=== PATIENT | male | born 1945 | race African-American/Black ===

== ENCOUNTER 2019-02-20 09:44 | Outpatient (CLI) | payer MEDICARE, MEDICAID ==
[2019-02-20 11:24] LABS: BLOOD UREA NITROGEN 18 mg/dL (7-18); CREATININE 1.1 MG/DL (0.55-1.30)
--- NOTE | 2019-02-20 14:00 | Diagnostic Imaging Report ---
. Indication: Dysphagia, shortness of breath Technique: No IV contrast, per referring physician request. Spiral acquisitions obtained through the neck. Multiplanar reconstructions were generated. Total dose length product 550.85 mGycm. CTDIvol(s) 18.36 mGy. Dose reduction achieved using automated exposure control Comparison: none Findings: Evaluation is limited due to the lack of IV contrast demonstration. Gas projects to the left of midline lateral to the expected course of the cervical esophagus. The included proximal thoracic esophagus appears unremarkable, although there is slight distention with gas distally. The nasopharynx, oropharynx, hypopharynx are unremarkable. There is equivocal slight prominence to the soft tissues of the larynx. However, this is symmetric and circumferential. The proximal trachea appears unremarkable. The thyroid is unremarkable. No cervical mass or adenopathy. There are prominent but not frankly enlarged cervical nodes noted. The orbits, sinuses, and included intracranial structures are unremarkable. The cervical spine demonstrates extensive degenerative spondylosis changes, with multiple levels of disc narrowing, posterior disc protrusion, spinal stenosis, and neural foraminal stenosis. Dense calcifications are seen at the carotid bifurcations bilaterally. The salivary glands are unremarkable, symmetrical. The patient is edentulous. The included upper lungs are clear. Calcified granulomatous prevascular space nodes are noted Impression: Gas projecting to the left of midline lateral to the expected course of the proximal cervical esophagus. This is suggestive of a diverticulum. Consider contrast esophagography to confirm Slight distention of the thoracic esophagus with gas, nonspecific but could indicate dysmotility Slight circumferential prominence of the laryngeal soft tissues. Of doubtful significance but direct inspection should be considered to rule out any underlying mass Fairly extensive degenerative cervical spondylosis Other chronic vascular disease Evidence of old granulomatous disease within mediastinal lymph nodes The CT scanner at [facility] is accredited by the [employer] and the scans are performed using protocols designed to limit radiation exposure to as low as reasonably achievable to attain images of sufficient resolution adequate for diagnostic evaluation.
== END 2019-02-20 11:44 | disposition home or self-care (01) ==
LOC: CAT 09:44
DX: J30.9 Allergic rhinitis, unspecified (principal); J40 Bronchitis, not specified as acute or chronic; J34.2 Deviated nasal septum; I32 Pericarditis in diseases classified elsewhere; R06.02 Shortness of breath; R13.10 Dysphagia, unspecified; M47.9 Spondylosis, unspecified; I99.9 Unspecified disorder of circulatory system
CPT/HCPCS: 36415; 70490; 82565; 84520

== ENCOUNTER 2019-07-21 20:53 | Inpatient (IN) | payer MEDICARE, OTHER ==
[~2019-07-21] VITALS: Ht 170.2 cm; Wt 67.8 kg
[2019-07-21 21:10] VITALS: BP 109/62
--- NOTE | 2019-07-21 21:10 | NUR ---
ED Nurse Note: Pt brought into ED by [facility] ambulance unit [id number] from [facility] for fever, decreased oral intake and weakness. Pt denies any pain at this time. Pt is aaox4, breathing is normal and unlabored, speaking in full sentences. Pt placed on monitoring and evaluation advisor and HR is tachy. Will continue to monitor. EKG at bedside.
[2019-07-21] MEDS ORDERED: ABILIFY2 MG ORAL (21:34)
[2019-07-21] MEDS ORDERED: CLARITIN10 M2 ORAL (21:37)
[2019-07-21] MEDS ORDERED: OS-CAL 500+D31 EAC1 PO (21:37)
[2019-07-21] MEDS ORDERED: COLACE100 MG ORAL (21:37)
[2019-07-21] MEDS ORDERED: Sodium Chloride 2,200 ML IVLG ONE (22:00)
--- NOTE | 2019-07-21 22:00 | Emergency Room Report ---
History of Present Illness General Chief Complaint: Generalized Weakness Source: EMS Present Illness HPI Disclaimer: Please note that this report is being documented using [employer] technology. This can lead to erroneous entry secondary to incorrect interpretation by the dictating instrument. HPI: 74-year-old male history of kidney disease, COPD, former substance abuse presents for evaluation of decreased oral intake, failure to thrive and cough. Patient presents from his nursing facility. He reports a few days of feeling ill. Reports objective fevers, chills, nonproductive cough, decreased appetite. He denies diarrhea or vomiting. Denies muscle aches or pains. Denies headaches, visual changes, skin rash. He denies chest pain or palpitations. Denies significant shortness of breath or wheezing but does note a persistent cough. PMH: COPD, substance abuse, hypertension, kidney disease PSH: Peripheral revascularization Allergies: Denies Social Hx: Former substance abuse and tobacco use Allergies: Coded Allergies: No Known Allergies (Verified , 10/13/07) Nursing Documentation-PMH Past Medical History: No History, Except For Hx Hypertension: Yes Hx COPD: Yes Review of Systems All Other Systems: negative except mentioned in HPI Physical Exam Vital Signs Date Time Temp Pulse Resp B/P (MAP) Pulse Ox O2 Delivery O2 Flow Rate FiO2 07/21/19 20:59 99.9 106 20 109/62 (78) 93 Room Air General: Awake and alert, no acute distress HEENT: NC/AT. EOMI. dry mucous membranes. Neck: Supple, trachea midline Chest Wall: No tenderness, no deformity Cardiovascular: Tachycardic and hypotensive. S1 and S2 normal. No murmur appreciated Resp: Normal work of breathing. Nonproductive cough during the exam. No wheezing or crackles appreciated Abdomen: Abdomen is soft, nondistended. Nontender. There is an umbilical hernia that is easily reducible without overlying skin change and is in no tenderness. Skin: Intact. No abrasions, laceration or rash over the exposed skin MSK: Normal tone and bulk. Moving all extremities. No obvious deformity. Neuro: Awake and alert. Mentating appropriately. Medical Decision Making Diagnostic Impression: Primary Impression: Pneumonia Additional Impressions: Dehydration Generalized weakness ER Course This is a 74-year-old male presenting from his nursing facility for several days of subjective fevers, nonproductive cough, decreased appetite and dehydration. He arrives tachycardic, borderline hypotensive and febrile. Concern for sepsis at this time likely from a pulmonary source. We will start a broad metabolic and infectious work-up. Will obtain blood cultures, lactates , start 30 cc/kg bolus according to sepsis protocols. He will require admission. Flu swabs also sent. He did receive a flu vaccination this year. Laboratory Tests Test 07/21/19 21:20 07/21/19 21:35 07/21/19 21:45 White Blood Count 7.1 K/UL (4.8-10.8) Red Blood Count 3.76 M/UL (4.70-6.10) L Hemoglobin 9.7 G/DL (14.2-18.0) L Hematocrit 32.6 % (42.0-52.0) L Mean Corpuscular Volume 87 FL (80-99) Mean Corpuscular Hemoglobin 25.8 PG (27.0-31.0) L Mean Corpuscular Hemoglobin Concent 29.7 G/DL (32.0-36.0) L Red Cell Distribution Width 20.1 % (11.6-14.8) H Platelet Count 200 K/UL (150-450) Mean Platelet Volume 6.1 FL (6.5-10.1) L Neutrophils (%) (Auto) % (45.0-75.0) Lymphocytes (%) (Auto) % (20.0-45.0) Monocytes (%) (Auto) % (1.0-10.0) Eosinophils (%) (Auto) % (0.0-3.0) Basophils (%) (Auto) % (0.0-2.0) Differential Total Cells Counted 100 Neutrophils % (Manual) 45 % (45-75) Lymphocytes % (Manual) 19 % (20-45) L Monocytes % (Manual) 35 % (1-10) H Eosinophils % (Manual) 0 % (0-3) Basophils % (Manual) 1 % (0-2) Band Neutrophils 0 % (0-8) Platelet Estimate Adequate Platelet Morphology Normal Polychromasia 1+ Hypochromasia 1+ Anisocytosis 2+ Prothrombin Time 12.9 SEC (9.30-11.50) H Prothrombin Time INR 1.2 (0.9-1.1) H Activated Partial Thromboplast Time 33 SEC (23-33) Sodium Level 135 MMOL/L (136-145) L Potassium Level 4.6 MMOL/L (3.5-5.1) Chloride Level 102 MMOL/L (98-107) Carbon Dioxide Level 24 MMOL/L (21-32) Anion Gap 9 mmol/L (5-15) Blood Urea Nitrogen 26 mg/dL (7-18) H Creatinine 1.4 MG/DL (0.55-1.30) H Estimate Glomerular Filtration Rate > 60 mL/min (>60) Glucose Level 118 MG/DL (74-106) H Calcium Level 8.9 MG/DL (8.5-10.1) Phosphorus Level 3.6 MG/DL (2.5-4.9) Magnesium Level 2.3 MG/DL (1.8-2.4) Total Bilirubin 0.5 MG/DL (0.2-1.0) Aspartate Amino Transferase (AST) 37 U/L (15-37) Alanine Aminotransferase (ALT) 21 U/L (12-78) Alkaline Phosphatase 106 U/L (46-116) Total Creatine Kinase 57 U/L (26-308) Creatine Kinase MB < 0.5 NG/ML (0.0-3.6) Creatine Kinase MB Relative Index 0.8 Troponin I 0.000 ng/mL (0.000-0.056) Pro-B-Type Natriuretic Peptide 2927 pg/mL (0-125) H Total Protein 9.4 G/DL (6.4-8.2) H Albumin 2.3 G/DL (3.4-5.0) L Globulin 7.1 g/dL Albumin/Globulin Ratio 0.3 (1.0-2.7) L Urine Color Yellow Urine Appearance Clear Urine pH 5 (4.5-8.0) Urine Specific [place] 1.020 (1.005-1.035) Urine Protein 2+ (NEGATIVE) H Urine Glucose (UA) Negative (NEGATIVE) Urine Ketones Negative (NEGATIVE) Urine Blood 2+ (NEGATIVE) H Urine Nitrite Negative (NEGATIVE) Urine Bilirubin Negative (NEGATIVE) Urine Urobilinogen 8 MG/DL (0.0-1.0) H Urine Leukocyte Esterase Negative (NEGATIVE) Urine RBC 2-4 /HPF (0 - 0) H Urine WBC 0-2 /HPF (0 - 0) Urine Squamous Epithelial Cells None /LPF (NONE/OCC) Urine Bacteria None /HPF (NONE) Lactic Acid Level 1.10 mmol/L (0.4-2.0) Microbiology Date/Time Source Procedure Growth Status 07/21/19 21:20 Nasal Nares - Final Complete 07/21/19 21:20 Nasal Nares - Final Complete EKG Diagnostic Results EKG Time: 21:19 Rate: tachycardiac Rhythm: NSR ST Segments: no acute changes Other Impression Sinus tachycardia, sinus rhythm, T wave inversions in the lateral leads without significant ST changes Rhythm Strip Diag. Results Rhythm Strip Time: 21:19 EP Interpretation: yes Rate: 110s Rhythm: NSR, no PVC's, no ectopy Reevaluation Time: 23:00 Last Vital Signs Date Time Temp Pulse Resp B/P (MAP) Pulse Ox O2 Delivery O2 Flow Rate FiO2 07/21/19 20:59 99.9 106 20 109/62 (78) 93 Room Air Reevaluation Impression Chest XR concerning for small right middle lobe effusion as well as possible infiltrate in the right lower lobe. Will treat for community-acquired pneumonia with ceftriaxone azithromycin. Cultures are sent. Labs have returned largely within normal limits. No significant white count. Baseline anemia with hemoglobin 9.7. Chemistry within normal limits. BN peptide elevated consistent with his history. Lactic acid 1.1. Urinalysis does not show signs of acute infection. Patient will be admitted to the hospital for further treatment of suspected community-acquired pneumonia. His heart rate and BP improving with IV fluids. Disposition: ADMITTED INPATIENT Condition: Serious Isael King MD Jul 21, 2019 22:00
[2019-07-21 22:15] LABS: HEMATOCRIT 32.6 % (42.0-52.0); HEMOGLOBIN 9.7 G/DL (14.2-18.0); MEAN CORPUSCULAR VOLUME 87 FL (80-99); PLATELET COUNT 200 K/UL (150-450); RED BLOOD COUNT 3.76 M/UL (4.70-6.10); RED CELL DISTRIBUTION WIDTH 20.1 % (11.6-14.8); WHITE BLOOD COUNT 7.1 K/UL (4.8-10.8)
[2019-07-21 22:20] LABS: APPEARANCE,URINE CLEAR; BILIRUBIN, URINE NEGATIVE (NEGATIVE); GLUCOSE, URINE (UA) NEGATIVE (NEGATIVE); KETONES,URINE NEGATIVE (NEGATIVE); LEUKOCYTE ESTERASE ,URINE NEGATIVE (NEGATIVE); NITRITE,URINE NEGATIVE (NEGATIVE); PH,URINE 5 (4.5-8.0); PROTEIN,URINE 2+ (NEGATIVE); UROBILINOGEN,URINE 8 MG/DL (0.0-1.0)
[2019-07-21 22:21] LABS: COLOR,URINE YELLOW
[2019-07-21 22:29] LABS: INR 1.2 (0.9-1.1)
[2019-07-21 22:32] LABS: ANION GAP 9 mmol/L (5-15); BLOOD UREA NITROGEN 26 mg/dL (7-18); CALCIUM 8.9 MG/DL (8.5-10.1); CARBON DIOXIDE 24 MMOL/L (21-32); CHLORIDE 102 MMOL/L (98-107); CREATININE 1.4 MG/DL (0.55-1.30); POTASSIUM 4.6 MMOL/L (3.5-5.1); SODIUM 135 MMOL/L (136-145)
[2019-07-21] MEDS ORDERED: VITAMIN B-12500 MCG ORAL (22:36)
[2019-07-21] MEDS ORDERED: ACETAMINOPHEN120 MG PO (22:36)
[2019-07-21] MEDS ORDERED: NORCO 5-325 TA1 EACH ORAL (22:36)
[2019-07-21] MEDS ORDERED: ROBAXIN-500MG ORAL (22:36)
[2019-07-21] MEDS ORDERED: FOLIC ACID1 MG ORAL (22:36)
[2019-07-21] MEDS ORDERED: NEURONTIN100 MG ORAL (22:36)
[2019-07-21] MEDS ORDERED: MIRTAZAPINE15 MG ORAL (22:36)
[2019-07-21] MEDS ORDERED: ATORVASTATIN CA10 MG ORAL (22:36)
[2019-07-21 22:44] LABS: ALANINE AMINOTRANSFERASE 21 U/L (12-78); ALBUMIN 2.3 G/DL (3.4-5.0); ALBUMIN/GLOBULIN RATIO 0.3 (1.0-2.7); ALKALINE PHOSPHATASE 106 U/L (46-116); ASPARTATE AMINO TRANSFERASE 37 U/L (15-37); BILIRUBIN,TOTAL 0.5 MG/DL (0.2-1.0); PHOSPHORUS 3.6 MG/DL (2.5-4.9)
[2019-07-21] MEDS ORDERED: Azithromycin 500 MG in NS 275 ML IV ONE (22:45)
[2019-07-21] MEDS ORDERED: cefTRIAXone 1 GM in NS 55 ML IVPB ONE (22:45)
[2019-07-21 22:46] LABS: CKMB < 0.5 NG/ML (0.0-3.6); CREATINE KINASE 57 U/L (26-308)
[2019-07-21] MEDS ORDERED: Morphine Sulfate 4mg/ml Inj (IV USE ONLY) IVP PRN (23:00)
[2019-07-21] MEDS ORDERED: Morphine Sulfate 2mg/ml Inj(IV/IM USE ONLY) IVP PRN (23:00)
--- NOTE | 2019-07-21 23:00 | NUR ---
ED Nurse Note: Pt given sandwhich and juice, Ok'd by ERMD. Pt is in no acute distress at this time. VSS. Will continue to monitor.
[2019-07-22] VITALS (7 sets, daily range): BP systolic 104–130; BP diastolic 53–69
--- NOTE | 2019-07-22 00:05 | NUR ---
ED Nurse Note: Pt is sleeping in bed at this time. No signs of distress noted, vital signs are stable. IV antibx infusing as ordered. Will continue to monitor.
--- NOTE | 2019-07-22 01:20 | NUR ---
ED Nurse Note: Report given to FANNY Florentino.
--- NOTE | 2019-07-22 01:30 | NUR ---
ED Nurse Note: Pt stable to transfer to tele unit at this time per ERMD. Pt is aaox4, no acute distress noted and vital signs are stable. Pt taken to unit via gurney by RN, connected to monitor. All belongings sent with pt.
--- NOTE | 2019-07-22 02:00 | NUR ---
NURSE NOTES: Received pt from ER via [facility]. Pt able to get onto bed from [facility]. Belongings verified. monitor technician applied, vitals taken. Pt oriented to room and unit. Iv site intact. Bed locked in lowest position, call light within reach. Will seek admission orders.
[2019-07-22] MEDS ORDERED: Albuterol/Ipratropium 3ml neb HHN PRN (05:00)
[2019-07-22] MEDS ORDERED: HYDROcodone/Acetamin 5/325 tab ORAL PRN (05:15)
[2019-07-22] MEDS ORDERED: Methocarbamol 500mg tab ORAL PRN (05:15)
[2019-07-22] MEDS: D5 1/2NS 1,000 ML IV SCH ×2 (06:00→22:13)
--- NOTE | 2019-07-22 07:00 | NUR ---
NURSE NOTES: PT AWAKE ALERT, NO DISTRESS. NO C/O PAIN, CALL LIGHT WITHIN REACH. WILL MONITOR. BED IN LOWEST POSITION, LOCKED.
--- NOTE | 2019-07-22 07:20 | NUR ---
HAND-OFF: Report given to FANNY Rodriguez. Endorsed plan of care.
[2019-07-22 07:49] LABS: HEMATOCRIT 25.9 % (42.0-52.0); HEMOGLOBIN 8.2 G/DL (14.2-18.0); MEAN CORPUSCULAR VOLUME 84 FL (80-99); PLATELET COUNT 170 K/UL (150-450); RED BLOOD COUNT 3.09 M/UL (4.70-6.10); RED CELL DISTRIBUTION WIDTH 18.7 % (11.6-14.8); WHITE BLOOD COUNT 6.3 K/UL (4.8-10.8)
[2019-07-22] MEDS: Docusate 100mg cap ORAL SCH (08:28)
[2019-07-22 08:36] LABS: ANION GAP 9 mmol/L (5-15); BLOOD UREA NITROGEN 20 mg/dL (7-18); CALCIUM 8.2 MG/DL (8.5-10.1); CARBON DIOXIDE 23 MMOL/L (21-32); CHLORIDE 106 MMOL/L (98-107); CREATININE 1.1 MG/DL (0.55-1.30); POTASSIUM 4.3 MMOL/L (3.5-5.1); SODIUM 138 MMOL/L (136-145)
[2019-07-22] MEDS: Vitamin B-12 500mcg tab ORAL SCH (09:12)
--- NOTE | 2019-07-22 09:58 | NUR ---
ST NOTES: REFERRED FOR A SWALLOW EVAL BY DR WANG, SEE FULL REPORT. DYSPHAGIA RISK FOR THIS 74 Y.O. AA MALE: ACUTE ISSUES: PNA, SEPSIS, RESPIRATORY ILLNESS, FTT POOR INTAKE, GENERAL WEAKNESS, DEHYDRATION H/O DYSPHAGIA ? 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 S/P INGUINAL HERNIA REPAIRS 03/2019 AND HAD ABDOMINAL HERNIAS. SEEN BY ST FOR CLINICAL SWALLOW EVAL AND PATIENT C/O FOOD AND LIQUID STICKING IN THROAT AND REGURGITATION BUT CLEARED FOR REG TEXTURE DIET AND THIN LIQUIDS WITH ST TO FOLLOW. NO REPORT ABOUT HAVING HAD A MOD BARIUM SWALLOW STUDY. DID HAVE SOME GI F/UP AND A COLONOSCOPY AT [facility]. POLST/AD NOT COMPLETED, AT SNF ON A KAYLEE REG TEXTURE DIET AND THIN LIQUIDS WITH LARGE PORTIONS AND ENSURE (LIKES STRAWBERRY), COTTAGE CHEESE, AND PBJ SANDWICHES. PER PATIENT, SAID HE HAD BREAKFAST TODAY AND DOES NOT WANT ANY DIET CHANGES OR DOWNGRADES. HIS VOICE IS HOARSE AND HE HAS A COUGH W/O PO TRIALS. HE SAID HE IS TIRED TODAY. HIS UPPER DENTURES ARE LOOSE AND HE HAS NO ADHESIVE, LOWER DENTURES LESS LOOSE. GROSSLY FUNCTIONAL OROMOTOR SKILLS FOR INTELLIGIBLE SPEECH. INITIAL IMPRESSIONS: HIGH RISK FOR PERSISTENT OR WORSENED OROPHARYNGEAL AND POSSIBLY ESOPHAGEAL DYSPHAGIA RISK FOR SILENT ASPIRATION GIVEN DEMENTIA DIAGNOSIS RECOMMENDATIONS HOLD ON PO TRIALS AND PO INTAKE AT THIS TIME UNTIL HE HAS A MOD BARIUM SWALLOW STUDY WITH AN ESOPHAGEAL FOLLOW THROUGH TO ASSESS SWALLOW, DETERMINE SILENT ASPIRATION, AND ATTEMPT TRIAL TX TECHNIQUES. D/W DR WANG WHO WANTED GI DR ROME TO CONSULT. D/W DR ROME AND RN MARCY
[2019-07-22] MEDS ORDERED: Varibar Honey 250ml MC PRN (10:00)
[2019-07-22] MEDS ORDERED: Varibar Pudding 230ml MC PRN (10:00)
[2019-07-22] MEDS ORDERED: Varibar Nectar 240ml MC PRN (10:00)
[2019-07-22] MEDS ORDERED: Sodium Polystyrene Sulfonate 15gm Powder ORAL SCH (10:30)
--- NOTE | 2019-07-22 11:40 | NUR ---
ST NOTES: COMPLETED MODIFIED BARIUM SWALLOW STUDY, SEE FULL REPORT AND SUMMARY TO FOLLOW. 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 NO ASPIRATION NOTED BUT HAS A HIGH RISK FOR CHRONIC TRACE ASPIRATION AND LARYNGEAL PENETRATION (ESPECIALLY WITH LIQUIDS) IF STRICT ASPIRATION AND REFLUX PRECAUTIONS AND SWALLOW STRATEGIES ARE NOT USED. PLAN: CONTINUE WITH PO INTAKE AND DOWNGRADE TO SOFT CHEW (PATIENT REFUSES ANY FURTHER DOWNGRADES EVEN THOUGH HE C/O "REGURGITATION" EPISODES WITH SOLIDS AT TIMES. CONTINUE WITH THIN LIQUIDS (PATIENT REFUSES NECTAR THICK LIQUIDS) WITH SMALL SIPS (TSP LEVEL) ONE AT A TIME. HEAD TURN LEFT IN HOPES TO CLOSE OFF THE LEFT-SIDED DIVERTICULUM COULD BE USED (NOT TESTED UNDER FLUORO DUE TO 5 MIN RADIATION LIMIT). PER RD OK TO LIBERALIZE DIET TO REGULAR TYPE FOR NOW AND SEND ENSURE ENLIVE TID. EDUCATED/TRAINED PATIENT AND RN (MARCY) IN POSTED ASPIRATION AND REFLUX PRECAUTIONS.
--- NOTE | 2019-07-22 11:45 | GI Initial Consult Note ---
History of Present Illness General Date patient seen: Jul 22, 2019 Reason for Hospitalization: Generalized Weakness Referring physician: TANIKA WANG Reason for Consultation: FTT Present Illness HPI 74-year-old male history of kidney disease, COPD, former substance abuse presents for evaluation of decreased oral intake, failure to thrive and cough. Patient presents from his nursing facility. He reports a few days of feeling ill. Reports objective fevers, chills, nonproductive cough, decreased appetite. He denies diarrhea or vomiting. Denies muscle aches or pains. Denies headaches, visual changes, skin rash. He denies chest pain or palpitations. Denies significant shortness of breath or wheezing but does note a persistent cough. GI consulted for failure to thrive. ROS limited, patient seen no apparent distress. Patient is currently scheduled for video swallow study today. Reported that patient had a decrease amount of oral intake. Laboratory review noted patient with hemoglobin 8.2, hematocrit 25.9, creatinine 1.4, INR 1.2. No transaminitis noted, no hyperbilirubinemia noted. The patient had a CT of the neck with no contrast in February 2019 suggestive of a diverticulum. There is slight distention in the thoracic esophagus with gas, with effect but could have indicate dysmotility. Unknown history of endoscopic or colonoscopy. Home Meds Reported Medications Acetaminophen* (TYLENOL*) 120 Mg Supp.rect, 325 MG PO Q4H PRN for Mild Pain/ Temp > 100.5, SUPP 07/21/19 Methocarbamol* (ROBAXIN-500*) 500 Mg Tablet, 500 MG ORAL QID PRN for For Pain, # 20 TAB 0 Refills 07/21/19 Mirtazapine* (REMERON*) 15 Mg Tablet, 15 MG ORAL BEDTIME for insomnia, TAB 07/21/19 Hydrocodone Bit/Acetaminophen 5-325* (NORCO 5-325*) 1 Each Tablet, 1 TAB ORAL Q6H PRN for For Pain, #10 TAB 0 Refills 07/21/19 Gabapentin* (NEURONTIN*) 100 Mg Capsule, 300 MG ORAL THREE TIMES A DAY for neuropathy, CAP 07/21/19 Atorvastatin Calcium* (LIPITOR*) 10 Mg Tablet, 10 MG ORAL BEDTIME for cholesterol, TAB 07/21/19 Folic Acid* (FOLIC ACID*) 1 Mg Tablet, 1 MG ORAL DAILY for suppliment, TAB 07/21/19 Cyanocobalamin (Vitamin B-12)* (VITAMIN B-12*) 500 Mcg Tablet, 1000 MCG ORAL DAILY for suppliment, #30 TAB 0 Refills 07/21/19 Docusate Sodium* (COLACE*) 100 Mg Capsule, 100 MG ORAL DAILY for constipation, CAP 07/21/19 Loratadine (CLARITIN) 10 Mg Capsule, 10 MG ORAL DAILY for allergies, CAP 07/21/19 Calcium Carbonate/Vitamin D3 (Os-Iron 500+D3 Caplet) 1 Each Tablet, 1 EACH PO BID for suppliment, TAB 07/21/19 Aripiprazole* (ABILIFY*) 2 Mg Tablet, 2.5 MG ORAL DAILY for depression, TAB 07/21/19 Med list reviewed/reconciled: Yes Allergies: Coded Allergies: No Known Allergies (Verified , 10/13/07) Patient History Limited by: medical condition History Provided By: Medical Record PMH Narrative PMH: COPD, substance abuse, hypertension, kidney disease PSH: Peripheral revascularization Allergies: Denies Social Hx: Former substance abuse and tobacco use Allergies: Coded Allergies: No Known Allergies (Verified , 10/13/07) Nursing Documentation-[facility] Past Medical History: No History, Except For Hx Hypertension: Yes Hx COPD: Yes Social History: Denies: smoking, alcohol use, drug use, other Review of Systems All Other Systems: limited Physical Exam Vital Signs Date Time Temp Pulse Resp B/P (MAP) Pulse Ox O2 Delivery O2 Flow Rate FiO2 07/21/19 20:59 99.9 106 20 109/62 (78) 93 Room Air 07/22/19 02:51 1.0 Sp02 EP Interpretation: reviewed Labs Laboratory Tests Test 07/21/19 21:20 07/21/19 21:35 07/21/19 21:45 07/22/19 05:33 White Blood Count 7.1 K/UL (4.8-10.8) 6.3 K/UL (4.8-10.8) Red Blood Count 3.76 M/UL (4.70-6.10) L 3.09 M/UL (4.70-6.10) L Hemoglobin 9.7 G/DL (14.2-18.0) L 8.2 G/DL (14.2-18.0) L Hematocrit 32.6 % (42.0-52.0) L 25.9 % (42.0-52.0) L Mean Corpuscular Volume 87 FL (80-99) 84 FL (80-99) Mean Corpuscular Hemoglobin 25.8 PG (27.0-31.0) L 26.6 PG (27.0-31.0) L Mean Corpuscular Hemoglobin Concent 29.7 G/DL (32.0-36.0) L 31.6 G/DL (32.0-36.0) L Red Cell Distribution Width 20.1 % (11.6-14.8) H 18.7 % (11.6-14.8) H Platelet Count 200 K/UL (150-450) 170 K/UL (150-450) Mean Platelet Volume 6.1 FL (6.5-10.1) L 5.5 FL (6.5-10.1) L Neutrophils (%) (Auto) % (45.0-75.0) % (45.0-75.0) Lymphocytes (%) (Auto) % (20.0-45.0) % (20.0-45.0) Monocytes (%) (Auto) % (1.0-10.0) % (1.0-10.0) Eosinophils (%) (Auto) % (0.0-3.0) % (0.0-3.0) Basophils (%) (Auto) % (0.0-2.0) % (0.0-2.0) Differential Total Cells Counted 100 100 Neutrophils % (Manual) 45 % (45-75) 39 % (45-75) L Lymphocytes % (Manual) 19 % (20-45) L 30 % (20-45) Monocytes % (Manual) 35 % (1-10) H 30 % (1-10) H Eosinophils % (Manual) 0 % (0-3) 1 % (0-3) Basophils % (Manual) 1 % (0-2) 0 % (0-2) Band Neutrophils 0 % (0-8) 0 % (0-8) Platelet Estimate Adequate Adequate Platelet Morphology Normal Normal Polychromasia 1+ 1+ Hypochromasia 1+ 1+ Anisocytosis 2+ 1+ Prothrombin Time 12.9 SEC (9.30-11.50) H Prothromb Time International Ratio 1.2 (0.9-1.1) H Activated Partial Thromboplast Time 33 SEC (23-33) Sodium Level 135 MMOL/L (136-145) L 138 MMOL/L (136-145) Potassium Level 4.6 MMOL/L (3.5-5.1) 4.3 MMOL/L (3.5-5.1) Chloride Level 102 MMOL/L (98-107) 106 MMOL/L (98-107) Carbon Dioxide Level 24 MMOL/L (21-32) 23 MMOL/L (21-32) Anion Gap 9 mmol/L (5-15) 9 mmol/L (5-15) Blood Urea Nitrogen 26 mg/dL (7-18) H 20 mg/dL (7-18) H Creatinine 1.4 MG/DL (0.55-1.30) H 1.1 MG/DL (0.55-1.30) Estimat Glomerular Filtration Rate > 60 mL/min (>60) > 60 mL/min (>60) Glucose Level 118 MG/DL (74-106) H 91 MG/DL (74-106) Calcium Level 8.9 MG/DL (8.5-10.1) 8.2 MG/DL (8.5-10.1) L Phosphorus Level 3.6 MG/DL (2.5-4.9) Magnesium Level 2.3 MG/DL (1.8-2.4) Total Bilirubin 0.5 MG/DL (0.2-1.0) Aspartate Amino Transf (AST/SGOT) 37 U/L (15-37) Alanine Aminotransferase (ALT/SGPT) 21 U/L (12-78) Alkaline Phosphatase 106 U/L (46-116) Total Creatine Kinase 57 U/L (26-308) Creatine Kinase MB < 0.5 NG/ML (0.0-3.6) Creatine Kinase MB Relative Index 0.8 Troponin I 0.000 ng/mL (0.000-0.056) Pro-B-Type Natriuretic Peptide 2927 pg/mL (0-125) H Total Protein 9.4 G/DL (6.4-8.2) H Albumin 2.3 G/DL (3.4-5.0) L Globulin 7.1 g/dL Albumin/Globulin Ratio 0.3 (1.0-2.7) L Urine Color Yellow Urine Appearance Clear Urine pH 5 (4.5-8.0) Urine Specific [place] 1.020 (1.005-1.035) Urine Protein 2+ (NEGATIVE) H Urine Glucose (UA) Negative (NEGATIVE) Urine Ketones Negative (NEGATIVE) Urine Blood 2+ (NEGATIVE) H Urine Nitrite Negative (NEGATIVE) Urine Bilirubin Negative (NEGATIVE) Urine Urobilinogen 8 MG/DL (0.0-1.0) H Urine Leukocyte Esterase Negative (NEGATIVE) Urine RBC 2-4 /HPF (0 - 0) H Urine WBC 0-2 /HPF (0 - 0) Urine Squamous Epithelial Cells None /LPF (NONE/OCC) Urine Bacteria None /HPF (NONE) Lactic Acid Level 1.10 mmol/L (0.4-2.0) General Appearance: well appearing, no apparent distress, alert Head: normocephalic EENT: normal ENT inspection Neck: supple Respiratory: lungs clear, no rhonchi Cardiovascular: normal rate Skin: normal inspection, normal color, no rash Current Medications Current Medications Medications (Trade) Dose Ordered Sig/Chiqui Route PRN Reason Start Time Stop Time Status Last Admin Dose Admin Acetaminophen (Tylenol) 650 mg Q4H PRN ORAL Mild Pain/Temp > 100.5 07/22/19 05:15 08/21/19 05:14 Acetaminophen/ Hydrocodone Bitart ([place] 5/325) 1 tab Q6H PRN ORAL For Pain 07/22/19 05:15 07/29/19 05:14 Albuterol/ Ipratropium (Albuterol/ Ipratropium) 3 ml Q6H PRN HHN Shortness of Breath 07/22/19 05:00 07/27/19 04:59 Aripiprazole (Abilify) 2.5 mg DAILY ORAL 07/22/19 09:00 08/21/19 08:59 07/22/19 09:12 Atorvastatin Calcium (Lipitor) 10 mg BEDTIME ORAL 07/22/19 21:00 08/21/19 20:59 Barium Sulfate (Varibar Honey) 250 ml NOW PRN MC RAD 07/22/19 10:00 07/25/19 09:53 Barium Sulfate (Varibar [place]) 240 ml NOW PRN MC RAD 07/22/19 10:00 07/25/19 09:53 Barium Sulfate (Varibar Pudding) 230 ml NOW PRN MC RAD 07/22/19 10:00 07/25/19 09:53 Cyanocobalamin (Vitamin B-12) 1,000 mcg DAILY ORAL 07/22/19 09:00 08/21/19 08:59 07/22/19 09:12 Dextrose (Dextrose 50%) 25 ml Q30M PRN IV Hypoglycemia 07/22/19 05:15 08/21/19 05:14 Dextrose (Dextrose 50%) 50 ml Q30M PRN IV Hypoglycemia 07/22/19 05:15 08/21/19 05:14 Dextrose/Sodium Chloride 1,000 ml @ 60 mls/hr [id number] IV 07/22/19 06:00 08/21/19 05:59 07/22/19 06:00 Docusate Sodium (Colace) 100 mg DAILY ORAL 07/22/19 09:00 08/21/19 08:59 07/22/19 08:28 Folic Acid (Folate) 1 mg DAILY ORAL 07/22/19 09:00 08/21/19 08:59 07/22/19 08:28 Gabapentin (Neurontin) 300 mg TID@0600,1400,2200 ORAL 07/22/19 06:00 08/21/19 05:59 07/22/19 06:00 Methocarbamol (Robaxin) 500 mg QIDPRN PRN ORAL muscle spasm/pain 07/22/19 05:15 08/21/19 05:14 Mirtazapine (Remeron) 15 mg BEDTIME ORAL 07/22/19 21:00 08/21/19 20:59 Ondansetron HCl (Zofran) 4 mg PRN PRN IVP Nausea & Vomiting 07/21/19 23:00 GI: Plan Problems: (1) FTT (failure to thrive) in adult (2) Dysphagia (3) Diverticulum of esophagus (4) Anemia (5) Generalized weakness (6) Pneumonia (7) Dehydration Plan CT esophagus in 2019 noted with esophagus diverticulum Patient scheduled for video swallow study today. may need 48 hour calorie count if patient passes swallow evaluation to evaluate for nutrition needs are met PEG if needed anemia work up OB stool r/o GI bleed monitor H&H, prn transfusions bowel regimen ppi fu labs The patient was seen and examined at bedside and all new and available data was reviewed in the patients chart. I agree with the above findings, impression and plan. (Patient seen earlier today. Signature stamp does not reflect patient encounter time.). - MD Soila ParmarHonorhealth John C. Lincoln Medical CenterDedra GRIFFITHS Jul 22, 2019 11:45
--- NOTE | 2019-07-22 11:53 | NUR ---
CASE MANAGEMENT:REVIEW 74 YR OLD MALE BIBA FROM [facility] CC: GENERALIZED WEAKNESS. NEW UMBILICAL HERNIA SI: PNA. GENERALIZED WEAKNESS. DEHYDRATION 99.9 110 20 109/62 93% ON RA BUN+26 CR+1.4 IS: 2L NS BOLUS IV AZITHROMYCIN IV ROCEPHIN BLOOD CX : TO TELEMETRY DCP: RETURN TO [facility]
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
[2019-07-22] MEDS ORDERED: Promethazine/Codeine 5ml UD ORAL PRN (12:15)
--- NOTE | 2019-07-22 12:17 | Consultation ---
History of Present Illness General Date patient seen: Jul 22, 2019 Chief Complaint: Generalized Weakness Referring physician: TANIKA WANG Reason for Consultation: FTT Present Illness HPI 74-year-old male with history of COPD, former substance abuse, depression, schizophrenia, CAD, HTN, retirement resident presented to ER with CC of decreased oral intake, failure to thrive and cough. He reports a few days of feeling ill, fevers, chills, nonproductive cough, decreased appetite. Denies significant shortness of breath or wheezing but does note a persistent cough. His CXR showed RLL infiltrate and he was severely anemic. He is admitted for further management. Allergies: Coded Allergies: No Known Allergies (Verified , 10/13/07) Medication History Scheduled Aripiprazole* (Abilify*), 2.5 MG ORAL DAILY, (Reported) Atorvastatin Calcium* (Lipitor*), 10 MG ORAL BEDTIME, (Reported) Calcium Carbonate/Vitamin D3 (Os-Iron 500+D3 Caplet), 1 EACH PO BID, (Reported) Cyanocobalamin (Vitamin B-12)* (Vitamin B-12*), 1,000 MCG ORAL DAILY, (Reported) Docusate Sodium* (Colace*), 100 MG ORAL DAILY, (Reported) Folic Acid* (Folic Acid*), 1 MG ORAL DAILY, (Reported) Gabapentin* (Neurontin*), 300 MG ORAL THREE TIMES A DAY, (Reported) Loratadine (Claritin), 10 MG ORAL DAILY, (Reported) Mirtazapine* (Remeron*), 15 MG ORAL BEDTIME, (Reported) Scheduled PRN Acetaminophen* (Tylenol*), 325 MG PO Q4H PRN for Mild Pain/Temp > 100.5, ( Reported) Hydrocodone Bit/Acetaminophen 5-325* ([place] 5-325*), 1 TAB ORAL Q6H PRN for For Pain, (Reported) Methocarbamol* (Robaxin-500*), 500 MG ORAL QID PRN for For Pain, (Reported) Patient History Healthcare decision maker Resuscitation status Full Code Advanced Directive on File Past Medical/Surgical History Past Medical/Surgical History: (1) Hypertension (2) Schizophrenia (3) Depression (4) COPD (chronic obstructive pulmonary disease) Review of Systems All Other Systems: negative except mentioned in HPI Physical Exam General Appearance: cachetic, thin Lines, tubes and drains: peripheral HEENT: normocephalic, atraumatic Neck: non-tender, normal alignment Respiratory/Chest: chest wall non-tender, lungs clear Breasts: no masses Cardiovascular/Chest: normal peripheral pulses, normal rate Abdomen: normal bowel sounds, non tender Extremities: normal range of motion Skin Exam: normal pigmentation Last 24 Hour Vital Signs Date Time Temp Pulse Resp B/P (MAP) Pulse Ox O2 Delivery O2 Flow Rate FiO2 07/22/19 12:00 99.5 93 20 115/60 (78) 96 07/22/19 08:38 Nasal Cannula 2.0 07/22/19 07:40 99.5 96 20 125/69 (87) 96 07/22/19 07:40 88 07/22/19 04:00 98.1 97 20 121/62 (81) 96 07/22/19 02:51 Nasal Cannula 1.0 07/22/19 02:14 98.1 91 20 121/62 (81) 97 07/22/19 02:00 99 07/22/19 01:30 99.0 90 21 119/56 97 Room Air 07/22/19 00:05 99.9 97 22 104/60 98 Room Air 07/21/19 21:10 110 20 Room Air 07/21/19 21:10 99.9 110 20 109/62 93 Room Air 07/21/19 20:59 99.9 106 20 109/62 (78) 93 Room Air Intake and Output 07/21/19 07/22/19 18:59 06:59 Intake Total 200 ml Balance 200 ml Intake Oral 200 ml # Voids 3 Laboratory Tests Test 07/21/19 21:20 07/21/19 21:35 07/21/19 21:45 07/22/19 05:33 White Blood Count 7.1 K/UL (4.8-10.8) 6.3 K/UL (4.8-10.8) Red Blood Count 3.76 M/UL (4.70-6.10) L 3.09 M/UL (4.70-6.10) L Hemoglobin 9.7 G/DL (14.2-18.0) L 8.2 G/DL (14.2-18.0) L Hematocrit 32.6 % (42.0-52.0) L 25.9 % (42.0-52.0) L Mean Corpuscular Volume 87 FL (80-99) 84 FL (80-99) Mean Corpuscular Hemoglobin 25.8 PG (27.0-31.0) L 26.6 PG (27.0-31.0) L Mean Corpuscular Hemoglobin Concent 29.7 G/DL (32.0-36.0) L 31.6 G/DL (32.0-36.0) L Red Cell Distribution Width 20.1 % (11.6-14.8) H 18.7 % (11.6-14.8) H Platelet Count 200 K/UL (150-450) 170 K/UL (150-450) Mean Platelet Volume 6.1 FL (6.5-10.1) L 5.5 FL (6.5-10.1) L Neutrophils (%) (Auto) % (45.0-75.0) % (45.0-75.0) Lymphocytes (%) (Auto) % (20.0-45.0) % (20.0-45.0) Monocytes (%) (Auto) % (1.0-10.0) % (1.0-10.0) Eosinophils (%) (Auto) % (0.0-3.0) % (0.0-3.0) Basophils (%) (Auto) % (0.0-2.0) % (0.0-2.0) Differential Total Cells Counted 100 100 Neutrophils % (Manual) 45 % (45-75) 39 % (45-75) L Lymphocytes % (Manual) 19 % (20-45) L 30 % (20-45) Monocytes % (Manual) 35 % (1-10) H 30 % (1-10) H Eosinophils % (Manual) 0 % (0-3) 1 % (0-3) Basophils % (Manual) 1 % (0-2) 0 % (0-2) Band Neutrophils 0 % (0-8) 0 % (0-8) Platelet Estimate Adequate Adequate Platelet Morphology Normal Normal Polychromasia 1+ 1+ Hypochromasia 1+ 1+ Anisocytosis 2+ 1+ Prothrombin Time 12.9 SEC (9.30-11.50) H Prothromb Time International Ratio 1.2 (0.9-1.1) H Activated Partial Thromboplast Time 33 SEC (23-33) Sodium Level 135 MMOL/L (136-145) L 138 MMOL/L (136-145) Potassium Level 4.6 MMOL/L (3.5-5.1) 4.3 MMOL/L (3.5-5.1) Chloride Level 102 MMOL/L (98-107) 106 MMOL/L (98-107) Carbon Dioxide Level 24 MMOL/L (21-32) 23 MMOL/L (21-32) Anion Gap 9 mmol/L (5-15) 9 mmol/L (5-15) Blood Urea Nitrogen 26 mg/dL (7-18) H 20 mg/dL (7-18) H Creatinine 1.4 MG/DL (0.55-1.30) H 1.1 MG/DL (0.55-1.30) Estimat Glomerular Filtration Rate > 60 mL/min (>60) > 60 mL/min (>60) Glucose Level 118 MG/DL (74-106) H 91 MG/DL (74-106) Calcium Level 8.9 MG/DL (8.5-10.1) 8.2 MG/DL (8.5-10.1) L Phosphorus Level 3.6 MG/DL (2.5-4.9) Magnesium Level 2.3 MG/DL (1.8-2.4) Total Bilirubin 0.5 MG/DL (0.2-1.0) Aspartate Amino Transf (AST/SGOT) 37 U/L (15-37) Alanine Aminotransferase (ALT/SGPT) 21 U/L (12-78) Alkaline Phosphatase 106 U/L (46-116) Total Creatine Kinase 57 U/L (26-308) Creatine Kinase MB < 0.5 NG/ML (0.0-3.6) Creatine Kinase MB Relative Index 0.8 Troponin I 0.000 ng/mL (0.000-0.056) Pro-B-Type Natriuretic Peptide 2927 pg/mL (0-125) H Total Protein 9.4 G/DL (6.4-8.2) H Albumin 2.3 G/DL (3.4-5.0) L Globulin 7.1 g/dL Albumin/Globulin Ratio 0.3 (1.0-2.7) L Urine Color Yellow Urine Appearance Clear Urine pH 5 (4.5-8.0) Urine Specific [place] 1.020 (1.005-1.035) Urine Protein 2+ (NEGATIVE) H Urine Glucose (UA) Negative (NEGATIVE) Urine Ketones Negative (NEGATIVE) Urine Blood 2+ (NEGATIVE) H Urine Nitrite Negative (NEGATIVE) Urine Bilirubin Negative (NEGATIVE) Urine Urobilinogen 8 MG/DL (0.0-1.0) H Urine Leukocyte Esterase Negative (NEGATIVE) Urine RBC 2-4 /HPF (0 - 0) H Urine WBC 0-2 /HPF (0 - 0) Urine Squamous Epithelial Cells None /LPF (NONE/OCC) Urine Bacteria None /HPF (NONE) Lactic Acid Level 1.10 mmol/L (0.4-2.0) Microbiology Date/Time Source Procedure Growth Status 07/21/19 21:20 Nasal Nares - Final Complete 07/21/19 21:20 Nasal Nares - Final Complete 07/22/19 00:00 Rectum Received Height (Feet): 5 Height (Inches): 7.00 Weight (Pounds): 145 Medications Current Medications Medications (Trade) Dose Ordered Sig/Chiqui Route PRN Reason Start Time Stop Time Status Last Admin Dose Admin Acetaminophen (Tylenol) 650 mg Q4H PRN ORAL Mild Pain/Temp > 100.5 07/22/19 05:15 08/21/19 05:14 Acetaminophen/ Hydrocodone Bitart ([place] 5/325) 1 tab Q6H PRN ORAL For Pain 07/22/19 05:15 07/29/19 05:14 Albuterol/ Ipratropium (Albuterol/ Ipratropium) 3 ml Q6H PRN HHN Shortness of Breath 07/22/19 05:00 07/27/19 04:59 Aripiprazole (Abilify) 2.5 mg DAILY ORAL 07/22/19 09:00 08/21/19 08:59 07/22/19 09:12 Atorvastatin Calcium (Lipitor) 10 mg BEDTIME ORAL 07/22/19 21:00 08/21/19 20:59 Barium Sulfate (Varibar Honey) 250 ml NOW PRN MC RAD 07/22/19 10:00 07/25/19 09:53 Barium Sulfate (Varibar [place]) 240 ml NOW PRN MC RAD 07/22/19 10:00 07/25/19 09:53 Barium Sulfate (Varibar Pudding) 230 ml NOW PRN MC RAD 07/22/19 10:00 07/25/19 09:53 Cyanocobalamin (Vitamin B-12) 1,000 mcg DAILY ORAL 07/22/19 09:00 08/21/19 08:59 07/22/19 09:12 Dextrose (Dextrose 50%) 25 ml Q30M PRN IV Hypoglycemia 07/22/19 05:15 08/21/19 05:14 Dextrose (Dextrose 50%) 50 ml Q30M PRN IV Hypoglycemia 07/22/19 05:15 08/21/19 05:14 Dextrose/Sodium Chloride 1,000 ml @ 60 mls/hr [id number] IV 07/22/19 06:00 08/21/19 05:59 07/22/19 06:00 Docusate Sodium (Colace) 100 mg DAILY ORAL 07/22/19 09:00 08/21/19 08:59 07/22/19 08:28 Folic Acid (Folate) 1 mg DAILY ORAL 07/22/19 09:00 08/21/19 08:59 07/22/19 08:28 Gabapentin (Neurontin) 300 mg TID@0600,1400,2200 ORAL 07/22/19 06:00 08/21/19 05:59 07/22/19 06:00 Methocarbamol (Robaxin) 500 mg QIDPRN PRN ORAL muscle spasm/pain 07/22/19 05:15 08/21/19 05:14 Mirtazapine (Remeron) 15 mg BEDTIME ORAL 07/22/19 21:00 08/21/19 20:59 Promethazine HCl/ Codeine (Phenergan with Codeine) 5 ml Q4H PRN ORAL For Cough 07/22/19 12:15 08/21/19 12:14 Theophylline ([place]-Dur) 100 mg EVERY 12 HOURS ORAL 07/22/19 21:00 08/21/19 20:59 Assessment/Plan Problem List: (1) Nosocomial pneumonia ICD Codes: J18.9 - Pneumonia, unspecified organism; Y95 - Nosocomial condition SNOMED: 190468563 (2) COPD (chronic obstructive pulmonary disease) ICD Codes: J44.9 - Chronic obstructive pulmonary disease, unspecified SNOMED: 72781999 (3) Anemia ICD Codes: D64.9 - Anemia, unspecified SNOMED: 330220405 (4) Dehydration ICD Codes: E86.0 - Dehydration SNOMED: 29933277 (5) Generalized weakness ICD Codes: R53.1 - Weakness SNOMED: 94975752 (6) FTT (failure to thrive) in adult ICD Codes: R62.7 - Adult failure to thrive SNOMED: 685502665 (7) Depression ICD Codes: F32.9 - Major depressive disorder, single episode, unspecified SNOMED: 57997991 (8) Schizophrenia ICD Codes: F20.9 - Schizophrenia, unspecified SNOMED: 62830017 (9) Hypertension ICD Codes: I10 - Essential (primary) hypertension SNOMED: 94996679 Assessment/Plan: sputum for c/s sputum induction IV abx check cultures anemia w/u check tumor markers, might have occult Ca dvt prophylaxis. Billy Whitney MD Jul 22, 2019 12:17
--- NOTE | 2019-07-22 13:28 | NUR ---
RD ASSESSMENT & RECOMMENDATIONS SEE CARE ACTIVITY FOR COMPLETE ASSESSMENT DAILY ESTIMATED NEEDS: Needs based on cardiac/ 66kg 25-30 kcals/kg 1610-7943 total kcals 1-1.2 g protein/kg 66-79 g total protein 20-25 mL/kg 0235-1027 total fluid mLs NUTRITION DIAGNOSIS: Inadequate oral intake R/T decreased appetite, clinical condition as evidenced by pt admitted w/ FTT dx, c/o decreased appetite. CURRENT DIET:REGULAR, soft easy chew + Ensure Enlive TID w/ meals PO DIET RECOMMENDATIONS: Liberalized REGULAR/ texture per SURVEY RESEARCH ANALYST + Ensure Enlive TID ADDITIONAL RECOMMENDATIONS: * F/up w/ Iron Count x 48 hrs * Monitor PO intake closely, continue liberalized regular diet and added Ensure Enlive TID * MVI x 1 as supplement * Wt trend per SNF: 04/13: 140#, 05/1975=103#, 06/13=145#, 07/18=149#
--- NOTE | 2019-07-22 17:50 | NUR ---
NURSE NOTES: relayed to md Dr Devonte ortega, relieved by tylenol to a low grade fever, received orders for zosyn per pharmacy
--- NOTE | 2019-07-22 18:00 | History and Physical Report ---
DATE OF ADMISSION: 07/21/2019 DATE AND TIME SEEN: 07/22/2019 at 2 p.m. CONSULTANTS: 1. Billy Whitney M.D. 2. Sherman Sung M.D. 3. Sergei Villafuerte M.D. CHIEF COMPLAINT: Shortness of breath, fever, pneumonia, sepsis, shock. BRIEF HISTORY: This is a 74-year-old male from [facility], presented with above-mentioned diagnoses. He was short of breath for about a week, has some fever, came to [place], diagnosed with right lower lobe pneumonia, sepsis, shock, and failure to thrive, and admitted to telemetry. Currently shortness of breath in bed, O2 NC, slightly confused, not talking much. REVIEW OF SYSTEMS: No chest pain. Slight short of breath. No nausea, vomiting, or diarrhea. PAST MEDICAL HISTORY: Includes weakness, failure to thrive, COPD, hypertension, schizophrenia. PAST SURGICAL HISTORY: None. MEDICATIONS: Atorvastatin, mirtazapine, theophylline, promethazine, cyanocobalamin, docusate sodium, folic acid, gabapentin, hydrocodone, methocarbamol, albuterol, morphine. ALLERGIES: Denies. SOCIAL HISTORY: Positive smoke. Positive alcohol. No intravenous drug abuse. FAMILY HISTORY: Noncontributory. PHYSICAL EXAMINATION: GENERAL: Calm in bed, oriented x2, in no acute distress. VITAL SIGNS: Temperature is 99, pulse 93, respirations 20, blood pressure 115/60. CARDIOVASCULAR: No murmur. LUNGS: Poor air exchange. ABDOMEN: Bowel sounds distant. EXTREMITIES: Show no cyanosis or edema. NEUROLOGIC: The patient moves all extremities, slightly weak. LABORATORY AND DIAGNOSTIC DATA: Labs at this time show hemoglobin and hematocrit 8.2/25, otherwise CBC is normal. BMP showed BUN 20, otherwise BMP normal. INR is 1.2, PTT is 33. Urinalysis shows 2+ blood, otherwise normal. ASSESSMENT: 1. Fever. 2. Pneumonia. 3. Sepsis. 4. Shock. 5. Failure to thrive. 6. Anemia. 7. Weakness. 8. COPD. 9. Hypertension. 10. Schizophrenia. PLAN: 1. O2, pulmonary treatment. 2. Antibiotics per Infectious Disease. 3. Blood pressure control. 4. Dietary followup. 5. Psych treatment. 6. Resume home medications. 7. PT and dietary evaluation. 8. Psychiatric evaluation. Charles Parisi D.O. DR: NATALI JOB#: [id number] CC:
--- NOTE | 2019-07-22 19:15 | NUR ---
NURSE NOTES: Received pt and report from FANNY Rodriguez. Pt is A/Ox3. Observed pt resting in bed with both eyes closed; arousable to voice. monitoring manager is in placed; pt is NSR. IV site intact, asymptomatic, and patent; running D5 1/2 NS @60cc/hr. Pt is on 2L NC; saturation 95%. Bed is in the lowest position and locked. Call light and bedside table is within reach. No signs/symptoms of acute distress noted at this time. Will continue plan of care.
[2019-07-22] MEDS: Theophylline ER 100mg ORAL SCH (21:52)
[2019-07-22] MEDS: Zoysn 3.37gm in NS 100ML IVPB SCH (21:52)
[2019-07-23] VITALS: BP 129/68
--- NOTE | 2019-07-23 03:04 | NUR ---
NURSE NOTES: Observed pt asleep in bed. No signs/symptoms of acute distress noted at this time. Will continue plan of care.
[2019-07-23 04:00] VITALS: BP 125/63
[2019-07-23] MEDS ORDERED: LORazepam 0.5mg tab ORAL PRN (04:15)
[2019-07-23] MEDS: Zoysn 3.37gm in NS 100ML IVPB SCH ×3 (05:50→22:40)
[2019-07-23 07:28] LABS: HEMATOCRIT 25.4 % (42.0-52.0); HEMOGLOBIN 8.1 G/DL (14.2-18.0); MEAN CORPUSCULAR VOLUME 83 FL (80-99); PLATELET COUNT 173 K/UL (150-450); RED BLOOD COUNT 3.06 M/UL (4.70-6.10); WHITE BLOOD COUNT 3.6 K/UL (4.8-10.8)
--- NOTE | 2019-07-23 07:32 | NUR ---
HAND-OFF: Report given to FANNY Rodriguez. Plan of care endorsed.
[2019-07-23 07:34] LABS: INR 1.1 (0.9-1.1)
[2019-07-23 08:00] VITALS: BP 125/60
--- NOTE | 2019-07-23 08:01 | NUR ---
NURSE NOTES: pt awake alert, no distress. no sob. no c/o pain. ivf running. pt eating breakfast. call light within reach. bed in lowest position, locked. shannan angelo.
[2019-07-23] MEDS: Docusate 100mg cap ORAL SCH ×3 (08:11→17:13)
[2019-07-23] MEDS: Vitamin B-12 500mcg tab ORAL SCH (08:11)
[2019-07-23] MEDS: Theophylline ER 100mg ORAL SCH ×2 (08:11→21:43)
[2019-07-23 08:28] LABS: % IRON SATURATION 9 % (15-50); IRON 12 ug/dL (50-175); TOTAL IRON BINDING CAPACITY 139 ug/dL (250-450)
[2019-07-23 08:30] LABS: ANION GAP 5 mmol/L (5-15); BLOOD UREA NITROGEN 16 mg/dL (7-18); CARBON DIOXIDE 27 MMOL/L (21-32); CHLORIDE 105 MMOL/L (98-107); FERRITIN 71 NG/ML (8-388); PHOSPHORUS 2.5 MG/DL (2.5-4.9); POTASSIUM 4.3 MMOL/L (3.5-5.1); SODIUM 137 MMOL/L (136-145)
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
--- NOTE | 2019-07-23 11:35 | GI Progress Note ---
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 Villafuerte Assessment/Plan CT esophagus in 2019 noted with esophagus diverticulum ST evaluation reviewed, patient passed on soft chew diet Continue 48 hour calorie count if patient passes swallow evaluation to evaluate for nutrition needs are met, PEG if needed. Strict aspiration precautions anemia work up reviewed, iron deficient venofer OB stool r/o GI bleed monitor H&H, prn transfusions bowel regimen ppi fu labs The patient was seen and examined at bedside and all new and available data was reviewed in the patients chart. I agree with the above findings, impression and plan. (Patient seen earlier today. Signature stamp does not reflect patient encounter time.). - Sergei Villafuerte MD Subjective Subjective Denies any abdominal pain Denies any constipation or diarrhea Objective Last 24 Hour Vital Signs Date Time Temp Pulse Resp B/P (MAP) Pulse Ox O2 Delivery O2 Flow Rate FiO2 07/23/19 08:00 96.7 87 19 125/60 (81) 95 07/23/19 07:56 Nasal Cannula 2.0 07/23/19 07:39 86 07/23/19 06:35 95 Nasal Cannula 2.0 28 07/23/19 04:00 99.0 91 19 125/63 (83) 95 07/23/19 04:00 92 07/23/19 00:00 99.1 91 20 129/68 (88) 96 07/23/19 00:00 91 07/22/19 21:00 Nasal Cannula 2.0 07/22/19 20:00 96 07/22/19 20:00 97.5 96 19 116/53 (74) 98 07/22/19 19:00 97 Nasal Cannula 2.0 28 07/22/19 16:45 99.1 07/22/19 16:00 101.2 93 20 130/60 (83) 96 07/22/19 15:26 100 07/22/19 12:00 99.5 93 20 115/60 (78) 96 07/22/19 11:46 91 Intake and Output 07/22/19 07/23/19 19:00 07:00 Intake Total 720 ml Output Total 200 ml Balance 520 ml Intake Oral 720 ml Output Urine Total 200 ml # Voids 2 4 Laboratory Tests Test 07/23/19 05:36 White Blood Count 3.6 K/UL (4.8-10.8) L Red Blood Count 3.06 M/UL (4.70-6.10) L Hemoglobin 8.1 G/DL (14.2-18.0) L Hematocrit 25.4 % (42.0-52.0) L Mean Corpuscular Volume 83 FL (80-99) Mean Corpuscular Hemoglobin 26.4 PG (27.0-31.0) L Mean Corpuscular Hemoglobin Concent 31.8 G/DL (32.0-36.0) L Red Cell Distribution Width 19.0 % (11.6-14.8) H Platelet Count 173 K/UL (150-450) Mean Platelet Volume 5.1 FL (6.5-10.1) L Neutrophils (%) (Auto) % (45.0-75.0) Lymphocytes (%) (Auto) % (20.0-45.0) Monocytes (%) (Auto) % (1.0-10.0) Eosinophils (%) (Auto) % (0.0-3.0) Basophils (%) (Auto) % (0.0-2.0) Differential Total Cells Counted 100 Neutrophils % (Manual) 39 % (45-75) L Lymphocytes % (Manual) 40 % (20-45) Monocytes % (Manual) 21 % (1-10) H Eosinophils % (Manual) 0 % (0-3) Basophils % (Manual) 0 % (0-2) Band Neutrophils 0 % (0-8) Platelet Estimate Adequate Platelet Morphology Normal Hypochromasia 2+ Anisocytosis 2+ Erythrocyte Sedimentation Rate 125 MM/HR (0-20) H Reticulocyte Count 0.7 % (0.5-2.0) Prothrombin Time 11.6 SEC (9.30-11.50) H Prothromb Time International Ratio 1.1 (0.9-1.1) Activated Partial Thromboplast Time 32 SEC (23-33) Sodium Level 137 MMOL/L (136-145) Potassium Level 4.3 MMOL/L (3.5-5.1) Chloride Level 105 MMOL/L (98-107) Carbon Dioxide Level 27 MMOL/L (21-32) Anion Gap 5 mmol/L (5-15) Blood Urea Nitrogen 16 mg/dL (7-18) Creatinine 1.0 MG/DL (0.55-1.30) Estimat Glomerular Filtration Rate > 60 mL/min (>60) Glucose Level 99 MG/DL (74-106) Calcium Level 9.0 MG/DL (8.5-10.1) Phosphorus Level 2.5 MG/DL (2.5-4.9) Magnesium Level 1.9 MG/DL (1.8-2.4) Iron Level 12 ug/dL (50-175) L Total Iron Binding Capacity 139 ug/dL (250-450) L Percent Iron Saturation 9 % (15-50) L Unsaturated Iron Binding 127 ug/dL (112-346) Ferritin 71 NG/ML (8-388) Lactate Dehydrogenase 154 U/L (135-225) Carcinoembryonic Antigen Pending Vitamin B12 Level > 2000 PG/ML (193-986) H Folate 26.8 NG/ML (8.6-58.9) Thyroid Stimulating Hormone (TSH) 0.428 uiU/mL (0.358-3.740) Free Thyroxine 1.43 NG/DL (0.76-1.46) Height (Feet): 5 Height (Inches): 7.00 Weight (Pounds): 145 General Appearance: WD/WN, no apparent distress, alert Cardiovascular: normal rate Respiratory/Chest: normal breath sounds, no respiratory distress Abdominal Exam: normal bowel sounds, non tender, soft Extremities: non-tender Tyson Cm NP Jul 23, 2019 11:35
[2019-07-23 12:00] VITALS: BP 125/60
--- NOTE | 2019-07-23 12:35 | NUR ---
SWALLOW STATUS: DISCUSSED RESULTS OF MBSS AND NEED FOR FOLLOWING ASPIRATION PRECAUTIONS AND SWALLOW STRATEGIES WITH PATIENT. INTAKE GOALS MET 75-100% ON REG TEXTURE DIET AND THIN LIQUIDS WITH ENSURE HIGH TEREZA SUP. PATIENT GIVEN PO TRIALS WITH THIN LIQUIDS. CUED TO USE CHIN TUCK AND HEAD TURN LEFT AND TAKE SMALL SINGLE SIPS VIA CUP, SWALLOW HARD 2 X. OPTIONAL EFFORTFUL BREATH HOLD (HAS COPD AND MAY GET SOB). PATIENT DID NOT APPEAR TO ASPIRATE. REVIEWED IMAGES WITH GI MSWS [facility] AND COMPLETED PORTIONS OF MBSS REPORT. D/W GI MSWS NEED FOR GI F/UP AT [facility] FOR ESOPHAGEAL MANOMETRY AND DIVERTICULUM. PATIENT ALSO NEEDS F/UP BUT ENT TO CHECK VOCAL FOLDS GIVEN HEAVY SMOKING HX AND HOARSE VOICE. PER THE PATIENT, HIS HOARSENESS MOSTLY NOTED RECENTLY AND COINCIDES WITH HIS INCREASED COUGHING WHICH IS ABUSIVE TO VOCAL FOLDS. ALTHOUGH HE SAYS HE WILL REGURGITATE SOLIDS AND LIQUIDS, NO STAFF MEMBER HAS WITNESSED THIS DURING MEALS. HE SEEMS TO HAVE A CHRONIC COUGH W/O PO INTAKE. PLAN: F/UP WITH CARE OF PLAN IN MOD BARIUM SWALLOW STUDY REPORT. NEEDS OUTPT F/UP AT [facility] FOR ENT AND GI MOTILITY CLINIC (GAVE PT INFORMATION ON GI DR AND ALSO D/W [facility] GI MSWS).
[2019-07-23] MEDS ORDERED: Iron Sucrose 200 MG in NS 110 ML IVPB ONE (13:00)
--- NOTE | 2019-07-23 13:04 | Pulmonology Progress Note ---
Assessment/Plan Problems: (1) Nosocomial pneumonia (2) COPD (chronic obstructive pulmonary disease) (3) Anemia (4) Dehydration (5) FTT (failure to thrive) in adult (6) Generalized weakness (7) Depression (8) Schizophrenia (9) Hypertension Assessment/Plan Temp is lower Venofer for iron deficiency anemia sputum for c/s sputum induction IV abx check cultures anemia w/u showing iron deficiency, stool OB pending check tumor markers, might have occult Ca dvt prophylaxis. Subjective Interval Events: c/o sore throat, less cough Allergies: Coded Allergies: No Known Allergies (Verified , 10/13/07) Objective Last 24 Hour Vital Signs Date Time Temp Pulse Resp B/P (MAP) Pulse Ox O2 Delivery O2 Flow Rate FiO2 07/23/19 08:00 96.7 87 19 125/60 (81) 95 07/23/19 07:56 Nasal Cannula 2.0 07/23/19 07:39 86 07/23/19 06:35 95 Nasal Cannula 2.0 28 07/23/19 04:00 99.0 91 19 125/63 (83) 95 07/23/19 04:00 92 07/23/19 00:00 99.1 91 20 129/68 (88) 96 07/23/19 00:00 91 07/22/19 21:00 Nasal Cannula 2.0 07/22/19 20:00 96 07/22/19 20:00 97.5 96 19 116/53 (74) 98 07/22/19 19:00 97 Nasal Cannula 2.0 28 07/22/19 16:45 99.1 07/22/19 16:00 101.2 93 20 130/60 (83) 96 07/22/19 15:26 100 Intake and Output 07/22/19 07/23/19 19:00 07:00 Intake Total 720 ml Output Total 200 ml Balance 520 ml Intake Oral 720 ml Output Urine Total 200 ml # Voids 2 4 General Appearance: cachetic HEENT: normocephalic, anicteric Respiratory/Chest: lungs clear, crackles/rales Cardiovascular: normal peripheral pulses, normal rate Abdomen: normal bowel sounds, soft, non tender Genitourinary: normal external genitalia Skin: no lesions Microbiology Date/Time Source Procedure Growth Status 07/21/19 22:01 Blood Blood Culture - Preliminary NO GROWTH AFTER 24 HOURS Resulted 07/21/19 21:45 Blood Blood Culture - Preliminary NO GROWTH AFTER 24 HOURS Resulted 07/21/19 21:20 Nasal Nares - Final Complete 07/21/19 21:20 Nasal Nares - Final Complete 07/22/19 00:00 Rectum Received Laboratory Tests 07/23/19 05:36: White Blood Count 3.6L, Red Blood Count 3.06L, Hemoglobin 8.1L, Hematocrit 25.4L , Mean Corpuscular Volume 83, Mean Corpuscular Hemoglobin 26.4L, Mean Corpuscular Hemoglobin Concent 31.8L, Red Cell Distribution Width 19.0H, Platelet Count 173, Mean Platelet Volume 5.1L, Neutrophils (%) (Auto) , Lymphocytes (%) (Auto) , Monocytes (%) (Auto) , Eosinophils (%) (Auto) , Basophils (%) (Auto) , Differential Total Cells Counted 100, Neutrophils % ( Manual) 39L, Lymphocytes % (Manual) 40, Monocytes % (Manual) 21H, Eosinophils % (Manual) 0, Basophils % (Manual) 0, Band Neutrophils 0, Platelet Estimate Adequate, Platelet Morphology Normal, Hypochromasia 2+, Anisocytosis 2+, Erythrocyte Sedimentation Rate 125H, Reticulocyte Count 0.7, Prothrombin Time 11.6H, Prothromb Time International Ratio 1.1, Activated Partial Thromboplast Time 32, Sodium Level 137, Potassium Level 4.3, Chloride Level 105, Carbon Dioxide Level 27, Anion Gap 5, Blood Urea Nitrogen 16, Creatinine 1.0, Estimat Glomerular Filtration Rate > 60, Glucose Level 99, Calcium Level 9.0, Phosphorus Level 2.5, Magnesium Level 1.9, Iron Level 12L, Total Iron Binding Capacity 139L, Percent Iron Saturation 9L, Unsaturated Iron Binding 127, Ferritin 71, Lactate Dehydrogenase 154, Carcinoembryonic Antigen [Pending], Vitamin B12 Level > 2000H, Folate 26.8, Thyroid Stimulating Hormone (TSH) 0.428 , Free Thyroxine 1.43 Current Medications Medications (Trade) Dose Ordered Sig/Chiqui Route PRN Reason Start Time Stop Time Status Last Admin Dose Admin Acetaminophen (Tylenol) 650 mg Q4H PRN ORAL Mild Pain/Temp > 100.5 07/22/19 05:15 08/21/19 05:14 07/22/19 16:15 Acetaminophen/ Hydrocodone Bitart ([place]eflin 5/325) 1 tab Q6H PRN ORAL For Pain 07/22/19 05:15 07/29/19 05:14 Albuterol/ Ipratropium (Albuterol/ Ipratropium) 3 ml Q6H PRN HHN Shortness of Breath 07/22/19 05:00 07/27/19 04:59 Aripiprazole (Abilify) 2.5 mg DAILY ORAL 07/22/19 09:00 08/21/19 08:59 07/23/19 08:11 Atorvastatin Calcium (Lipitor) 10 mg BEDTIME ORAL 07/22/19 21:00 08/21/19 20:59 07/22/19 21:52 Barium Sulfate (Varibar Honey) 250 ml NOW PRN MC RAD 07/22/19 10:00 07/25/19 09:53 Barium Sulfate (Varibar [place]) 240 ml NOW PRN MC RAD 07/22/19 10:00 07/25/19 09:53 Barium Sulfate (Varibar Pudding) 230 ml NOW PRN MC RAD 07/22/19 10:00 07/25/19 09:53 Cyanocobalamin (Vitamin B-12) 1,000 mcg DAILY ORAL 07/22/19 09:00 08/21/19 08:59 07/23/19 08:11 Dextrose (Dextrose 50%) 25 ml Q30M PRN IV Hypoglycemia 07/22/19 05:15 08/21/19 05:14 Dextrose (Dextrose 50%) 50 ml Q30M PRN IV Hypoglycemia 07/22/19 05:15 08/21/19 05:14 Dextrose/Sodium Chloride 1,000 ml @ 60 mls/hr [id number] IV 07/22/19 06:00 08/21/19 05:59 07/22/19 22:13 Docusate Sodium (Colace) 100 mg DAILY ORAL 07/22/19 09:00 08/21/19 08:59 07/23/19 08:11 Docusate Sodium (Colace) 100 mg THREE TIMES A DAY ORAL 07/23/19 13:00 08/22/19 12:59 07/23/19 12:47 Folic Acid (Folate) 1 mg DAILY ORAL 07/22/19 09:00 08/21/19 08:59 07/23/19 08:11 Gabapentin (Neurontin) 300 mg TID@0600,1400,2200 ORAL 07/22/19 06:00 08/21/19 05:59 07/23/19 05:50 Iron Sucrose 100 mg/Sodium Chloride 60 ml @ 240 mls/hr BEDTIME IV 07/23/19 21:00 07/27/19 21:14 Lorazepam (Ativan) 0.5 mg Q6H PRN ORAL For Anxiety 07/23/19 04:15 07/30/19 04:14 Methocarbamol (Robaxin) 500 mg QIDPRN PRN ORAL muscle spasm/pain 07/22/19 05:15 08/21/19 05:14 Mirtazapine (Remeron) 15 mg BEDTIME ORAL 07/22/19 21:00 08/21/19 20:59 07/22/19 21:52 Piperacillin Sod/ Tazobactam Sod 3.375 gm/Sodium Chloride 110 ml @ 27.5 mls/hr EVERY 8 HOURS IVPB 07/22/19 22:00 07/27/19 21:59 07/23/19 05:50 Promethazine HCl/ Codeine (Phenergan with Codeine) 5 ml Q4H PRN ORAL For Cough 07/22/19 12:15 08/21/19 12:14 Theophylline ([place]) 100 mg EVERY 12 HOURS ORAL 07/22/19 21:00 08/21/19 20:59 07/23/19 08:11 Billy Whitney MD Jul 23, 2019 13:04
[2019-07-23] MEDS: D5 1/2NS 1,000 ML IV SCH (15:20)
--- NOTE | 2019-07-23 15:30 | Consultation ---
DATE OF CONSULTATION: 07/23/2019 INITIAL EVALUATION CONSULTING PHYSICIAN: Omid Malagon M.D. HISTORY OF PRESENT ILLNESS: This is a 74-year-old male patient with sepsis and respiratory insufficiency. This patient was admitted to [facility] and the reason why this patient was admitted to [facility] because he has sepsis and respiratory insufficiency. He has shortness of breath, pneumonia, and possible septic shock, but he came in for right lower lobe pneumonia, but as a result, he has been having altered mental status, confusion. He has got a decline in cognition below his baseline. He admits to previous diagnosis of paranoid schizophrenia in the past, so he was taking psychotropic medications, so because of that daily psychiatric consultation requested, so again this patient is evaluated for psychotropic medications and management and also to help stabilize his mood as he was exhibiting mood lability and increased confusion secondary to stress of his medical illness. MEDICAL HISTORY: The patient has failure to thrive, COPD, hypertension. ALLERGY HISTORY: The patient has no known drug allergies at this time. PSYCHOTROPIC MEDICATIONS ON ADMISSION: He is on Abilify 2.5 mg daily. He is also on Remeron 15 mg at bedtime. SUBSTANCE ABUSE HISTORY: The patient does endorse to history of alcohol use, but denies drug use. FAMILY PSYCHIATRIC HISTORY: Denies. PAIN ASSESSMENT: 08/17 pain. DEVELOPMENTAL PROBLEMS: Denies. SOCIAL HISTORY: This is a 74-year-old male patient who is living in [facility]. He is financially supported by [facility] and Medicare. STRENGTHS: He is motivated to get better , place to live. WEAKNESSES AND LIABILITIES: He is impulsive and minimal support system. MENTAL STATUS EXAMINATION: This is a 74-year-old male patient. His appearance is disheveled. His attitude is irritable and agitated. Affect, guarded and restricted. Intellect is poor because he does not know current events, does know last four presidents. Mood, depressed and anxious. Motor activity, psychomotor agitation. Attention span is poor because he cannot do serial sevens or spell world backwards. Orientation x2. He is oriented to person and place, but not to time and situation. Speech is pressured, nonsensical. Thought process, disorganized and illogical. Thought content, auditory hallucinations and paranoid delusions. Perception is poor because he has perceptual disturbance such as auditory hallucinations and paranoid delusions. Abstract reasoning is poor because he does not understand proverbs, only has concrete thinking. His insight is poor because he does not recognize having a psychiatric disorder. Judgment is poor because he does not accept consequences for his actions. He denies any current suicidal or homicidal ideations. Short-term memory, 3/3 recall after 5-minute delay with good short-term memory. Long-term memory is intact based on the knowledge of long-term events in his life such as high school that he went to. DIAGNOSES: 1. Paranoid schizophrenia acute exacerbation. 2. Secondary, alcohol abuse. 3. Medical include failure to thrive, COPD, hypertension, generalized weakness. 4. Psychosocial stressors, financial. 5. Functional impairment is moderate. PLAN: Plan for this patient, I am going to continue this patient on Remeron 15 mg at bedtime, Abilify 2.5 mg every evening. I am also adding Ativan 0.5 mg q.6 hours p.r.n. anxiety and agitation. Provide him with 20 minutes of cognitive behavioral therapy to help him identify his negative thoughts help him convert negative thoughts to more positive thoughts to reduce depression, anxiety, mood lability. Chart reviewed. Discussed with staff. Seen and assessed in his room. Omid Malagon M.D. DR: BRITANY JOB#: [id number] CC:
[2019-07-23 16:00] VITALS: BP 112/61
--- NOTE | 2019-07-23 19:20 | NUR ---
NURSE NOTES: Received pt and report from FANNY Rodriguez. Pt is A/Ox3. Observed pt resting in bed and eating dinner. monitoring and evaluation advisor is in placed; pt is NSR. IV site intact, asymptomatic, and patent; running D5 1/2 NS @60cc/hr. Pt is on 2L NC; saturation 95%. Bed is in the lowest position and locked. Call light and bedside table is within reach. No signs/symptoms of acute distress noted at this time. Will continue plan of care.
[2019-07-23 20:00] VITALS: BP 109/64
--- NOTE | 2019-07-23 20:44 | General Progress Note ---
Assessment/Plan Problem List: (1) Anemia ICD Codes: D64.9 - Anemia, unspecified SNOMED: 989269785 (2) COPD (chronic obstructive pulmonary disease) ICD Codes: J44.9 - Chronic obstructive pulmonary disease, unspecified SNOMED: 10778211 (3) Depression ICD Codes: F32.9 - Major depressive disorder, single episode, unspecified SNOMED: 89935212 (4) Hypertension ICD Codes: I10 - Essential (primary) hypertension SNOMED: 42985449 (5) Nosocomial pneumonia ICD Codes: J18.9 - Pneumonia, unspecified organism; Y95 - Nosocomial condition SNOMED: 206135067 Status: stable, progressing Assessment/Plan: resp insuff copd afebrile reivewed chart and labs no wheezing Subjective ROS Limited/Unobtainable: Yes Allergies: Coded Allergies: No Known Allergies (Verified , 10/13/07) Objective Last 24 Hour Vital Signs Date Time Temp Pulse Resp B/P (MAP) Pulse Ox O2 Delivery O2 Flow Rate FiO2 07/23/19 16:00 96.7 80 19 112/61 (78) 95 07/23/19 15:28 95 07/23/19 12:00 97.7 87 19 125/60 (81) 95 07/23/19 11:38 94 07/23/19 08:00 96.7 87 19 125/60 (81) 95 07/23/19 07:56 Nasal Cannula 2.0 07/23/19 07:39 86 07/23/19 06:35 95 Nasal Cannula 2.0 28 07/23/19 04:00 99.0 91 19 125/63 (83) 95 07/23/19 04:00 92 07/23/19 00:00 99.1 91 20 129/68 (88) 96 07/23/19 00:00 91 07/22/19 21:00 Nasal Cannula 2.0 Intake and Output 07/22/19 07/23/19 19:00 07:00 Intake Total 720 ml 60 ml Output Total 200 ml Balance 520 ml 60 ml Intake Oral 720 ml IV Total 60 ml Output Urine Total 200 ml # Voids 2 4 Laboratory Tests 07/23/19 05:36: White Blood Count 3.6L, Red Blood Count 3.06L, Hemoglobin 8.1L, Hematocrit 25.4L , Mean Corpuscular Volume 83, Mean Corpuscular Hemoglobin 26.4L, Mean Corpuscular Hemoglobin Concent 31.8L, Red Cell Distribution Width 19.0H, Platelet Count 173, Mean Platelet Volume 5.1L, Neutrophils (%) (Auto) , Lymphocytes (%) (Auto) , Monocytes (%) (Auto) , Eosinophils (%) (Auto) , Basophils (%) (Auto) , Differential Total Cells Counted 100, Neutrophils % ( Manual) 39L, Lymphocytes % (Manual) 40, Monocytes % (Manual) 21H, Eosinophils % (Manual) 0, Basophils % (Manual) 0, Band Neutrophils 0, Platelet Estimate Adequate, Platelet Morphology Normal, Hypochromasia 2+, Anisocytosis 2+, Erythrocyte Sedimentation Rate 125H, Reticulocyte Count 0.7, Prothrombin Time 11.6H, Prothromb Time International Ratio 1.1, Activated Partial Thromboplast Time 32, Sodium Level 137, Potassium Level 4.3, Chloride Level 105, Carbon Dioxide Level 27, Anion Gap 5, Blood Urea Nitrogen 16, Creatinine 1.0, Estimat Glomerular Filtration Rate > 60, Glucose Level 99, Calcium Level 9.0, Phosphorus Level 2.5, Magnesium Level 1.9, Iron Level 12L, Total Iron Binding Capacity 139L, Percent Iron Saturation 9L, Unsaturated Iron Binding 127, Ferritin 71, Lactate Dehydrogenase 154, Carcinoembryonic Antigen [Pending], Vitamin B12 Level > 2000H, Folate 26.8, Thyroid Stimulating Hormone (TSH) 0.428 , Free Thyroxine 1.43 Height (Feet): 5 Height (Inches): 7.00 Weight (Pounds): 145 General Appearance: confused Cardiovascular: regular rhythm Respiratory/Chest: lungs clear Abdomen: soft Cadence Holbrook MD Jul 23, 2019 20:44
[2019-07-23] MEDS: Iron Sucrose 100 MG in NS 55 ML IV SCH (21:43)
[2019-07-24] VITALS: BP 115/81
--- NOTE | 2019-07-24 03:03 | NUR ---
NURSE NOTES: Observed pt resting in bed with both eyes closed. No signs/symptoms of acute distress noted at this time. Will continue plan of care.
[2019-07-24 04:00] VITALS: BP 126/64
[2019-07-24] MEDS: Zoysn 3.37gm in NS 100ML IVPB SCH ×3 (05:31→22:41)
[2019-07-24 07:25] LABS: HEMATOCRIT 26.9 % (42.0-52.0); HEMOGLOBIN 8.5 G/DL (14.2-18.0); MEAN CORPUSCULAR VOLUME 82 FL (80-99); PLATELET COUNT 201 K/UL (150-450); RED BLOOD COUNT 3.26 M/UL (4.70-6.10); RED CELL DISTRIBUTION WIDTH 18.9 % (11.6-14.8); WHITE BLOOD COUNT 2.9 K/UL (4.8-10.8)
--- NOTE | 2019-07-24 07:42 | NUR ---
HAND-OFF: Report given to FANNY Hickman. Plan of care endorsed.
--- NOTE | 2019-07-24 07:42 | NUR ---
NURSE NOTES: Received report from Gisell RN. Pt in bed awake and orientedx2 or 3 and able to make needs known. IV site in RFA 20G running with D5 1/2 NS @60ml/hr patent and asymptomatic. Call light within easy reach. Side railsx3 up for safety. On bed alarm. Bed in it's lowest position and locked. HOB elevated. Will continue to plan of care.
[2019-07-24 08:00] VITALS: BP 130/68
[2019-07-24 08:03] LABS: ALANINE AMINOTRANSFERASE 16 U/L (12-78); ALBUMIN/GLOBULIN RATIO 0.3 (1.0-2.7); ALKALINE PHOSPHATASE 91 U/L (46-116); ANION GAP 7 mmol/L (5-15); ASPARTATE AMINO TRANSFERASE 35 U/L (15-37); BILIRUBIN,TOTAL 0.3 MG/DL (0.2-1.0); BLOOD UREA NITROGEN 14 mg/dL (7-18); CALCIUM 8.7 MG/DL (8.5-10.1); CARBON DIOXIDE 27 MMOL/L (21-32); CHLORIDE 104 MMOL/L (98-107); CREATININE 1.1 MG/DL (0.55-1.30); PHOSPHORUS 3.1 MG/DL (2.5-4.9); POTASSIUM 4.2 MMOL/L (3.5-5.1); SODIUM 138 MMOL/L (136-145)
[2019-07-24] MEDS: D5 1/2NS 1,000 ML IV SCH (08:56)
[2019-07-24] MEDS: Theophylline ER 100mg ORAL SCH ×2 (09:21→22:40)
[2019-07-24] MEDS: Docusate 100mg cap ORAL SCH ×3 (09:21→18:27)
[2019-07-24] MEDS: Vitamin B-12 500mcg tab ORAL SCH (09:21)
--- NOTE | 2019-07-24 11:28 | NUR ---
RD ASSESSMENT & RECOMMENDATIONS SEE CARE ACTIVITY FOR COMPLETE ASSESSMENT DAILY ESTIMATED NEEDS: Needs based on cardiac/ 66kg 25-30 kcals/kg 4115-3335 total kcals 1-1.2 g protein/kg 66-79 g total protein 20-25 mL/kg 5045-2457 total fluid mLs * IRON COUNT X 48 HRS (07/22-07/24) * Followed up today for calorie count x 48 hrs- NO DATA AVAILABLE Per EMR, pt consumed 75-100% of last 6 meals. Pt has also been receiving Ensure Enlive TID w/ meals (350kcal/20g prot per bottle). Observed 100% consumed Ensure Enlive @ bedside. Per CARDIO TECH, pt consumed 75% intake of total breakfast tray this AM, which included 100% of scrambled eggs and 100% of toast. Based on information available, pt est to consume >2000kcal per day from meals and HPN TID w/ meals, meeting 100% est kcal/needs. Recommend to maintain liberalized diet of regular and continue to send Ensure Enlive TID w/ meals NUTRITION DIAGNOSIS: Inadequate oral intake R/T decreased appetite, clinical condition as evidenced by pt admitted w/ FTT dx w/ c/o decreased appetite, currently noted w/ good PO intake of meals. CURRENT DIET:REGULAR, soft easy chew + Ensure Enlive TID w/ meals PO DIET RECOMMENDATIONS: Liberalized REGULAR/ texture per MANAGER CULTURE + Ensure Enlive TID ADDITIONAL RECOMMENDATIONS: * Iron count x 48 hrs completed - PO intake adequate to meet needs * Monitor PO intake closely, continue liberalized regular diet and added Ensure Enlive TID * MVI x 1 as supplement * Wt trend per SNF: 04/13: 140#, 05/1972=326#, 06/13=145#, 07/18=149#
--- NOTE | 2019-07-24 11:36 | Pulmonology Progress Note ---
Assessment/Plan Problems: (1) Nosocomial pneumonia (2) COPD (chronic obstructive pulmonary disease) (3) Anemia (4) Dehydration (5) FTT (failure to thrive) in adult (6) Generalized weakness (7) Depression (8) Schizophrenia (9) Hypertension Assessment/Plan getting better Temp is lower Venofer for iron deficiency anemia sputum for c/s sputum induction IV abx check cultures anemia w/u showing iron deficiency, stool OB pending check tumor markers, might have occult Ca dvt prophylaxis. Subjective ROS Limited/Unobtainable: No Interval Events: doing better Allergies: Coded Allergies: No Known Allergies (Verified , 10/13/07) Objective Last 24 Hour Vital Signs Date Time Temp Pulse Resp B/P (MAP) Pulse Ox O2 Delivery O2 Flow Rate FiO2 07/24/19 08:05 96 Nasal Cannula 2.0 28 07/24/19 08:00 94 07/24/19 08:00 97.0 86 18 130/68 (88) 97 07/24/19 04:00 98.1 87 19 126/64 (84) 96 07/24/19 04:00 95 07/24/19 00:00 98 07/24/19 00:00 99.3 98 19 115/81 (92) 94 07/23/19 21:00 Nasal Cannula 2.0 07/23/19 20:00 99.9 97 20 109/64 (79) 94 07/23/19 20:00 97 07/23/19 19:51 95 Nasal Cannula 2.0 28 07/23/19 16:00 96.7 80 19 112/61 (78) 95 07/23/19 15:28 95 07/23/19 12:00 97.7 87 19 125/60 (81) 95 07/23/19 11:38 94 Intake and Output 07/23/19 07/24/19 19:00 07:00 Intake Total 840 ml 120 ml Output Total 800 ml Balance 840 ml -680 ml Intake Oral 840 ml 120 ml Output Urine Total 800 ml # Voids 3 3 # Bowel Movements 1 1 General Appearance: cachetic HEENT: normocephalic, atraumatic Respiratory/Chest: chest wall non-tender, lungs clear Cardiovascular: normal peripheral pulses, normal rate, no JVD Abdomen: soft, non tender Extremities: no cyanosis Skin: no rash 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 Complete Laboratory Tests 07/24/19 06:40: White Blood Count 2.9L, Red Blood Count 3.26L, Hemoglobin 8.5L, Hematocrit 26.9L , Mean Corpuscular Volume 82, Mean Corpuscular Hemoglobin 26.0L, Mean Corpuscular Hemoglobin Concent 31.5L, Red Cell Distribution Width 18.9H, Platelet Count 201, Mean Platelet Volume 5.1L, Neutrophils (%) (Auto) , Lymphocytes (%) (Auto) , Monocytes (%) (Auto) , Eosinophils (%) (Auto) , Basophils (%) (Auto) , Differential Total Cells Counted 100, Neutrophils % ( Manual) 31L, Lymphocytes % (Manual) 42, Monocytes % (Manual) 27H, Eosinophils % (Manual) 0, Basophils % (Manual) 0, Band Neutrophils 0, Platelet Estimate Adequate, Platelet Morphology Normal, Hypochromasia 1+, Anisocytosis 2+, Sodium Level 138, Potassium Level 4.2, Chloride Level 104, Carbon Dioxide Level 27, Anion Gap 7, Blood Urea Nitrogen 14, Creatinine 1.1, Estimat Glomerular Filtration Rate > 60, Glucose Level 99, Calcium Level 8.7, Phosphorus Level 3.1 , Magnesium Level 1.8, Total Bilirubin 0.3, Aspartate Amino Transf (AST/SGOT) 35 , Alanine Aminotransferase (ALT/SGPT) 16, Alkaline Phosphatase 91, Total Protein 8.3H, Albumin 2.0L, Globulin 6.3, Albumin/Globulin Ratio 0.3L Current Medications Medications (Trade) Dose Ordered Sig/Chiqui Route PRN Reason Start Time Stop Time Status Last Admin Dose Admin Acetaminophen (Tylenol) 650 mg Q4H PRN ORAL Mild Pain/Temp > 100.5 07/22/19 05:15 08/21/19 05:14 07/22/19 16:15 Acetaminophen/ Hydrocodone Bitart ([place] 5/325) 1 tab Q6H PRN ORAL For Pain 07/22/19 05:15 07/29/19 05:14 Albuterol/ Ipratropium (Albuterol/ Ipratropium) 3 ml Q6H PRN HHN Shortness of Breath 07/22/19 05:00 07/27/19 04:59 Aripiprazole (Abilify) 2.5 mg DAILY ORAL 07/22/19 09:00 08/21/19 08:59 07/24/19 09:20 Atorvastatin Calcium (Lipitor) 10 mg BEDTIME ORAL 07/22/19 21:00 08/21/19 20:59 07/23/19 21:44 Barium Sulfate (Varibar Honey) 250 ml NOW PRN MC RAD 07/22/19 10:00 07/25/19 09:53 Barium Sulfate (Varibar [address]) 240 ml NOW PRN MC RAD 07/22/19 10:00 07/25/19 09:53 Barium Sulfate (Varibar Pudding) 230 ml NOW PRN MC RAD 07/22/19 10:00 07/25/19 09:53 Cyanocobalamin (Vitamin B-12) 1,000 mcg DAILY ORAL 07/22/19 09:00 08/21/19 08:59 07/24/19 09:21 Dextrose (Dextrose 50%) 25 ml Q30M PRN IV Hypoglycemia 07/22/19 05:15 08/21/19 05:14 Dextrose (Dextrose 50%) 50 ml Q30M PRN IV Hypoglycemia 07/22/19 05:15 08/21/19 05:14 Dextrose/Sodium Chloride 1,000 ml @ 60 mls/hr [id number] IV 07/22/19 06:00 08/21/19 05:59 07/24/19 08:56 Docusate Sodium (Colace) 100 mg THREE TIMES A DAY ORAL 07/23/19 13:00 08/22/19 12:59 07/24/19 09:21 Folic Acid (Folate) 1 mg DAILY ORAL 07/22/19 09:00 08/21/19 08:59 07/24/19 09:21 Gabapentin (Neurontin) 300 mg TID@0600,1400,2200 ORAL 07/22/19 06:00 08/21/19 05:59 07/24/19 05:30 Iron Sucrose 100 mg/Sodium Chloride 60 ml @ 240 mls/hr BEDTIME IV 07/23/19 21:00 07/27/19 21:14 07/23/19 21:43 Lorazepam (Ativan) 0.5 mg Q6H PRN ORAL For Anxiety 07/23/19 04:15 07/30/19 04:14 Methocarbamol (Robaxin) 500 mg QIDPRN PRN ORAL muscle spasm/pain 07/22/19 05:15 08/21/19 05:14 Mirtazapine (Remeron) 15 mg BEDTIME ORAL 07/22/19 21:00 08/21/19 20:59 07/23/19 21:43 Piperacillin Sod/ Tazobactam Sod 3.375 gm/Sodium Chloride 110 ml @ 27.5 mls/hr EVERY 8 HOURS IVPB 07/22/19 22:00 07/27/19 21:59 07/24/19 05:31 Promethazine HCl/ Codeine (Phenergan with Codeine) 5 ml Q4H PRN ORAL For Cough 07/22/19 12:15 08/21/19 12:14 Theophylline ([place]) 100 mg EVERY 12 HOURS ORAL 07/22/19 21:00 08/21/19 20:59 07/24/19 09:21 Billy Whitney MD Jul 24, 2019 11:36
[2019-07-24 12:00] VITALS: BP_SYST 104; BP_SYST 134; BP_DIAS 65; BP_DIAS 87
--- NOTE | 2019-07-24 12:06 | GI Progress Note ---
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 Villafuerte. Assessment/Plan CT esophagus in 2019 noted with esophagus diverticulum ST evaluation reviewed, patient passed on soft chew diet okay for DC per GI standpoint calorie count, tolerating 75% of meals Strict aspiration precautions anemia work up reviewed, iron deficient venofer OB stool r/o GI bleed monitor H&H, prn transfusions bowel regimen ppi fu labs The patient was seen and examined at bedside and all new and available data was reviewed in the patients chart. I agree with the above findings, impression and plan. (Patient seen earlier today. Signature stamp does not reflect patient encounter time.). - Sergei Villafuerte MD Subjective Subjective Denies any abdominal pain Denies any constipation or diarrhea eating well Objective Last 24 Hour Vital Signs Date Time Temp Pulse Resp B/P (MAP) Pulse Ox O2 Delivery O2 Flow Rate FiO2 07/24/19 08:05 96 Nasal Cannula 2.0 28 07/24/19 08:00 94 07/24/19 08:00 97.0 86 18 130/68 (88) 97 07/24/19 04:00 98.1 87 19 126/64 (84) 96 07/24/19 04:00 95 07/24/19 00:00 98 07/24/19 00:00 99.3 98 19 115/81 (92) 94 07/23/19 21:00 Nasal Cannula 2.0 07/23/19 20:00 99.9 97 20 109/64 (79) 94 07/23/19 20:00 97 07/23/19 19:51 95 Nasal Cannula 2.0 28 07/23/19 16:00 96.7 80 19 112/61 (78) 95 07/23/19 15:28 95 Intake and Output 07/23/19 07/24/19 19:00 07:00 Intake Total 840 ml 120 ml Output Total 800 ml Balance 840 ml -680 ml Intake Oral 840 ml 120 ml Output Urine Total 800 ml # Voids 3 3 # Bowel Movements 1 1 Laboratory Tests Test 07/24/19 06:40 White Blood Count 2.9 K/UL (4.8-10.8) L Red Blood Count 3.26 M/UL (4.70-6.10) L Hemoglobin 8.5 G/DL (14.2-18.0) L Hematocrit 26.9 % (42.0-52.0) L Mean Corpuscular Volume 82 FL (80-99) Mean Corpuscular Hemoglobin 26.0 PG (27.0-31.0) L Mean Corpuscular Hemoglobin Concent 31.5 G/DL (32.0-36.0) L Red Cell Distribution Width 18.9 % (11.6-14.8) H Platelet Count 201 K/UL (150-450) Mean Platelet Volume 5.1 FL (6.5-10.1) L Neutrophils (%) (Auto) % (45.0-75.0) Lymphocytes (%) (Auto) % (20.0-45.0) Monocytes (%) (Auto) % (1.0-10.0) Eosinophils (%) (Auto) % (0.0-3.0) Basophils (%) (Auto) % (0.0-2.0) Differential Total Cells Counted 100 Neutrophils % (Manual) 31 % (45-75) L Lymphocytes % (Manual) 42 % (20-45) Monocytes % (Manual) 27 % (1-10) H Eosinophils % (Manual) 0 % (0-3) Basophils % (Manual) 0 % (0-2) Band Neutrophils 0 % (0-8) Platelet Estimate Adequate Platelet Morphology Normal Hypochromasia 1+ Anisocytosis 2+ Sodium Level 138 MMOL/L (136-145) Potassium Level 4.2 MMOL/L (3.5-5.1) Chloride Level 104 MMOL/L (98-107) Carbon Dioxide Level 27 MMOL/L (21-32) Anion Gap 7 mmol/L (5-15) Blood Urea Nitrogen 14 mg/dL (7-18) Creatinine 1.1 MG/DL (0.55-1.30) Estimat Glomerular Filtration Rate > 60 mL/min (>60) Glucose Level 99 MG/DL (74-106) Calcium Level 8.7 MG/DL (8.5-10.1) Phosphorus Level 3.1 MG/DL (2.5-4.9) Magnesium Level 1.8 MG/DL (1.8-2.4) Total Bilirubin 0.3 MG/DL (0.2-1.0) Aspartate Amino Transf (AST/SGOT) 35 U/L (15-37) Alanine Aminotransferase (ALT/SGPT) 16 U/L (12-78) Alkaline Phosphatase 91 U/L (46-116) Total Protein 8.3 G/DL (6.4-8.2) H Albumin 2.0 G/DL (3.4-5.0) L Globulin 6.3 g/dL Albumin/Globulin Ratio 0.3 (1.0-2.7) L Height (Feet): 5 Height (Inches): 7.00 Weight (Pounds): 145 General Appearance: WD/WN, no apparent distress, alert Cardiovascular: normal rate Respiratory/Chest: normal breath sounds, no respiratory distress Abdominal Exam: normal bowel sounds, non tender, soft Extremities: normal range of motion, non-tender Tyson Cm NP Jul 24, 2019 12:06
--- NOTE | 2019-07-24 12:45 | Progress Note ---
DATE: 07/24/2019 SUBJECTIVE: This is a 74-year-old male patient with sepsis and respiratory insufficiency. This patient has mood lability, confusion, disorganized thought process. DIAGNOSIS: Paranoid schizophrenia acute exacerbation. PLAN: Treat him with Abilify 2.5 mg a day, Remeron 15 at bedtime, Ativan 0.5 mg every 6 hours p.r.n. anxiety and agitation. A 20 minutes of cognitive behavioral therapy provided to help him identify his negative thoughts help him convert his negative thoughts to more positive thoughts to reduce depression, anxiety, and mood ability. I encouraged him to interact appropriately with staff and other . Chart reviewed. Discussed with staff. Seen and assessed in his room. Omid Malagon M.D. DR: ZOIE JOB#: [id number] CC:
--- NOTE | 2019-07-24 13:01 | NUR ---
TUBE ROOM CASHIER NOTE SW met w/ pt and assessed pt's needs. Pt states he has dental problem, SW encouraged pt to discuss dental problem w/ medical staff. Pt verbalized understanding. PT does not share any other concern/social media director needs at this time. Pt plans to return [facility] upon DC. Signed: 07/24/19 at 1303 by ANGELITO KRAMER <Co-Signature Required>
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
--- NOTE | 2019-07-24 14:00 | NUR ---
CASE MANAGEMENT:REVIEW 07/24/19 SI: PNA. COPD 98.7 85 19 104/65 98% ON 2L/NC WBC-2.9 H/H-8.5/26.9 IS: IV ZOSYN Q8HRS IVF@60/HR IV VENOFER QHS REMERON PO QHS JOSE-DUR PO Q12 : TELEMETRY STATUS DCP: FROM [facility] PLAN: DOWNGRADE TO MED/SURG
[2019-07-24 16:00] VITALS: BP 107/61
--- NOTE | 2019-07-24 19:38 | NUR ---
HAND-OFF: Report given to Radha ESCOBEDO. Pt remains stable.
--- NOTE | 2019-07-24 19:40 | NUR ---
NURSE NOTES: Received report from FANNY Dinero. Pt in bed awake and oriented x3 and able to make needs known. No c/o pain. Bed in lowest position and locked. Side railsx3 up for safety. Call light within easy reach. Will continue to plan of care.
[2019-07-24 20:00] VITALS: BP 125/70
[2019-07-24] MEDS: Iron Sucrose 100 MG in NS 55 ML IV SCH (22:41)
[2019-07-25] MEDS: D5 1/2NS 1,000 ML IV SCH ×2 (00:40→17:13)
[2019-07-25 04:00] VITALS: BP 109/62
[2019-07-25] MEDS: Zoysn 3.37gm in NS 100ML IVPB SCH (06:17)
--- NOTE | 2019-07-25 07:05 | Pulmonology Progress Note ---
Assessment/Plan Assessment/Plan ASSESSMENT Possible pneumonia COPD Dehydration Anemia of iron deficiency Failure to thrive Hypertension History of substance abuse History of tobacco abuse Schizophrenia Hypomagnesemia PLAN OF CARE O2 HHN fup with CXR 07/25 -right pleural effusion with associated atelectasis versus pneumonia. Probable pulmonary vasculature congestion. abx as per ID SCX DVT prophylaxis Monitor H&H, anemia work-up consistent with AID stool OB tumor markers r/o occult malignancy replace Mg and check Mg in am tx to [facility] floor case discussed and evaluated by supervising physician Subjective Allergies: Coded Allergies: No Known Allergies (Verified , 10/13/07) Subjective pulse ox stable on o2 via NC no CP, no SOB Objective Last 24 Hour Vital Signs Date Time Temp Pulse Resp B/P (MAP) Pulse Ox O2 Delivery O2 Flow Rate FiO2 07/25/19 07:03 96 Room Air 21 07/25/19 04:00 98.1 63 18 109/62 (78) 98 07/24/19 21:00 Nasal Cannula 2.0 07/24/19 20:00 98.1 61 18 125/70 (88) 98 07/24/19 19:32 97 Nasal Cannula 2.0 28 07/24/19 16:00 97.0 63 18 107/61 (76) 97 07/24/19 12:00 98.7 85 19 104/65 (78) 98 07/24/19 09:00 Nasal Cannula 2.0 07/24/19 08:05 96 Nasal Cannula 2.0 28 07/24/19 08:00 94 07/24/19 08:00 97.0 86 18 130/68 (88) 97 Intake and Output 07/24/19 07/25/19 19:00 07:00 Intake Total 260 ml Balance 260 ml Intake Oral 260 ml # Voids 4 General Appearance: no acute distress, other - A/A/O AA male HEENT: normocephalic, atraumatic, anicteric, mucous membranes moist, PERRL Respiratory/Chest: lungs clear, no respiratory distress, no accessory muscle use Cardiovascular: normal rate Abdomen: soft, non tender, non distended Extremities: no edema, pedal pulses normal Neurologic/Psychiatric: alert, oriented x 3, responsive Musculoskeletal: normal muscle bulk Current Medications Medications (Trade) Dose Ordered Sig/Chiqui Route PRN Reason Start Time Stop Time Status Last Admin Dose Admin Acetaminophen (Tylenol) 650 mg Q4H PRN ORAL Mild Pain/Temp > 100.5 07/22/19 05:15 08/21/19 05:14 07/22/19 16:15 Acetaminophen/ Hydrocodone Bitart ([place] 5/325) 1 tab Q6H PRN ORAL For Pain 07/22/19 05:15 07/29/19 05:14 Albuterol/ Ipratropium (Albuterol/ Ipratropium) 3 ml Q6H PRN HHN Shortness of Breath 07/22/19 05:00 07/27/19 04:59 Aripiprazole (Abilify) 2.5 mg DAILY ORAL 07/22/19 09:00 08/21/19 08:59 07/24/19 09:20 Atorvastatin Calcium (Lipitor) 10 mg BEDTIME ORAL 07/22/19 21:00 08/21/19 20:59 07/24/19 22:40 Barium Sulfate (Varibar Honey) 250 ml NOW PRN MC RAD 07/22/19 10:00 07/25/19 09:53 Barium Sulfate (Varibar [place]) 240 ml NOW PRN MC RAD 07/22/19 10:00 07/25/19 09:53 Barium Sulfate (Varibar Pudding) 230 ml NOW PRN MC RAD 07/22/19 10:00 07/25/19 09:53 Cyanocobalamin (Vitamin B-12) 1,000 mcg DAILY ORAL 07/22/19 09:00 08/21/19 08:59 07/24/19 09:21 Dextrose (Dextrose 50%) 25 ml Q30M PRN IV Hypoglycemia 07/22/19 05:15 08/21/19 05:14 Dextrose (Dextrose 50%) 50 ml Q30M PRN IV Hypoglycemia 07/22/19 05:15 08/21/19 05:14 Dextrose/Sodium Chloride 1,000 ml @ 60 mls/hr [id number] IV 07/22/19 06:00 08/21/19 05:59 07/25/19 00:40 Docusate Sodium (Colace) 100 mg THREE TIMES A DAY ORAL 07/23/19 13:00 08/22/19 12:59 07/24/19 18:27 Folic Acid (Folate) 1 mg DAILY ORAL 07/22/19 09:00 08/21/19 08:59 07/24/19 09:21 Gabapentin (Neurontin) 300 mg TID@0600,1400,2200 ORAL 07/22/19 06:00 08/21/19 05:59 07/25/19 06:17 Iron Sucrose 100 mg/Sodium Chloride 60 ml @ 240 mls/hr BEDTIME IV 07/23/19 21:00 07/27/19 21:14 07/24/19 22:41 Lorazepam (Ativan) 0.5 mg Q6H PRN ORAL For Anxiety 07/23/19 04:15 07/30/19 04:14 Methocarbamol (Robaxin) 500 mg QIDPRN PRN ORAL muscle spasm/pain 07/22/19 05:15 08/21/19 05:14 Mirtazapine (Remeron) 15 mg BEDTIME ORAL 07/22/19 21:00 08/21/19 20:59 07/24/19 22:40 Piperacillin Sod/ Tazobactam Sod 3.375 gm/Sodium Chloride 110 ml @ 27.5 mls/hr EVERY 8 HOURS IVPB 07/22/19 22:00 07/27/19 21:59 07/25/19 06:17 Promethazine HCl/ Codeine (Phenergan with Codeine) 5 ml Q4H PRN ORAL For Cough 07/22/19 12:15 08/21/19 12:14 Theophylline ([place]) 100 mg EVERY 12 HOURS ORAL 07/22/19 21:00 08/21/19 20:59 07/24/19 22:40 Sally Garvin [employer] Jul 25, 2019 07:05
--- NOTE | 2019-07-25 07:25 | NUR ---
HAND-OFF: Report given to FANNY Dinero .
--- NOTE | 2019-07-25 07:27 | NUR ---
NURSE NOTES: Received report from Radha ESCOBEDO. Pt in bed awake and orientedx3 and able to make needs known. No c/o pain. Bed in lowest position and locked. Side railsx3 up for safety. Call light within easy reach. Will continue to plan of care.
[2019-07-25 07:52] LABS: HEMATOCRIT 26.4 % (42.0-52.0); HEMOGLOBIN 8.4 G/DL (14.2-18.0); MEAN CORPUSCULAR VOLUME 83 FL (80-99); PLATELET COUNT 208 K/UL (150-450); RED BLOOD COUNT 3.18 M/UL (4.70-6.10); RED CELL DISTRIBUTION WIDTH 19.2 % (11.6-14.8); WHITE BLOOD COUNT 2.6 K/UL (4.8-10.8)
[2019-07-25 08:00] VITALS: BP 112/62
[2019-07-25] MEDS: Vitamin B-12 500mcg tab ORAL SCH (08:07)
[2019-07-25] MEDS: Docusate 100mg cap ORAL SCH ×3 (08:08→17:14)
[2019-07-25] MEDS: Theophylline ER 100mg ORAL SCH ×2 (08:08→20:48)
[2019-07-25 08:14] LABS: PHOSPHORUS 3.4 MG/DL (2.5-4.9)
[2019-07-25 08:40] LABS: ALANINE AMINOTRANSFERASE 17 U/L (12-78); ALBUMIN/GLOBULIN RATIO 0.3 (1.0-2.7); ALKALINE PHOSPHATASE 92 U/L (46-116); ANION GAP 7 mmol/L (5-15); ASPARTATE AMINO TRANSFERASE 34 U/L (15-37); BILIRUBIN,TOTAL 0.2 MG/DL (0.2-1.0); BLOOD UREA NITROGEN 13 mg/dL (7-18); CALCIUM 8.8 MG/DL (8.5-10.1); CARBON DIOXIDE 27 MMOL/L (21-32); CHLORIDE 103 MMOL/L (98-107); CREATININE 1.1 MG/DL (0.55-1.30); POTASSIUM 4.4 MMOL/L (3.5-5.1); SODIUM 137 MMOL/L (136-145)
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
[2019-07-25] MEDS ORDERED: Cefepime HCl 2 GM in D5W 55 ML IVPB SCH (11:00)
[2019-07-25 12:00] VITALS: BP 104/61
[2019-07-25] MEDS ORDERED: Albuterol/Ipratropium 3ml neb HHN PRN (14:15)
[2019-07-25] MEDS ORDERED: Methocarbamol 500mg tab ORAL PRN (14:15)
[2019-07-25] MEDS ORDERED: Promethazine/Codeine 5ml UD ORAL PRN (14:15)
[2019-07-25] MEDS ORDERED: LORazepam 0.5mg tab ORAL PRN (14:15)
--- NOTE | 2019-07-25 15:00 | NUR ---
NURSE NOTES: RECEIVED PATIENT A/A/OX4 IN BED. ABLE TO VERBALIZE NEEDS. PERSONAL BELONGINGS NOTED. IV ACCESS PATENT AND INTACT. NO C/O PAIN/DISCOMFORT. NO ACUTE RESP DISTRESS NOTED. KEPT BED IN THE LOWEST POSITION. SIDERAILS ARE UP X3. CALL LIGHT IS WITHIN REACH. BED ALARM ENGAGED AND LOCKED. INSTRUCTED TO UTILIZE CALL LIGHT. WILL CONT TO MONITOR.
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
--- NOTE | 2019-07-25 15:05 | NUR ---
HAND-OFF: Report given to given to Pina CANO. Pt remains stable.
[2019-07-25] MEDS ORDERED: NS 275ml ONE (15:25)
[2019-07-25] MEDS ORDERED: Tubing IV Secondary IV ONE (15:25)
--- NOTE | 2019-07-25 15:42 | General Progress Note ---
Assessment/Plan Problem List: (1) Anemia ICD Codes: D64.9 - Anemia, unspecified SNOMED: 133189843 (2) COPD (chronic obstructive pulmonary disease) ICD Codes: J44.9 - Chronic obstructive pulmonary disease, unspecified SNOMED: 11830024 (3) Depression ICD Codes: F32.9 - Major depressive disorder, single episode, unspecified SNOMED: 20981143 (4) Hypertension ICD Codes: I10 - Essential (primary) hypertension SNOMED: 26383970 (5) Nosocomial pneumonia ICD Codes: J18.9 - Pneumonia, unspecified organism; Y95 - Nosocomial condition SNOMED: 871444955 Status: doing well, stable Assessment/Plan: resp insuff copd pna no wheezing afebrile reviewed chart and labs Subjective ROS Limited/Unobtainable: Yes Allergies: Coded Allergies: No Known Allergies (Verified , 10/13/07) Objective Last 24 Hour Vital Signs Date Time Temp Pulse Resp B/P (MAP) Pulse Ox O2 Delivery O2 Flow Rate FiO2 07/25/19 12:00 97.5 96 18 104/61 (75) 95 07/25/19 08:40 Nasal Cannula 2.0 07/25/19 08:00 97.5 95 18 112/62 (79) 94 07/25/19 07:03 96 Room Air 21 07/25/19 04:00 98.1 63 18 109/62 (78) 98 07/24/19 21:00 Nasal Cannula 2.0 07/24/19 20:00 98.1 61 18 125/70 (88) 98 07/24/19 19:32 97 Nasal Cannula 2.0 28 07/24/19 16:00 97.0 63 18 107/61 (76) 97 Intake and Output 07/24/19 07/25/19 19:00 07:00 Intake Total 260 ml Balance 260 ml Intake Oral 260 ml # Voids 4 Laboratory Tests 07/25/19 05:45: White Blood Count 2.6L, Red Blood Count 3.18L, Hemoglobin 8.4L, Hematocrit 26.4L , Mean Corpuscular Volume 83, Mean Corpuscular Hemoglobin 26.5L, Mean Corpuscular Hemoglobin Concent 31.8L, Red Cell Distribution Width 19.2H, Platelet Count 208, Mean Platelet Volume 4.9L, Neutrophils (%) (Auto) , Lymphocytes (%) (Auto) , Monocytes (%) (Auto) , Eosinophils (%) (Auto) , Basophils (%) (Auto) , Differential Total Cells Counted 100, Neutrophils % ( Manual) 33L, Lymphocytes % (Manual) 49H, Monocytes % (Manual) 14H, Eosinophils % (Manual) 2, Basophils % (Manual) 2, Band Neutrophils 0, Platelet Estimate Adequate, Platelet Morphology Normal, Hypochromasia 2+, Anisocytosis 2+, Erythrocyte Sedimentation Rate 120H, Sodium Level 137, Potassium Level 4.4, Chloride Level 103, Carbon Dioxide Level 27, Anion Gap 7, Blood Urea Nitrogen 13 , Creatinine 1.1, Estimat Glomerular Filtration Rate > 60, Glucose Level 113H, Calcium Level 8.8, Phosphorus Level 3.4, Magnesium Level 1.5L, Total Bilirubin 0.2, Aspartate Amino Transf (AST/SGOT) 34, Alanine Aminotransferase (ALT/SGPT) 17, Alkaline Phosphatase 92, C-Reactive Protein, Quantitative 5.2H, Pro-B-Type Natriuretic Peptide 1956H, Total Protein 8.4H, Albumin 2.0L, Globulin 6.4, Albumin/Globulin Ratio 0.3L Height (Feet): 5 Height (Inches): 7.00 Weight (Pounds): 145 Cardiovascular: regular rhythm Respiratory/Chest: lungs clear Abdomen: soft Cadence Holbrook MD Jul 25, 2019 15:42
[2019-07-25 16:00] VITALS: BP 99/58
--- NOTE | 2019-07-25 19:17 | NUR ---
HAND-OFF: Report given to karin.
--- NOTE | 2019-07-25 19:49 | NUR ---
NURSE NOTES: Patient in bed, awake and alert x4. No signs of distress or SOB. IV intact and patent. Bed locked and in lowest position. HOB elevated. Call light in reach.
[2019-07-25 20:00] VITALS: BP 112/76
--- NOTE | 2019-07-25 20:00 | Progress Note ---
DATE: 07/25/2019 SUBJECTIVE: This is a 74-year-old male patient who came to the hospital. . The patient is a 74-year-old male with sepsis and respiratory insufficiency, but he has some altered mental status, confusion, and decline in cognition below his baseline. That is why, his attending has requested daily psychiatric consultation. MENTAL STATUS EXAMINATION: This is a 74-year-old male. Appearance is disheveled. Attitude, irritable and agitated. Affect, guarded and restricted. Intellect poor. Mood, depressed and anxious. Motor activity, psychomotor agitation. Attention span is poor. Orientation x2. Speech is pressured. Thought process, disorganized. Insight and judgment is poor DIAGNOSIS: Major depressive disorder, mild, recurrent with psychotic features, rule out dementia with psychosis. PLAN: Treat him with Abilify 2.5 mg daily, Remeron 15 mg at bedtime, Ativan 0.5 mg p.o. q.6 hours p.r.n. anxiety, agitation. 20 minutes of reality-based supportive psychotherapy. Chart reviewed and discussed with staff. Seen and assessed in his room. Omid Mlaagon M.D. DR: TYLER JOB#: [id number] CC:
[2019-07-25] MEDS: Cefepime HCl 2 GM in D5W 55 ML IVPB SCH (20:58)
[2019-07-25] MEDS: Iron Sucrose 100 MG in NS 55 ML IV SCH (21:44)
[2019-07-26] VITALS: BP 122/63
[2019-07-26 04:00] VITALS: BP 130/70
[2019-07-26] MEDS: D5 1/2NS 1,000 ML IV SCH ×2 (05:00→23:26)
--- NOTE | 2019-07-26 07:47 | NUR ---
HAND-OFF: Report given to FANNY Ivan.
--- NOTE | 2019-07-26 07:55 | NUR ---
NURSE NOTES: Patient alert x4; on room air, no sing of distress and shortness of breath; no sing of chest pain; on Nasal cannula 2 Liters, no sing of distress and shortness of breath; no sing of chest pain; IV Right For-Arm 22G D51/2NS 60cc; side rails up x2, breaks engaged, bed at lowest position; call light within reach; will keep monitoring.
[2019-07-26 08:00] VITALS: BP 114/58
[2019-07-26 08:24] LABS: HEMOGLOBIN 8.5 G/DL (14.2-18.0); MEAN CORPUSCULAR VOLUME 83 FL (80-99); PLATELET COUNT 217 K/UL (150-450); RED BLOOD COUNT 3.25 M/UL (4.70-6.10); RED CELL DISTRIBUTION WIDTH 19.4 % (11.6-14.8); WHITE BLOOD COUNT 2.5 K/UL (4.8-10.8)
[2019-07-26] MEDS: Theophylline ER 100mg ORAL SCH ×2 (08:48→21:02)
[2019-07-26] MEDS: Docusate 100mg cap ORAL SCH ×3 (08:48→17:58)
[2019-07-26] MEDS: Vitamin B-12 500mcg tab ORAL SCH (08:48)
[2019-07-26] MEDS: Cefepime HCl 2 GM in D5W 55 ML IVPB SCH ×2 (08:48→21:02)
--- NOTE | 2019-07-26 09:02 | Pulmonology Progress Note ---
Assessment/Plan Assessment/Plan ASSESSMENT Possible pneumonia COPD Dehydration Anemia of iron deficiency Failure to thrive Hypertension History of substance abuse History of tobacco abuse Schizophrenia Hypomagnesemia PLAN OF CARE MS floor O2 HHN fup CXR 07/25 -right pleural effusion with associated atelectasis versus pneumonia. Probable pulmonary vasculature congestion. abx as per ID SCX prel Staph aureus DVT prophylaxis Monitor H&H, anemia work-up consistent with AID stool OB not collecetd tumor markers r/o occult malignancy -CEA minimally elevated, PSA stable replace Mg and check Mg in am -chemistry still pending case discussed and evaluated by supervising physician Subjective Allergies: Coded Allergies: No Known Allergies (Verified , 10/13/07) Subjective pulse ox stable on o2 via NC no CP, no SOB SCX + Staph aureus Objective Last 24 Hour Vital Signs Date Time Temp Pulse Resp B/P (MAP) Pulse Ox O2 Delivery O2 Flow Rate FiO2 07/26/19 08:00 98.3 98 20 114/58 (76) 98 07/26/19 07:53 96 Room Air 21 07/26/19 04:00 97.5 72 16 130/70 (90) 98 07/26/19 00:00 98.0 92 16 122/63 (82) 96 07/25/19 20:23 Nasal Cannula 2.0 07/25/19 20:00 97.8 78 16 112/76 (88) 97 07/25/19 19:55 97 Nasal Cannula 2.0 28 07/25/19 16:00 99.2 91 17 99/58 (72) 97 07/25/19 12:00 97.5 96 18 104/61 (75) 95 Intake and Output 07/25/19 07/26/19 19:00 07:00 Intake Total 660 ml 60 ml Output Total 400 ml Balance 260 ml 60 ml Intake Oral 600 ml IV Total 60 ml 60 ml Output Urine Total 400 ml # Voids 3 # Bowel Movements 1 Objective General Appearance: no acute distress, A/A/O AA male HEENT: normocephalic, atraumatic, anicteric, mucous membranes moist, PERRL Respiratory/Chest: lungs clear, no respiratory distress, no accessory muscle use Cardiovascular: normal rate Abdomen: soft, non tender, non distended Extremities: no edema, pedal pulses normal Neurologic/Psychiatric: alert, oriented x 3, responsive Musculoskeletal: normal muscle bulk Microbiology Date/Time Source Procedure Growth Status 07/25/19 10:20 Sputum Gram Stain - Final Resulted 07/25/19 10:20 Sputum Culture - Preliminary Staphylococcus Aureus Resulted Laboratory Tests 07/26/19 07:35: White Blood Count 2.5L, Red Blood Count 3.25L, Hemoglobin 8.5L, Hematocrit 27.0L , Mean Corpuscular Volume 83, Mean Corpuscular Hemoglobin 26.2L, Mean Corpuscular Hemoglobin Concent 31.6L, Red Cell Distribution Width 19.4H, Platelet Count 217, Mean Platelet Volume 4.9L, Neutrophils (%) (Auto) , Lymphocytes (%) (Auto) , Monocytes (%) (Auto) , Eosinophils (%) (Auto) , Basophils (%) (Auto) , Neutrophils % (Manual) [Pending], Lymphocytes % (Manual) [Pending], Platelet Estimate [Pending], Platelet Morphology [Pending], Sodium Level [Pending], Potassium Level [Pending], Chloride Level [Pending], Carbon Dioxide Level [Pending], Blood Urea Nitrogen [Pending], Creatinine [Pending], Estimat Glomerular Filtration Rate [Pending], Glucose Level [Pending], Calcium Level [Pending], Magnesium Level [Pending] Current Medications Medications (Trade) Dose Ordered Sig/Chiqui Route PRN Reason Start Time Stop Time Status Last Admin Dose Admin Acetaminophen (Tylenol) 650 mg Q4H PRN ORAL Mild Pain/Temp > 100.5 07/25/19 14:15 08/21/19 14:14 Acetaminophen/ Hydrocodone Bitart ([place] 5/325) 1 tab Q6H PRN ORAL For Pain 07/25/19 14:15 07/29/19 14:14 Albuterol/ Ipratropium (Albuterol/ Ipratropium) 3 ml Q6H PRN HHN Shortness of Breath 07/25/19 14:15 07/27/19 14:14 Aripiprazole (Abilify) 2.5 mg DAILY ORAL 07/26/19 09:00 08/21/19 08:59 07/26/19 08:47 Atorvastatin Calcium (Lipitor) 10 mg BEDTIME ORAL 07/25/19 21:00 08/21/19 20:59 07/25/19 20:48 Cefepime HCl 2 gm/ Dextrose 55 ml @ 110 mls/hr EVERY 12 HOURS IVPB 07/25/19 21:00 08/01/19 10:59 07/26/19 08:48 Cyanocobalamin (Vitamin B-12) 1,000 mcg DAILY ORAL 07/26/19 09:00 08/21/19 08:59 07/26/19 08:48 Dextrose (Dextrose 50%) 25 ml Q30M PRN IV Hypoglycemia 07/25/19 14:15 08/21/19 05:14 Dextrose (Dextrose 50%) 50 ml Q30M PRN IV Hypoglycemia 07/25/19 14:15 08/21/19 05:14 Dextrose/Sodium Chloride 1,000 ml @ 60 mls/hr [id number] IV 07/25/19 14:15 08/21/19 05:59 07/26/19 05:00 Docusate Sodium (Colace) 100 mg THREE TIMES A DAY ORAL 07/25/19 18:00 08/22/19 12:59 07/26/19 08:48 Folic Acid (Folate) 1 mg DAILY ORAL 07/26/19 09:00 08/21/19 08:59 07/26/19 08:48 Gabapentin (Neurontin) 300 mg TID@0600,1400,2200 ORAL 07/25/19 22:00 08/21/19 05:59 07/26/19 05:57 Iron Sucrose 100 mg/Sodium Chloride 60 ml @ 240 mls/hr BEDTIME IV 07/25/19 21:00 07/27/19 21:14 07/25/19 21:44 Lorazepam (Ativan) 0.5 mg Q6H PRN ORAL For Anxiety 07/25/19 14:15 07/30/19 14:14 Methocarbamol (Robaxin) 500 mg QIDPRN PRN ORAL muscle spasm/pain 07/25/19 14:15 08/24/19 14:14 Mirtazapine (Remeron) 15 mg BEDTIME ORAL 07/25/19 21:00 08/21/19 20:59 07/25/19 20:48 Promethazine HCl/ Codeine (Phenergan with Codeine) 5 ml Q4H PRN ORAL For Cough 07/25/19 14:15 08/21/19 14:14 Theophylline ([place]) 100 mg EVERY 12 HOURS ORAL 07/25/19 21:00 08/21/19 20:59 07/26/19 08:48 Sally Garvin STORE TEAM MEMBER Jul 26, 2019 09:02
[2019-07-26 09:27] LABS: ANION GAP 6 mmol/L (5-15); BLOOD UREA NITROGEN 17 mg/dL (7-18); CALCIUM 9.2 MG/DL (8.5-10.1); CARBON DIOXIDE 28 MMOL/L (21-32); CHLORIDE 102 MMOL/L (98-107); POTASSIUM 4.3 MMOL/L (3.5-5.1); SODIUM 136 MMOL/L (136-145)
--- NOTE | 2019-07-26 09:45 | Progress Note ---
DATE: 07/26/2019 SUBJECTIVE: This is a 74-year-old male patient with sepsis and respiratory insufficiency. He has decline in cognition below his baseline and mood lability. That is why, his attending has requested daily psychiatric consultation. DIAGNOSIS: Major depressive disorder, mild, recurrent with psychotic features. PLAN: Treat him with Abilify 2.5 mg daily, Remeron 15 at bedtime, Ativan 0.5 mg daily q.6 hours p.r.n. anxiety and agitation. A 20 minutes of reality-based supportive psychotherapy. A 20 minutes of cognitive behavioral therapy provided to help him identify his negative thoughts help him convert his negative thoughts to more positive thoughts to reduce depression, anxiety, and mood ability. Chart reviewed and discussed with staff. Omid Malagon M.D. DR: ZOIE JOB#: [id number] CC:
[2019-07-26] MEDS ORDERED: Tubing IV Secondary IV ONE (10:55)
[2019-07-26] MEDS ORDERED: D5 1/2NS 1000ml IV ONE (10:55)
[2019-07-26 12:00] VITALS: BP 108/60
[2019-07-26 16:00] VITALS: BP 120/66
--- NOTE | 2019-07-26 19:26 | NUR ---
HAND-OFF: Report given to FANNY Marcos.
--- NOTE | 2019-07-26 19:56 | NUR ---
NURSE NOTES: Patient in bed, awake and alert x4. No signs of distress or SOB. IV intact and patent. Bed locked and in lowest position. Bed alarm activated. HOB elevated. Call light in reach.
[2019-07-26 20:00] VITALS: BP 95/51
[2019-07-26] MEDS: Iron Sucrose 100 MG in NS 55 ML IV SCH (21:01)
[2019-07-26] MEDS: HYDROcodone/Acetamin 5/325 tab ORAL PRN (21:03)
--- NOTE | 2019-07-26 22:16 | General Progress Note ---
Assessment/Plan Problem List: (1) Anemia ICD Codes: D64.9 - Anemia, unspecified SNOMED: 452145480 (2) COPD (chronic obstructive pulmonary disease) ICD Codes: J44.9 - Chronic obstructive pulmonary disease, unspecified SNOMED: 67160289 (3) Depression ICD Codes: F32.9 - Major depressive disorder, single episode, unspecified SNOMED: 32704180 (4) Hypertension ICD Codes: I10 - Essential (primary) hypertension SNOMED: 62074806 (5) Nosocomial pneumonia ICD Codes: J18.9 - Pneumonia, unspecified organism; Y95 - Nosocomial condition SNOMED: 354073507 Status: doing well, stable Assessment/Plan: resp insuff copd pna no wheezing afebrile not hypoxic Subjective ROS Limited/Unobtainable: Yes Allergies: Coded Allergies: No Known Allergies (Verified , 10/13/07) Objective Last 24 Hour Vital Signs Date Time Temp Pulse Resp B/P (MAP) Pulse Ox O2 Delivery O2 Flow Rate FiO2 07/26/19 20:22 76 20 96 Nasal Cannula 21 07/26/19 20:22 78 18 99 Room Air 21 76 20 96 07/26/19 20:22 80 16 99 Room Air 21 07/26/19 20:13 96 Room Air 21 07/26/19 16:00 99.0 98 20 120/66 (84) 98 07/26/19 12:00 97.5 91 20 108/60 (76) 95 07/26/19 09:00 Nasal Cannula 2.0 07/26/19 08:00 98.3 98 20 114/58 (76) 98 07/26/19 07:53 96 Room Air 21 07/26/19 04:00 97.5 72 16 130/70 (90) 98 07/26/19 00:00 98.0 92 16 122/63 (82) 96 Intake and Output 07/25/19 07/26/19 19:00 07:00 Intake Total 660 ml 120 ml Output Total 400 ml Balance 260 ml 120 ml Intake Oral 600 ml IV Total 60 ml 120 ml Output Urine Total 400 ml # Voids 3 # Bowel Movements 1 Laboratory Tests 07/26/19 07:35: White Blood Count 2.5L, Red Blood Count 3.25L, Hemoglobin 8.5L, Hematocrit 27.0L , Mean Corpuscular Volume 83, Mean Corpuscular Hemoglobin 26.2L, Mean Corpuscular Hemoglobin Concent 31.6L, Red Cell Distribution Width 19.4H, Platelet Count 217, Mean Platelet Volume 4.9L, Neutrophils (%) (Auto) , Lymphocytes (%) (Auto) , Monocytes (%) (Auto) , Eosinophils (%) (Auto) , Basophils (%) (Auto) , Differential Total Cells Counted 100, Neutrophils % ( Manual) 46, Lymphocytes % (Manual) 35, Monocytes % (Manual) 17H, Eosinophils % ( Manual) 1, Basophils % (Manual) 1, Band Neutrophils 0, Platelet Estimate Adequate, Platelet Morphology Normal, Hypochromasia 2+, Anisocytosis 2+, Sodium Level 136, Potassium Level 4.3, Chloride Level 102, Carbon Dioxide Level 28, Anion Gap 6, Blood Urea Nitrogen 17, Creatinine 1.0, Estimat Glomerular Filtration Rate > 60, Glucose Level 136H, Calcium Level 9.2, Magnesium Level 2.6H Height (Feet): 5 Height (Inches): 7.00 Weight (Pounds): 145 Respiratory/Chest: chest wall non-tender Abdomen: soft Cadence Holbrook MD Jul 26, 2019 22:16
[2019-07-27] VITALS: BP 115/57
[2019-07-27 04:00] VITALS: BP 119/62
[2019-07-27 06:36] LABS: HEMATOCRIT 22.2 % (42.0-52.0); MEAN CORPUSCULAR VOLUME 83 FL (80-99); PLATELET COUNT 194 K/UL (150-450); RED BLOOD COUNT 2.69 M/UL (4.70-6.10); RED CELL DISTRIBUTION WIDTH 18.9 % (11.6-14.8); WHITE BLOOD COUNT 4.4 K/UL (4.8-10.8)
[2019-07-27 06:44] LABS: ANION GAP 5 mmol/L (5-15); BLOOD UREA NITROGEN 20 mg/dL (7-18); CALCIUM 8.8 MG/DL (8.5-10.1); CARBON DIOXIDE 28 MMOL/L (21-32); CHLORIDE 104 MMOL/L (98-107); POTASSIUM 4.5 MMOL/L (3.5-5.1); SODIUM 137 MMOL/L (136-145)
--- NOTE | 2019-07-27 07:21 | NUR ---
HAND-OFF: Report given to FANNY Bello.
--- NOTE | 2019-07-27 07:45 | NUR ---
NURSE NOTES: PT AXOX4, STATES PAIN 7/10 OF LOWER BACK AND REQUESTS FOR PAIN MEDICATION. RN ADMINISTERED PRN NORCO ORDERED. IN NO APPARENT DISTRESS AT THIS TIME. WILL CONTINUE TO MONITOR.
[2019-07-27 08:00] VITALS: BP 116/56
[2019-07-27] MEDS: Docusate 100mg cap ORAL SCH ×3 (08:32→17:19)
[2019-07-27] MEDS: Theophylline ER 100mg ORAL SCH ×2 (08:33→20:54)
[2019-07-27] MEDS: Vitamin B-12 500mcg tab ORAL SCH (08:33)
[2019-07-27] MEDS: HYDROcodone/Acetamin 5/325 tab ORAL PRN (08:37)
[2019-07-27] MEDS: Cefepime HCl 2 GM in D5W 55 ML IVPB SCH ×2 (08:38→22:30)
--- NOTE | 2019-07-27 09:36 | Pulmonology Progress Note ---
Assessment/Plan Assessment/Plan ASSESSMENT Pneumonia MRSA, GNR COPD Dehydration Anemia of iron deficiency Failure to thrive Hypertension History of substance abuse History of tobacco abuse Schizophrenia PLAN OF CARE MS floor O2 HHN fup CXR 07/25 -right pleural effusion with associated atelectasis versus pneumonia. Probable pulmonary vasculature congestion. abx as per ID SCX + MRSA, GNB DVT prophylaxis monitor H&H, anemia work-up consistent with AID, on Venofer transfuse 1 u PRBC BEATRIZ stool OB not collected, do BEATRIZ, reordered tumor markers r/o occult malignancy -CEA minimally elevated, PSA stable GI follows case discussed and evaluated by supervising physician Subjective Allergies: Coded Allergies: No Known Allergies (Verified , 10/13/07) Subjective pulse ox stable on o2 via NC no CP, no SOB SCX + MRSA, GNB Hgb down to 7 Objective Last 24 Hour Vital Signs Date Time Temp Pulse Resp B/P (MAP) Pulse Ox O2 Delivery O2 Flow Rate FiO2 07/27/19 08:00 98.6 84 17 116/56 (76) 98 07/27/19 06:43 97 Room Air 21 07/27/19 04:00 97.7 87 16 119/62 (81) 96 07/27/19 00:00 97.7 92 16 115/57 (76) 94 07/26/19 21:00 Nasal Cannula 2.0 07/26/19 20:22 76 20 96 Nasal Cannula 21 07/26/19 20:22 78 18 99 Room Air 21 76 20 96 07/26/19 20:22 80 16 99 Room Air 21 07/26/19 20:13 96 Room Air 21 07/26/19 20:00 98.2 95 14 95/51 (66) 97 07/26/19 16:00 99.0 98 20 120/66 (84) 98 07/26/19 12:00 97.5 91 20 108/60 (76) 95 Intake and Output 07/26/19 07/27/19 19:00 07:00 Intake Total 1430 ml 540 ml Output Total 550 ml Balance 880 ml 540 ml Intake Oral 720 ml 480 ml IV Total 710 ml 60 ml Output Urine Total 550 ml # Voids 3 # Bowel Movements 1 Objective General Appearance: no acute distress, A/A/O AA male HEENT: normocephalic, atraumatic, anicteric, mucous membranes moist, PERRL Respiratory/Chest: lungs clear, no respiratory distress, no accessory muscle use Cardiovascular: normal rate Abdomen: soft, non tender, non distended Extremities: no edema, pedal pulses normal Neurologic/Psychiatric: alert, oriented x 3, responsive Musculoskeletal: normal muscle bulk Microbiology Date/Time Source Procedure Growth Status 07/25/19 10:20 Sputum Gram Stain - Final Resulted 07/25/19 10:20 Sputum Culture - Preliminary Staphylococcus Aureus - Mrsa Gram Negative Bacillus 2 Usual Respiratory Savi Resulted Laboratory Tests 07/27/19 05:30: White Blood Count 4.4#L, Red Blood Count 2.69L, Hemoglobin 7.0L, Hematocrit 22.2L, Mean Corpuscular Volume 83, Mean Corpuscular Hemoglobin 26.2L, Mean Corpuscular Hemoglobin Concent 31.7L, Red Cell Distribution Width 18.9H, Platelet Count 194, Mean Platelet Volume 4.8L, Neutrophils (%) (Auto) , Lymphocytes (%) (Auto) , Monocytes (%) (Auto) , Eosinophils (%) (Auto) , Basophils (%) (Auto) , Neutrophils % (Manual) [Pending], Lymphocytes % (Manual) [Pending], Platelet Estimate [Pending], Platelet Morphology [Pending], Sodium Level 137, Potassium Level 4.5, Chloride Level 104, Carbon Dioxide Level 28, Anion Gap 5, Blood Urea Nitrogen 20H, Creatinine 1.0, Estimat Glomerular Filtration Rate > 60, Glucose Level 94, Calcium Level 8.8 Current Medications Medications (Trade) Dose Ordered Sig/Chiqui Route PRN Reason Start Time Stop Time Status Last Admin Dose Admin Acetaminophen (Tylenol) 650 mg Q4H PRN ORAL Mild Pain/Temp > 100.5 07/25/19 14:15 08/21/19 14:14 Acetaminophen/ Hydrocodone Bitart ([place] 5/325) 1 tab Q6H PRN ORAL For Pain 07/25/19 14:15 07/29/19 14:14 07/27/19 08:37 Albuterol/ Ipratropium (Albuterol/ Ipratropium) 3 ml Q6H PRN HHN Shortness of Breath 07/25/19 14:15 07/27/19 14:14 07/26/19 20:21 Aripiprazole (Abilify) 2.5 mg DAILY ORAL 07/26/19 09:00 08/21/19 08:59 07/27/19 08:35 Atorvastatin Calcium (Lipitor) 10 mg BEDTIME ORAL 07/25/19 21:00 08/21/19 20:59 07/26/19 21:03 Cefepime HCl 2 gm/ Dextrose 55 ml @ 110 mls/hr EVERY 12 HOURS IVPB 07/25/19 21:00 08/01/19 10:59 07/27/19 08:38 Cyanocobalamin (Vitamin B-12) 1,000 mcg DAILY ORAL 07/26/19 09:00 08/21/19 08:59 07/27/19 08:33 Dextrose (Dextrose 50%) 25 ml Q30M PRN IV Hypoglycemia 07/25/19 14:15 08/21/19 05:14 Dextrose (Dextrose 50%) 50 ml Q30M PRN IV Hypoglycemia 07/25/19 14:15 08/21/19 05:14 Dextrose/Sodium Chloride 1,000 ml @ 60 mls/hr [id number] IV 07/25/19 14:15 08/21/19 05:59 07/26/19 23:26 Docusate Sodium (Colace) 100 mg THREE TIMES A DAY ORAL 07/25/19 18:00 08/22/19 12:59 07/27/19 08:32 Folic Acid (Folate) 1 mg DAILY ORAL 07/26/19 09:00 08/21/19 08:59 07/27/19 08:33 Gabapentin (Neurontin) 300 mg TID@0600,1400,2200 ORAL 07/25/19 22:00 08/21/19 05:59 07/27/19 05:40 Iron Sucrose 100 mg/Sodium Chloride 60 ml @ 240 mls/hr BEDTIME IV 07/25/19 21:00 07/27/19 21:14 07/26/19 21:01 Lorazepam (Ativan) 0.5 mg Q6H PRN ORAL For Anxiety 07/25/19 14:15 07/30/19 14:14 Methocarbamol (Robaxin) 500 mg QIDPRN PRN ORAL muscle spasm/pain 07/25/19 14:15 08/24/19 14:14 Mirtazapine (Remeron) 15 mg BEDTIME ORAL 07/25/19 21:00 08/21/19 20:59 07/26/19 21:02 Promethazine HCl/ Codeine (Phenergan with Codeine) 5 ml Q4H PRN ORAL For Cough 07/25/19 14:15 08/21/19 14:14 Theophylline ([place]) 100 mg EVERY 12 HOURS ORAL 07/25/19 21:00 08/21/19 20:59 07/27/19 08:33 Sally Garvin NP Jul 27, 2019 09:36
--- NOTE | 2019-07-27 10:25 | General Progress Note ---
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 SNOMED: 659793881 (6) Dehydration ICD Codes: E86.0 - Dehydration Assessment/Plan CT esophagus in 2019 noted with esophagus diverticulum ST evaluation reviewed, patient passed on soft chew diet calorie count, tolerating 75% of meals Strict aspiration precautions anemia work up reviewed, iron deficient venofer OB stool r/o GI bleed monitor H&H, prn transfusions bowel regimen ppi fu labs per patient he has had colonoscopy 6 months ago, will try to obtain records pending blood transfusion for today Subjective ROS Limited/Unobtainable: Yes Allergies: Coded Allergies: No Known Allergies (Verified , 10/13/07) Objective Last 24 Hour Vital Signs Date Time Temp Pulse Resp B/P (MAP) Pulse Ox O2 Delivery O2 Flow Rate FiO2 07/27/19 08:00 98.6 84 17 116/56 (76) 98 07/27/19 06:43 97 Room Air 21 07/27/19 04:00 97.7 87 16 119/62 (81) 96 07/27/19 00:00 97.7 92 16 115/57 (76) 94 07/26/19 21:00 Nasal Cannula 2.0 07/26/19 20:22 76 20 96 Nasal Cannula 21 07/26/19 20:22 78 18 99 Room Air 21 76 20 96 07/26/19 20:22 80 16 99 Room Air 21 07/26/19 20:13 96 Room Air 21 07/26/19 20:00 98.2 95 14 95/51 (66) 97 07/26/19 16:00 99.0 98 20 120/66 (84) 98 07/26/19 12:00 97.5 91 20 108/60 (76) 95 Intake and Output 07/26/19 07/27/19 19:00 07:00 Intake Total 1430 ml 540 ml Output Total 550 ml Balance 880 ml 540 ml Intake Oral 720 ml 480 ml IV Total 710 ml 60 ml Output Urine Total 550 ml # Voids 3 # Bowel Movements 1 Laboratory Tests 07/27/19 05:30: White Blood Count 4.4#L, Red Blood Count 2.69L, Hemoglobin 7.0L, Hematocrit 22.2L, Mean Corpuscular Volume 83, Mean Corpuscular Hemoglobin 26.2L, Mean Corpuscular Hemoglobin Concent 31.7L, Red Cell Distribution Width 18.9H, Platelet Count 194, Mean Platelet Volume 4.8L, Neutrophils (%) (Auto) , Lymphocytes (%) (Auto) , Monocytes (%) (Auto) , Eosinophils (%) (Auto) , Basophils (%) (Auto) , Differential Total Cells Counted 100, Neutrophils % ( Manual) 36L, Lymphocytes % (Manual) 29, Monocytes % (Manual) 34H, Eosinophils % (Manual) 1, Basophils % (Manual) 0, Band Neutrophils 0, Platelet Estimate Adequate, Platelet Morphology Normal, Hypochromasia 1+, Anisocytosis 1+, Sodium Level 137, Potassium Level 4.5, Chloride Level 104, Carbon Dioxide Level 28, Anion Gap 5, Blood Urea Nitrogen 20H, Creatinine 1.0, Estimat Glomerular Filtration Rate > 60, Glucose Level 94, Calcium Level 8.8 Height (Feet): 5 Height (Inches): 7.00 Weight (Pounds): 145 General Appearance: alert EENT: normal ENT inspection Neck: normal alignment Cardiovascular: normal rate Respiratory/Chest: decreased breath sounds Abdomen: normal bowel sounds, non tender, soft Extremities: non-tender Sergei Villafuerte MD Jul 27, 2019 10:25
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
[2019-07-27 12:00] VITALS: BP 115/62
[2019-07-27] MEDS: Vancomycin 1gm/D5W 275ml IVPB SCH ×2 (13:25)
[2019-07-27] MEDS ORDERED: Albuterol/Ipratropium 3ml neb HHN PRN (14:15)
--- NOTE | 2019-07-27 14:34 | NUR ---
NURSE NOTES: BERNA DECKER WITH ORDER FOR BLOOD TRANSFUSION 2 UNITS PRBC. PT MADE AWARE AND AGREES TO TRANSFUSION. EDUCATION DONE AT BEDSIDE AND PROVIDED BLOOD TRANSFUSION BROCHURE. WILL START TRANSFUSION AFTER IV VANCOMYCIN INFUSION IS COMPLETE. IN NO APPARENT DISTRESS AT THIS TIME. WILL CONTINUE TO MONITOR.
--- NOTE | 2019-07-27 15:15 | Progress Note ---
DATE: 07/27/2019 SUBJECTIVE: This is a 74-year-old male patient with sepsis, respiratory insufficiency, anemia, dehydration, diverticula of the esophagus, failing to thrive, hypertension, pneumonia this caused increased depression and altered mental status and that is why daily psychiatric consultation for this patient. MENTAL STATUS EXAMINATION: This is a 74-year-old male. Appearance is disheveled. Attitude, irritable and agitated. Affect, guarded and restricted. Intellect poor. Mood, depressed and anxious. Motor activity, psychomotor agitation. Attention span is poor. Orientation x2. Speech is pressured. Thought process, disorganized and illogical. Insight and judgment is poor. DIAGNOSIS: Paranoid schizophrenia with acute exacerbation. PLAN: Treat him with Abilify 2.5 mg daily, Neurontin 300 mg three times a day, Remeron 15 mg at bedtime, Ativan 0.5 mg every 6 hours p.r.n. anxiety and agitation. A 20 minutes of cognitive behavioral therapy provided to help him identify his automatic negative thoughts, help him convert his negative thoughts to more positive thoughts to reduce depression, anxiety, and mood ability. Chart reviewed. Discussed with staff. Seen and assessed in his room. Omid Malagon M.D. DR: Dennise JOB#: [id number] CC:
[2019-07-27 16:00] VITALS: BP 120/74
[2019-07-27] MEDS: D5 1/2NS 1,000 ML IV SCH (16:15)
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
--- NOTE | 2019-07-27 19:29 | NUR ---
NURSE NOTES: Received patient asleep in bed, easily arousable, able to make needs known. 2nd unit of PRBC ongoing transfusion, patient tolerating well. Bed low and locked, 2 side rails up, patient wearing non slip socks. Patient stable, no s/s of acute distress.
--- NOTE | 2019-07-27 19:29 | NUR ---
HAND-OFF: Report given to Ruperto CASTAÑEDA RN.
[2019-07-27 20:00] VITALS: BP 114/68
--- NOTE | 2019-07-27 20:54 | General Progress Note ---
Assessment/Plan Problem List: (1) Anemia ICD Codes: D64.9 - Anemia, unspecified SNOMED: 394882565 (2) COPD (chronic obstructive pulmonary disease) ICD Codes: J44.9 - Chronic obstructive pulmonary disease, unspecified SNOMED: 42977395 (3) Depression ICD Codes: F32.9 - Major depressive disorder, single episode, unspecified SNOMED: 51835167 (4) Hypertension ICD Codes: I10 - Essential (primary) hypertension SNOMED: 85569709 (5) Nosocomial pneumonia ICD Codes: J18.9 - Pneumonia, unspecified organism; Y95 - Nosocomial condition SNOMED: 441319137 Status: doing well, stable, progressing Assessment/Plan: resp insuff copd pna afebrile pulmonary to do cpt no wheezing Subjective ROS Limited/Unobtainable: Yes Allergies: Coded Allergies: No Known Allergies (Verified , 10/13/07) Objective Last 24 Hour Vital Signs Date Time Temp Pulse Resp B/P (MAP) Pulse Ox O2 Delivery O2 Flow Rate FiO2 07/27/19 20:00 98.1 86 22 114/68 (83) 99 07/27/19 19:47 95 Room Air 21 07/27/19 16:00 98.3 94 18 120/74 (89) 94 07/27/19 12:00 98.4 90 17 115/62 (79) 97 07/27/19 09:00 Nasal Cannula 2.0 07/27/19 08:00 98.6 84 17 116/56 (76) 98 07/27/19 06:43 97 Room Air 21 07/27/19 04:00 97.7 87 16 119/62 (81) 96 07/27/19 00:00 97.7 92 16 115/57 (76) 94 07/26/19 21:00 Nasal Cannula 2.0 Intake and Output 07/26/19 07/27/19 19:00 07:00 Intake Total 1430 ml 540 ml Output Total 550 ml Balance 880 ml 540 ml Intake Oral 720 ml 480 ml IV Total 710 ml 60 ml Output Urine Total 550 ml # Voids 3 # Bowel Movements 1 Laboratory Tests 07/27/19 05:30: White Blood Count 4.4#L, Red Blood Count 2.69L, Hemoglobin 7.0L, Hematocrit 22.2L, Mean Corpuscular Volume 83, Mean Corpuscular Hemoglobin 26.2L, Mean Corpuscular Hemoglobin Concent 31.7L, Red Cell Distribution Width 18.9H, Platelet Count 194, Mean Platelet Volume 4.8L, Neutrophils (%) (Auto) , Lymphocytes (%) (Auto) , Monocytes (%) (Auto) , Eosinophils (%) (Auto) , Basophils (%) (Auto) , Differential Total Cells Counted 100, Neutrophils % ( Manual) 36L, Lymphocytes % (Manual) 29, Monocytes % (Manual) 34H, Eosinophils % (Manual) 1, Basophils % (Manual) 0, Band Neutrophils 0, Platelet Estimate Adequate, Platelet Morphology Normal, Hypochromasia 1+, Anisocytosis 1+, Sodium Level 137, Potassium Level 4.5, Chloride Level 104, Carbon Dioxide Level 28, Anion Gap 5, Blood Urea Nitrogen 20H, Creatinine 1.0, Estimat Glomerular Filtration Rate > 60, Glucose Level 94, Calcium Level 8.8 Height (Feet): 5 Height (Inches): 7.00 Weight (Pounds): 145 Cardiovascular: normal rate Respiratory/Chest: lungs clear Abdomen: soft Cadence Holbrook MD Jul 27, 2019 20:54
[2019-07-27] MEDS: Iron Sucrose 100 MG in NS 55 ML IV SCH (21:26)
[2019-07-28] VITALS: BP 123/70
[2019-07-28] MEDS: Vancomycin 1gm/D5W 275ml IVPB SCH ×4 (01:23→14:01)
[2019-07-28 04:00] VITALS: BP 124/65
--- NOTE | 2019-07-28 06:46 | Hematology/Onc Progress Note ---
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 --> stool occult blood as per gi --> no evidence of hemolysis --> to be seen by gi for clearance # Pneumonia MRSA, GNR --> sp abx --> is on vanc and cefepime # COPD --> cpt and oxygen # Dehydration --> goal of euvolemia # Failure to thrive --> on mirtazapine # Hypertension Appreciate consultation and dw Rn Subjective Constitutional: Denies: no symptoms, chills, fever, malaise, weakness, other Cardiovascular: Denies: no symptoms, chest pain, edema, irregular heart rate, lightheadedness, palpitations, syncope, other Respiratory: Denies: no symptoms, cough, shortness of breath, SOB with excertion, SOB at rest, sputum, wheezing, other Genitourinary: Denies: no symptoms, burning, discharge, frequency, flank pain, hematuria, incontinence, pain, urgency, other Neurologic/Psychiatric: Denies: no symptoms, anxiety, depressed, emotional problems, headache, numbness, paresthesia, pre-existing deficit, seizure, tingling, tremors, weakness, other Endocrine: Denies: no symptoms, excessive sweating, flushing, intolerance to cold, intolerance to heat, increased hunger, increased thirst, increased urine, unexplained weight gain, unexplained weight loss, other Hematologic/Lymphatic: Denies: no symptoms, anemia, easy bleeding, easy bruising, adenopathy, other Allergies: Coded Allergies: No Known Allergies (Verified , 10/13/07) Subjective 07/28: labs noted, tumor markers essentially neg, undergoing transfusion prbc Objective Objective Current Medications Medications (Trade) Dose Ordered Sig/Chiqui Route PRN Reason Start Time Stop Time Status Last Admin Dose Admin Acetaminophen (Tylenol) 650 mg Q4H PRN ORAL Mild Pain/Temp > 100.5 07/25/19 14:15 08/21/19 14:14 Acetaminophen/ Hydrocodone Bitart (Dixon 5/325) 1 tab Q6H PRN ORAL For Pain 07/25/19 14:15 07/29/19 14:14 07/27/19 08:37 Albuterol/ Ipratropium (Albuterol/ Ipratropium) 3 ml Q6H PRN HHN Shortness of Breath 07/27/19 14:15 07/29/19 14:14 Aripiprazole (Abilify) 2.5 mg DAILY ORAL 07/26/19 09:00 08/21/19 08:59 07/27/19 08:35 Atorvastatin Calcium (Lipitor) 10 mg BEDTIME ORAL 07/25/19 21:00 08/21/19 20:59 07/27/19 20:54 Cefepime HCl 2 gm/ Dextrose 55 ml @ 110 mls/hr EVERY 12 HOURS IVPB 07/25/19 21:00 08/01/19 10:59 07/27/19 22:30 Cyanocobalamin (Vitamin B-12) 1,000 mcg DAILY ORAL 07/26/19 09:00 08/21/19 08:59 07/27/19 08:33 Dextrose (Dextrose 50%) 25 ml Q30M PRN IV Hypoglycemia 07/25/19 14:15 08/21/19 05:14 Dextrose (Dextrose 50%) 50 ml Q30M PRN IV Hypoglycemia 07/25/19 14:15 08/21/19 05:14 Dextrose/Sodium Chloride 1,000 ml @ 60 mls/hr [id number] IV 07/25/19 14:15 08/21/19 05:59 07/26/19 23:26 Docusate Sodium (Colace) 100 mg THREE TIMES A DAY ORAL 07/25/19 18:00 08/22/19 12:59 07/27/19 17:19 Folic Acid (Folate) 1 mg DAILY ORAL 07/26/19 09:00 08/21/19 08:59 07/27/19 08:33 Gabapentin (Neurontin) 300 mg TID@0600,1400,2200 ORAL 07/25/19 22:00 08/21/19 05:59 07/28/19 05:41 Lorazepam (Ativan) 0.5 mg Q6H PRN ORAL For Anxiety 07/25/19 14:15 07/30/19 14:14 Methocarbamol (Robaxin) 500 mg QIDPRN PRN ORAL muscle spasm/pain 07/25/19 14:15 08/24/19 14:14 Mirtazapine (Remeron) 15 mg BEDTIME ORAL 07/25/19 21:00 08/21/19 20:59 07/27/19 20:54 Promethazine HCl/ Codeine (Phenergan with Codeine) 5 ml Q4H PRN ORAL For Cough 07/25/19 14:15 08/21/19 14:14 Theophylline ([place]-Dur) 100 mg EVERY 12 HOURS ORAL 07/25/19 21:00 08/21/19 20:59 07/27/19 20:54 Vancomycin HCl (Vanco rx to dose) 1 ea DAILY PRN MISC Per rx protocol 07/27/19 11:30 08/26/19 11:29 Vancomycin HCl 1 gm/Dextrose 275 ml @ 183.708 mls/hr Q12H IVPB 07/27/19 13:00 08/01/19 12:59 07/28/19 01:23 Last 24 Hour Vital Signs Date Time Temp Pulse Resp B/P (MAP) Pulse Ox O2 Delivery O2 Flow Rate FiO2 07/28/19 04:00 97.0 91 22 124/65 (84) 99 07/28/19 00:00 97.9 89 22 123/70 (87) 99 07/27/19 23:50 Nasal Cannula 2.0 07/27/19 20:00 98.1 86 22 114/68 (83) 99 07/27/19 19:47 95 Room Air 21 07/27/19 16:00 98.3 94 18 120/74 (89) 94 07/27/19 12:00 98.4 90 17 115/62 (79) 97 07/27/19 09:00 Nasal Cannula 2.0 07/27/19 08:00 98.6 84 17 116/56 (76) 98 07/27/19 06:43 97 Room Air 21 07/27/19 04:00 97.7 87 16 119/62 (81) 96 07/27/19 00:00 97.7 92 16 115/57 (76) 94 07/26/19 21:00 Nasal Cannula 2.0 07/26/19 20:22 76 20 96 Nasal Cannula 21 07/26/19 20:22 78 18 99 Room Air 21 76 20 96 07/26/19 20:22 80 16 99 Room Air 21 07/26/19 20:13 96 Room Air 21 07/26/19 20:00 98.2 95 14 95/51 (66) 97 07/26/19 16:00 99.0 98 20 120/66 (84) 98 07/26/19 12:00 97.5 91 20 108/60 (76) 95 07/26/19 09:00 Nasal Cannula 2.0 07/26/19 08:00 98.3 98 20 114/58 (76) 98 07/26/19 07:53 96 Room Air 21 Intake and Output 07/27/19 07/28/19 19:00 07:00 Intake Total 415 ml 420 ml Balance 415 ml 420 ml IV Total 415 ml 420 ml # Voids 3 Labs Test 07/26/19 07:35 07/27/19 05:30 White Blood Count 2.5 K/UL (4.8-10.8) 4.4 K/UL (4.8-10.8) Red Blood Count 3.25 M/UL (4.70-6.10) 2.69 M/UL (4.70-6.10) Hemoglobin 8.5 G/DL (14.2-18.0) 7.0 G/DL (14.2-18.0) Hematocrit 27.0 % (42.0-52.0) 22.2 % (42.0-52.0) Mean Corpuscular Volume 83 FL (80-99) 83 FL (80-99) Mean Corpuscular Hemoglobin 26.2 PG (27.0-31.0) 26.2 PG (27.0-31.0) Mean Corpuscular Hemoglobin Concent 31.6 G/DL (32.0-36.0) 31.7 G/DL (32.0-36.0) Red Cell Distribution Width 19.4 % (11.6-14.8) 18.9 % (11.6-14.8) Platelet Count 217 K/UL (150-450) 194 K/UL (150-450) Mean Platelet Volume 4.9 FL (6.5-10.1) 4.8 FL (6.5-10.1) Neutrophils (%) (Auto) % (45.0-75.0) % (45.0-75.0) Lymphocytes (%) (Auto) % (20.0-45.0) % (20.0-45.0) Monocytes (%) (Auto) % (1.0-10.0) % (1.0-10.0) Eosinophils (%) (Auto) % (0.0-3.0) % (0.0-3.0) Basophils (%) (Auto) % (0.0-2.0) % (0.0-2.0) Differential Total Cells Counted 100 100 Neutrophils % (Manual) 46 % (45-75) 36 % (45-75) Lymphocytes % (Manual) 35 % (20-45) 29 % (20-45) Monocytes % (Manual) 17 % (1-10) 34 % (1-10) Eosinophils % (Manual) 1 % (0-3) 1 % (0-3) Basophils % (Manual) 1 % (0-2) 0 % (0-2) Band Neutrophils 0 % (0-8) 0 % (0-8) Platelet Estimate Adequate Adequate Platelet Morphology Normal Normal Hypochromasia 2+ 1+ Anisocytosis 2+ 1+ Sodium Level 136 MMOL/L (136-145) 137 MMOL/L (136-145) Potassium Level 4.3 MMOL/L (3.5-5.1) 4.5 MMOL/L (3.5-5.1) Chloride Level 102 MMOL/L (98-107) 104 MMOL/L (98-107) Carbon Dioxide Level 28 MMOL/L (21-32) 28 MMOL/L (21-32) Anion Gap 6 mmol/L (5-15) 5 mmol/L (5-15) Blood Urea Nitrogen 17 mg/dL (7-18) 20 mg/dL (7-18) Creatinine 1.0 MG/DL (0.55-1.30) 1.0 MG/DL (0.55-1.30) Estimat Glomerular Filtration Rate > 60 mL/min (>60) > 60 mL/min (>60) Glucose Level 136 MG/DL (74-106) 94 MG/DL (74-106) Calcium Level 9.2 MG/DL (8.5-10.1) 8.8 MG/DL (8.5-10.1) Magnesium Level 2.6 MG/DL (1.8-2.4) Height (Feet): 5 Height (Inches): 7.00 Weight (Pounds): 145 EENT: PERRL/EOMI Neck: supple Cardiovascular: regular rhythm Respiratory/Chest: normal breath sounds Abdomen: soft Extremities: non-tender Neurologic: no motor/sensory deficits Skin: warm/dry Glenn Daniel MD Jul 28, 2019 06:46
--- NOTE | 2019-07-28 07:10 | NUR ---
HAND-OFF: Report given to FANNY Bello.
[2019-07-28 07:23] LABS: ANION GAP 6 mmol/L (5-15); BLOOD UREA NITROGEN 21 mg/dL (7-18); CALCIUM 8.9 MG/DL (8.5-10.1); CARBON DIOXIDE 27 MMOL/L (21-32); CHLORIDE 103 MMOL/L (98-107); CREATININE 0.9 MG/DL (0.55-1.30); POTASSIUM 4.5 MMOL/L (3.5-5.1); SODIUM 136 MMOL/L (136-145)
[2019-07-28 07:29] LABS: HEMOGLOBIN 9.1 G/DL (14.2-18.0); MEAN CORPUSCULAR VOLUME 83 FL (80-99); PLATELET COUNT 207 K/UL (150-450); RED BLOOD COUNT 3.38 M/UL (4.70-6.10); RED CELL DISTRIBUTION WIDTH 18.5 % (11.6-14.8); WHITE BLOOD COUNT 4.4 K/UL (4.8-10.8)
--- NOTE | 2019-07-28 07:33 | NUR ---
NURSE NOTES: PT AXOX4, CALM, EATING BREAKFAST IN BED. IN NO APPARENT DISTRESS AT THIS TIME. BED IN LOWEST POSITION WITH BEDSIDE RAILS X2 RAISED. CALL LIGHT WITHIN REACH. WILL CONTINUE TO MONITOR.
[2019-07-28 08:00] VITALS: BP 124/61
[2019-07-28] MEDS: Cefepime HCl 2 GM in D5W 55 ML IVPB SCH (08:59)
[2019-07-28] MEDS: D5 1/2NS 1,000 ML IV SCH (08:59)
[2019-07-28] MEDS: HYDROcodone/Acetamin 5/325 tab ORAL PRN ×2 (08:59→17:21)
[2019-07-28] MEDS: Docusate 100mg cap ORAL SCH ×3 (08:59→17:11)
[2019-07-28] MEDS: Vitamin B-12 500mcg tab ORAL SCH (08:59)
[2019-07-28] MEDS: Theophylline ER 100mg ORAL SCH ×2 (08:59→20:44)
--- NOTE | 2019-07-28 09:18 | NUR ---
ST NOTES: UPDATED SUMMARY FOR MOD BARIUM SWALLOW COMPLETED ON 07/22/19: COMPLETED MODIFIED BARIUM SWALLOW STUDY, SEE FULL REPORT AND SUMMARY TO FOLLOW. GIVEN THIN LIQUIDS TSP, TSP, CUP, STRAW SEQUENTIAL; NECTAR THICK LIQUIDS TSP, CUP, STRAW SEQUENTIAL; HONEY THICK LIQUIDS TSP; PUDDING TSP; MASTICATED SOLID 1/2 COOKIE 3 CC PUDDING (SPIT OUT COOKIE AND ONLY SWALLOWED PUDDING) IN LATERAL. DURING AP VIEW IN CHAIR NECTAR THICK TSP ONLY (NO TIME FOR PUDDING TSP CUE TO FLUORO TIME LIMIT). 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 NO ASPIRATION NOTED BUT HAS A HIGH RISK FOR CHRONIC TRACE ASPIRATION AND LARYNGEAL PENETRATION (ESPECIALLY WITH LIQUIDS) IF STRICT ASPIRATION AND REFLUX PRECAUTIONS AND SWALLOW STRATEGIES ARE NOT USED. THIN LIQUIDS: TRACE SILENT LARYNGEAL PENETRATION (LP)WITH SIP CUP ABOVE VOCAL FOLDS WITH EJECTION. DEEPER LP WITH SEQUENTIAL SIPS VIA STRAW TO LEVEL OF VOCAL FOLDS WITH EJECTION. BOTH DUE TO DELAYED SWALLOW AND LATE/INCOMPLETE CLOSURE OF LARYNGEAL VESTIBULE. NO ASP/LP WITH TSP. NECTAR THICK LIQUIDS: TRACE LP ABOVE VOCAL FOLDS WITH EJECTION WITH TSP AND TRACE LP ABOVE VOCAL FOLDS WITHOUT EJECTION WITH CUP SIP AND SEQUENTIAL STRAW SIPS (DUE TO DELAYED SWALLOW AND LATE CLOSURE OF LARYNGEAL VESTIBULE). HONEY THICK LIQUIDS TSP AND PUDDING TSP: TRACE LP ABOVE VOCAL FOLDS WITH EJECTION DUE TO SAME PROBLEMS NOTED ABOVE. MASTICATED SOLIDS NO ASP AND NEEDED TO SPIT OUT THE COOKIE. WHEN HE SWALLOWED THE 3 CC PUDDING, HE ALSO HAD TRACE LP ABOVE VOCAL FOLDS WITH EJECTION DUE TO LATE SWALLOW/LARYNGEAL VESTIBULE CLOSURE. ASPIRATION/PENETRATION RISK HIGH AND SWALLOW LESS EFFICIENT DUE TO THE FOLLOWING COMPONENTS: Oral Prep oral apraxia / sensory deficits (tends to unnecessarily chew the pureed bolus) Oral Impairment Lip Closure Tongue Control Bolus preparation/mastication Bolus transport/lingual motion Oral residue Init. pharyngeal swallow Pharyngeal Impairment Laryngeal elevation (LE) Ant. hyoid excursion Laryngeal vestibule closure (late and incomplete) Pharyngeal stripping wave Pharyngoesophageal segment opening Tongue base retraction Pharyngeal residue Decreased pharyngeal sensation ESOPHAGEAL DYSPHAGIA: HE HAS RETROGRADE BACKFLOW WITH THORUGH THE PES OPENING WITH THIN TRACE NOTED WITH TSP, TSP (NOT CUP SIP AND STRAW SEQUENTIAL) NECTAR THICK LIQUIDS MILD-MOD NOTED WITH STRAW SEQUENTIAL (NOT TSP/CUP) NO BACKFLOW ON HONEY THICK TSP AND PUDDING TSP AND COOKIE SPIT OUT BUT NOT WITH 3 CC PUDDING ON COOKIE. AP VIEW LEFT SIDED DIVERTICULUM HAD SMALL DIVERTICULUM (FILLED WITH NECTAR THICK LIQUID TSP BUT NO BACKFLOW AND EMPTYIED WITH WATER TSP WASH) TRIAL TX STRATEGIES BENEFITS FROM SMALLER SIP ONE AT A TIME (TSP SAFEST), HARD EXTRA SWALLOWS, AND MORE TIME. NO TIME TO TEST MANY TX STRATEGIES DUE TO 5 MIN FLUORO LIMIT. MAY BENEFIT FROM HEAD TURN LEFT (IN HOPES TO CLOSE OFF SIDE OF DIVERTICULUM ON LEFT), CHIN TUCK AND EFFORTFUL BREATH-HOLD WITH TRAINING TO REDUCED LARYNGEAL PENETRATION WITH THIN LIQUIDS ( HE IS REFUSING NECTAR THICK LIQUIDS), REST WHEN SOB (RESP RATE NOT ABOVE 25 BASELINE IS 19/20, ALTERNATE SOLIDS AND LIQUIDS(CLEAR OUT DIVERTICULUM AND FOR BETTER ESOPHAGEAL MOTILITY), AND LEANING BACK SLIGHTLY ALSO MAY PREVENT SPILLAGE OF OROPHARYNGEAL RESIDUE AND RETROGRADE BACKFLOW. COULD ALSO CONSIDER TRAINING IN SWALLOWING DURING EXHALATION AT MID TO LOW LUNG VOLUME AND RICKIE SWALLOW STRATEGY (FOR ESOPHAGEAL DYSMOTILITY). RECOMMENDATIONS CONTINUE WITH PO INTAKE BUT DOWNGRADE TO SOFT CHEW (PATIENT REFUSES ANY FURTHER DOWNGRADES EVEN THOUGH HE C/O "REGURGITATION" EPISODES WITH SOLIDS AT TIMES. CONTINUE WITH THIN LIQUIDS HE REFUSES AND DISLIKES NECTAR THICK LIQUIDS USING POSTED/UPDATED ASPIRATION/REFLUX PRECAUTIONS AND ASSIST WITH MEALS. CONTINUE WITH SKILLED DYSPHAGIA MANAGEMENT AND TX IP AND THEN AT SNF. F/UP WITH GI MOTILITY CLINIC AT [facility] REGARDING ESOPHAGEAL DYSMOTILITY AND DIVERTICULUM EDUCATED/TRAINED STAFF IN POSTED PRECAUTIONS.
--- NOTE | 2019-07-28 09:32 | NUR ---
ST NOTES: SWALLOW STATUS: PATIENT IS ALERT AND WORRIED ABOUT BEING DISCHARGED BACK TO THE SNF SOON SO HE DOESN'T LOSE HIS ROOM. GOALS FOR INTAKE WERE MET ON SOFT CHEW AND THIN LIQUIDS W/O OVERT ASPIRATION OBSERVED BY SENIOR FIRE PROTECTION ENGINEER AND PROP SAWYER. PATIENT AND NEW STAFF EDUCATED IN POSTED ASPIRATION AND REFLUX PRECAUTIONS. COMPLETED REPORT FOR MOD BARIUM SWALLOW STUDY AND SHOWED RN, LEYDA, IMAGES. PLAN: CONTINUE WITH PLAN OF CARE IN MOD BARIUM SWALLOW STUDY REPORT.
--- NOTE | 2019-07-28 10:27 | General Progress Note ---
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 SNOMED: 714502524 (6) Dehydration ICD Codes: E86.0 - Dehydration Assessment/Plan CT esophagus in 2019 noted with esophagus diverticulum ST evaluation reviewed, patient passed on soft chew diet calorie count, tolerating 75% of meals Strict aspiration precautions anemia work up reviewed, iron deficient venofer OB stool r/o GI bleed monitor H&H, prn transfusions bowel regimen ppi fu labs per patient he has had colonoscopy 6 months ago, will try to obtain records from [place] s/p blood transfusion yesterday Subjective ROS Limited/Unobtainable: Yes Allergies: Coded Allergies: No Known Allergies (Verified , 10/13/07) Objective Last 24 Hour Vital Signs Date Time Temp Pulse Resp B/P (MAP) Pulse Ox O2 Delivery O2 Flow Rate FiO2 07/28/19 08:00 98.1 93 18 124/61 (82) 97 07/28/19 07:55 94 Room Air 21 07/28/19 04:00 97.0 91 22 124/65 (84) 99 07/28/19 00:00 97.9 89 22 123/70 (87) 99 07/27/19 23:50 Nasal Cannula 2.0 07/27/19 20:00 98.1 86 22 114/68 (83) 99 07/27/19 19:47 95 Room Air 21 07/27/19 16:00 98.3 94 18 120/74 (89) 94 07/27/19 12:00 98.4 90 17 115/62 (79) 97 Intake and Output 07/27/19 07/28/19 19:00 07:00 Intake Total 415 ml 480 ml Balance 415 ml 480 ml IV Total 415 ml 480 ml # Voids 3 Laboratory Tests 07/28/19 05:20: White Blood Count 4.4L, Red Blood Count 3.38L, Hemoglobin 9.1L, Hematocrit 28.0L , Mean Corpuscular Volume 83, Mean Corpuscular Hemoglobin 26.9L, Mean Corpuscular Hemoglobin Concent 32.5, Red Cell Distribution Width 18.5H, Platelet Count 207, Mean Platelet Volume 4.8L, Neutrophils (%) (Auto) , Lymphocytes (%) (Auto) , Monocytes (%) (Auto) , Eosinophils (%) (Auto) , Basophils (%) (Auto) , Differential Total Cells Counted 100, Neutrophils % ( Manual) 37L, Lymphocytes % (Manual) 35, Monocytes % (Manual) 28H, Eosinophils % (Manual) 0, Basophils % (Manual) 0, Band Neutrophils 0, Nucleated Red Blood Cells 2, Platelet Estimate Adequate, Platelet Morphology Normal, Anisocytosis 1+ , Sodium Level 136, Potassium Level 4.5, Chloride Level 103, Carbon Dioxide Level 27, Anion Gap 6, Blood Urea Nitrogen 21H, Creatinine 0.9, Estimat Glomerular Filtration Rate > 60, Glucose Level 97, Calcium Level 8.9, Total Protein (PEP) [Pending], Albumin (PEP) [Pending], Globulin (PEP) [Pending], Albumin/Globulin Ratio [Pending], Uhtku-9-Ealfldmow [Pending], Alpha-2- Globulins [Pending], Beta Globulins [Pending], Beta Gamma Globulin [Pending], PEP Abnormal Protein Bands [Pending], Protein Electrophoresis Interpret [Pending ] Height (Feet): 5 Height (Inches): 7.00 Weight (Pounds): 145 General Appearance: confused EENT: normal ENT inspection Neck: supple Cardiovascular: normal rate Respiratory/Chest: decreased breath sounds Abdomen: normal bowel sounds, non tender, soft Extremities: non-tender Sergei Villafuerte MD Jul 28, 2019 10:27
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
[2019-07-28 12:00] VITALS: BP 106/62
[2019-07-28] MEDS: Ertapenem 1 GM in NS 55 ML IVPB SCH (13:15)
--- NOTE | 2019-07-28 13:37 | Pulmonology Progress Note ---
Assessment/Plan Problems: (1) Nosocomial pneumonia (2) COPD (chronic obstructive pulmonary disease) (3) Anemia (4) Dehydration (5) FTT (failure to thrive) in adult (6) Generalized weakness (7) Depression (8) Schizophrenia (9) Hypertension Assessment/Plan cxr reviewed, Right effusion is getting larger, will order thoracentesis Venofer for iron deficiency anemia sputum for c/s sputum induction IV abx check cultures anemia w/u showing iron deficiency, stool OB pending checked tumor markers, PSA negative, CEA is 5, almost normal dvt prophylaxis. Subjective ROS Limited/Unobtainable: No Constitutional: Reports: no symptoms HEENT: Repors: no symptoms Respiratory: Reports: no symptoms Allergies: Coded Allergies: No Known Allergies (Verified , 10/13/07) Objective Last 24 Hour Vital Signs Date Time Temp Pulse Resp B/P (MAP) Pulse Ox O2 Delivery O2 Flow Rate FiO2 07/28/19 12:00 98.1 91 19 106/62 (77) 95 07/28/19 09:00 Nasal Cannula 2.0 07/28/19 08:00 98.1 93 18 124/61 (82) 97 07/28/19 07:55 94 Room Air 21 07/28/19 04:00 97.0 91 22 124/65 (84) 99 07/28/19 00:00 97.9 89 22 123/70 (87) 99 07/27/19 23:50 Nasal Cannula 2.0 07/27/19 20:00 98.1 86 22 114/68 (83) 99 07/27/19 19:47 95 Room Air 21 07/27/19 16:00 98.3 94 18 120/74 (89) 94 Intake and Output 07/27/19 07/28/19 19:00 07:00 Intake Total 415 ml 480 ml Balance 415 ml 480 ml IV Total 415 ml 480 ml # Voids 3 General Appearance: WD/WN HEENT: normocephalic, atraumatic Cardiovascular: regular rhythm, no JVD Abdomen: normal bowel sounds, soft, non tender, non distended Genitourinary: normal external genitalia Extremities: no clubbing Laboratory Tests 07/28/19 05:20: White Blood Count 4.4L, Red Blood Count 3.38L, Hemoglobin 9.1L, Hematocrit 28.0L , Mean Corpuscular Volume 83, Mean Corpuscular Hemoglobin 26.9L, Mean Corpuscular Hemoglobin Concent 32.5, Red Cell Distribution Width 18.5H, Platelet Count 207, Mean Platelet Volume 4.8L, Neutrophils (%) (Auto) , Lymphocytes (%) (Auto) , Monocytes (%) (Auto) , Eosinophils (%) (Auto) , Basophils (%) (Auto) , Differential Total Cells Counted 100, Neutrophils % ( Manual) 37L, Lymphocytes % (Manual) 35, Monocytes % (Manual) 28H, Eosinophils % (Manual) 0, Basophils % (Manual) 0, Band Neutrophils 0, Nucleated Red Blood Cells 2, Platelet Estimate Adequate, Platelet Morphology Normal, Anisocytosis 1+ , Sodium Level 136, Potassium Level 4.5, Chloride Level 103, Carbon Dioxide Level 27, Anion Gap 6, Blood Urea Nitrogen 21H, Creatinine 0.9, Estimat Glomerular Filtration Rate > 60, Glucose Level 97, Calcium Level 8.9, Total Protein (PEP) [Pending], Albumin (PEP) [Pending], Globulin (PEP) [Pending], Albumin/Globulin Ratio [Pending], [id number] [Pending], Alpha-2- Globulins [Pending], Beta Globulins [Pending], Beta Gamma Globulin [Pending], PEP Abnormal Protein Bands [Pending], Protein Electrophoresis Interpret [Pending ] 07/28/19 11:55: Vancomycin Level Trough 14.2H Current Medications Medications (Trade) Dose Ordered Sig/Chiqui Route PRN Reason Start Time Stop Time Status Last Admin Dose Admin Acetaminophen (Tylenol) 650 mg Q4H PRN ORAL Mild Pain/Temp > 100.5 07/25/19 14:15 08/21/19 14:14 Acetaminophen/ Hydrocodone Bitart ([place] 5/325) 1 tab Q6H PRN ORAL For Pain 07/25/19 14:15 07/29/19 14:14 07/28/19 08:59 Albuterol/ Ipratropium (Albuterol/ Ipratropium) 3 ml Q6H PRN HHN Shortness of Breath 07/27/19 14:15 07/29/19 14:14 Aripiprazole (Abilify) 2.5 mg DAILY ORAL 07/26/19 09:00 08/21/19 08:59 07/28/19 08:59 Atorvastatin Calcium (Lipitor) 10 mg BEDTIME ORAL 07/25/19 21:00 08/21/19 20:59 07/27/19 20:54 Cyanocobalamin (Vitamin B-12) 1,000 mcg DAILY ORAL 07/26/19 09:00 08/21/19 08:59 07/28/19 08:59 Dextrose (Dextrose 50%) 25 ml Q30M PRN IV Hypoglycemia 07/25/19 14:15 08/21/19 05:14 Dextrose (Dextrose 50%) 50 ml Q30M PRN IV Hypoglycemia 07/25/19 14:15 08/21/19 05:14 Dextrose/Sodium Chloride 1,000 ml @ 60 mls/hr [id number] IV 07/25/19 14:15 08/21/19 05:59 07/28/19 08:59 Docusate Sodium (Colace) 100 mg THREE TIMES A DAY ORAL 07/25/19 18:00 08/22/19 12:59 07/28/19 12:51 Ertapenem 1 gm/ Sodium Chloride 55 ml @ 110 mls/hr Q24H IVPB 07/28/19 13:00 08/02/19 12:59 07/28/19 13:15 Folic Acid (Folate) 1 mg DAILY ORAL 07/26/19 09:00 08/21/19 08:59 07/28/19 08:59 Gabapentin (Neurontin) 300 mg TID@0600,1400,2200 ORAL 07/25/19 22:00 08/21/19 05:59 07/28/19 05:41 Lorazepam (Ativan) 0.5 mg Q6H PRN ORAL For Anxiety 07/25/19 14:15 07/30/19 14:14 Methocarbamol (Robaxin) 500 mg QIDPRN PRN ORAL muscle spasm/pain 07/25/19 14:15 08/24/19 14:14 Mirtazapine (Remeron) 15 mg BEDTIME ORAL 07/25/19 21:00 08/21/19 20:59 07/27/19 20:54 Promethazine HCl/ Codeine (Phenergan with Codeine) 5 ml Q4H PRN ORAL For Cough 07/25/19 14:15 08/21/19 14:14 Theophylline ([place]-Dur) 100 mg EVERY 12 HOURS ORAL 07/25/19 21:00 08/21/19 20:59 07/28/19 08:59 Vancomycin HCl (Vanco rx to dose) 1 ea DAILY PRN MISC Per rx protocol 07/27/19 11:30 08/26/19 11:29 Vancomycin HCl 1 gm/Dextrose 275 ml @ 183.708 mls/hr Q12H IVPB 07/27/19 13:00 08/01/19 12:59 07/28/19 01:23 Billy Whitney MD Jul 28, 2019 13:37
--- NOTE | 2019-07-28 13:39 | General Progress Note ---
Assessment/Plan Problem List: (1) Anemia ICD Codes: D64.9 - Anemia, unspecified SNOMED: 342964386 (2) Generalized weakness ICD Codes: R53.1 - Weakness SNOMED: 67503986 (3) FTT (failure to thrive) in adult ICD Codes: R62.7 - Adult failure to thrive SNOMED: 547280126 (4) COPD (chronic obstructive pulmonary disease) ICD Codes: J44.9 - Chronic obstructive pulmonary disease, unspecified SNOMED: 36696084 (5) Hypertension ICD Codes: I10 - Essential (primary) hypertension SNOMED: 84532875 (6) Nosocomial pneumonia ICD Codes: J18.9 - Pneumonia, unspecified organism; Y95 - Nosocomial condition SNOMED: 804172046 Status: stable, progressing Assessment/Plan: pt diet abx o2 pulm tx prn cbc bmp am dc plan Subjective Constitutional: Reports: weakness Allergies: Coded Allergies: No Known Allergies (Verified , 10/13/07) All Systems: reviewed and negative except above Subjective sleepy calm Objective Last 24 Hour Vital Signs Date Time Temp Pulse Resp B/P (MAP) Pulse Ox O2 Delivery O2 Flow Rate FiO2 07/28/19 12:00 98.1 91 19 106/62 (77) 95 07/28/19 09:00 Nasal Cannula 2.0 07/28/19 08:00 98.1 93 18 124/61 (82) 97 07/28/19 07:55 94 Room Air 21 07/28/19 04:00 97.0 91 22 124/65 (84) 99 07/28/19 00:00 97.9 89 22 123/70 (87) 99 07/27/19 23:50 Nasal Cannula 2.0 07/27/19 20:00 98.1 86 22 114/68 (83) 99 07/27/19 19:47 95 Room Air 21 07/27/19 16:00 98.3 94 18 120/74 (89) 94 Intake and Output 07/27/19 07/28/19 19:00 07:00 Intake Total 415 ml 480 ml Balance 415 ml 480 ml IV Total 415 ml 480 ml # Voids 3 Laboratory Tests 07/28/19 05:20: White Blood Count 4.4L, Red Blood Count 3.38L, Hemoglobin 9.1L, Hematocrit 28.0L , Mean Corpuscular Volume 83, Mean Corpuscular Hemoglobin 26.9L, Mean Corpuscular Hemoglobin Concent 32.5, Red Cell Distribution Width 18.5H, Platelet Count 207, Mean Platelet Volume 4.8L, Neutrophils (%) (Auto) , Lymphocytes (%) (Auto) , Monocytes (%) (Auto) , Eosinophils (%) (Auto) , Basophils (%) (Auto) , Differential Total Cells Counted 100, Neutrophils % ( Manual) 37L, Lymphocytes % (Manual) 35, Monocytes % (Manual) 28H, Eosinophils % (Manual) 0, Basophils % (Manual) 0, Band Neutrophils 0, Nucleated Red Blood Cells 2, Platelet Estimate Adequate, Platelet Morphology Normal, Anisocytosis 1+ , Sodium Level 136, Potassium Level 4.5, Chloride Level 103, Carbon Dioxide Level 27, Anion Gap 6, Blood Urea Nitrogen 21H, Creatinine 0.9, Estimat Glomerular Filtration Rate > 60, Glucose Level 97, Calcium Level 8.9, Total Protein (PEP) [Pending], Albumin (PEP) [Pending], Globulin (PEP) [Pending], Albumin/Globulin Ratio [Pending], [id number]-[id number] [Pending], Alpha-2- Globulins [Pending], Beta Globulins [Pending], Beta Gamma Globulin [Pending], PEP Abnormal Protein Bands [Pending], Protein Electrophoresis Interpret [Pending ] 07/28/19 11:55: Vancomycin Level Trough 14.2H Height (Feet): 5 Height (Inches): 7.00 Weight (Pounds): 145 General Appearance: lethargic EENT: PERRL/EOMI Neck: normal alignment Cardiovascular: normal peripheral pulses, normal rate, regular rhythm Respiratory/Chest: chest wall non-tender, lungs clear, normal breath sounds Abdomen: normal bowel sounds, non tender, soft Extremities: normal inspection Edema: no edema noted Arm (L), no edema noted Arm (R), no edema noted Leg (L), no edema noted Leg (R), no edema noted Pedal (L), no edema noted Pedal (R), no edema noted Generalized Neurologic: motor weakness Skin: normal pigmentation, warm/dry Charles Parisi DO Jul 28, 2019 13:39
--- NOTE | 2019-07-28 15:17 | NUR ---
*-*DISCHARGE PLANNING*-* PATIENT HAS BEEN ACCEPTED BACK TO: [facility] P:[phone] F:[phone] *-* CLINICALS FAXED*-*
[2019-07-28 15:45] LABS: INR 1.1 (0.9-1.1)
--- NOTE | 2019-07-28 15:47 | NUR ---
NURSE NOTES: PT EDUCATED ON NEW ORDER FOR THORACENTESIS. PT AGREED AND SIGNED CONSENT. CONSENT PLACED IN PT'S CHART.
--- NOTE | 2019-07-28 15:51 | NUR ---
CASE MANAGEMENT:REVIEW 07/27/2019 SI;ANEMIA. COPD. NOSOCOMIAL PNA. 98.6 92 16 116/56 94% 2L NC H/H 7.0/22.2 BUN 20 IS;DUO NEB HHN Q6 HRS PRN VANCOMYCIN QD CEFEPIME IV Q12 HRS IRON SUCROSE IV HS JOSE-DUR PO Q12 HRS IVF D5NS @ 60 ML/HR MED SURG STATUS DCP;FROM [facility]
[2019-07-28 16:00] VITALS: BP 125/81
--- NOTE | 2019-07-28 16:15 | Progress Note ---
DATE: 07/28/2019 SUBJECTIVE: This is a 74-year-old male patient with sepsis, respiratory insufficiency. This is a patient who has altered mental status, confusion, decline in cognition below his baseline that is why his attending has requested daily consultation. DIAGNOSIS: Major depressive disorder, mild, recurrent with psychotic features, rule out dementia with psychosis. PLAN: Treat him with Abilify 2.5 mg daily, Remeron 15 at bedtime, every 6 hours p.r.n. anxiety and agitation. A 20 minutes of reality-based supportive psychotherapy. Chart reviewed and discussed with staff. Seen and assessed at bedside. Omid aMlagon M.D. DR: Dennise JOB#: [id number] CC:
--- NOTE | 2019-07-28 16:51 | Diagnostic Imaging Report ---
Indications: Dysphagia Technique: Patient ingested multiple substances under the supervision of speech pathology. Video fluoroscopic recording performed. Total fluoroscopy time . 13 seconds. Total dose area product 0.59694 mGycm2 Total number of images-13 Comparison: none Findings: There is occasional trace penetration of thin liquid barium. No evidence of aspiration. There is trace penetration of nectar thick liquid barium. There is penetration of honey thick liquid barium. There is also penetration of barium puree and masticated solid. No aspiration Impression: Positive for penetration of multiple substances. No aspiration demonstrated Please refer to speech pathology report for more detailed analysis
--- NOTE | 2019-07-28 19:28 | NUR ---
HAND-OFF: Report given to Ruperto CASTAÑEDA RN.
[2019-07-28 20:00] VITALS: BP 114/60
--- NOTE | 2019-07-28 20:00 | NUR ---
NURSE NOTES: Received patient awake in bed, able to make needs known, no c/o pain at this time. IV line intact and patent, patient refusing IVF maintenance but ok with IV abx infusion. No SOB or acute distress. HOB elevated. Bed locked in lowest position, 2 side rails up. Patient ambulatory, wearing non slip socks.
[2019-07-29] VITALS: BP 113/62
[2019-07-29] MEDS: D5 1/2NS 1,000 ML IV SCH ×2 (00:33→18:15)
[2019-07-29] MEDS: Vancomycin 1gm/D5W 275ml IVPB SCH ×4 (00:33→14:31)
[2019-07-29 04:00] VITALS: BP 121/64
[2019-07-29 07:21] LABS: HEMATOCRIT 30.1 % (42.0-52.0); HEMOGLOBIN 9.7 G/DL (14.2-18.0); MEAN CORPUSCULAR VOLUME 84 FL (80-99); PLATELET COUNT 214 K/UL (150-450); RED BLOOD COUNT 3.58 M/UL (4.70-6.10); RED CELL DISTRIBUTION WIDTH 19.4 % (11.6-14.8); WHITE BLOOD COUNT 4.7 K/UL (4.8-10.8)
--- NOTE | 2019-07-29 07:30 | NUR ---
NURSE NOTES:Handoff received from FANNY Silver. patient received awake and alert and sitting up at bedside. no acute signs of distress noted. Patient has R hand Iv running prescribed fluids. Patient is on room air, no respiratory issues noted. Bed in the low and locked position with call light within reach. will continue to monitor patient.
--- NOTE | 2019-07-29 07:39 | NUR ---
HAND-OFF: Report given to FANNY Jose.
[2019-07-29 07:46] LABS: ALANINE AMINOTRANSFERASE 21 U/L (12-78); ALBUMIN/GLOBULIN RATIO 0.3 (1.0-2.7); ALKALINE PHOSPHATASE 126 U/L (46-116); ANION GAP 10 mmol/L (5-15); ASPARTATE AMINO TRANSFERASE 38 U/L (15-37); BILIRUBIN,TOTAL 0.3 MG/DL (0.2-1.0); BLOOD UREA NITROGEN 17 mg/dL (7-18); CALCIUM 9.3 MG/DL (8.5-10.1); CARBON DIOXIDE 24 MMOL/L (21-32); CHLORIDE 103 MMOL/L (98-107); POTASSIUM 4.6 MMOL/L (3.5-5.1); SODIUM 137 MMOL/L (136-145)
[2019-07-29 07:52] LABS: PHOSPHORUS 3.1 MG/DL (2.5-4.9)
[2019-07-29 08:00] VITALS: BP 105/61
[2019-07-29] MEDS: Vitamin B-12 500mcg tab ORAL SCH (08:54)
[2019-07-29] MEDS: Docusate 100mg cap ORAL SCH ×3 (08:54→17:34)
[2019-07-29] MEDS: Memantine 10mg tab ORAL SCH (08:55)
[2019-07-29] MEDS: Theophylline ER 100mg ORAL SCH ×2 (08:55→21:23)
--- NOTE | 2019-07-29 08:56 | General Progress Note ---
Assessment/Plan Problem List: (1) Anemia ICD Codes: D64.9 - Anemia, unspecified SNOMED: 426617346 (2) Generalized weakness ICD Codes: R53.1 - Weakness SNOMED: 30501607 (3) FTT (failure to thrive) in adult ICD Codes: R62.7 - Adult failure to thrive SNOMED: 549001066 (4) COPD (chronic obstructive pulmonary disease) ICD Codes: J44.9 - Chronic obstructive pulmonary disease, unspecified SNOMED: 20213256 (5) Hypertension ICD Codes: I10 - Essential (primary) hypertension SNOMED: 99168088 (6) Nosocomial pneumonia ICD Codes: J18.9 - Pneumonia, unspecified organism; Y95 - Nosocomial condition SNOMED: 396816524 Status: stable, progressing Assessment/Plan: pt diet abx o2 pulm tx prn cbc bmp am dc plan Subjective Constitutional: Reports: weakness Allergies: Coded Allergies: No Known Allergies (Verified , 10/13/07) All Systems: reviewed and negative except above Subjective sleepy calm Objective Last 24 Hour Vital Signs Date Time Temp Pulse Resp B/P (MAP) Pulse Ox O2 Delivery O2 Flow Rate FiO2 07/29/19 08:00 97.9 83 18 105/61 (76) 99 07/29/19 04:00 97.9 99 18 121/64 (83) 96 07/29/19 00:00 98.4 94 20 113/62 (79) 96 07/28/19 23:38 Nasal Cannula 2.0 07/28/19 20:00 98.8 96 20 114/60 (78) 96 07/28/19 16:00 98.0 91 20 125/81 (96) 96 07/28/19 12:00 98.1 91 19 106/62 (77) 95 07/28/19 09:00 Nasal Cannula 2.0 Intake and Output 07/28/19 07/29/19 19:00 07:00 Intake Total 1465.000 ml 120 ml Output Total 200 ml Balance 1465.000 ml -80 ml Intake Oral 900 ml 120 ml IV Total 565.000 ml Output Urine Total 200 ml # Voids 4 1 Laboratory Tests 07/28/19 11:55: Vancomycin Level Trough 14.2H 07/28/19 15:05: Prothrombin Time 11.2, Prothromb Time International Ratio 1.1, Activated Partial Thromboplast Time 33 07/29/19 06:36: White Blood Count 4.7L, Red Blood Count 3.58L, Hemoglobin 9.7L, Hematocrit 30.1L , Mean Corpuscular Volume 84, Mean Corpuscular Hemoglobin 27.0, Mean Corpuscular Hemoglobin Concent 32.1, Red Cell Distribution Width 19.4H, Platelet Count 214, Mean Platelet Volume 4.9L, Neutrophils (%) (Auto) , Lymphocytes (%) (Auto) , Monocytes (%) (Auto) , Eosinophils (%) (Auto) , Basophils (%) (Auto) , Neutrophils % (Manual) [Pending], Lymphocytes % (Manual) [Pending], Platelet Estimate [Pending], Platelet Morphology [Pending], Erythrocyte Sedimentation Rate [Pending], Sodium Level 137, Potassium Level 4.6 , Chloride Level 103, Carbon Dioxide Level 24, Anion Gap 10, Blood Urea Nitrogen 17, Creatinine 1.0, Estimat Glomerular Filtration Rate > 60, Glucose Level 88, Calcium Level 9.3, Phosphorus Level 3.1, Magnesium Level 1.9, Total Bilirubin 0.3, Aspartate Amino Transf (AST/SGOT) 38H, Alanine Aminotransferase ( ALT/SGPT) 21, Alkaline Phosphatase 126H, C-Reactive Protein, Quantitative 2.0H, Total Protein 9.1H, Albumin 2.0L, Globulin 7.1, Albumin/Globulin Ratio 0.3L Height (Feet): 5 Height (Inches): 7.00 Weight (Pounds): 149 General Appearance: lethargic EENT: normal ENT inspection Neck: normal alignment Cardiovascular: normal peripheral pulses, normal rate, regular rhythm Respiratory/Chest: chest wall non-tender, lungs clear, normal breath sounds Abdomen: normal bowel sounds, non tender, soft Extremities: normal inspection Edema: no edema noted Arm (L), no edema noted Arm (R), no edema noted Leg (L), no edema noted Leg (R), no edema noted Pedal (L), no edema noted Pedal (R), no edema noted Generalized Neurologic: responsive, motor weakness Skin: normal pigmentation, warm/dry Charles Parisi DO Jul 29, 2019 08:56
[2019-07-29] MEDS: HYDROcodone/Acetamin 5/325 tab ORAL PRN ×2 (08:57→17:35)
--- NOTE | 2019-07-29 10:57 | NUR ---
NURSE NOTES: received call from Lab. Patient is positive for ESBL of the sputum.
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
--- NOTE | 2019-07-29 11:40 | NUR ---
NURSE NOTES: Patient left the floor for a procedure.
--- NOTE | 2019-07-29 11:51 | GI Progress Note ---
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 Villafuerte. Assessment/Plan CT esophagus in 2019 noted with esophagus diverticulum ST evaluation reviewed, patient passed on soft chew diet s/p blood transfusion calorie count, tolerating 75% of meals Strict aspiration precautions anemia work up reviewed, iron deficient venofer OB stool r/o GI bleed monitor H&H, prn transfusions bowel regimen ppi fu labs per patient he has had colonoscopy 6 months ago, will try to obtain records from [place] The patient was seen and examined at bedside and all new and available data was reviewed in the patients chart. I agree with the above findings, impression and plan. (Patient seen earlier today. Signature stamp does not reflect patient encounter time.). - Sergei Villafuerte MD Subjective Subjective Denies any abdominal pain Denies any constipation or diarrhea eating well Objective Last 24 Hour Vital Signs Date Time Temp Pulse Resp B/P (MAP) Pulse Ox O2 Delivery O2 Flow Rate FiO2 07/29/19 08:58 Nasal Cannula 2.0 07/29/19 08:00 97.9 83 18 105/61 (76) 99 07/29/19 04:00 97.9 99 18 121/64 (83) 96 07/29/19 00:00 98.4 94 20 113/62 (79) 96 07/28/19 23:38 Nasal Cannula 2.0 07/28/19 20:00 98.8 96 20 114/60 (78) 96 07/28/19 16:00 98.0 91 20 125/81 (96) 96 07/28/19 12:00 98.1 91 19 106/62 (77) 95 Intake and Output 07/28/19 07/29/19 19:00 07:00 Intake Total 1465.000 ml 120 ml Output Total 200 ml Balance 1465.000 ml -80 ml Intake Oral 900 ml 120 ml IV Total 565.000 ml Output Urine Total 200 ml # Voids 4 1 Laboratory Tests Test 07/28/19 11:55 07/28/19 15:05 07/29/19 06:36 Vancomycin Level Trough 14.2 ug/mL (5.0-12.0) H Prothrombin Time 11.2 SEC (9.30-11.50) Prothromb Time International Ratio 1.1 (0.9-1.1) Activated Partial Thromboplast Time 33 SEC (23-33) White Blood Count 4.7 K/UL (4.8-10.8) L Red Blood Count 3.58 M/UL (4.70-6.10) L Hemoglobin 9.7 G/DL (14.2-18.0) L Hematocrit 30.1 % (42.0-52.0) L Mean Corpuscular Volume 84 FL (80-99) Mean Corpuscular Hemoglobin 27.0 PG (27.0-31.0) Mean Corpuscular Hemoglobin Concent 32.1 G/DL (32.0-36.0) Red Cell Distribution Width 19.4 % (11.6-14.8) H Platelet Count 214 K/UL (150-450) Mean Platelet Volume 4.9 FL (6.5-10.1) L Neutrophils (%) (Auto) % (45.0-75.0) Lymphocytes (%) (Auto) % (20.0-45.0) Monocytes (%) (Auto) % (1.0-10.0) Eosinophils (%) (Auto) % (0.0-3.0) Basophils (%) (Auto) % (0.0-2.0) Differential Total Cells Counted 100 Neutrophils % (Manual) 50 % (45-75) Lymphocytes % (Manual) 25 % (20-45) Monocytes % (Manual) 23 % (1-10) H Eosinophils % (Manual) 1 % (0-3) Basophils % (Manual) 1 % (0-2) Band Neutrophils 0 % (0-8) Platelet Estimate Adequate Platelet Morphology Normal Hypochromasia 2+ Anisocytosis 2+ Spherocytes 1+ Erythrocyte Sedimentation Rate 99 MM/HR (0-20) H Sodium Level 137 MMOL/L (136-145) Potassium Level 4.6 MMOL/L (3.5-5.1) Chloride Level 103 MMOL/L (98-107) Carbon Dioxide Level 24 MMOL/L (21-32) Anion Gap 10 mmol/L (5-15) Blood Urea Nitrogen 17 mg/dL (7-18) Creatinine 1.0 MG/DL (0.55-1.30) Estimat Glomerular Filtration Rate > 60 mL/min (>60) Glucose Level 88 MG/DL (74-106) Calcium Level 9.3 MG/DL (8.5-10.1) Phosphorus Level 3.1 MG/DL (2.5-4.9) Magnesium Level 1.9 MG/DL (1.8-2.4) Total Bilirubin 0.3 MG/DL (0.2-1.0) Aspartate Amino Transf (AST/SGOT) 38 U/L (15-37) H Alanine Aminotransferase (ALT/SGPT) 21 U/L (12-78) Alkaline Phosphatase 126 U/L (46-116) H C-Reactive Protein, Quantitative 2.0 mg/dL (0.00-0.90) H Total Protein 9.1 G/DL (6.4-8.2) H Albumin 2.0 G/DL (3.4-5.0) L Globulin 7.1 g/dL Albumin/Globulin Ratio 0.3 (1.0-2.7) L Height (Feet): 5 Height (Inches): 7.00 Weight (Pounds): 149 General Appearance: WD/WN, no apparent distress, alert Cardiovascular: normal rate Respiratory/Chest: normal breath sounds, no respiratory distress Abdominal Exam: normal bowel sounds, non tender, soft Extremities: normal range of motion, non-tender Tyson Cm NP Jul 29, 2019 11:51
[2019-07-29 12:00] VITALS: BP 128/67
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
--- NOTE | 2019-07-29 13:14 | Pulmonology Progress Note ---
Assessment/Plan Problems: (1) Nosocomial pneumonia (2) COPD (chronic obstructive pulmonary disease) (3) Anemia (4) Dehydration (5) FTT (failure to thrive) in adult (6) Generalized weakness (7) Depression (8) Schizophrenia (9) Hypertension Assessment/Plan cxr reviewed, Right effusion resolved after thoracentesis blood has monocytosis, d/w pathologist, she will do a smear Venofer for iron deficiency anemia sputum for c/s sputum induction IV abx check cultures anemia w/u showing iron deficiency, stool OB pending checked tumor markers, PSA negative, CEA is 5, almost normal dvt prophylaxis. Subjective Interval Events: thoracentesis done Allergies: Coded Allergies: No Known Allergies (Verified , 10/13/07) Objective Last 24 Hour Vital Signs Date Time Temp Pulse Resp B/P (MAP) Pulse Ox O2 Delivery O2 Flow Rate FiO2 07/29/19 12:00 97.9 88 20 128/67 (87) 99 07/29/19 08:58 Nasal Cannula 2.0 07/29/19 08:00 97.9 83 18 105/61 (76) 99 07/29/19 04:00 97.9 99 18 121/64 (83) 96 07/29/19 00:00 98.4 94 20 113/62 (79) 96 07/28/19 23:38 Nasal Cannula 2.0 07/28/19 20:00 98.8 96 20 114/60 (78) 96 07/28/19 16:00 98.0 91 20 125/81 (96) 96 Intake and Output 07/28/19 07/29/19 19:00 07:00 Intake Total 1465.000 ml 120 ml Output Total 200 ml Balance 1465.000 ml -80 ml Intake Oral 900 ml 120 ml IV Total 565.000 ml Output Urine Total 200 ml # Voids 4 1 General Appearance: cachetic HEENT: normocephalic, atraumatic Respiratory/Chest: chest wall non-tender, lungs clear Cardiovascular: normal peripheral pulses, normal rate Abdomen: normal bowel sounds, non distended Skin: no rash, no lesions Laboratory Tests 07/28/19 15:05: Prothrombin Time 11.2, Prothromb Time International Ratio 1.1, Activated Partial Thromboplast Time 33 07/29/19 06:36: White Blood Count 4.7L, Red Blood Count 3.58L, Hemoglobin 9.7L, Hematocrit 30.1L , Mean Corpuscular Volume 84, Mean Corpuscular Hemoglobin 27.0, Mean Corpuscular Hemoglobin Concent 32.1, Red Cell Distribution Width 19.4H, Platelet Count 214, Mean Platelet Volume 4.9L, Neutrophils (%) (Auto) , Lymphocytes (%) (Auto) , Monocytes (%) (Auto) , Eosinophils (%) (Auto) , Basophils (%) (Auto) , Differential Total Cells Counted 100, Neutrophils % ( Manual) 50, Lymphocytes % (Manual) 25, Monocytes % (Manual) 23H, Eosinophils % ( Manual) 1, Basophils % (Manual) 1, Band Neutrophils 0, Platelet Estimate Adequate, Platelet Morphology Normal, Hypochromasia 2+, Anisocytosis 2+, Spherocytes 1+, Erythrocyte Sedimentation Rate 99H, Sodium Level 137, Potassium Level 4.6, Chloride Level 103, Carbon Dioxide Level 24, Anion Gap 10, Blood Urea Nitrogen 17, Creatinine 1.0, Estimat Glomerular Filtration Rate > 60, Glucose Level 88, Calcium Level 9.3, Phosphorus Level 3.1, Magnesium Level 1.9, Total Bilirubin 0.3, Aspartate Amino Transf (AST/SGOT) 38H, Alanine Aminotransferase (ALT/SGPT) 21, Alkaline Phosphatase 126H, C-Reactive Protein, Quantitative 2.0H, Total Protein 9.1H, Albumin 2.0L, Globulin 7.1, Albumin/ Globulin Ratio 0.3L Current Medications Medications (Trade) Dose Ordered Sig/Chiqui Route PRN Reason Start Time Stop Time Status Last Admin Dose Admin Acetaminophen (Tylenol) 650 mg Q4H PRN ORAL Mild Pain/Temp > 100.5 07/25/19 14:15 08/21/19 14:14 Acetaminophen/ Hydrocodone Bitart ([place] 5/325) 1 tab Q6H PRN ORAL For Pain 07/25/19 14:15 07/29/19 14:14 07/29/19 08:57 Albuterol/ Ipratropium (Albuterol/ Ipratropium) 3 ml Q6H PRN HHN Shortness of Breath 07/27/19 14:15 07/29/19 14:14 Aripiprazole (Abilify) 2.5 mg DAILY ORAL 07/26/19 09:00 08/21/19 08:59 07/29/19 08:54 Atorvastatin Calcium (Lipitor) 10 mg BEDTIME ORAL 07/25/19 21:00 08/21/19 20:59 07/28/19 20:44 Cyanocobalamin (Vitamin B-12) 1,000 mcg DAILY ORAL 07/26/19 09:00 08/21/19 08:59 07/29/19 08:54 Dextrose (Dextrose 50%) 25 ml Q30M PRN IV Hypoglycemia 07/25/19 14:15 08/21/19 05:14 Dextrose (Dextrose 50%) 50 ml Q30M PRN IV Hypoglycemia 07/25/19 14:15 08/21/19 05:14 Dextrose/Sodium Chloride 1,000 ml @ 60 mls/hr Q20L85C IV 07/25/19 14:15 08/21/19 05:59 07/28/19 08:59 Docusate Sodium (Colace) 100 mg THREE TIMES A DAY ORAL 07/25/19 18:00 08/22/19 12:59 07/29/19 08:54 Ertapenem 1 gm/ Sodium Chloride 55 ml @ 110 mls/hr Q24H IVPB 07/28/19 13:00 08/02/19 12:59 07/28/19 13:15 Folic Acid (Folate) 1 mg DAILY ORAL 07/26/19 09:00 08/21/19 08:59 07/29/19 08:55 Gabapentin (Neurontin) 300 mg TID@0600,1400,2200 ORAL 07/25/19 22:00 08/21/19 05:59 07/29/19 05:46 Lorazepam (Ativan) 0.5 mg Q6H PRN ORAL For Anxiety 07/25/19 14:15 07/30/19 14:14 Memantine (Namenda) 5 mg DAILY ORAL 07/29/19 09:00 08/28/19 08:59 07/29/19 08:55 Methocarbamol (Robaxin) 500 mg QIDPRN PRN ORAL muscle spasm/pain 07/25/19 14:15 08/24/19 14:14 Mirtazapine (Remeron) 15 mg BEDTIME ORAL 07/25/19 21:00 08/21/19 20:59 07/28/19 20:44 Promethazine HCl/ Codeine (Phenergan with Codeine) 5 ml Q4H PRN ORAL For Cough 07/25/19 14:15 08/21/19 14:14 Theophylline ([place]) 100 mg EVERY 12 HOURS ORAL 07/25/19 21:00 08/21/19 20:59 07/29/19 08:55 Vancomycin HCl (Vanco rx to dose) 1 ea DAILY PRN MISC Per rx protocol 07/27/19 11:30 08/26/19 11:29 Vancomycin HCl 1 gm/Dextrose 275 ml @ 183.708 mls/hr Q12H IVPB 07/27/19 13:00 08/01/19 12:59 07/29/19 00:33 Billy Whitney MD Jul 29, 2019 13:14
[2019-07-29] MEDS: Ertapenem 1 GM in NS 55 ML IVPB SCH (13:17)
--- NOTE | 2019-07-29 13:18 | Pre-Procedure Note/Attestation ---
Pre-Procedure Note/Attestation Complete Prior to Procedure Planned Procedure: right Procedure Narrative: Thoracentesis Indications for Procedure Pre-Operative Diagnosis: pleural effusion Attestation I attest that I discussed the nature of the procedure; its benefits; risks and complications; and alternatives (and the risks and benefits of such alternatives ), prior to the procedure, with the patient (or the patient's legal in store representative). I attest that, if there was a reasonable possibility of needing a blood transfusion, the patient (or the patient's legal in store representative) was given the [facility] standardized written summary, pursuant to the Akash Furman Blood Safety Act ([place] Health and Safety Code # 1645, as amended). I attest that I re-evaluated the patient just prior to the surgery and that there has been no change in the patient's H&P, except as documented below: Asher Butler MD Jul 29, 2019 13:18
--- NOTE | 2019-07-29 13:19 | Brief Operative Note ---
Immediate Post Operative Note Operative Note Pre-op Diagnosis: pleural effusion Procedure: thoracentesis Post-op Diagnosis: same as pre-op Surgeon: Jemal Shearer Anesthesia: local Specimen: yes Complications: none Condition: stable Fluids: none Implant(s) used?: No Asher Shearer MD Jul 29, 2019 13:19
--- NOTE | 2019-07-29 13:50 | Diagnostic Imaging Report ---
Indications: Pleural effusion Technique: Ultrasound used to localize optimal puncture site. Sterile prepping and draping right chest. Local anesthesia with 1% lidocaine. Under real-time ultrasound guidance, puncture pleural space using thoracentesis needle. Stylet removed. Catheter placed to vacuum bottle suction. Total 600 milliliters of slightly cloudy rust-colored fluid aspirated. Patient tolerated procedure well, without immediate complication. A specimen was sent to the lab. Findings: Followup sonography demonstrates complete resolution of pleural fluid. Impression: Successful ultrasound-guided thoracentesis, yielding 600 milliliters of fluid
--- NOTE | 2019-07-29 14:41 | NUR ---
NURSE NOTES: Left a message with Dr lugo's private duty nurse to notify MD that patient is positive for ESBL of the sputum.
--- NOTE | 2019-07-29 14:47 | NUR ---
RD ASSESSMENT & RECOMMENDATIONS SEE CARE ACTIVITY FOR COMPLETE ASSESSMENT DAILY ESTIMATED NEEDS: Needs based on cardiac/ 66kg 25-30 kcals/kg 6279-2202 total kcals 1-1.2 g protein/kg 66-79 g total protein 20-25 mL/kg 6121-7072 total fluid mLs NUTRITION DIAGNOSIS: Inadequate oral intake R/T decreased appetite, clinical condition as evidenced by pt admitted w/ FTT dx w/ c/o decreased appetite, currently noted w/ good PO intake of meals. CURRENT DIET:REGULAR, soft easy chew + Ensure Enlive TID w/ meals PO DIET RECOMMENDATIONS: Liberalized REGULAR/ texture per INVENTORY CONTROL ANALYST + Ensure Enlive TID w/ meals ADDITIONAL RECOMMENDATIONS: * Iron count x 48 hrs completed - PO intake adequate to meet needs * Monitor PO intake closely, continue liberalized regular diet and added Ensure Enlive TID * Wt trend per SNF: 04/13: 140#, [birth year]/1951=299#, 06/13=145#, 07/18=149# .
--- NOTE | 2019-07-29 15:15 | Progress Note ---
DATE: 07/29/2019 SUBJECTIVE: This is a 74-year-old male patient who came to the hospital. He is confused. He had generalized weakness and dehydration, but this patient also has anemia, urinary tract infection, coffee-grounds emesis, and generalized weakness. He has stage III adenocarcinoma of the prostate. So, the patient is in the ICU unit currently, but he has some psychomotor agitation and altered mental status as well. That is why, his attending has requested daily psychiatric consultation for this patient. MENTAL STATUS EXAMINATION: This is a 74-year-old male. Appearance is disheveled. Attitude, irritable and agitated. Affect, guarded and restricted. Intellect poor. Mood, depressed and anxious. Motor activity, psychomotor agitation. Attention span is poor. Orientation x2. Speech is low volume, slurred. Thought process, disorganized illogical. Insight and judgment is poor. DIAGNOSIS: Major depressive disorder, mild, recurrent with psychotic features. PLAN: Treat him with Namenda 5 mg twice a day, Ativan 1 mg IV every 6 hours p.r.n. anxiety and agitation. 20 minutes of reality-based supportive psychotherapy. Encouraged him to interact appropriately with staff and other patients. He will continue to be followed by Psychiatry throughout hospital course. 20 minutes of insight-oriented psychotherapy to help this patient have understanding of his medical and psychiatric illness, so he has better impulse control in the ICU. Chart reviewed. Discussed with staff. Seen and assessed at bedside in ICU. Omid Malagon M.D. DR: BRITANY JOB#: [id number] CC:
--- NOTE | 2019-07-29 15:30 | Progress Note ---
DATE: 07/29/2019 SUBJECTIVE: This is a 74-year-old male patient. The patient has dehydration, anemia, generalized weakness, diverticulum of the esophagus, hypertension, pleural effusion, failure to thrive, altered mental status, confusion, decline in cognition below his baseline that is why his attending has requested daily psychiatric consultation at this time. MENTAL STATUS EXAMINATION: The patient is a 74-year-old male. Appearance is disheveled. Attitude, irritable and agitated. Affect, guarded and restricted. Intellect poor. Mood, depressed and anxious. Motor activity, psychomotor agitation. Attention span is poor. Orientation x2. Speech is low volume, slurred. Thought process, disorganized and illogical. Insight and judgment is poor. DIAGNOSIS: Major depressive disorder, mild, recurrent with psychotic features rule out dementia with psychosis. PLAN: Treat him with Neurontin 300 mg three times a day for anxiety, Ativan 0.5 mg every 6 hours p.r.n. anxiety and agitation, and then also treat this patient with Abilify 2.5 mg daily as well as 20 minutes of cognitive behavioral therapy to help this patient identify his automatic negative thoughts, help him convert his negative thoughts to more positive thoughts to reduce depression, anxiety, and mood lability. I am also going to start this patient on Namenda 5 mg at bedtime to prevent further decline in his cognition. Chart reviewed. Discussed with staff. Seen and assessed in his room. Omid Malagon M.D. DR: Dennise JOB#: [id number] CC:
--- NOTE | 2019-07-29 15:36 | Hematology/Onc Progress Note ---
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 --> stool occult blood as per gi --> no evidence of hemolysis --> to be seen by gi for clearance # Monocytosis with leukopenoa --> smear is pending --> appears consistent, may be relative as wbc decreased # Pneumonia MRSA, GNR --> sp abx --> is on vanc and cefepime # COPD --> cpt and oxygen # Dehydration --> goal of euvolemia # Failure to thrive --> on mirtazapine # Hypertension Appreciate consultation and richar Rn Subjective Constitutional: Denies: no symptoms, chills, fever, malaise, weakness, other HEENT: Denies: no symptoms, eye pain, blurred vision, tearing, double vision, ear pain, ear discharge, nose pain, nose congestion, throat pain, throat swelling, mouth pain, mouth swelling, other Cardiovascular: Denies: no symptoms, chest pain, edema, irregular heart rate, lightheadedness, palpitations, syncope, other Respiratory: Denies: no symptoms, cough, shortness of breath, SOB with excertion, SOB at rest, sputum, wheezing, other Gastrointestinal/Abdominal: Denies: no symptoms, abdomen distended, abdominal pain, black stools, tarry stools, blood in stool, constipated, diarrhea, difficulty swallowing, nausea, poor appetite, poor fluid intake, rectal bleeding , vomiting, other Neurologic/Psychiatric: Denies: no symptoms, anxiety, depressed, emotional problems, headache, numbness, paresthesia, pre-existing deficit, seizure, tingling, tremors, weakness, other Endocrine: Denies: no symptoms, excessive sweating, flushing, intolerance to cold, intolerance to heat, increased hunger, increased thirst, increased urine, unexplained weight gain, unexplained weight loss, other Allergies: Coded Allergies: No Known Allergies (Verified , 10/13/07) Subjective 07/28: labs noted, tumor markers essentially neg, undergoing transfusion prbc 07/29: no events, no bleeding, no night sweats, monocytosis is noted Objective Objective Current Medications Medications (Trade) Dose Ordered Sig/Chiqui Route PRN Reason Start Time Stop Time Status Last Admin Dose Admin Acetaminophen (Tylenol) 650 mg Q4H PRN ORAL Mild Pain/Temp > 100.5 07/25/19 14:15 08/21/19 14:14 Aripiprazole (Abilify) 2.5 mg DAILY ORAL 07/26/19 09:00 08/21/19 08:59 07/29/19 08:54 Atorvastatin Calcium (Lipitor) 10 mg BEDTIME ORAL 07/25/19 21:00 08/21/19 20:59 07/28/19 20:44 Cyanocobalamin (Vitamin B-12) 1,000 mcg DAILY ORAL 07/26/19 09:00 08/21/19 08:59 07/29/19 08:54 Dextrose (Dextrose 50%) 25 ml Q30M PRN IV Hypoglycemia 07/25/19 14:15 08/21/19 05:14 Dextrose (Dextrose 50%) 50 ml Q30M PRN IV Hypoglycemia 07/25/19 14:15 08/21/19 05:14 Dextrose/Sodium Chloride 1,000 ml @ 60 mls/hr [id number] IV 07/25/19 14:15 08/21/19 05:59 07/28/19 08:59 Docusate Sodium (Colace) 100 mg THREE TIMES A DAY ORAL 07/25/19 18:00 08/22/19 12:59 07/29/19 13:17 Ertapenem 1 gm/ Sodium Chloride 55 ml @ 110 mls/hr Q24H IVPB 07/28/19 13:00 08/02/19 12:59 07/29/19 13:17 Folic Acid (Folate) 1 mg DAILY ORAL 07/26/19 09:00 08/21/19 08:59 07/29/19 08:55 Gabapentin (Neurontin) 300 mg TID@0600,1400,2200 ORAL 07/25/19 22:00 08/21/19 05:59 07/29/19 13:16 Lorazepam (Ativan) 0.5 mg Q6H PRN ORAL For Anxiety 07/25/19 14:15 07/30/19 14:14 Memantine (Namenda) 5 mg DAILY ORAL 07/29/19 09:00 08/28/19 08:59 07/29/19 08:55 Methocarbamol (Robaxin) 500 mg QIDPRN PRN ORAL muscle spasm/pain 07/25/19 14:15 08/24/19 14:14 Mirtazapine (Remeron) 15 mg BEDTIME ORAL 07/25/19 21:00 08/21/19 20:59 07/28/19 20:44 Promethazine HCl/ Codeine (Phenergan with Codeine) 5 ml Q4H PRN ORAL For Cough 07/25/19 14:15 08/21/19 14:14 Theophylline ([place]Dur) 100 mg EVERY 12 HOURS ORAL 07/25/19 21:00 08/21/19 20:59 07/29/19 08:55 Vancomycin HCl (Vanco rx to dose) 1 ea DAILY PRN MISC Per rx protocol 07/27/19 11:30 08/26/19 11:29 Vancomycin HCl 1 gm/Dextrose 275 ml @ 183.708 mls/hr Q12H IVPB 07/27/19 13:00 08/01/19 12:59 07/29/19 14:31 Last 24 Hour Vital Signs Date Time Temp Pulse Resp B/P (MAP) Pulse Ox O2 Delivery O2 Flow Rate FiO2 07/29/19 12:00 97.9 88 20 128/67 (87) 99 07/29/19 08:58 Nasal Cannula 2.0 07/29/19 08:00 97.9 83 18 105/61 (76) 99 07/29/19 04:00 97.9 99 18 121/64 (83) 96 07/29/19 00:00 98.4 94 20 113/62 (79) 96 07/28/19 23:38 Nasal Cannula 2.0 07/28/19 20:00 98.8 96 20 114/60 (78) 96 07/28/19 16:00 98.0 91 20 125/81 (96) 96 07/28/19 12:00 98.1 91 19 106/62 (77) 95 07/28/19 09:00 Nasal Cannula 2.0 07/28/19 08:00 98.1 93 18 124/61 (82) 97 07/28/19 07:55 94 Room Air 21 07/28/19 04:00 97.0 91 22 124/65 (84) 99 07/28/19 00:00 97.9 89 22 123/70 (87) 99 07/27/19 23:50 Nasal Cannula 2.0 07/27/19 20:00 98.1 86 22 114/68 (83) 99 07/27/19 19:47 95 Room Air 21 07/27/19 16:00 98.3 94 18 120/74 (89) 94 Intake and Output 07/28/19 07/29/19 18:59 06:59 Intake Total 1525.000 ml 120 ml Output Total 200 ml Balance 1525.000 ml -80 ml Intake Oral 900 ml 120 ml IV Total 625.000 ml Output Urine Total 200 ml # Voids 4 1 Labs Test 07/27/19 05:30 07/28/19 05:20 07/28/19 11:55 07/28/19 12:05 White Blood Count 4.4 K/UL (4.8-10.8) 4.4 K/UL (4.8-10.8) Red Blood Count 2.69 M/UL (4.70-6.10) 3.38 M/UL (4.70-6.10) Hemoglobin 7.0 G/DL (14.2-18.0) 9.1 G/DL (14.2-18.0) Hematocrit 22.2 % (42.0-52.0) 28.0 % (42.0-52.0) Mean Corpuscular Volume 83 FL (80-99) 83 FL (80-99) Mean Corpuscular Hemoglobin 26.2 PG (27.0-31.0) 26.9 PG (27.0-31.0) Mean Corpuscular Hemoglobin Concent 31.7 G/DL (32.0-36.0) 32.5 G/DL (32.0-36.0) Red Cell Distribution Width 18.9 % (11.6-14.8) 18.5 % (11.6-14.8) Platelet Count 194 K/UL (150-450) 207 K/UL (150-450) Mean Platelet Volume 4.8 FL (6.5-10.1) 4.8 FL (6.5-10.1) Neutrophils (%) (Auto) % (45.0-75.0) % (45.0-75.0) Lymphocytes (%) (Auto) % (20.0-45.0) % (20.0-45.0) Monocytes (%) (Auto) % (1.0-10.0) % (1.0-10.0) Eosinophils (%) (Auto) % (0.0-3.0) % (0.0-3.0) Basophils (%) (Auto) % (0.0-2.0) % (0.0-2.0) Differential Total Cells Counted 100 100 Neutrophils % (Manual) 36 % (45-75) 37 % (45-75) Lymphocytes % (Manual) 29 % (20-45) 35 % (20-45) Monocytes % (Manual) 34 % (1-10) 28 % (1-10) Eosinophils % (Manual) 1 % (0-3) 0 % (0-3) Basophils % (Manual) 0 % (0-2) 0 % (0-2) Band Neutrophils 0 % (0-8) 0 % (0-8) Platelet Estimate Adequate Adequate Platelet Morphology Normal Normal Hypochromasia 1+ Anisocytosis 1+ 1+ Sodium Level 137 MMOL/L (136-145) 136 MMOL/L (136-145) Potassium Level 4.5 MMOL/L (3.5-5.1) 4.5 MMOL/L (3.5-5.1) Chloride Level 104 MMOL/L (98-107) 103 MMOL/L (98-107) Carbon Dioxide Level 28 MMOL/L (21-32) 27 MMOL/L (21-32) Anion Gap 5 mmol/L (5-15) 6 mmol/L (5-15) Blood Urea Nitrogen 20 mg/dL (7-18) 21 mg/dL (7-18) Creatinine 1.0 MG/DL (0.55-1.30) 0.9 MG/DL (0.55-1.30) Estimat Glomerular Filtration Rate > 60 mL/min (>60) > 60 mL/min (>60) Glucose Level 94 MG/DL (74-106) 97 MG/DL (74-106) Calcium Level 8.8 MG/DL (8.5-10.1) 8.9 MG/DL (8.5-10.1) Nucleated Red Blood Cells 2 /100 WBC Vancomycin Level Trough 14.2 ug/mL (5.0-12.0) Test 07/28/19 15:05 07/29/19 06:36 07/29/19 12:05 07/29/19 13:30 Prothrombin Time 11.2 SEC (9.30-11.50) Prothromb Time International Ratio 1.1 (0.9-1.1) Activated Partial Thromboplast Time 33 SEC (23-33) White Blood Count 4.7 K/UL (4.8-10.8) Red Blood Count 3.58 M/UL (4.70-6.10) Hemoglobin 9.7 G/DL (14.2-18.0) Hematocrit 30.1 % (42.0-52.0) Mean Corpuscular Volume 84 FL (80-99) Mean Corpuscular Hemoglobin 27.0 PG (27.0-31.0) Mean Corpuscular Hemoglobin Concent 32.1 G/DL (32.0-36.0) Red Cell Distribution Width 19.4 % (11.6-14.8) Platelet Count 214 K/UL (150-450) Mean Platelet Volume 4.9 FL (6.5-10.1) Neutrophils (%) (Auto) % (45.0-75.0) Lymphocytes (%) (Auto) % (20.0-45.0) Monocytes (%) (Auto) % (1.0-10.0) Eosinophils (%) (Auto) % (0.0-3.0) Basophils (%) (Auto) % (0.0-2.0) Differential Total Cells Counted 100 Neutrophils % (Manual) 50 % (45-75) Lymphocytes % (Manual) 25 % (20-45) Monocytes % (Manual) 23 % (1-10) Eosinophils % (Manual) 1 % (0-3) Basophils % (Manual) 1 % (0-2) Band Neutrophils 0 % (0-8) Platelet Estimate Adequate Platelet Morphology Normal Hypochromasia 2+ Anisocytosis 2+ Spherocytes 1+ Erythrocyte Sedimentation Rate 99 MM/HR (0-20) Sodium Level 137 MMOL/L (136-145) Potassium Level 4.6 MMOL/L (3.5-5.1) Chloride Level 103 MMOL/L (98-107) Carbon Dioxide Level 24 MMOL/L (21-32) Anion Gap 10 mmol/L (5-15) Blood Urea Nitrogen 17 mg/dL (7-18) Creatinine 1.0 MG/DL (0.55-1.30) Estimat Glomerular Filtration Rate > 60 mL/min (>60) Glucose Level 88 MG/DL (74-106) Calcium Level 9.3 MG/DL (8.5-10.1) Phosphorus Level 3.1 MG/DL (2.5-4.9) Magnesium Level 1.9 MG/DL (1.8-2.4) Total Bilirubin 0.3 MG/DL (0.2-1.0) Aspartate Amino Transf (AST/SGOT) 38 U/L (15-37) Alanine Aminotransferase (ALT/SGPT) 21 U/L (12-78) Alkaline Phosphatase 126 U/L (46-116) C-Reactive Protein, Quantitative 2.0 mg/dL (0.00-0.90) Total Protein 9.1 G/DL (6.4-8.2) Albumin 2.0 G/DL (3.4-5.0) Globulin 7.1 g/dL Albumin/Globulin Ratio 0.3 (1.0-2.7) Height (Feet): 5 Height (Inches): 7.00 Weight (Pounds): 149 Objective GENERAL: Calm in bed, oriented x2, in no acute distress. CARDIOVASCULAR: No murmur. normal S1, S2 LUNGS: decreased breath sounds ABDOMEN: non tender, not distended EXTREMITIES: no cyanosis or edema. NEUROLOGIC: The patient moves all extremities, slightly weak. Glenn Daniel MD Jul 29, 2019 15:36
[2019-07-29 15:47] VITALS: BP 124/66
--- NOTE | 2019-07-29 15:48 | NUR ---
CASE MANAGEMENT:REVIEW SI;S/P THORACENTESIS TODAY 97.9 99 20 128/67 96% 2L NC AST 38 ALK PHOS 126 IS;ERTAPENEM IV Q24 HRS JOSE-DUR PO Q12 HRS IVF D5NS @60 ML/HR VANCOMYCIN IV Q12 HRS MED SURG STATUS DCP;FROM [facility]
--- NOTE | 2019-07-29 16:45 | NUR ---
WEEKLY SWALLOW/SPEECH THERAPY SUMMARY: SEEN FOR DYSPHAGIA, SEE SWALLOW EVAL AND MOD BARIUM SWALLOW STUDY REPORTS. PATIENT DISLIKES MEDS CRUSHED AND ABLE TO TAKE WHOLE PER RN. CHANGED RECOMMENDATIONS FOR TAKING MEDS CRUSHED. GOALS MET FOR INTAKE ON SOFT CHEW AND THIN LIQUIDS USING STRICT ASPIRATION AND REFLUX PRECAUTIONS. GOALS MET FOR PATIENT AND NEW STAFF (FANNY CARMONA) EDUCATED/TRAINED IN POSTED ASP/REFLUX PRECAUTIONS. PLAN: CONTINUE WITH PLAN OF CARE IN MOD BARIUM SWALLOW STUDY REPORT
--- NOTE | 2019-07-29 17:03 | NUR ---
NURSE NOTES: Patient complaining of 7/10 back pain. Pain medication was discontinue as it had reached the stop date. Called Dr Parisi and left message with secretary receptionist to advise him of patient's status and lack of pain medication.
--- NOTE | 2019-07-29 17:20 | NUR ---
NURSE NOTES: Dr Delacruz called and gave telephone order for [place] 5/325 PO Q6hour for pain.
--- NOTE | 2019-07-29 19:45 | NUR ---
NURSE NOTES: Received patient awake in bed, able to make needs known, no c/o pain at this time. IV line intact and patent, patient refusing IVF maintenance but ok with IV abx infusion. No SOB or acute distress. HOB elevated. Bed locked in lowest position, 2 side rails up. Patient ambulatory, wearing non slip socks. OB stool collected today, awaiting results.
[2019-07-29 20:00] VITALS: BP 119/66
[2019-07-30] VITALS: BP 121/68
[2019-07-30] MEDS: Vancomycin 1gm/D5W 275ml IVPB SCH ×4 (00:43→15:37)
[2019-07-30 04:00] VITALS: BP 130/73
[2019-07-30 06:01] LABS: ANION GAP 5 mmol/L (5-15); BLOOD UREA NITROGEN 17 mg/dL (7-18); CARBON DIOXIDE 28 MMOL/L (21-32); CHLORIDE 102 MMOL/L (98-107); CREATININE 0.9 MG/DL (0.55-1.30); POTASSIUM 5.3 MMOL/L (3.5-5.1); SODIUM 135 MMOL/L (136-145)
[2019-07-30 06:16] LABS: HEMATOCRIT 28.7 % (42.0-52.0); HEMOGLOBIN 9.2 G/DL (14.2-18.0); MEAN CORPUSCULAR VOLUME 85 FL (80-99); PLATELET COUNT 216 K/UL (150-450); RED CELL DISTRIBUTION WIDTH 19.8 % (11.6-14.8); WHITE BLOOD COUNT 4.6 K/UL (4.8-10.8)
--- NOTE | 2019-07-30 07:13 | NUR ---
HAND-OFF: Report given to FANNY Jose.
--- NOTE | 2019-07-30 07:15 | NUR ---
NURSE NOTES: Handoff received from FANNY Silver. Patient received awake and alert and finishing breakfast. No acute signs of distress noted. Patient has IV site clean dry and intact, refusing prescribed fluids stating " I don't need those, but I will take the antibiotics" IV site is clean dry and intact, saline locked per patient request. Bed in the low and locked position with call light within reach. Will continue to monitor patient.
[2019-07-30 08:00] VITALS: BP 113/73
--- NOTE | 2019-07-30 08:14 | NUR ---
NURSE NOTES: Contacted Dr Parisi regarding patient's elevated potassium level.
[2019-07-30] MEDS: Docusate 100mg cap ORAL SCH ×3 (08:47→17:10)
[2019-07-30] MEDS: Theophylline ER 100mg ORAL SCH ×2 (08:47→20:17)
[2019-07-30] MEDS: Vitamin B-12 500mcg tab ORAL SCH (08:47)
[2019-07-30] MEDS: Memantine 10mg tab ORAL SCH (08:48)
[2019-07-30] MEDS: HYDROcodone/Acetamin 5/325 tab ORAL PRN ×2 (08:49→20:17)
--- NOTE | 2019-07-30 10:35 | Hematology/Onc Progress Note ---
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 --> stool occult blood as per gi --> no evidence of hemolysis --> to be seen by gi for clearance # Monocytosis with leukopenoa --> smear is pending --> appears consistent, may be relative as wbc decreased # Pneumonia MRSA, GNR --> sp abx --> is on vanc and cefepime # COPD --> currently on nc --> cpt and oxygen # Dehydration --> goal of euvolemia # Failure to thrive --> on mirtazapine # Hypertension Appreciate consultation and dw Rn Subjective Allergies: Coded Allergies: No Known Allergies (Verified , 10/13/07) Subjective 07/28: labs noted, tumor markers essentially neg, undergoing transfusion prbc 07/29: no events, no bleeding, no night sweats, monocytosis is noted 07/30: no acute events, k elevated, vanc, nc, hgb 9.2 Objective Objective Current Medications Medications (Trade) Dose Ordered Sig/Chiqui Route PRN Reason Start Time Stop Time Status Last Admin Dose Admin Acetaminophen (Tylenol) 650 mg Q4H PRN ORAL Mild Pain/Temp > 100.5 07/25/19 14:15 08/21/19 14:14 Acetaminophen/ Hydrocodone Bitart ([place] 5/325) 1 tab Q6H PRN ORAL For Pain 07/29/19 17:30 08/05/19 17:29 07/30/19 08:49 Aripiprazole (Abilify) 2.5 mg DAILY ORAL 07/26/19 09:00 08/21/19 08:59 07/30/19 08:48 Atorvastatin Calcium (Lipitor) 10 mg BEDTIME ORAL 07/25/19 21:00 08/21/19 20:59 07/29/19 21:23 Cyanocobalamin (Vitamin B-12) 1,000 mcg DAILY ORAL 07/26/19 09:00 08/21/19 08:59 07/30/19 08:47 Dextrose (Dextrose 50%) 25 ml Q30M PRN IV Hypoglycemia 07/25/19 14:15 08/21/19 05:14 Dextrose (Dextrose 50%) 50 ml Q30M PRN IV Hypoglycemia 07/25/19 14:15 08/21/19 05:14 Dextrose/Sodium Chloride 1,000 ml @ 60 mls/hr [id number] IV 07/25/19 14:15 08/21/19 05:59 07/28/19 08:59 Docusate Sodium (Colace) 100 mg THREE TIMES A DAY ORAL 07/25/19 18:00 08/22/19 12:59 07/30/19 08:47 Ertapenem 1 gm/ Sodium Chloride 55 ml @ 110 mls/hr Q24H IVPB 07/28/19 13:00 08/02/19 12:59 07/29/19 13:17 Folic Acid (Folate) 1 mg DAILY ORAL 07/26/19 09:00 08/21/19 08:59 07/30/19 08:48 Gabapentin (Neurontin) 300 mg TID@0600,1400,2200 ORAL 07/25/19 22:00 08/21/19 05:59 07/30/19 05:54 Lorazepam (Ativan) 0.5 mg Q6H PRN ORAL For Anxiety 07/25/19 14:15 07/30/19 14:14 Memantine (Namenda) 5 mg DAILY ORAL 07/29/19 09:00 08/28/19 08:59 07/30/19 08:48 Methocarbamol (Robaxin) 500 mg QIDPRN PRN ORAL muscle spasm/pain 07/25/19 14:15 08/24/19 14:14 Mirtazapine (Remeron) 15 mg BEDTIME ORAL 07/25/19 21:00 08/21/19 20:59 07/29/19 21:23 Promethazine HCl/ Codeine (Phenergan with Codeine) 5 ml Q4H PRN ORAL For Cough 07/25/19 14:15 08/21/19 14:14 Theophylline ([place]) 100 mg EVERY 12 HOURS ORAL 07/25/19 21:00 08/21/19 20:59 07/30/19 08:47 Vancomycin HCl (Vanco rx to dose) 1 ea DAILY PRN MISC Per rx protocol 07/27/19 11:30 08/26/19 11:29 Vancomycin HCl 1 gm/Dextrose 275 ml @ 183.708 mls/hr Q12H IVPB 07/27/19 13:00 08/01/19 12:59 07/30/19 00:43 Last 24 Hour Vital Signs Date Time Temp Pulse Resp B/P (MAP) Pulse Ox O2 Delivery O2 Flow Rate FiO2 07/30/19 08:51 Nasal Cannula 2.0 07/30/19 08:00 98.2 107 20 113/73 (86) 95 07/30/19 04:00 98.3 94 18 130/73 (92) 96 07/30/19 00:00 98.5 92 18 121/68 (85) 96 07/29/19 23:03 Nasal Cannula 2.0 07/29/19 20:00 98.6 91 18 119/66 (83) 97 07/29/19 15:47 97.9 90 18 124/66 (85) 99 07/29/19 12:00 97.9 88 20 128/67 (87) 99 07/29/19 08:58 Nasal Cannula 2.0 07/29/19 08:00 97.9 83 18 105/61 (76) 99 07/29/19 04:00 97.9 99 18 121/64 (83) 96 07/29/19 00:00 98.4 94 20 113/62 (79) 96 07/28/19 23:38 Nasal Cannula 2.0 07/28/19 20:00 98.8 96 20 114/60 (78) 96 07/28/19 16:00 98.0 91 20 125/81 (96) 96 07/28/19 12:00 98.1 91 19 106/62 (77) 95 Intake and Output 07/29/19 07/30/19 19:00 07:00 Intake Total 1000 ml 720 ml Output Total 1000 ml Balance 1000 ml -280 ml Intake Oral 1000 ml 720 ml Output Urine Total 1000 ml # Voids 4 5 Labs Test 07/28/19 05:20 07/28/19 11:55 07/28/19 12:05 07/28/19 15:05 White Blood Count 4.4 K/UL (4.8-10.8) Red Blood Count 3.38 M/UL (4.70-6.10) Hemoglobin 9.1 G/DL (14.2-18.0) Hematocrit 28.0 % (42.0-52.0) Mean Corpuscular Volume 83 FL (80-99) Mean Corpuscular Hemoglobin 26.9 PG (27.0-31.0) Mean Corpuscular Hemoglobin Concent 32.5 G/DL (32.0-36.0) Red Cell Distribution Width 18.5 % (11.6-14.8) Platelet Count 207 K/UL (150-450) Mean Platelet Volume 4.8 FL (6.5-10.1) Neutrophils (%) (Auto) % (45.0-75.0) Lymphocytes (%) (Auto) % (20.0-45.0) Monocytes (%) (Auto) % (1.0-10.0) Eosinophils (%) (Auto) % (0.0-3.0) Basophils (%) (Auto) % (0.0-2.0) Differential Total Cells Counted 100 Neutrophils % (Manual) 37 % (45-75) Lymphocytes % (Manual) 35 % (20-45) Monocytes % (Manual) 28 % (1-10) Eosinophils % (Manual) 0 % (0-3) Basophils % (Manual) 0 % (0-2) Band Neutrophils 0 % (0-8) Nucleated Red Blood Cells 2 /100 WBC Platelet Estimate Adequate Platelet Morphology Normal Anisocytosis 1+ Sodium Level 136 MMOL/L (136-145) Potassium Level 4.5 MMOL/L (3.5-5.1) Chloride Level 103 MMOL/L (98-107) Carbon Dioxide Level 27 MMOL/L (21-32) Anion Gap 6 mmol/L (5-15) Blood Urea Nitrogen 21 mg/dL (7-18) Creatinine 0.9 MG/DL (0.55-1.30) Estimat Glomerular Filtration Rate > 60 mL/min (>60) Glucose Level 97 MG/DL (74-106) Calcium Level 8.9 MG/DL (8.5-10.1) Vancomycin Level Trough 14.2 ug/mL (5.0-12.0) Prothrombin Time 11.2 SEC (9.30-11.50) Prothromb Time International Ratio 1.1 (0.9-1.1) Activated Partial Thromboplast Time 33 SEC (23-33) Test 07/29/19 06:36 07/29/19 12:05 07/29/19 13:30 07/30/19 04:54 White Blood Count 4.7 K/UL (4.8-10.8) 4.6 K/UL (4.8-10.8) Red Blood Count 3.58 M/UL (4.70-6.10) 3.40 M/UL (4.70-6.10) Hemoglobin 9.7 G/DL (14.2-18.0) 9.2 G/DL (14.2-18.0) Hematocrit 30.1 % (42.0-52.0) 28.7 % (42.0-52.0) Mean Corpuscular Volume 84 FL (80-99) 85 FL (80-99) Mean Corpuscular Hemoglobin 27.0 PG (27.0-31.0) 27.1 PG (27.0-31.0) Mean Corpuscular Hemoglobin Concent 32.1 G/DL (32.0-36.0) 32.0 G/DL (32.0-36.0) Red Cell Distribution Width 19.4 % (11.6-14.8) 19.8 % (11.6-14.8) Platelet Count 214 K/UL (150-450) 216 K/UL (150-450) Mean Platelet Volume 4.9 FL (6.5-10.1) 5.4 FL (6.5-10.1) Neutrophils (%) (Auto) % (45.0-75.0) % (45.0-75.0) Lymphocytes (%) (Auto) % (20.0-45.0) % (20.0-45.0) Monocytes (%) (Auto) % (1.0-10.0) % (1.0-10.0) Eosinophils (%) (Auto) % (0.0-3.0) % (0.0-3.0) Basophils (%) (Auto) % (0.0-2.0) % (0.0-2.0) Differential Total Cells Counted 100 Neutrophils % (Manual) 50 % (45-75) Lymphocytes % (Manual) 25 % (20-45) Monocytes % (Manual) 23 % (1-10) Eosinophils % (Manual) 1 % (0-3) Basophils % (Manual) 1 % (0-2) Band Neutrophils 0 % (0-8) Platelet Estimate Adequate Platelet Morphology Normal Hypochromasia 2+ Anisocytosis 2+ Spherocytes 1+ Erythrocyte Sedimentation Rate 99 MM/HR (0-20) Sodium Level 137 MMOL/L (136-145) 135 MMOL/L (136-145) Potassium Level 4.6 MMOL/L (3.5-5.1) 5.3 MMOL/L (3.5-5.1) Chloride Level 103 MMOL/L (98-107) 102 MMOL/L (98-107) Carbon Dioxide Level 24 MMOL/L (21-32) 28 MMOL/L (21-32) Anion Gap 10 mmol/L (5-15) 5 mmol/L (5-15) Blood Urea Nitrogen 17 mg/dL (7-18) 17 mg/dL (7-18) Creatinine 1.0 MG/DL (0.55-1.30) 0.9 MG/DL (0.55-1.30) Estimat Glomerular Filtration Rate > 60 mL/min (>60) > 60 mL/min (>60) Glucose Level 88 MG/DL (74-106) 93 MG/DL (74-106) Calcium Level 9.3 MG/DL (8.5-10.1) 9.0 MG/DL (8.5-10.1) Phosphorus Level 3.1 MG/DL (2.5-4.9) Magnesium Level 1.9 MG/DL (1.8-2.4) Total Bilirubin 0.3 MG/DL (0.2-1.0) Aspartate Amino Transf (AST/SGOT) 38 U/L (15-37) Alanine Aminotransferase (ALT/SGPT) 21 U/L (12-78) Alkaline Phosphatase 126 U/L (46-116) C-Reactive Protein, Quantitative 2.0 mg/dL (0.00-0.90) Total Protein 9.1 G/DL (6.4-8.2) Albumin 2.0 G/DL (3.4-5.0) Globulin 7.1 g/dL Albumin/Globulin Ratio 0.3 (1.0-2.7) Body Fluid Source Pleural Body Fluid Volume 27 mL Body Fluid Appearance Cloudy (Clear) Body Fluid RBC 7994 /CUMM Body Fluid Total Nucleated Cells 5 /CUMM Body Fluid Polynuclear WBCs (%) % Body Fluid Mononuclear WBCs (%) % Body Fluid Mesothelial Cells (%) % Height (Feet): 5 Height (Inches): 7.00 Weight (Pounds): 149 Objective GENERAL: Calm in bed, oriented x2, in no acute distress. CARDIOVASCULAR: No murmur. normal S1, S2 LUNGS: decreased breath sounds. NC+ ABDOMEN: non tender, not distended EXTREMITIES: no cyanosis or edema. NEUROLOGIC: The patient moves all extremities, slightly weak. Glenn Daniel MD Jul 30, 2019 10:35
[2019-07-30] MEDS: D5 1/2NS 1,000 ML IV SCH (10:55)
--- NOTE | 2019-07-30 10:56 | GI Progress Note ---
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 Villafuerte. 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 I agree with the above findings, impression and plan. (Patient seen earlier today. Signature stamp does not reflect patient encounter time.). - Sergei Villafuerte MD Subjective Subjective Denies any abdominal pain Denies any constipation or diarrhea eating well Objective Last 24 Hour Vital Signs Date Time Temp Pulse Resp B/P (MAP) Pulse Ox O2 Delivery O2 Flow Rate FiO2 07/30/19 08:51 Nasal Cannula 2.0 07/30/19 08:00 98.2 107 20 113/73 (86) 95 07/30/19 04:00 98.3 94 18 130/73 (92) 96 07/30/19 00:00 98.5 92 18 121/68 (85) 96 07/29/19 23:03 Nasal Cannula 2.0 07/29/19 20:00 98.6 91 18 119/66 (83) 97 07/29/19 15:47 97.9 90 18 124/66 (85) 99 07/29/19 12:00 97.9 88 20 128/67 (87) 99 Intake and Output 2/19/20 2/20/20 19:00 07:00 Intake Total 1000 ml 720 ml Output Total 1000 ml Balance 1000 ml -280 ml Intake Oral 1000 ml 720 ml Output Urine Total 1000 ml # Voids 4 5 Laboratory Tests Test 07/29/19 12:05 07/29/19 13:30 07/30/19 04:54 Body Fluid Source Pleural Body Fluid Volume 27 mL Body Fluid Appearance Cloudy (Clear) Body Fluid RBC 7994 /CUMM Body Fluid Total Nucleated Cells 5 /CUMM Body Fluid Polynuclear WBCs (%) % Body Fluid Mononuclear WBCs (%) % Body Fluid Mesothelial Cells (%) % Body Fluid Albumin Pending Stool Occult Blood Pending White Blood Count 4.6 K/UL (4.8-10.8) L Red Blood Count 3.40 M/UL (4.70-6.10) L Hemoglobin 9.2 G/DL (14.2-18.0) L Hematocrit 28.7 % (42.0-52.0) L Mean Corpuscular Volume 85 FL (80-99) Mean Corpuscular Hemoglobin 27.1 PG (27.0-31.0) Mean Corpuscular Hemoglobin Concent 32.0 G/DL (32.0-36.0) Red Cell Distribution Width 19.8 % (11.6-14.8) H Platelet Count 216 K/UL (150-450) Mean Platelet Volume 5.4 FL (6.5-10.1) L Neutrophils (%) (Auto) % (45.0-75.0) Lymphocytes (%) (Auto) % (20.0-45.0) Monocytes (%) (Auto) % (1.0-10.0) Eosinophils (%) (Auto) % (0.0-3.0) Basophils (%) (Auto) % (0.0-2.0) Sodium Level 135 MMOL/L (136-145) L Potassium Level 5.3 MMOL/L (3.5-5.1) H Chloride Level 102 MMOL/L (98-107) Carbon Dioxide Level 28 MMOL/L (21-32) Anion Gap 5 mmol/L (5-15) Blood Urea Nitrogen 17 mg/dL (7-18) Creatinine 0.9 MG/DL (0.55-1.30) Estimat Glomerular Filtration Rate > 60 mL/min (>60) Glucose Level 93 MG/DL (74-106) Calcium Level 9.0 MG/DL (8.5-10.1) Height (Feet): 5 Height (Inches): 7.00 Weight (Pounds): 149 General Appearance: WD/WN, no apparent distress, alert, thin Cardiovascular: normal rate Respiratory/Chest: normal breath sounds, no respiratory distress Abdominal Exam: normal bowel sounds, non tender, soft Extremities: normal range of motion, non-tender Tyson Cm NP Jul 30, 2019 10:56
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
--- NOTE | 2019-07-30 11:15 | Progress Note ---
DATE: 07/30/2019 SUBJECTIVE: This is a patient, who is 74-year-old male patient with dehydration, anemia, diverticulum of the esophagus, hypertension, pleural effusion, failure to thrive, and he has decline in cognition below his baseline. That is why, his attending physician has requested daily psychiatric consultation. MENTAL STATUS EXAMINATION: This is a 74-year-old male. Appearance is disheveled. Attitude, irritable and agitated. Affect, guarded and restricted. Intellect poor. Mood, depressed and anxious. Motor activity, psychomotor agitation. Attention span is poor. Orientation x2. Speech is low volume, slurred. Thought process, disorganized and illogical. Insight and judgment is poor. DIAGNOSIS: Major depressive disorder, mild, recurrent with psychotic features, rule out dementia with psychosis. PLAN: Neurontin 300 mg three times a day, Ativan 0.5 mg every 6 hours p.r.n. anxiety and agitation, Abilify 2.5 mg daily. A 20 minutes of behavioral management and 20 minutes of cognitive behavioral therapy to help this patient identify his automatic negative thoughts, help him convert his negative thoughts to more positive thoughts to reduce depression, anxiety, and mood lability. Chart reviewed. Discussed with staff. Seen and assessed at bedside. Omid Malagon M.D. DR: ZOIE JOB#: [id number] CC:
[2019-07-30 12:00] VITALS: BP 117/66
--- NOTE | 2019-07-30 13:14 | Pulmonology Progress Note ---
Assessment/Plan Problems: (1) Nosocomial pneumonia (2) COPD (chronic obstructive pulmonary disease) (3) Anemia (4) Dehydration (5) FTT (failure to thrive) in adult (6) Generalized weakness (7) Depression (8) Schizophrenia (9) Hypertension Assessment/Plan cxr reviewed, Right effusion resolved after thoracentesis blood has monocytosis, d/w pathologist, they are all mature cells. Pt might need bone marrow at some point Venofer for iron deficiency anemia sputum for c/s sputum induction IV abx check cultures anemia w/u showing iron deficiency, stool OB pending checked tumor markers, PSA negative, CEA is 5, almost normal dvt prophylaxis. Subjective ROS Limited/Unobtainable: No Constitutional: Reports: no symptoms HEENT: Repors: no symptoms Respiratory: Reports: no symptoms Allergies: Coded Allergies: No Known Allergies (Verified , 10/13/07) Objective Last 24 Hour Vital Signs Date Time Temp Pulse Resp B/P (MAP) Pulse Ox O2 Delivery O2 Flow Rate FiO2 07/30/19 08:51 Nasal Cannula 2.0 07/30/19 08:00 98.2 107 20 113/73 (86) 95 07/30/19 04:00 98.3 94 18 130/73 (92) 96 07/30/19 00:00 98.5 92 18 121/68 (85) 96 07/29/19 23:03 Nasal Cannula 2.0 07/29/19 20:00 98.6 91 18 119/66 (83) 97 07/29/19 15:47 97.9 90 18 124/66 (85) 99 Intake and Output 07/29/19 07/30/19 19:00 07:00 Intake Total 1000 ml 720 ml Output Total 1000 ml Balance 1000 ml -280 ml Intake Oral 1000 ml 720 ml Output Urine Total 1000 ml # Voids 4 5 General Appearance: cachetic HEENT: normocephalic, atraumatic Respiratory/Chest: chest wall non-tender, lungs clear Cardiovascular: normal peripheral pulses, regularly irregular Abdomen: normal bowel sounds, no organomegaly Extremities: no cyanosis Skin: no rash Laboratory Tests 07/29/19 13:30: Stool Occult Blood Positive 07/30/19 04:54: White Blood Count 4.6L, Red Blood Count 3.40L, Hemoglobin 9.2L, Hematocrit 28.7L , Mean Corpuscular Volume 85, Mean Corpuscular Hemoglobin 27.1, Mean Corpuscular Hemoglobin Concent 32.0, Red Cell Distribution Width 19.8H, Platelet Count 216, Mean Platelet Volume 5.4L, Neutrophils (%) (Auto) , Lymphocytes (%) (Auto) , Monocytes (%) (Auto) , Eosinophils (%) (Auto) , Basophils (%) (Auto) , Sodium Level 135L, Potassium Level 5.3H, Chloride Level 102, Carbon Dioxide Level 28, Anion Gap 5, Blood Urea Nitrogen 17, Creatinine 0.9, Estimat Glomerular Filtration Rate > 60, Glucose Level 93, Calcium Level 9.0 Current Medications Medications (Trade) Dose Ordered Sig/Chiqui Route PRN Reason Start Time Stop Time Status Last Admin Dose Admin Acetaminophen (Tylenol) 650 mg Q4H PRN ORAL Mild Pain/Temp > 100.5 07/25/19 14:15 08/21/19 14:14 Acetaminophen/ Hydrocodone Bitart ([place] 5/325) 1 tab Q6H PRN ORAL For Pain 07/29/19 17:30 08/05/19 17:29 07/30/19 08:49 Aripiprazole (Abilify) 2.5 mg DAILY ORAL 07/26/19 09:00 08/21/19 08:59 07/30/19 08:48 Atorvastatin Calcium (Lipitor) 10 mg BEDTIME ORAL 07/25/19 21:00 08/21/19 20:59 07/29/19 21:23 Cyanocobalamin (Vitamin B-12) 1,000 mcg DAILY ORAL 07/26/19 09:00 08/21/19 08:59 07/30/19 08:47 Dextrose (Dextrose 50%) 25 ml Q30M PRN IV Hypoglycemia 07/25/19 14:15 08/21/19 05:14 Dextrose (Dextrose 50%) 50 ml Q30M PRN IV Hypoglycemia 07/25/19 14:15 08/21/19 05:14 Docusate Sodium (Colace) 100 mg THREE TIMES A DAY ORAL 07/25/19 18:00 08/22/19 12:59 07/30/19 08:47 Ertapenem 1 gm/ Sodium Chloride 55 ml @ 110 mls/hr Q24H IVPB 07/28/19 13:00 08/02/19 12:59 07/29/19 13:17 Folic Acid (Folate) 1 mg DAILY ORAL 07/26/19 09:00 08/21/19 08:59 07/30/19 08:48 Gabapentin (Neurontin) 300 mg TID@0600,1400,2200 ORAL 07/25/19 22:00 08/21/19 05:59 07/30/19 05:54 Lorazepam (Ativan) 0.5 mg Q6H PRN ORAL For Anxiety 07/25/19 14:15 07/30/19 14:14 Memantine (Namenda) 5 mg DAILY ORAL 07/29/19 09:00 08/28/19 08:59 07/30/19 08:48 Methocarbamol (Robaxin) 500 mg QIDPRN PRN ORAL muscle spasm/pain 07/25/19 14:15 08/24/19 14:14 Mirtazapine (Remeron) 15 mg BEDTIME ORAL 07/25/19 21:00 08/21/19 20:59 07/29/19 21:23 Promethazine HCl/ Codeine (Phenergan with Codeine) 5 ml Q4H PRN ORAL For Cough 07/25/19 14:15 08/21/19 14:14 Theophylline ([place]) 100 mg EVERY 12 HOURS ORAL 07/25/19 21:00 08/21/19 20:59 07/30/19 08:47 Vancomycin HCl (Vanco rx to dose) 1 ea DAILY PRN MISC Per rx protocol 07/27/19 11:30 08/26/19 11:29 Vancomycin HCl 1 gm/Dextrose 275 ml @ 183.708 mls/hr Q12H IVPB 07/27/19 13:00 08/01/19 12:59 07/30/19 00:43 Billy Whitney MD Jul 30, 2019 13:14
[2019-07-30] MEDS: Ertapenem 1 GM in NS 55 ML IVPB SCH (13:30)
--- NOTE | 2019-07-30 14:07 | General Progress Note ---
Assessment/Plan Problem List: (1) Anemia ICD Codes: D64.9 - Anemia, unspecified SNOMED: 595273423 (2) Generalized weakness ICD Codes: R53.1 - Weakness SNOMED: 80420557 (3) FTT (failure to thrive) in adult ICD Codes: R62.7 - Adult failure to thrive SNOMED: 284460823 (4) COPD (chronic obstructive pulmonary disease) ICD Codes: J44.9 - Chronic obstructive pulmonary disease, unspecified SNOMED: 14013403 (5) Hypertension ICD Codes: I10 - Essential (primary) hypertension SNOMED: 62012326 (6) Nosocomial pneumonia ICD Codes: J18.9 - Pneumonia, unspecified organism; Y95 - Nosocomial condition SNOMED: 549915445 Status: stable, progressing Assessment/Plan: pt diet abx o2 pulm tx prn cbc bmp am dc plan aru eval Subjective Constitutional: Reports: weakness Allergies: Coded Allergies: No Known Allergies (Verified , 10/13/07) All Systems: reviewed and negative except above Subjective sleepy calm Objective Last 24 Hour Vital Signs Date Time Temp Pulse Resp B/P (MAP) Pulse Ox O2 Delivery O2 Flow Rate FiO2 07/30/19 12:00 97.2 102 20 117/66 (83) 96 07/30/19 08:51 Nasal Cannula 2.0 07/30/19 08:00 98.2 107 20 113/73 (86) 95 07/30/19 04:00 98.3 94 18 130/73 (92) 96 07/30/19 00:00 98.5 92 18 121/68 (85) 96 07/29/19 23:03 Nasal Cannula 2.0 07/29/19 20:00 98.6 91 18 119/66 (83) 97 07/29/19 15:47 97.9 90 18 124/66 (85) 99 Intake and Output 07/29/19 07/30/19 19:00 07:00 Intake Total 1000 ml 720 ml Output Total 1000 ml Balance 1000 ml -280 ml Intake Oral 1000 ml 720 ml Output Urine Total 1000 ml # Voids 4 5 Laboratory Tests 07/30/19 04:54: White Blood Count 4.6L, Red Blood Count 3.40L, Hemoglobin 9.2L, Hematocrit 28.7L , Mean Corpuscular Volume 85, Mean Corpuscular Hemoglobin 27.1, Mean Corpuscular Hemoglobin Concent 32.0, Red Cell Distribution Width 19.8H, Platelet Count 216, Mean Platelet Volume 5.4L, Neutrophils (%) (Auto) , Lymphocytes (%) (Auto) , Monocytes (%) (Auto) , Eosinophils (%) (Auto) , Basophils (%) (Auto) , Sodium Level 135L, Potassium Level 5.3H, Chloride Level 102, Carbon Dioxide Level 28, Anion Gap 5, Blood Urea Nitrogen 17, Creatinine 0.9, Estimat Glomerular Filtration Rate > 60, Glucose Level 93, Calcium Level 9.0 07/30/19 13:05: Potassium Level 4.6 Height (Feet): 5 Height (Inches): 7.00 Weight (Pounds): 149 General Appearance: lethargic EENT: normal ENT inspection Neck: normal alignment Cardiovascular: normal peripheral pulses, normal rate, regular rhythm Respiratory/Chest: chest wall non-tender, lungs clear, normal breath sounds Abdomen: normal bowel sounds, non tender, soft Extremities: normal inspection Edema: no edema noted Arm (L), no edema noted Arm (R), no edema noted Leg (L), no edema noted Leg (R), no edema noted Pedal (L), no edema noted Pedal (R), no edema noted Generalized Neurologic: motor weakness Skin: normal pigmentation, warm/dry Charles Parisi DO Jul 30, 2019 14:07
[2019-07-30 16:00] VITALS: BP 111/61
--- NOTE | 2019-07-30 16:15 | Consultation ---
DATE OF CONSULTATION: 07/30/2019 CONSULTING PHYSICIAN: Jose J Mitchell M.D. REFERRING PHYSICIAN: Charles Parisi D.O. REASON FOR CONSULTATION: Hyperkalemia. HISTORY OF PRESENT ILLNESS: The patient is a very pleasant 74-year-old gentleman admitted 8 days prior for further evaluation and management of shortness of breath, fever, and possible pneumonia. Infectious Diseases was consulted and he is being treated for pneumonia. The patient has been much improved. He was noted to have normal renal function with an elevated potassium today of 5.3. Denies any chest pain, current shortness of breath, feeling much better and is being prepared for possible discharge soon. PAST MEDICAL HISTORY: 1. Failure to thrive. 2. COPD. 3. Hypertension. 4. Schizophrenia. PAST SURGICAL HISTORY: None. ALLERGIES: No known drug allergies. CURRENT MEDICATIONS: Reviewed in medications reconciliation list. SOCIAL HISTORY: Positive for tobacco. No alcohol. No illicit drug use. FAMILY HISTORY: Positive for schizophrenia. LABORATORY AND DIAGNOSTIC DATA: Labs dated 07/30/2019 white cell count 4.6, hemoglobin 9.2, and platelet count 216. Creatinine 0.9, potassium 5.3, sodium 135. PHYSICAL EXAMINATION: VITAL SIGNS: Blood pressure 113/73, respiratory rate 20, pulse 107, temperature 98.2, O2 saturation 95% oxygen saturation on 2 L nasal cannula. GENERAL: The patient is awake, alert, not in distress. HEENT: Extraocular muscles intact. No lymphadenopathy noted. CARDIOVASCULAR: S1, S2. No rubs or gallops. PULMONARY: Clear to auscultation bilaterally with rales. ABDOMEN: Nondistended and nontender. EXTREMITIES: No edema. ASSESSMENT AND PLAN: 1. Mild hyperkalemia with normal kidney function. At this time as potassium is only mildly elevated at 5.3, we will recheck prior to any medical treatment. If renal function is normal, and repeat potassium normal, no further renal investigation required. 2. Pneumonia. IV antibiotics per Infectious Diseases. 3. Failure to thrive. Continue aggressive nutrition. We will discontinue IV fluids. 4. Schizophrenia per Psychiatry. The patient will be cleared from renal standpoint, pending repeat potassium. Let me take this opportunity to thank Dr. Charles Parisi. Jose J Mitchell MD DR: Jose JOB#: [id number] CC:
--- NOTE | 2019-07-30 16:18 | NUR ---
CASE MANAGEMENT:NOTE PATIENT HAS BEEN REFERRED TO ERICKA MACKEY P: [phone] F: [phone] EMAIL: [email or web address]
--- NOTE | 2019-07-30 17:22 | NUR ---
NURSE NOTES: called and left a message for Dr lugo regarding the patient's wish to return back to [facility]. Dr lugo placed a referral for the patient to go to [facility]. Wanted to clarify the patient's wish to return to [facility].
--- NOTE | 2019-07-30 19:28 | NUR ---
NURSE NOTES: Notified Dr. Parisi of patient's positive OB stool result. Dr. Villafuerte put on the case - said he would follow up. No new orders at this time. Will continue to monitor the patient.
--- NOTE | 2019-07-30 19:45 | NUR ---
HAND-OFF: Report given to FANNY Calix.
[2019-07-30 20:00] VITALS: BP 121/67
[2019-07-31] VITALS (7 sets, daily range): BP systolic 94–128; BP diastolic 54–74
[2019-07-31] MEDS: Vancomycin 1gm/D5W 275ml IVPB SCH ×4 (00:20→14:04)
[2019-07-31] MEDS: HYDROcodone/Acetamin 5/325 tab ORAL PRN ×2 (04:51→21:42)
[2019-07-31 07:03] LABS: HEMATOCRIT 28.4 % (42.0-52.0); MEAN CORPUSCULAR VOLUME 85 FL (80-99); PLATELET COUNT 210 K/UL (150-450); RED BLOOD COUNT 3.33 M/UL (4.70-6.10); RED CELL DISTRIBUTION WIDTH 20.2 % (11.6-14.8); WHITE BLOOD COUNT 4.3 K/UL (4.8-10.8)
--- NOTE | 2019-07-31 07:10 | NUR ---
HAND-OFF: Report given to FANNY Cuadra.
--- NOTE | 2019-07-31 07:11 | NUR ---
NURSE NOTES: Report received from Fifi ESCOBEDO. Patient is awake and alert x 4 and is currently sitting up right in bed eating breakfast. Patient does not have any complaints at this time. Patient has no reports of pain. Patient does not appear to be in respiratory distress at this time. 24 nikole IV noted in left. Patent and in tact. Bed locked and in lowest position. Call light within reach. Will continue to follow plan of care.
[2019-07-31 07:18] LABS: ANION GAP 11 mmol/L (5-15); BLOOD UREA NITROGEN 19 mg/dL (7-18); CARBON DIOXIDE 24 MMOL/L (21-32); CHLORIDE 103 MMOL/L (98-107); CREATININE 1.1 MG/DL (0.55-1.30); POTASSIUM 4.7 MMOL/L (3.5-5.1); SODIUM 138 MMOL/L (136-145)
--- NOTE | 2019-07-31 07:36 | Nephrology Progress Note ---
Assessment/Plan Status: stable, progressing Assessment/Plan: A/P 1. Mild hyperkalemia with normal kidney function. - resolved, K+ back to normal 2. Pneumonia. -IV antibiotics per Infectious Diseases. 3. Failure to thrive. -Continue aggressive nutrition. 4. Schizophrenia per Psychiatry. Subjective Date patient seen: Jul 31, 2019 Time patient seen: 07:35 ROS Limited/Unobtainable: No Allergies: Coded Allergies: No Known Allergies (Verified , 10/13/07) Subjective Patient feeling well in no distress Objective Last 24 Hour Vital Signs Date Time Temp Pulse Resp B/P (MAP) Pulse Ox O2 Delivery O2 Flow Rate FiO2 07/31/19 05:52 Nasal Cannula 2.0 07/31/19 04:00 98.0 96 21 94/54 (67) 95 07/31/19 00:00 97.6 89 21 113/66 (82) 95 07/30/19 20:01 Nasal Cannula 2.0 07/30/19 20:00 98.6 100 20 121/67 (85) 98 07/30/19 16:00 97.8 92 20 111/61 (78) 96 07/30/19 12:00 97.2 102 20 117/66 (83) 96 07/30/19 08:51 Nasal Cannula 2.0 07/30/19 08:00 98.2 107 20 113/73 (86) 95 Intake and Output 07/30/19 07/31/19 19:00 07:00 Intake Total 720 ml 400 ml Balance 720 ml 400 ml Intake Oral 720 ml 400 ml # Voids 3 3 # Bowel Movements 1 Laboratory Tests 07/30/19 13:05: Potassium Level 4.6 07/31/19 06:26: Potassium Level 4.7, White Blood Count 4.3L, Red Blood Count 3.33L, Hemoglobin 9.0L, Hematocrit 28.4L, Mean Corpuscular Volume 85, Mean Corpuscular Hemoglobin 27.1, Mean Corpuscular Hemoglobin Concent 31.8L, Red Cell Distribution Width 20.2H, Platelet Count 210, Mean Platelet Volume 4.7L, Neutrophils (%) (Auto) , Lymphocytes (%) (Auto) , Monocytes (%) (Auto) , Eosinophils (%) (Auto) , Basophils (%) (Auto) , Neutrophils % (Manual) [Pending], Lymphocytes % (Manual) [Pending], Platelet Estimate [Pending], Platelet Morphology [Pending], Sodium Level 138, Chloride Level 103, Carbon Dioxide Level 24, Anion Gap 11, Blood Urea Nitrogen 19H, Creatinine 1.1, Estimat Glomerular Filtration Rate > 60, Glucose Level 93, Calcium Level 9.0 Height (Feet): 5 Height (Inches): 7.00 Weight (Pounds): 149 General Appearance: no apparent distress, alert EENT: normal ENT inspection Neck: normal alignment, supple Cardiovascular: normal rate, regular rhythm Respiratory/Chest: rhonchi - bilaterally Abdomen: non tender, soft Edema: no edema noted Arm (L), no edema noted Arm (R), no edema noted Leg (L), no edema noted Leg (R), no edema noted Pedal (L), no edema noted Pedal (R), no edema noted Generalized Jose J Mitchell MD Jul 31, 2019 07:36
[2019-07-31] MEDS: Memantine 10mg tab ORAL SCH (08:32)
[2019-07-31] MEDS: Vitamin B-12 500mcg tab ORAL SCH (08:33)
[2019-07-31] MEDS: Theophylline ER 100mg ORAL SCH ×2 (08:33→21:42)
[2019-07-31] MEDS: Docusate 100mg cap ORAL SCH ×3 (08:33→17:26)
--- NOTE | 2019-07-31 09:29 | General Progress Note ---
Assessment/Plan Problem List: (1) Anemia ICD Codes: D64.9 - Anemia, unspecified SNOMED: 217367006 (2) Generalized weakness ICD Codes: R53.1 - Weakness SNOMED: 99722394 (3) FTT (failure to thrive) in adult ICD Codes: R62.7 - Adult failure to thrive SNOMED: 611547978 (4) COPD (chronic obstructive pulmonary disease) ICD Codes: J44.9 - Chronic obstructive pulmonary disease, unspecified SNOMED: 20733568 (5) Hypertension ICD Codes: I10 - Essential (primary) hypertension SNOMED: 42037336 (6) Nosocomial pneumonia ICD Codes: J18.9 - Pneumonia, unspecified organism; Y95 - Nosocomial condition SNOMED: 739288533 Status: stable, progressing Assessment/Plan: pt diet abx o2 pulm tx prn cbc bmp am dc plan aru eval transfer Subjective Constitutional: Reports: weakness Allergies: Coded Allergies: No Known Allergies (Verified , 10/13/07) All Systems: reviewed and negative except above Subjective sleepy calm Objective Last 24 Hour Vital Signs Date Time Temp Pulse Resp B/P (MAP) Pulse Ox O2 Delivery O2 Flow Rate FiO2 07/31/19 08:00 97.4 90 20 106/61 (76) 94 07/31/19 05:52 Nasal Cannula 2.0 07/31/19 04:00 98.0 96 21 94/54 (67) 95 07/31/19 00:00 97.6 89 21 113/66 (82) 95 07/30/19 20:01 Nasal Cannula 2.0 07/30/19 20:00 98.6 100 20 121/67 (85) 98 07/30/19 16:00 97.8 92 20 111/61 (78) 96 07/30/19 12:00 97.2 102 20 117/66 (83) 96 Intake and Output 07/30/19 07/31/19 19:00 07:00 Intake Total 720 ml 400 ml Balance 720 ml 400 ml Intake Oral 720 ml 400 ml # Voids 3 3 # Bowel Movements 1 Laboratory Tests 07/30/19 13:05: Potassium Level 4.6 07/31/19 06:26: Potassium Level 4.7, White Blood Count 4.3L, Red Blood Count 3.33L, Hemoglobin 9.0L, Hematocrit 28.4L, Mean Corpuscular Volume 85, Mean Corpuscular Hemoglobin 27.1, Mean Corpuscular Hemoglobin Concent 31.8L, Red Cell Distribution Width 20.2H, Platelet Count 210, Mean Platelet Volume 4.7L, Neutrophils (%) (Auto) , Lymphocytes (%) (Auto) , Monocytes (%) (Auto) , Eosinophils (%) (Auto) , Basophils (%) (Auto) , Differential Total Cells Counted 100, Neutrophils % ( Manual) 40L, Lymphocytes % (Manual) 32, Monocytes % (Manual) 28H, Eosinophils % (Manual) 0, Basophils % (Manual) 0, Band Neutrophils 0, Platelet Estimate Adequate, Platelet Morphology Normal, Polychromasia 1+, Hypochromasia 1+, Anisocytosis 2+, Sodium Level 138, Chloride Level 103, Carbon Dioxide Level 24, Anion Gap 11, Blood Urea Nitrogen 19H, Creatinine 1.1, Estimat Glomerular Filtration Rate > 60, Glucose Level 93, Calcium Level 9.0 Height (Feet): 5 Height (Inches): 7.00 Weight (Pounds): 149 General Appearance: lethargic EENT: normal ENT inspection Neck: normal alignment Cardiovascular: normal peripheral pulses, normal rate, regular rhythm Respiratory/Chest: chest wall non-tender, lungs clear, normal breath sounds Abdomen: normal bowel sounds, non tender, soft Extremities: normal inspection Edema: no edema noted Arm (L), no edema noted Arm (R), no edema noted Leg (L), no edema noted Leg (R), no edema noted Pedal (L), no edema noted Pedal (R), no edema noted Generalized Neurologic: motor weakness Skin: normal pigmentation, warm/dry Charles Parisi DO Jul 31, 2019 09:29
--- NOTE | 2019-07-31 11:02 | GI Progress Note ---
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 Villafuerte. Assessment/Plan CT esophagus in 2019 noted with esophagus diverticulum ST evaluation reviewed, patient passed on soft chew diet s/p blood transfusion calorie count, tolerating 75% of meals Strict aspiration precautions anemia work up reviewed, iron deficient venofer OB stool r/o GI bleed, positive with stable H&H monitor H&H, prn transfusions bowel regimen ppi fu labs per patient he has had colonoscopy 6 months ago, will try to obtain records from [place] The patient was seen and examined at bedside and all new and available data was reviewed in the patients chart. I agree with the above findings, impression and plan. (Patient seen earlier today. Signature stamp does not reflect patient encounter time.). - Sergei Villafuerte MD Subjective Subjective Denies any abdominal pain Denies any constipation or diarrhea eating well Objective Last 24 Hour Vital Signs Date Time Temp Pulse Resp B/P (MAP) Pulse Ox O2 Delivery O2 Flow Rate FiO2 07/31/19 09:00 Nasal Cannula 2.0 07/31/19 08:00 97.4 90 20 106/61 (76) 94 07/31/19 05:52 Nasal Cannula 2.0 07/31/19 04:00 98.0 96 21 94/54 (67) 95 07/31/19 00:00 97.6 89 21 113/66 (82) 95 07/30/19 20:01 Nasal Cannula 2.0 07/30/19 20:00 98.6 100 20 121/67 (85) 98 07/30/19 16:00 97.8 92 20 111/61 (78) 96 07/30/19 12:00 97.2 102 20 117/66 (83) 96 Intake and Output 07/30/19 07/31/19 19:00 07:00 Intake Total 720 ml 400 ml Balance 720 ml 400 ml Intake Oral 720 ml 400 ml # Voids 3 3 # Bowel Movements 1 Laboratory Tests Test 07/30/19 13:05 07/31/19 06:26 Potassium Level 4.6 MMOL/L (3.5-5.1) 4.7 MMOL/L (3.5-5.1) White Blood Count 4.3 K/UL (4.8-10.8) L Red Blood Count 3.33 M/UL (4.70-6.10) L Hemoglobin 9.0 G/DL (14.2-18.0) L Hematocrit 28.4 % (42.0-52.0) L Mean Corpuscular Volume 85 FL (80-99) Mean Corpuscular Hemoglobin 27.1 PG (27.0-31.0) Mean Corpuscular Hemoglobin Concent 31.8 G/DL (32.0-36.0) L Red Cell Distribution Width 20.2 % (11.6-14.8) H Platelet Count 210 K/UL (150-450) Mean Platelet Volume 4.7 FL (6.5-10.1) L Neutrophils (%) (Auto) % (45.0-75.0) Lymphocytes (%) (Auto) % (20.0-45.0) Monocytes (%) (Auto) % (1.0-10.0) Eosinophils (%) (Auto) % (0.0-3.0) Basophils (%) (Auto) % (0.0-2.0) Differential Total Cells Counted 100 Neutrophils % (Manual) 40 % (45-75) L Lymphocytes % (Manual) 32 % (20-45) Monocytes % (Manual) 28 % (1-10) H Eosinophils % (Manual) 0 % (0-3) Basophils % (Manual) 0 % (0-2) Band Neutrophils 0 % (0-8) Platelet Estimate Adequate Platelet Morphology Normal Polychromasia 1+ Hypochromasia 1+ Anisocytosis 2+ Sodium Level 138 MMOL/L (136-145) Chloride Level 103 MMOL/L (98-107) Carbon Dioxide Level 24 MMOL/L (21-32) Anion Gap 11 mmol/L (5-15) Blood Urea Nitrogen 19 mg/dL (7-18) H Creatinine 1.1 MG/DL (0.55-1.30) Estimat Glomerular Filtration Rate > 60 mL/min (>60) Glucose Level 93 MG/DL (74-106) Calcium Level 9.0 MG/DL (8.5-10.1) Height (Feet): 5 Height (Inches): 7.00 Weight (Pounds): 149 General Appearance: WD/WN, no apparent distress, alert Cardiovascular: normal rate Respiratory/Chest: normal breath sounds, no respiratory distress Abdominal Exam: normal bowel sounds, non tender, soft Extremities: normal range of motion, non-tender Tyson Cm NP Jul 31, 2019 11:02
[2019-07-31] MEDS: Ertapenem 1 GM in NS 55 ML IVPB SCH (12:24)
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
--- NOTE | 2019-07-31 15:00 | Pulmonology Progress Note ---
Assessment/Plan Problems: (1) Nosocomial pneumonia (2) COPD (chronic obstructive pulmonary disease) (3) Anemia (4) Dehydration (5) FTT (failure to thrive) in adult (6) Generalized weakness (7) Depression (8) Schizophrenia (9) Hypertension Assessment/Plan doing better blood has monocytosis, d/w pathologist, they are all mature cells. Pt might need bone marrow at some point Venofer for iron deficiency anemia sputum for c/s sputum induction IV abx check cultures anemia w/u showing iron deficiency, stool OB pending checked tumor markers, PSA negative, CEA is 5, almost normal dvt prophylaxis. Subjective ROS Limited/Unobtainable: No Constitutional: Reports: no symptoms HEENT: Repors: no symptoms Respiratory: Reports: no symptoms Allergies: Coded Allergies: No Known Allergies (Verified , 10/13/07) Objective Last 24 Hour Vital Signs Date Time Temp Pulse Resp B/P (MAP) Pulse Ox O2 Delivery O2 Flow Rate FiO2 07/31/19 09:00 Nasal Cannula 2.0 07/31/19 08:00 97.4 90 20 106/61 (76) 94 07/31/19 05:52 Nasal Cannula 2.0 07/31/19 04:00 98.0 96 21 94/54 (67) 95 07/31/19 00:00 97.6 89 21 113/66 (82) 95 07/30/19 20:01 Nasal Cannula 2.0 07/30/19 20:00 98.6 100 20 121/67 (85) 98 07/30/19 16:00 97.8 92 20 111/61 (78) 96 Intake and Output 07/30/19 07/31/19 19:00 07:00 Intake Total 720 ml 400 ml Balance 720 ml 400 ml Intake Oral 720 ml 400 ml # Voids 3 3 # Bowel Movements 1 General Appearance: WD/WN HEENT: normocephalic, anicteric, PERRL Respiratory/Chest: chest wall non-tender, lungs clear Cardiovascular: normal peripheral pulses, normal rate Abdomen: normal bowel sounds, no organomegaly Genitourinary: normal external genitalia Extremities: no clubbing Skin: no rash Microbiology Date/Time Source Procedure Growth Status 07/29/19 12:05 Ascities Fluid Gram Stain - Final Resulted 07/29/19 12:05 Ascities Fluid Body Fluid Culture - Preliminary NO GROWTH Resulted Laboratory Tests 07/31/19 06:26: White Blood Count 4.3L, Red Blood Count 3.33L, Hemoglobin 9.0L, Hematocrit 28.4L , Mean Corpuscular Volume 85, Mean Corpuscular Hemoglobin 27.1, Mean Corpuscular Hemoglobin Concent 31.8L, Red Cell Distribution Width 20.2H, Platelet Count 210, Mean Platelet Volume 4.7L, Neutrophils (%) (Auto) , Lymphocytes (%) (Auto) , Monocytes (%) (Auto) , Eosinophils (%) (Auto) , Basophils (%) (Auto) , Differential Total Cells Counted 100, Neutrophils % ( Manual) 40L, Lymphocytes % (Manual) 32, Monocytes % (Manual) 28H, Eosinophils % (Manual) 0, Basophils % (Manual) 0, Band Neutrophils 0, Platelet Estimate Adequate, Platelet Morphology Normal, Polychromasia 1+, Hypochromasia 1+, Anisocytosis 2+, Sodium Level 138, Potassium Level 4.7, Chloride Level 103, Carbon Dioxide Level 24, Anion Gap 11, Blood Urea Nitrogen 19H, Creatinine 1.1, Estimat Glomerular Filtration Rate > 60, Glucose Level 93, Calcium Level 9.0 Current Medications Medications (Trade) Dose Ordered Sig/Chiqui Route PRN Reason Start Time Stop Time Status Last Admin Dose Admin Acetaminophen (Tylenol) 650 mg Q4H PRN ORAL Mild Pain/Temp > 100.5 07/25/19 14:15 08/21/19 14:14 Acetaminophen/ Hydrocodone Bitart ([place] 5/325) 1 tab Q6H PRN ORAL For Pain 07/29/19 17:30 08/05/19 17:29 07/31/19 04:51 Aripiprazole (Abilify) 2.5 mg DAILY ORAL 07/26/19 09:00 08/21/19 08:59 07/31/19 08:32 Atorvastatin Calcium (Lipitor) 10 mg BEDTIME ORAL 07/25/19 21:00 08/21/19 20:59 07/30/19 20:16 Cyanocobalamin (Vitamin B-12) 1,000 mcg DAILY ORAL 07/26/19 09:00 08/21/19 08:59 07/31/19 08:33 Dextrose (Dextrose 50%) 25 ml Q30M PRN IV Hypoglycemia 07/25/19 14:15 08/21/19 05:14 Dextrose (Dextrose 50%) 50 ml Q30M PRN IV Hypoglycemia 07/25/19 14:15 08/21/19 05:14 Docusate Sodium (Colace) 100 mg THREE TIMES A DAY ORAL 07/25/19 18:00 08/22/19 12:59 07/31/19 12:24 Ertapenem 1 gm/ Sodium Chloride 55 ml @ 110 mls/hr Q24H IVPB 07/28/19 13:00 08/03/19 13:29 07/31/19 12:24 Folic Acid (Folate) 1 mg DAILY ORAL 07/26/19 09:00 08/21/19 08:59 07/31/19 08:33 Gabapentin (Neurontin) 300 mg TID@0600,1400,2200 ORAL 07/25/19 22:00 08/21/19 05:59 07/31/19 14:04 Memantine (Namenda) 5 mg DAILY ORAL 07/29/19 09:00 08/28/19 08:59 07/31/19 08:32 Methocarbamol (Robaxin) 500 mg QIDPRN PRN ORAL muscle spasm/pain 07/25/19 14:15 08/24/19 14:14 Mirtazapine (Remeron) 15 mg BEDTIME ORAL 07/25/19 21:00 08/21/19 20:59 07/30/19 20:17 Promethazine HCl/ Codeine (Phenergan with Codeine) 5 ml Q4H PRN ORAL For Cough 07/25/19 14:15 08/21/19 14:14 Theophylline ([place]) 100 mg EVERY 12 HOURS ORAL 07/25/19 21:00 08/21/19 20:59 07/31/19 08:33 Vancomycin HCl (Vanco rx to dose) 1 ea DAILY PRN MISC Per rx protocol 07/27/19 11:30 08/26/19 11:29 Vancomycin HCl 1 gm/Dextrose 275 ml @ 183.708 mls/hr Q12H IVPB 07/27/19 13:00 08/03/19 12:59 07/31/19 14:04 Billy Whitney MD Jul 31, 2019 15:00
--- NOTE | 2019-07-31 16:51 | Hematology/Onc Progress Note ---
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 --> stool occult blood as per gi --> no evidence of hemolysis --> to be seen by gi for clearance # Monocytosis with leukopenoa --> smear is pending --> appears consistent, may be relative as wbc decreased # Pneumonia MRSA, GNR --> sp abx --> is on vanc and cefepime # COPD --> currently on nc --> cpt and oxygen # Dehydration --> goal of euvolemia # Failure to thrive --> on mirtazapine # Hypertension Appreciate consultation and dw Rn Subjective Constitutional: Denies: no symptoms, chills, fever, malaise, weakness, other HEENT: Denies: no symptoms, eye pain, blurred vision, tearing, double vision, ear pain, ear discharge, nose pain, nose congestion, throat pain, throat swelling, mouth pain, mouth swelling, other Cardiovascular: Denies: no symptoms, chest pain, edema, irregular heart rate, lightheadedness, palpitations, syncope, other Respiratory: Denies: no symptoms, cough, shortness of breath, SOB with excertion, SOB at rest, sputum, wheezing, other Gastrointestinal/Abdominal: Denies: no symptoms, abdomen distended, abdominal pain, black stools, tarry stools, blood in stool, constipated, diarrhea, difficulty swallowing, nausea, poor appetite, poor fluid intake, rectal bleeding , vomiting, other Genitourinary: Denies: no symptoms, burning, discharge, frequency, flank pain, hematuria, incontinence, pain, urgency, other Neurologic/Psychiatric: Denies: no symptoms, anxiety, depressed, emotional problems, headache, numbness, paresthesia, pre-existing deficit, seizure, tingling, tremors, weakness, other Allergies: Coded Allergies: No Known Allergies (Verified , 10/13/07) Subjective 07/28: labs noted, tumor markers essentially neg, undergoing transfusion prbc 07/29: no events, no bleeding, no night sweats, monocytosis is noted 07/30: no acute events, k elevated, vanc, nc, hgb 9.2 07/31: no events, no bleeding, labs noted, no major changes Objective Objective Current Medications Medications (Trade) Dose Ordered Sig/Chiqui Route PRN Reason Start Time Stop Time Status Last Admin Dose Admin Acetaminophen (Tylenol) 650 mg Q4H PRN ORAL Mild Pain/Temp > 100.5 07/25/19 14:15 08/21/19 14:14 Acetaminophen/ Hydrocodone Bitart ([place] 5/325) 1 tab Q6H PRN ORAL For Pain 07/29/19 17:30 08/05/19 17:29 07/31/19 04:51 Aripiprazole (Abilify) 2.5 mg DAILY ORAL 07/26/19 09:00 08/21/19 08:59 07/31/19 08:32 Atorvastatin Calcium (Lipitor) 10 mg BEDTIME ORAL 07/25/19 21:00 08/21/19 20:59 07/30/19 20:16 Cyanocobalamin (Vitamin B-12) 1,000 mcg DAILY ORAL 07/26/19 09:00 08/21/19 08:59 07/31/19 08:33 Dextrose (Dextrose 50%) 25 ml Q30M PRN IV Hypoglycemia 07/25/19 14:15 08/21/19 05:14 Dextrose (Dextrose 50%) 50 ml Q30M PRN IV Hypoglycemia 07/25/19 14:15 08/21/19 05:14 Docusate Sodium (Colace) 100 mg THREE TIMES A DAY ORAL 07/25/19 18:00 08/22/19 12:59 07/31/19 12:24 Ertapenem 1 gm/ Sodium Chloride 55 ml @ 110 mls/hr Q24H IVPB 07/28/19 13:00 08/03/19 13:29 07/31/19 12:24 Folic Acid (Folate) 1 mg DAILY ORAL 07/26/19 09:00 08/21/19 08:59 07/31/19 08:33 Gabapentin (Neurontin) 300 mg TID@0600,1400,2200 ORAL 07/25/19 22:00 08/21/19 05:59 07/31/19 14:04 Memantine (Namenda) 5 mg DAILY ORAL 07/29/19 09:00 08/28/19 08:59 07/31/19 08:32 Methocarbamol (Robaxin) 500 mg QIDPRN PRN ORAL muscle spasm/pain 07/25/19 14:15 08/24/19 14:14 Mirtazapine (Remeron) 15 mg BEDTIME ORAL 07/25/19 21:00 08/21/19 20:59 07/30/19 20:17 Promethazine HCl/ Codeine (Phenergan with Codeine) 5 ml Q4H PRN ORAL For Cough 07/25/19 14:15 08/21/19 14:14 Theophylline ([place]) 100 mg EVERY 12 HOURS ORAL 07/25/19 21:00 08/21/19 20:59 07/31/19 08:33 Vancomycin HCl (Vanco rx to dose) 1 ea DAILY PRN MISC Per rx protocol 07/27/19 11:30 08/26/19 11:29 Vancomycin HCl 1 gm/Dextrose 275 ml @ 183.708 mls/hr Q12H IVPB 07/27/19 13:00 08/03/19 12:59 07/31/19 14:04 Last 24 Hour Vital Signs Date Time Temp Pulse Resp B/P (MAP) Pulse Ox O2 Delivery O2 Flow Rate FiO2 07/31/19 12:00 97.6 94 20 120/74 (89) 97 07/31/19 09:00 Nasal Cannula 2.0 07/31/19 08:00 97.4 90 20 106/61 (76) 94 07/31/19 05:52 Nasal Cannula 2.0 07/31/19 04:00 98.0 96 21 94/54 (67) 95 07/31/19 00:00 97.6 89 21 113/66 (82) 95 07/30/19 20:01 Nasal Cannula 2.0 07/30/19 20:00 98.6 100 20 121/67 (85) 98 07/30/19 16:00 97.8 92 20 111/61 (78) 96 07/30/19 12:00 97.2 102 20 117/66 (83) 96 07/30/19 08:51 Nasal Cannula 2.0 07/30/19 08:00 98.2 107 20 113/73 (86) 95 07/30/19 04:00 98.3 94 18 130/73 (92) 96 07/30/19 00:00 98.5 92 18 121/68 (85) 96 07/29/19 23:03 Nasal Cannula 2.0 07/29/19 20:00 98.6 91 18 119/66 (83) 97 Intake and Output 07/30/19 07/31/19 19:00 07:00 Intake Total 720 ml 400 ml Balance 720 ml 400 ml Intake Oral 720 ml 400 ml # Voids 3 3 # Bowel Movements 1 Labs Test 07/29/19 06:36 07/29/19 12:05 07/29/19 13:30 07/30/19 04:54 White Blood Count 4.7 K/UL (4.8-10.8) 4.6 K/UL (4.8-10.8) Red Blood Count 3.58 M/UL (4.70-6.10) 3.40 M/UL (4.70-6.10) Hemoglobin 9.7 G/DL (14.2-18.0) 9.2 G/DL (14.2-18.0) Hematocrit 30.1 % (42.0-52.0) 28.7 % (42.0-52.0) Mean Corpuscular Volume 84 FL (80-99) 85 FL (80-99) Mean Corpuscular Hemoglobin 27.0 PG (27.0-31.0) 27.1 PG (27.0-31.0) Mean Corpuscular Hemoglobin Concent 32.1 G/DL (32.0-36.0) 32.0 G/DL (32.0-36.0) Red Cell Distribution Width 19.4 % (11.6-14.8) 19.8 % (11.6-14.8) Platelet Count 214 K/UL (150-450) 216 K/UL (150-450) Mean Platelet Volume 4.9 FL (6.5-10.1) 5.4 FL (6.5-10.1) Neutrophils (%) (Auto) % (45.0-75.0) % (45.0-75.0) Lymphocytes (%) (Auto) % (20.0-45.0) % (20.0-45.0) Monocytes (%) (Auto) % (1.0-10.0) % (1.0-10.0) Eosinophils (%) (Auto) % (0.0-3.0) % (0.0-3.0) Basophils (%) (Auto) % (0.0-2.0) % (0.0-2.0) Differential Total Cells Counted 100 Neutrophils % (Manual) 50 % (45-75) Lymphocytes % (Manual) 25 % (20-45) Monocytes % (Manual) 23 % (1-10) Eosinophils % (Manual) 1 % (0-3) Basophils % (Manual) 1 % (0-2) Band Neutrophils 0 % (0-8) Other Cell Type Pathologist review Platelet Estimate Adequate Platelet Morphology Normal Hypochromasia 2+ Anisocytosis 2+ Spherocytes 1+ Erythrocyte Sedimentation Rate 99 MM/HR (0-20) Sodium Level 137 MMOL/L (136-145) 135 MMOL/L (136-145) Potassium Level 4.6 MMOL/L (3.5-5.1) 5.3 MMOL/L (3.5-5.1) Chloride Level 103 MMOL/L (98-107) 102 MMOL/L (98-107) Carbon Dioxide Level 24 MMOL/L (21-32) 28 MMOL/L (21-32) Anion Gap 10 mmol/L (5-15) 5 mmol/L (5-15) Blood Urea Nitrogen 17 mg/dL (7-18) 17 mg/dL (7-18) Creatinine 1.0 MG/DL (0.55-1.30) 0.9 MG/DL (0.55-1.30) Estimat Glomerular Filtration Rate > 60 mL/min (>60) > 60 mL/min (>60) Glucose Level 88 MG/DL (74-106) 93 MG/DL (74-106) Calcium Level 9.3 MG/DL (8.5-10.1) 9.0 MG/DL (8.5-10.1) Phosphorus Level 3.1 MG/DL (2.5-4.9) Magnesium Level 1.9 MG/DL (1.8-2.4) Total Bilirubin 0.3 MG/DL (0.2-1.0) Aspartate Amino Transf (AST/SGOT) 38 U/L (15-37) Alanine Aminotransferase (ALT/SGPT) 21 U/L (12-78) Alkaline Phosphatase 126 U/L (46-116) C-Reactive Protein, Quantitative 2.0 mg/dL (0.00-0.90) Total Protein 9.1 G/DL (6.4-8.2) Albumin 2.0 G/DL (3.4-5.0) Globulin 7.1 g/dL Albumin/Globulin Ratio 0.3 (1.0-2.7) Body Fluid Source Pleural Body Fluid Volume 27 mL Body Fluid Appearance Cloudy (Clear) Body Fluid RBC 7994 /CUMM Body Fluid Total Nucleated Cells 5 /CUMM Body Fluid Polynuclear WBCs (%) % Body Fluid Mononuclear WBCs (%) % Body Fluid Mesothelial Cells (%) % Body Fluid Albumin 2.0 g/dL (Not Estab.) Stool Occult Blood Positive (NEGATIVE) Test 07/30/19 13:05 07/31/19 06:26 Potassium Level 4.6 MMOL/L (3.5-5.1) 4.7 MMOL/L (3.5-5.1) White Blood Count 4.3 K/UL (4.8-10.8) Red Blood Count 3.33 M/UL (4.70-6.10) Hemoglobin 9.0 G/DL (14.2-18.0) Hematocrit 28.4 % (42.0-52.0) Mean Corpuscular Volume 85 FL (80-99) Mean Corpuscular Hemoglobin 27.1 PG (27.0-31.0) Mean Corpuscular Hemoglobin Concent 31.8 G/DL (32.0-36.0) Red Cell Distribution Width 20.2 % (11.6-14.8) Platelet Count 210 K/UL (150-450) Mean Platelet Volume 4.7 FL (6.5-10.1) Neutrophils (%) (Auto) % (45.0-75.0) Lymphocytes (%) (Auto) % (20.0-45.0) Monocytes (%) (Auto) % (1.0-10.0) Eosinophils (%) (Auto) % (0.0-3.0) Basophils (%) (Auto) % (0.0-2.0) Differential Total Cells Counted 100 Neutrophils % (Manual) 40 % (45-75) Lymphocytes % (Manual) 32 % (20-45) Monocytes % (Manual) 28 % (1-10) Eosinophils % (Manual) 0 % (0-3) Basophils % (Manual) 0 % (0-2) Band Neutrophils 0 % (0-8) Platelet Estimate Adequate Platelet Morphology Normal Polychromasia 1+ Hypochromasia 1+ Anisocytosis 2+ Sodium Level 138 MMOL/L (136-145) Chloride Level 103 MMOL/L (98-107) Carbon Dioxide Level 24 MMOL/L (21-32) Anion Gap 11 mmol/L (5-15) Blood Urea Nitrogen 19 mg/dL (7-18) Creatinine 1.1 MG/DL (0.55-1.30) Estimat Glomerular Filtration Rate > 60 mL/min (>60) Glucose Level 93 MG/DL (74-106) Calcium Level 9.0 MG/DL (8.5-10.1) Height (Feet): 5 Height (Inches): 7.00 Weight (Pounds): 149 Objective GENERAL: Calm in bed, oriented x2, in no acute distress. CARDIOVASCULAR: No murmur. normal S1, S2 LUNGS: decreased breath sounds. NC+ ABDOMEN: non tender, not distended EXTREMITIES: no cyanosis or edema. NEUROLOGIC: The patient moves all extremities, slightly weak. Glenn Daniel MD Jul 31, 2019 16:51
--- NOTE | 2019-07-31 16:51 | NUR ---
CASE MANAGEMENT:REVIEW SI;FTT. COPD. NOSOCOMIAL PNA. GENERALIZED WEAKNESS. 98.0 96 21 94/54 94% 2L NC H/H 9.0/28.4 BUN 19 IS;ERTAPENEM IV Q24 HRS VANCOMYCIN IV Q12 HRS JOSE-DUR PO Q12 HRS PHENERGAN PO Q4HRS MED SURG STATUS DCP;FROM [facility]
--- NOTE | 2019-07-31 17:03 | NUR ---
NURSE NOTES: Doctor Devonte gave clearance for discharge. other nursing order placed.
--- NOTE | 2019-07-31 19:27 | NUR ---
HAND-OFF: Report given to Fifi ESCOBEDO.
--- NOTE | 2019-07-31 19:45 | Progress Note ---
DATE: 07/31/2019 SUBJECTIVE: This is a 74-year-old male patient with , he also has altered mental status, confusion and mood lability and psychosis. That is why his attending has requested daily psychiatric consultation. He has some mood lability as well secondary to the stress of his medical illness. DIAGNOSIS: Paranoid schizophrenia, rule out major depression with psychotic features, rule out dementia with psychosis. PLAN: Neurontin 300 mg three times a day, Abilify 2.5 mg a day, Remeron 15 mg at bedtime, Ativan 0.5 mg every 6 hours p.r.n. anxiety and agitation. A 20 minutes of cognitive behavioral therapy to help him identify his automatic negative thoughts, help him convert his negative thoughts to more positive thoughts to reduce depression, anxiety, and mood lability. Chart reviewed. Discussed with staff. Seen and assessed at bedside. Omid Malagon M.D. DR: ZOIE JOB#: [id number] CC:
--- NOTE | 2019-07-31 20:00 | NUR ---
NURSE NOTES: Patient sitting up in bed, awake and alert x4. No signs of distress or SOB. IV intact and patent. Bed locked and in lowest position. Bed alarm activated. HOB elevated. Call light in reach.
[2019-08-01] MEDS: Vancomycin 1gm/D5W 275ml IVPB SCH ×2 (01:02)
[2019-08-01 04:00] VITALS: BP 142/82
[2019-08-01] MEDS: HYDROcodone/Acetamin 5/325 tab ORAL PRN (04:29)
--- NOTE | 2019-08-01 06:35 | General Progress Note ---
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 SNOMED: 681343432 (6) Dehydration ICD Codes: E86.0 - Dehydration Assessment/Plan CT esophagus in 2019 noted with esophagus divert[address]um ST evaluation reviewed, patient passed on soft chew diet Strict aspiration precautions anemia work up reviewed, iron deficient venofer OB stool r/o GI bleed>>> + x1 but stable H&H monitor H&H, prn transfusions bowel regimen ppi fu labs per patient he has had colonoscopy 6 months ago, will try to obtain records from [facility] s/p blood transfusion yesterday repeat cbc plan GI procedures if sig drop in H&H or active GIB Subjective ROS Limited/Unobtainable: Yes Allergies: Coded Allergies: No Known Allergies (Verified , 10/13/07) Objective Last 24 Hour Vital Signs Date Time Temp Pulse Resp B/P (MAP) Pulse Ox O2 Delivery O2 Flow Rate FiO2 08/01/19 04:00 97.3 92 18 142/82 (102) 94 07/31/19 23:59 98.0 96 20 113/74 (87) 95 07/31/19 20:46 Nasal Cannula 2.0 07/31/19 20:00 97.7 93 22 102/61 (75) 95 07/31/19 16:00 97.8 93 18 128/71 (90) 98 07/31/19 12:00 97.6 94 20 120/74 (89) 97 07/31/19 09:00 Nasal Cannula 2.0 07/31/19 08:00 97.4 90 20 106/61 (76) 94 Intake and Output 07/31/19 08/01/19 19:00 07:00 Intake Total 1050.000 ml 240 ml Output Total 600 ml 750 ml Balance 450.000 ml -510 ml Intake Oral 720 ml 240 ml IV Total 330.000 ml Output Urine Total 600 ml 750 ml # Voids 3 Height (Feet): 5 Height (Inches): 7.00 Weight (Pounds): 149 General Appearance: alert EENT: normal ENT inspection Neck: supple Cardiovascular: normal rate Respiratory/Chest: decreased breath sounds Abdomen: normal bowel sounds, non tender, soft Extremities: non-tender Sergei Villafuerte MD Aug 01, 2019 06:35
--- NOTE | 2019-08-01 06:56 | NUR ---
HAND-OFF: Report given to FANNY Cuadra.
[2019-08-01 07:29] LABS: ANION GAP 10 mmol/L (5-15); BLOOD UREA NITROGEN 21 mg/dL (7-18); CALCIUM 8.9 MG/DL (8.5-10.1); CARBON DIOXIDE 25 MMOL/L (21-32); CHLORIDE 103 MMOL/L (98-107); CREATININE 1.1 MG/DL (0.55-1.30); POTASSIUM 4.5 MMOL/L (3.5-5.1); SODIUM 138 MMOL/L (136-145)
[2019-08-01 08:00] VITALS: BP 98/63
[2019-08-01 08:25] LABS: HEMATOCRIT 30.3 % (42.0-52.0); HEMOGLOBIN 9.7 G/DL (14.2-18.0); MEAN CORPUSCULAR VOLUME 86 FL (80-99); PLATELET COUNT 210 K/UL (150-450); RED BLOOD COUNT 3.52 M/UL (4.70-6.10); WHITE BLOOD COUNT 3.5 K/UL (4.8-10.8)
[2019-08-01] MEDS: Vitamin B-12 500mcg tab ORAL SCH (09:42)
[2019-08-01] MEDS: Memantine 10mg tab ORAL SCH (09:43)
[2019-08-01] MEDS: Docusate 100mg cap ORAL SCH ×3 (09:43→17:18)
[2019-08-01] MEDS: Theophylline ER 100mg ORAL SCH ×2 (09:43→20:23)
--- NOTE | 2019-08-01 09:57 | General Progress Note ---
Assessment/Plan Problem List: (1) Anemia ICD Codes: D64.9 - Anemia, unspecified SNOMED: 172381415 (2) Generalized weakness ICD Codes: R53.1 - Weakness SNOMED: 64478348 (3) FTT (failure to thrive) in adult ICD Codes: R62.7 - Adult failure to thrive SNOMED: 192478192 (4) COPD (chronic obstructive pulmonary disease) ICD Codes: J44.9 - Chronic obstructive pulmonary disease, unspecified SNOMED: 41899850 (5) Hypertension ICD Codes: I10 - Essential (primary) hypertension SNOMED: 68762138 (6) Nosocomial pneumonia ICD Codes: J18.9 - Pneumonia, unspecified organism; Y95 - Nosocomial condition SNOMED: 248876008 Status: stable, progressing Assessment/Plan: pt diet abx o2 pulm tx prn cbc bmp am dc plan aru eval transfer Subjective Constitutional: Reports: weakness Allergies: Coded Allergies: No Known Allergies (Verified , 10/13/07) All Systems: reviewed and negative except above Subjective sleepy calm Objective Last 24 Hour Vital Signs Date Time Temp Pulse Resp B/P (MAP) Pulse Ox O2 Delivery O2 Flow Rate FiO2 08/01/19 04:00 97.3 92 18 142/82 (102) 94 07/31/19 23:59 98.0 96 20 113/74 (87) 95 07/31/19 20:46 Nasal Cannula 2.0 07/31/19 20:00 97.7 93 22 102/61 (75) 95 07/31/19 16:00 97.8 93 18 128/71 (90) 98 07/31/19 12:00 97.6 94 20 120/74 (89) 97 Intake and Output 07/31/19 08/01/19 19:00 07:00 Intake Total 1050.000 ml 240 ml Output Total 600 ml 750 ml Balance 450.000 ml -510 ml Intake Oral 720 ml 240 ml IV Total 330.000 ml Output Urine Total 600 ml 750 ml # Voids 3 Laboratory Tests 08/01/19 05:45: White Blood Count 3.5L, Red Blood Count 3.52L, Hemoglobin 9.7L, Hematocrit 30.3L , Mean Corpuscular Volume 86, Mean Corpuscular Hemoglobin 27.6, Mean Corpuscular Hemoglobin Concent 32.1, Red Cell Distribution Width 20.0H, Platelet Count 210, Mean Platelet Volume 4.7L, Neutrophils (%) (Auto) , Lymphocytes (%) (Auto) , Monocytes (%) (Auto) , Eosinophils (%) (Auto) , Basophils (%) (Auto) , Differential Total Cells Counted 100, Neutrophils % ( Manual) 26L, Lymphocytes % (Manual) 48H, Monocytes % (Manual) 25H, Eosinophils % (Manual) 1, Basophils % (Manual) 0, Band Neutrophils 0, Platelet Estimate Adequate, Platelet Morphology Normal, Hypochromasia 1+, Anisocytosis 2+, Sodium Level 138, Potassium Level 4.5, Chloride Level 103, Carbon Dioxide Level 25, Anion Gap 10, Blood Urea Nitrogen 21H, Creatinine 1.1, Estimat Glomerular Filtration Rate > 60, Glucose Level 119H, Calcium Level 8.9 Height (Feet): 5 Height (Inches): 7.00 Weight (Pounds): 149 General Appearance: lethargic EENT: normal ENT inspection Neck: normal alignment Cardiovascular: normal peripheral pulses, normal rate, regular rhythm Respiratory/Chest: chest wall non-tender, lungs clear, normal breath sounds Abdomen: normal bowel sounds, non tender, soft Extremities: normal inspection Edema: no edema noted Arm (L), no edema noted Arm (R), no edema noted Leg (L), no edema noted Leg (R), no edema noted Pedal (L), no edema noted Pedal (R), no edema noted Generalized Neurologic: responsive, motor weakness Skin: normal pigmentation, warm/dry Charles Parisi DO Aug 01, 2019 09:57
--- NOTE | 2019-08-01 10:05 | NUR ---
CHARGE NURSE NOTE: Spoke with ( he is covering ) regarding ID clearance. He is on his way to see a patient.
--- NOTE | 2019-08-01 11:16 | Pulmonology Progress Note ---
Assessment/Plan Assessment/Plan ASSESSMENT Pneumonia MRSA, E coli R pleural effusion s/p thoracentesis COPD Dehydration Anemia of iron deficiency Failure to thrive Hypertension Monocytosis History of substance abuse History of tobacco abuse Schizophrenia Dysphagia PLAN OF CARE MS floor O2 HHN fup CXR 07/25 -right pleural effusion with associated atelectasis versus pneumonia. Probable pulmonary vasculature congestion. CXR 07/27 large R pleural effusion s/p tap 07/28-> 600 ml of pleural fluid, CX NGTD fup CXR -> complete resolution of R pl effusion, no PNTX abx as per ID SCX + MRSA, E coli DVT prophylaxis monitor H&H, anemia work-up consistent with AID, on Venofer s/p blood transfusion stool OB positive tumor markers r/o occult malignancy -CEA minimally elevated, PSA stable GI follows colonoscopy 6 m ago, awaiting fro records from [facility] stable after transfusion dc canales in progress case discussed and evaluated by supervising physician Subjective Allergies: Coded Allergies: No Known Allergies (Verified , 10/13/07) Subjective pulse ox stable on o2 via NC no CP, no SOB just finished breakfast Objective Last 24 Hour Vital Signs Date Time Temp Pulse Resp B/P (MAP) Pulse Ox O2 Delivery O2 Flow Rate FiO2 08/01/19 09:00 Nasal Cannula 2.0 08/01/19 08:00 97.7 84 20 98/63 (75) 95 08/01/19 04:00 97.3 92 18 142/82 (102) 94 07/31/19 23:59 98.0 96 20 113/74 (87) 95 07/31/19 20:46 Nasal Cannula 2.0 07/31/19 20:00 97.7 93 22 102/61 (75) 95 07/31/19 16:00 97.8 93 18 128/71 (90) 98 07/31/19 12:00 97.6 94 20 120/74 (89) 97 Intake and Output 07/31/19 08/01/19 19:00 07:00 Intake Total 1050.000 ml 240 ml Output Total 600 ml 750 ml Balance 450.000 ml -510 ml Intake Oral 720 ml 240 ml IV Total 330.000 ml Output Urine Total 600 ml 750 ml # Voids 3 Objective General Appearance: no acute distress, A/A/O AA male HEENT: normocephalic, atraumatic, anicteric, mucous membranes moist, PERRL Respiratory/Chest: lungs clear, no respiratory distress, no accessory muscle use Cardiovascular: normal rate Abdomen: soft, non tender, non distended Extremities: no edema, pedal pulses normal Neurologic/Psychiatric: alert, oriented ,, responsive Musculoskeletal: normal muscle bulk Microbiology Date/Time Source Procedure Growth Status 07/29/19 12:05 Ascities Fluid Gram Stain - Final Resulted 07/29/19 12:05 Ascities Fluid Body Fluid Culture - Preliminary NO GROWTH AFTER 48 HOURS Resulted Laboratory Tests 08/01/19 05:45: White Blood Count 3.5L, Red Blood Count 3.52L, Hemoglobin 9.7L, Hematocrit 30.3L , Mean Corpuscular Volume 86, Mean Corpuscular Hemoglobin 27.6, Mean Corpuscular Hemoglobin Concent 32.1, Red Cell Distribution Width 20.0H, Platelet Count 210, Mean Platelet Volume 4.7L, Neutrophils (%) (Auto) , Lymphocytes (%) (Auto) , Monocytes (%) (Auto) , Eosinophils (%) (Auto) , Basophils (%) (Auto) , Differential Total Cells Counted 100, Neutrophils % ( Manual) 26L, Lymphocytes % (Manual) 48H, Monocytes % (Manual) 25H, Eosinophils % (Manual) 1, Basophils % (Manual) 0, Band Neutrophils 0, Platelet Estimate Adequate, Platelet Morphology Normal, Hypochromasia 1+, Anisocytosis 2+, Sodium Level 138, Potassium Level 4.5, Chloride Level 103, Carbon Dioxide Level 25, Anion Gap 10, Blood Urea Nitrogen 21H, Creatinine 1.1, Estimat Glomerular Filtration Rate > 60, Glucose Level 119H, Calcium Level 8.9 Current Medications Medications (Trade) Dose Ordered Sig/Chiqui Route PRN Reason Start Time Stop Time Status Last Admin Dose Admin Acetaminophen (Tylenol) 650 mg Q4H PRN ORAL Mild Pain/Temp > 100.5 07/25/19 14:15 08/21/19 14:14 Acetaminophen/ Hydrocodone Bitart ([place] 5/325) 1 tab Q6H PRN ORAL For Pain 07/29/19 17:30 08/05/19 17:29 08/01/19 04:29 Aripiprazole (Abilify) 2.5 mg DAILY ORAL 07/26/19 09:00 08/21/19 08:59 08/01/19 09:43 Atorvastatin Calcium (Lipitor) 10 mg BEDTIME ORAL 07/25/19 21:00 08/21/19 20:59 07/31/19 21:43 Cyanocobalamin (Vitamin B-12) 1,000 mcg DAILY ORAL 07/26/19 09:00 08/21/19 08:59 08/01/19 09:42 Dextrose (Dextrose 50%) 25 ml Q30M PRN IV Hypoglycemia 07/25/19 14:15 08/21/19 05:14 Dextrose (Dextrose 50%) 50 ml Q30M PRN IV Hypoglycemia 07/25/19 14:15 08/21/19 05:14 Docusate Sodium (Colace) 100 mg THREE TIMES A DAY ORAL 07/25/19 18:00 08/22/19 12:59 08/01/19 09:43 Ertapenem 1 gm/ Sodium Chloride 55 ml @ 110 mls/hr Q24H IVPB 07/28/19 13:00 08/03/19 13:29 07/31/19 12:24 Folic Acid (Folate) 1 mg DAILY ORAL 07/26/19 09:00 08/21/19 08:59 08/01/19 09:43 Gabapentin (Neurontin) 300 mg TID@0600,1400,2200 ORAL 07/25/19 22:00 08/21/19 05:59 08/01/19 05:17 Memantine (Namenda) 5 mg DAILY ORAL 07/29/19 09:00 08/28/19 08:59 08/01/19 09:43 Methocarbamol (Robaxin) 500 mg QIDPRN PRN ORAL muscle spasm/pain 07/25/19 14:15 08/24/19 14:14 Mirtazapine (Remeron) 15 mg BEDTIME ORAL 07/25/19 21:00 08/21/19 20:59 07/31/19 21:43 Promethazine HCl/ Codeine (Phenergan with Codeine) 5 ml Q4H PRN ORAL For Cough 07/25/19 14:15 08/21/19 14:14 Theophylline ([place]-Dur) 100 mg EVERY 12 HOURS ORAL 07/25/19 21:00 08/21/19 20:59 08/01/19 09:43 Vancomycin HCl (Vanco rx to dose) 1 ea DAILY PRN MISC Per rx protocol 07/27/19 11:30 08/26/19 11:29 Vancomycin HCl 1 gm/Dextrose 275 ml @ 183.708 mls/hr Q12H IVPB 07/27/19 13:00 08/03/19 12:59 08/01/19 01:02 Sally Garvin NP Aug 01, 2019 11:16
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
[2019-08-01 12:00] VITALS: BP 126/73
[2019-08-01 16:00] VITALS: BP 135/71
[2019-08-01] MEDS ORDERED: D5W 275ml ONE (16:12)
--- NOTE | 2019-08-01 17:17 | NUR ---
PT Note PT eval completed. Patient is independent in gait without any AD. No f/u PT treatments needed at this time. Addendum: 08/01/19 at 1718 by CAROL PEDRO PT Amended: Links added.
[2019-08-01] MEDS: Bactrim-DS 1 tab ORAL SCH (17:18)
--- NOTE | 2019-08-01 19:29 | NUR ---
HAND-OFF: Report given to Carolina ESCOBEDO. Patient in stable condition.
--- NOTE | 2019-08-01 19:30 | Progress Note ---
DATE: 08/01/2019 SUBJECTIVE: This is a 74-year-old male patient. The patient continues to be depressed and confused. Mood labile. He has got no logical plan for his own self-care . He has problems with hopelessness, helplessness, low energy, poor appetite, and loss of interest in activity. DIAGNOSIS: Paranoid schizophrenia with acute exacerbation. PLAN: Neurontin 300 mg three times a day, Abilify 2.5 mg daily, Remeron 15 mg at bedtime. A 20 minutes of cognitive behavioral therapy to help him identify his automatic negative thoughts and help him convert those negative thoughts to more positive thoughts to reduce depression, anxiety, and mood lability. Continue Namenda 5 mg a day as well as Neurontin 300 mg 3 times a day and Abilify 2.5 mg a day. A 20 minutes of reality-based supportive psychotherapy. Omid Malagon M.D. DR: BUDDY JOB#: [id number] CC:
[2019-08-01 20:00] VITALS: BP 123/63
--- NOTE | 2019-08-01 20:00 | NUR ---
NURSE NOTES: Patient received in bed, no apparent distress noted. Call light and urinal within reach. Instructed to call for assistance, verbalized understanding. Will continue plan of care.
[2019-08-02] VITALS: BP 129/70
[2019-08-02 03:37] VITALS: BP 131/75
--- NOTE | 2019-08-02 05:59 | General Progress Note ---
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 SNOMED: 063351920 (6) Dehydration ICD Codes: E86.0 - Dehydration Assessment/Plan CT esophagus in 2019 noted with esophagus diverticulum ST evaluation reviewed, patient passed on soft chew diet Strict aspiration precautions anemia work up reviewed, iron deficient venofer OB stool r/o GI bleed>>> + x1 but stable H&H monitor H&H, prn transfusions bowel regimen ppi fu labs per patient he has had colonoscopy 6 months ago, will try to obtain records from [facility] s/p blood transfusion repeat cbc repeat stool ob plan GI procedures if sig drop in H&H or active GIB Subjective ROS Limited/Unobtainable: Yes Allergies: Coded Allergies: No Known Allergies (Verified , 10/13/07) Objective Last 24 Hour Vital Signs Date Time Temp Pulse Resp B/P (MAP) Pulse Ox O2 Delivery O2 Flow Rate FiO2 08/02/19 03:37 98.0 95 20 131/75 (93) 99 08/02/19 00:00 98.3 90 20 129/70 (89) 99 08/01/19 21:00 Room Air 08/01/19 20:00 98.2 96 20 123/63 (83) 99 08/01/19 17:20 Nasal Cannula 2.0 08/01/19 16:00 98.5 95 20 135/71 (92) 99 08/01/19 12:00 97.9 90 20 126/73 (90) 95 08/01/19 09:00 Nasal Cannula 2.0 08/01/19 08:00 97.7 84 20 98/63 (75) 95 Intake and Output 08/01/19 08/02/19 19:00 07:00 Intake Total 480 ml Output Total 900 ml Balance -420 ml Intake Oral 480 ml Output Urine Total 900 ml # Bowel Movements 1 Height (Feet): 5 Height (Inches): 7.00 Weight (Pounds): 149 General Appearance: no apparent distress EENT: normal ENT inspection Neck: supple Cardiovascular: normal rate Respiratory/Chest: decreased breath sounds Abdomen: normal bowel sounds, non tender, soft Extremities: non-tender Sergei Villafuerte MD Aug 02, 2019 05:59
[2019-08-02 07:21] LABS: ANION GAP 8 mmol/L (5-15); BLOOD UREA NITROGEN 20 mg/dL (7-18); CALCIUM 9.1 MG/DL (8.5-10.1); CARBON DIOXIDE 25 MMOL/L (21-32); CHLORIDE 103 MMOL/L (98-107); CREATININE 1.1 MG/DL (0.55-1.30); POTASSIUM 4.7 MMOL/L (3.5-5.1); SODIUM 136 MMOL/L (136-145)
[2019-08-02 07:23] LABS: HEMATOCRIT 31.6 % (42.0-52.0); HEMOGLOBIN 9.9 G/DL (14.2-18.0); MEAN CORPUSCULAR VOLUME 85 FL (80-99); PLATELET COUNT 214 K/UL (150-450); RED BLOOD COUNT 3.74 M/UL (4.70-6.10); RED CELL DISTRIBUTION WIDTH 19.1 % (11.6-14.8)
--- NOTE | 2019-08-02 07:24 | NUR ---
HAND-OFF: Report given to Bouchra CANO.
--- NOTE | 2019-08-02 07:25 | NUR ---
NURSE NOTES: Report received from FANNY Figueroa. Patient is awake and alert, orientedx4 in bed calm and comfortable. ambulates and instructed to utilize call light for assistance. Denies of pain/discomfort @ this time. IV site patent and intact. Bed locked and in lowest position. Call light within reach. Will continue to follow plan of care.
[2019-08-02 08:00] VITALS: BP 106/66
[2019-08-02] MEDS: Docusate 100mg cap ORAL SCH ×3 (08:02→17:03)
[2019-08-02] MEDS: Memantine 10mg tab ORAL SCH (08:03)
[2019-08-02] MEDS: Theophylline ER 100mg ORAL SCH ×2 (08:03→20:30)
[2019-08-02] MEDS: Vitamin B-12 500mcg tab ORAL SCH (08:03)
[2019-08-02] MEDS: Bactrim-DS 1 tab ORAL SCH ×2 (08:04→20:30)
--- NOTE | 2019-08-02 08:42 | Hematology/Onc Progress Note ---
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 --> stool occult blood as per gi --> no evidence of hemolysis --> to be seen by gi for clearance # Monocytosis with leukopenoa --> smear is reviewed, mature cells --> appears consistent, may be relative as wbc decreased --> wbc 4.6-->4-->3 # Pneumonia MRSA, GNR --> sp abx --> is on vanc and cefepime # COPD --> currently on nc --> cpt and oxygen # Dehydration --> goal of euvolemia # Failure to thrive --> on mirtazapine # Hypertension Appreciate consultation and richar Mata Subjective Constitutional: Denies: no symptoms, chills, fever, malaise, weakness, other HEENT: Denies: no symptoms, eye pain, blurred vision, tearing, double vision, ear pain, ear discharge, nose pain, nose congestion, throat pain, throat swelling, mouth pain, mouth swelling, other Respiratory: Denies: no symptoms, cough, shortness of breath, SOB with excertion, SOB at rest, sputum, wheezing, other Neurologic/Psychiatric: Denies: no symptoms, anxiety, depressed, emotional problems, headache, numbness, paresthesia, pre-existing deficit, seizure, tingling, tremors, weakness, other Endocrine: Denies: no symptoms, excessive sweating, flushing, intolerance to cold, intolerance to heat, increased hunger, increased thirst, increased urine, unexplained weight gain, unexplained weight loss, other Hematologic/Lymphatic: Denies: no symptoms, anemia, easy bleeding, easy bruising, adenopathy, other Allergies: Coded Allergies: No Known Allergies (Verified , 10/13/07) Subjective 07/28: labs noted, tumor markers essentially neg, undergoing transfusion prbc 07/29: no events, no bleeding, no night sweats, monocytosis is noted 07/30: no acute events, k elevated, vanc, nc, hgb 9.2 07/31: no events, no bleeding, labs noted, no major changes 08/02: no bleeding or chills, labs are reviewed, no bleeding Objective Objective Current Medications Medications (Trade) Dose Ordered Sig/Chiqui Route PRN Reason Start Time Stop Time Status Last Admin Dose Admin Acetaminophen (Tylenol) 650 mg Q4H PRN ORAL Mild Pain/Temp > 100.5 07/25/19 14:15 08/21/19 14:14 Acetaminophen/ Hydrocodone Bitart ([place] 5/325) 1 tab Q6H PRN ORAL For Pain 07/29/19 17:30 08/05/19 17:29 08/01/19 04:29 Aripiprazole (Abilify) 2.5 mg DAILY ORAL 07/26/19 09:00 08/21/19 08:59 08/02/19 08:03 Atorvastatin Calcium (Lipitor) 10 mg BEDTIME ORAL 07/25/19 21:00 08/21/19 20:59 08/01/19 20:23 Cyanocobalamin (Vitamin B-12) 1,000 mcg DAILY ORAL 07/26/19 09:00 08/21/19 08:59 08/02/19 08:03 Dextrose (Dextrose 50%) 25 ml Q30M PRN IV Hypoglycemia 07/25/19 14:15 08/21/19 05:14 Dextrose (Dextrose 50%) 50 ml Q30M PRN IV Hypoglycemia 07/25/19 14:15 08/21/19 05:14 Docusate Sodium (Colace) 100 mg THREE TIMES A DAY ORAL 07/25/19 18:00 08/22/19 12:59 08/02/19 08:02 Folic Acid (Folate) 1 mg DAILY ORAL 07/26/19 09:00 08/21/19 08:59 08/02/19 08:03 Gabapentin (Neurontin) 300 mg TID@0600,1400,2200 ORAL 07/25/19 22:00 08/21/19 05:59 08/02/19 05:37 Memantine (Namenda) 5 mg DAILY ORAL 07/29/19 09:00 08/28/19 08:59 08/02/19 08:03 Methocarbamol (Robaxin) 500 mg QIDPRN PRN ORAL muscle spasm/pain 07/25/19 14:15 08/24/19 14:14 Mirtazapine (Remeron) 15 mg BEDTIME ORAL 07/25/19 21:00 08/21/19 20:59 08/01/19 20:23 Promethazine HCl/ Codeine (Phenergan with Codeine) 5 ml Q4H PRN ORAL For Cough 07/25/19 14:15 08/21/19 14:14 Theophylline ([place]-Dur) 100 mg EVERY 12 HOURS ORAL 07/25/19 21:00 08/21/19 20:59 08/02/19 08:03 Trimethoprim/ Sulfamethoxazole (Bactrim-DS) 2 tab TWICE A DAY ORAL 08/01/19 18:00 08/05/19 23:59 08/02/19 08:04 Last 24 Hour Vital Signs Date Time Temp Pulse Resp B/P (MAP) Pulse Ox O2 Delivery O2 Flow Rate FiO2 08/02/19 03:37 98.0 95 20 131/75 (93) 99 08/02/19 00:00 98.3 90 20 129/70 (89) 99 08/01/19 21:00 Room Air 08/01/19 20:00 98.2 96 20 123/63 (83) 99 08/01/19 17:20 Nasal Cannula 2.0 08/01/19 16:00 98.5 95 20 135/71 (92) 99 08/01/19 12:00 97.9 90 20 126/73 (90) 95 08/01/19 09:00 Nasal Cannula 2.0 08/01/19 08:00 97.7 84 20 98/63 (75) 95 08/01/19 04:00 97.3 92 18 142/82 (102) 94 07/31/19 23:59 98.0 96 20 113/74 (87) 95 07/31/19 20:46 Nasal Cannula 2.0 07/31/19 20:00 97.7 93 22 102/61 (75) 95 07/31/19 16:00 97.8 93 18 128/71 (90) 98 07/31/19 12:00 97.6 94 20 120/74 (89) 97 07/31/19 09:00 Nasal Cannula 2.0 Intake and Output 08/01/19 08/02/19 19:00 07:00 Intake Total 480 ml 400 ml Output Total 900 ml Balance -420 ml 400 ml Intake Oral 480 ml 400 ml Output Urine Total 900 ml # Voids 3 # Bowel Movements 1 1 Labs Test 07/30/19 13:05 07/31/19 06:26 08/01/19 05:45 08/02/19 05:20 Potassium Level 4.6 MMOL/L (3.5-5.1) 4.7 MMOL/L (3.5-5.1) 4.5 MMOL/L (3.5-5.1) 4.7 MMOL/L (3.5-5.1) White Blood Count 4.3 K/UL (4.8-10.8) 3.5 K/UL (4.8-10.8) 3.0 K/UL (4.8-10.8) Red Blood Count 3.33 M/UL (4.70-6.10) 3.52 M/UL (4.70-6.10) 3.74 M/UL (4.70-6.10) Hemoglobin 9.0 G/DL (14.2-18.0) 9.7 G/DL (14.2-18.0) 9.9 G/DL (14.2-18.0) Hematocrit 28.4 % (42.0-52.0) 30.3 % (42.0-52.0) 31.6 % (42.0-52.0) Mean Corpuscular Volume 85 FL (80-99) 86 FL (80-99) 85 FL (80-99) Mean Corpuscular Hemoglobin 27.1 PG (27.0-31.0) 27.6 PG (27.0-31.0) 26.6 PG (27.0-31.0) Mean Corpuscular Hemoglobin Concent 31.8 G/DL (32.0-36.0) 32.1 G/DL (32.0-36.0) 31.4 G/DL (32.0-36.0) Red Cell Distribution Width 20.2 % (11.6-14.8) 20.0 % (11.6-14.8) 19.1 % (11.6-14.8) Platelet Count 210 K/UL (150-450) 210 K/UL (150-450) 214 K/UL (150-450) Mean Platelet Volume 4.7 FL (6.5-10.1) 4.7 FL (6.5-10.1) 5.0 FL (6.5-10.1) Neutrophils (%) (Auto) % (45.0-75.0) % (45.0-75.0) % (45.0-75.0) Lymphocytes (%) (Auto) % (20.0-45.0) % (20.0-45.0) % (20.0-45.0) Monocytes (%) (Auto) % (1.0-10.0) % (1.0-10.0) % (1.0-10.0) Eosinophils (%) (Auto) % (0.0-3.0) % (0.0-3.0) % (0.0-3.0) Basophils (%) (Auto) % (0.0-2.0) % (0.0-2.0) % (0.0-2.0) Differential Total Cells Counted 100 100 Neutrophils % (Manual) 40 % (45-75) 26 % (45-75) Lymphocytes % (Manual) 32 % (20-45) 48 % (20-45) Monocytes % (Manual) 28 % (1-10) 25 % (1-10) Eosinophils % (Manual) 0 % (0-3) 1 % (0-3) Basophils % (Manual) 0 % (0-2) 0 % (0-2) Band Neutrophils 0 % (0-8) 0 % (0-8) Platelet Estimate Adequate Adequate Platelet Morphology Normal Normal Polychromasia 1+ Hypochromasia 1+ 1+ Anisocytosis 2+ 2+ Sodium Level 138 MMOL/L (136-145) 138 MMOL/L (136-145) 136 MMOL/L (136-145) Chloride Level 103 MMOL/L (98-107) 103 MMOL/L (98-107) 103 MMOL/L (98-107) Carbon Dioxide Level 24 MMOL/L (21-32) 25 MMOL/L (21-32) 25 MMOL/L (21-32) Anion Gap 11 mmol/L (5-15) 10 mmol/L (5-15) 8 mmol/L (5-15) Blood Urea Nitrogen 19 mg/dL (7-18) 21 mg/dL (7-18) 20 mg/dL (7-18) Creatinine 1.1 MG/DL (0.55-1.30) 1.1 MG/DL (0.55-1.30) 1.1 MG/DL (0.55-1.30) Estimat Glomerular Filtration Rate > 60 mL/min (>60) > 60 mL/min (>60) > 60 mL/min (>60) Glucose Level 93 MG/DL (74-106) 119 MG/DL (74-106) 87 MG/DL (74-106) Calcium Level 9.0 MG/DL (8.5-10.1) 8.9 MG/DL (8.5-10.1) 9.1 MG/DL (8.5-10.1) Height (Feet): 5 Height (Inches): 7.00 Weight (Pounds): 149 Objective GENERAL: Calm in bed, oriented x2, in no acute distress. CARDIOVASCULAR: No murmur. normal S1, S2 LUNGS: decreased breath sounds. NC+ ABDOMEN: non tender, not distended EXTREMITIES: no cyanosis or edema. NEUROLOGIC: The patient moves all extremities, slightly weak. Glenn Daniel MD Aug 02, 2019 08:42
--- NOTE | 2019-08-02 09:08 | General Progress Note ---
Assessment/Plan Problem List: (1) Anemia ICD Codes: D64.9 - Anemia, unspecified SNOMED: 903849324 (2) Generalized weakness ICD Codes: R53.1 - Weakness SNOMED: 27080713 (3) FTT (failure to thrive) in adult ICD Codes: R62.7 - Adult failure to thrive SNOMED: 300084905 (4) COPD (chronic obstructive pulmonary disease) ICD Codes: J44.9 - Chronic obstructive pulmonary disease, unspecified SNOMED: 37540687 (5) Hypertension ICD Codes: I10 - Essential (primary) hypertension SNOMED: 38888468 (6) Nosocomial pneumonia ICD Codes: J18.9 - Pneumonia, unspecified organism; Y95 - Nosocomial condition SNOMED: 493544402 Status: stable, progressing Assessment/Plan: pt diet abx o2 pulm tx prn cbc bmp am dc plan aru eval transfer Subjective Constitutional: Reports: weakness Allergies: Coded Allergies: No Known Allergies (Verified , 10/13/07) All Systems: reviewed and negative except above Subjective sleepy calm Objective Last 24 Hour Vital Signs Date Time Temp Pulse Resp B/P (MAP) Pulse Ox O2 Delivery O2 Flow Rate FiO2 08/02/19 08:00 97.5 100 22 106/66 (79) 97 08/02/19 03:37 98.0 95 20 131/75 (93) 99 08/02/19 00:00 98.3 90 20 129/70 (89) 99 08/01/19 21:00 Room Air 08/01/19 20:00 98.2 96 20 123/63 (83) 99 08/01/19 17:20 Nasal Cannula 2.0 08/01/19 16:00 98.5 95 20 135/71 (92) 99 08/01/19 12:00 97.9 90 20 126/73 (90) 95 Intake and Output 08/01/19 08/02/19 19:00 07:00 Intake Total 480 ml 400 ml Output Total 900 ml Balance -420 ml 400 ml Intake Oral 480 ml 400 ml Output Urine Total 900 ml # Voids 3 # Bowel Movements 1 1 Laboratory Tests 08/02/19 05:20: White Blood Count 3.0L, Red Blood Count 3.74L, Hemoglobin 9.9L, Hematocrit 31.6L , Mean Corpuscular Volume 85, Mean Corpuscular Hemoglobin 26.6L, Mean Corpuscular Hemoglobin Concent 31.4L, Red Cell Distribution Width 19.1H, Platelet Count 214, Mean Platelet Volume 5.0L, Neutrophils (%) (Auto) , Lymphocytes (%) (Auto) , Monocytes (%) (Auto) , Eosinophils (%) (Auto) , Basophils (%) (Auto) , Neutrophils % (Manual) [Pending], Lymphocytes % (Manual) [Pending], Platelet Estimate [Pending], Platelet Morphology [Pending], Sodium Level 136, Potassium Level 4.7, Chloride Level 103, Carbon Dioxide Level 25, Anion Gap 8, Blood Urea Nitrogen 20H, Creatinine 1.1, Estimat Glomerular Filtration Rate > 60, Glucose Level 87, Calcium Level 9.1 Height (Feet): 5 Height (Inches): 7.00 Weight (Pounds): 149 General Appearance: lethargic EENT: normal ENT inspection Neck: normal alignment Cardiovascular: normal peripheral pulses, normal rate, regular rhythm Respiratory/Chest: chest wall non-tender, lungs clear, normal breath sounds Abdomen: normal bowel sounds, non tender, soft Extremities: normal inspection Edema: no edema noted Arm (L), no edema noted Arm (R), no edema noted Leg (L), no edema noted Leg (R), no edema noted Pedal (L), no edema noted Pedal (R), no edema noted Generalized Neurologic: motor weakness Skin: normal pigmentation, warm/dry Charles Parisi DO Aug 02, 2019 09:08
--- NOTE | 2019-08-02 10:23 | Pulmonology Progress Note ---
Assessment/Plan Assessment/Plan ASSESSMENT Pneumonia MRSA, E coli R pleural effusion s/p thoracentesis COPD Dehydration Anemia of iron deficiency Failure to thrive Hypertension Monocytosis History of substance abuse History of tobacco abuse Schizophrenia Dysphagia PLAN OF CARE MS floor O2 HHN fup CXR 07/25 -right pleural effusion with associated atelectasis versus pneumonia. Probable pulmonary vasculature congestion. CXR 07/27 large R pleural effusion s/p tap 07/28-> 600 ml of pleural fluid, CX NGTD fup CXR -> complete resolution of R pl effsuion, no PNTX repeat CXR in am abx as per ID SCX + MRSA, E coli DVT prophylaxis monitor H&H, anemia work-up consistent with AID, on Venofer s/p blood transfusion stool OB positive tumor markers r/o occult malignancy -CEA minimally elevated, PSA stable GI follows colonoscopy 6 m ago, awaiting fro records from OSH HH stable after transfusion dc canales in progress case discussed and evaluated by supervising physician Subjective Allergies: Coded Allergies: No Known Allergies (Verified , 10/13/07) Subjective pulse ox stable on O2 via NC no CP, no SOB Objective Last 24 Hour Vital Signs Date Time Temp Pulse Resp B/P (MAP) Pulse Ox O2 Delivery O2 Flow Rate FiO2 08/02/19 08:00 97.5 100 22 106/66 (79) 97 08/02/19 03:37 98.0 95 20 131/75 (93) 99 08/02/19 00:00 98.3 90 20 129/70 (89) 99 08/01/19 21:00 Room Air 08/01/19 20:00 98.2 96 20 123/63 (83) 99 08/01/19 17:20 Nasal Cannula 2.0 08/01/19 16:00 98.5 95 20 135/71 (92) 99 08/01/19 12:00 97.9 90 20 126/73 (90) 95 Intake and Output 08/01/19 08/02/19 19:00 07:00 Intake Total 480 ml 400 ml Output Total 900 ml Balance -420 ml 400 ml Intake Oral 480 ml 400 ml Output Urine Total 900 ml # Voids 3 # Bowel Movements 1 1 Objective General Appearance: no acute distress, A/A/O AA male HEENT: normocephalic, atraumatic, anicteric, mucous membranes moist, PERRL Respiratory/Chest: lungs clear, no respiratory distress, no accessory muscle use Cardiovascular: normal rate Abdomen: soft, non tender, non distended Extremities: no edema, pedal pulses normal Neurologic/Psychiatric: alert, oriented , responsive Musculoskeletal: normal muscle bulk Laboratory Tests 08/02/19 05:20: White Blood Count 3.0L, Red Blood Count 3.74L, Hemoglobin 9.9L, Hematocrit 31.6L , Mean Corpuscular Volume 85, Mean Corpuscular Hemoglobin 26.6L, Mean Corpuscular Hemoglobin Concent 31.4L, Red Cell Distribution Width 19.1H, Platelet Count 214, Mean Platelet Volume 5.0L, Neutrophils (%) (Auto) , Lymphocytes (%) (Auto) , Monocytes (%) (Auto) , Eosinophils (%) (Auto) , Basophils (%) (Auto) , Neutrophils % (Manual) [Pending], Lymphocytes % (Manual) [Pending], Platelet Estimate [Pending], Platelet Morphology [Pending], Sodium Level 136, Potassium Level 4.7, Chloride Level 103, Carbon Dioxide Level 25, Anion Gap 8, Blood Urea Nitrogen 20H, Creatinine 1.1, Estimat Glomerular Filtration Rate > 60, Glucose Level 87, Calcium Level 9.1 Current Medications Medications (Trade) Dose Ordered Sig/Chiqui Route PRN Reason Start Time Stop Time Status Last Admin Dose Admin Acetaminophen (Tylenol) 650 mg Q4H PRN ORAL Mild Pain/Temp > 100.5 07/25/19 14:15 08/21/19 14:14 Acetaminophen/ Hydrocodone Bitart ([place] 5/325) 1 tab Q6H PRN ORAL For Pain 07/29/19 17:30 08/05/19 17:29 08/01/19 04:29 Aripiprazole (Abilify) 2.5 mg DAILY ORAL 07/26/19 09:00 08/21/19 08:59 08/02/19 08:03 Atorvastatin Calcium (Lipitor) 10 mg BEDTIME ORAL 07/25/19 21:00 08/21/19 20:59 08/01/19 20:23 Cyanocobalamin (Vitamin B-12) 1,000 mcg DAILY ORAL 07/26/19 09:00 08/21/19 08:59 08/02/19 08:03 Dextrose (Dextrose 50%) 25 ml Q30M PRN IV Hypoglycemia 07/25/19 14:15 08/21/19 05:14 Dextrose (Dextrose 50%) 50 ml Q30M PRN IV Hypoglycemia 07/25/19 14:15 08/21/19 05:14 Docusate Sodium (Colace) 100 mg THREE TIMES A DAY ORAL 07/25/19 18:00 08/22/19 12:59 08/02/19 08:02 Folic Acid (Folate) 1 mg DAILY ORAL 07/26/19 09:00 08/21/19 08:59 08/02/19 08:03 Gabapentin (Neurontin) 300 mg TID@0600,1400,2200 ORAL 07/25/19 22:00 08/21/19 05:59 08/02/19 05:37 Memantine (Namenda) 5 mg DAILY ORAL 07/29/19 09:00 08/28/19 08:59 08/02/19 08:03 Methocarbamol (Robaxin) 500 mg QIDPRN PRN ORAL muscle spasm/pain 07/25/19 14:15 08/24/19 14:14 Mirtazapine (Remeron) 15 mg BEDTIME ORAL 07/25/19 21:00 08/21/19 20:59 08/01/19 20:23 Promethazine HCl/ Codeine (Phenergan with Codeine) 5 ml Q4H PRN ORAL For Cough 07/25/19 14:15 08/21/19 14:14 Theophylline ([place]) 100 mg EVERY 12 HOURS ORAL 07/25/19 21:00 08/21/19 20:59 08/02/19 08:03 Trimethoprim/ Sulfamethoxazole (Bactrim-DS) 2 tab TWICE A DAY ORAL 08/01/19 18:00 08/05/19 23:59 08/02/19 08:04 Sally Garvin NP Aug 02, 2019 10:23
[2019-08-02] MEDS ORDERED: Albuterol/Ipratropium 3ml neb HHN PRN (10:30)
[2019-08-02] MEDS: HYDROcodone/Acetamin 5/325 tab ORAL PRN ×2 (11:43→20:29)
--- NOTE | 2019-08-02 11:45 | NUR ---
NURSE NOTES: medicated with norco for pain 7/10 on his back. call light is within reach. instructed not to get up abruptly and call for assistance. siderails are up x2. bed alarm lock and engaged. will cont to monitor.
[2019-08-02 12:00] VITALS: BP 128/70
[2019-08-02 16:00] VITALS: BP 127/71
--- NOTE | 2019-08-02 18:45 | Progress Note ---
DATE: 08/02/2019 SUBJECTIVE: This is a 74-year-old male patient with sepsis and respiratory insufficiency, but he has altered mental status, confusion, and decline in cognition below his baseline. That is why he does require an inpatient treatment at this time or daily psychiatric consultation. mood lability. DIAGNOSIS: Major depressive disorder, mild, recurrent with psychotic features, rule out dementia with psychosis. PLAN: Treat him with Abilify 2.5 mg daily, Neurontin 300 mg three times a day, Remeron 15 mg nightly, and Ativan 0.5 mg p.o. q.6 h. p.r.n. anxiety and agitation. A 20 minutes of cognitive behavioral therapy to help him identify his automatic negative thoughts and help him convert those negative thoughts to more positive thoughts to reduce depression, anxiety, and mood lability. Chart reviewed. Discussed with staff. Seen and assessed at bedside. Omid Malagon M.D. DR: ZOIE JOB#: [id number] CC:
--- NOTE | 2019-08-02 18:59 | NUR ---
HAND-OFF: Report given to Carolina.
[2019-08-02 20:00] VITALS: BP 127/69
--- NOTE | 2019-08-02 20:00 | NUR ---
NURSE NOTES: Patient received in bed, awake and alert. No signs of acute distress. Aware of stool collection, hat in the toilet. Call light and personal belongings within reach. Will continue plan of care.
[2019-08-03] VITALS: BP 128/69
[2019-08-03] MEDS: HYDROcodone/Acetamin 5/325 tab ORAL PRN (03:43)
[2019-08-03 03:53] VITALS: BP 103/70
[2019-08-03 06:35] LABS: HEMATOCRIT 33.5 % (42.0-52.0); HEMOGLOBIN 10.7 G/DL (14.2-18.0); MEAN CORPUSCULAR VOLUME 85 FL (80-99); PLATELET COUNT 217 K/UL (150-450); RED BLOOD COUNT 3.92 M/UL (4.70-6.10); RED CELL DISTRIBUTION WIDTH 19.5 % (11.6-14.8); WHITE BLOOD COUNT 2.9 K/UL (4.8-10.8)
[2019-08-03 06:53] LABS: ANION GAP 8 mmol/L (5-15); BLOOD UREA NITROGEN 24 mg/dL (7-18); CALCIUM 9.2 MG/DL (8.5-10.1); CARBON DIOXIDE 25 MMOL/L (21-32); CHLORIDE 104 MMOL/L (98-107); CREATININE 1.3 MG/DL (0.55-1.30); POTASSIUM 4.3 MMOL/L (3.5-5.1); SODIUM 137 MMOL/L (136-145)
--- NOTE | 2019-08-03 07:06 | NUR ---
HAND-OFF: Report given to Khalif Santiago RN.
--- NOTE | 2019-08-03 07:07 | NUR ---
NURSE NOTES: Report received from Carolina ESCOBEDO. Patient is awake and alert x 4 eating breakfast at bedside. Patient currently waiting on bed placement for discharge. Patient has no complaints at this time. Call light within reach. Bed locked and in lowest position. Will continue to follow plan of care.
--- NOTE | 2019-08-03 07:43 | Nephrology Progress Note ---
Assessment/Plan Status: stable, progressing Assessment/Plan: A/P 1. Mild hyperkalemia with normal kidney function. - resolved 2. Pneumonia. -IV antibiotics per Infectious Diseases. 3. Failure to thrive. -Continue aggressive nutrition. 4. Schizophrenia per Psychiatry. 5. Elevated Cr 1.3. 500 ml NS bolus. OK for DC from renal point Subjective Date patient seen: Aug 03, 2019 Time patient seen: 07:42 ROS Limited/Unobtainable: No Allergies: Coded Allergies: No Known Allergies (Verified , 10/13/07) Subjective Patient feels well. Poss DC soon Objective Last 24 Hour Vital Signs Date Time Temp Pulse Resp B/P (MAP) Pulse Ox O2 Delivery O2 Flow Rate FiO2 08/03/19 03:53 98.3 97 20 103/70 (81) 95 08/03/19 00:00 97.2 84 20 128/69 (88) 95 08/02/19 21:00 Room Air 08/02/19 20:00 98.2 80 22 127/69 (88) 100 08/02/19 16:00 98.1 96 19 127/71 (89) 98 08/02/19 12:13 97.5 08/02/19 12:00 99.9 94 20 128/70 (89) 94 08/02/19 09:00 Room Air 08/02/19 08:00 97.5 100 22 106/66 (79) 97 Intake and Output 08/02/19 08/03/19 19:00 07:00 Intake Total 240 ml Output Total 700 ml 300 ml Balance -460 ml -300 ml Intake Oral 240 ml Output Urine Total 700 ml 300 ml Laboratory Tests 08/03/19 05:39: White Blood Count 2.9L, Red Blood Count 3.92L, Hemoglobin 10.7L, Hematocrit 33.5L, Mean Corpuscular Volume 85, Mean Corpuscular Hemoglobin 27.3, Mean Corpuscular Hemoglobin Concent 32.0, Red Cell Distribution Width 19.5H, Platelet Count 217, Mean Platelet Volume 5.0L, Neutrophils (%) (Auto) , Lymphocytes (%) (Auto) , Monocytes (%) (Auto) , Eosinophils (%) (Auto) , Basophils (%) (Auto) , Neutrophils % (Manual) [Pending], Lymphocytes % (Manual) [Pending], Platelet Estimate [Pending], Platelet Morphology [Pending], Sodium Level 137, Potassium Level 4.3, Chloride Level 104, Carbon Dioxide Level 25, Anion Gap 8, Blood Urea Nitrogen 24H, Creatinine 1.3, Estimat Glomerular Filtration Rate > 60, Glucose Level 123H, Calcium Level 9.2 Height (Feet): 5 Height (Inches): 7.00 Weight (Pounds): 149 General Appearance: no apparent distress EENT: normal ENT inspection Neck: normal alignment, supple Cardiovascular: normal rate, regular rhythm Respiratory/Chest: lungs clear Abdomen: non tender, soft Edema: no edema noted Arm (L), no edema noted Arm (R), no edema noted Leg (L), no edema noted Leg (R), no edema noted Pedal (L), no edema noted Pedal (R), no edema noted Generalized Jose J Mitchell MD Aug 03, 2019 07:43
[2019-08-03 08:00] VITALS: BP 109/62
[2019-08-03] MEDS: Vitamin B-12 500mcg tab ORAL SCH (08:26)
[2019-08-03] MEDS: Memantine 10mg tab ORAL SCH (08:27)
[2019-08-03] MEDS: Docusate 100mg cap ORAL SCH ×2 (08:27→12:17)
[2019-08-03] MEDS: Theophylline ER 100mg ORAL SCH (08:27)
[2019-08-03] MEDS: Bactrim-DS 1 tab ORAL SCH (08:27)
--- NOTE | 2019-08-03 09:03 | NUR ---
RADIOLOGY: PCXR COMPLETED 0900HRS. NF
--- NOTE | 2019-08-03 09:39 | Hematology/Onc Progress Note ---
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 --> stool occult blood as per gi --> no evidence of hemolysis --> to be seen by gi for clearance # Monocytosis with leukopenoa --> smear is reviewed, mature cells --> appears consistent, may be relative as wbc decreased --> wbc 4.6-->4-->3-->2.9 # Pneumonia MRSA, GNR --> sp abx --> is on vanc and cefepime--> bactrim # COPD --> currently on nc --> cpt and oxygen # Dehydration --> goal of euvolemia # Failure to thrive --> on mirtazapine # Hypertension Appreciate consultation and dw Rn Subjective Constitutional: Denies: no symptoms, chills, fever, malaise, weakness, other HEENT: Denies: no symptoms, eye pain, blurred vision, tearing, double vision, ear pain, ear discharge, nose pain, nose congestion, throat pain, throat swelling, mouth pain, mouth swelling, other Cardiovascular: Denies: no symptoms, chest pain, edema, irregular heart rate, lightheadedness, palpitations, syncope, other Respiratory: Denies: no symptoms, cough, shortness of breath, SOB with excertion, SOB at rest, sputum, wheezing, other Gastrointestinal/Abdominal: Denies: no symptoms, abdomen distended, abdominal pain, black stools, tarry stools, blood in stool, constipated, diarrhea, difficulty swallowing, nausea, poor appetite, poor fluid intake, rectal bleeding , vomiting, other Genitourinary: Denies: no symptoms, burning, discharge, frequency, flank pain, hematuria, incontinence, pain, urgency, other Neurologic/Psychiatric: Denies: no symptoms, anxiety, depressed, emotional problems, headache, numbness, paresthesia, pre-existing deficit, seizure, tingling, tremors, weakness, other Hematologic/Lymphatic: Denies: no symptoms, anemia, easy bleeding, easy bruising, adenopathy, other Allergies: Coded Allergies: No Known Allergies (Verified , 10/13/07) Subjective 07/28: labs noted, tumor markers essentially neg, undergoing transfusion prbc 07/29: no events, no bleeding, no night sweats, monocytosis is noted 07/30: no acute events, k elevated, vanc, nc, hgb 9.2 07/31: no events, no bleeding, labs noted, no major changes 08/02: no bleeding or chills, labs are reviewed, no bleeding 08/03: no bleeding noted, labs reviewed, no night sweats, no fc Objective Objective Current Medications Medications (Trade) Dose Ordered Sig/Chiqui Route PRN Reason Start Time Stop Time Status Last Admin Dose Admin Acetaminophen (Tylenol) 650 mg Q4H PRN ORAL Mild Pain/Temp > 100.5 07/25/19 14:15 08/21/19 14:14 Acetaminophen/ Hydrocodone Bitart ([place] 5/325) 1 tab Q6H PRN ORAL For Pain 07/29/19 17:30 08/05/19 17:29 08/03/19 03:43 Albuterol/ Ipratropium (Albuterol/ Ipratropium) 3 ml Q4H PRN HHN Shortness of Breath 08/02/19 10:30 08/07/19 10:29 Aripiprazole (Abilify) 2.5 mg DAILY ORAL 07/26/19 09:00 08/21/19 08:59 08/03/19 08:27 Atorvastatin Calcium (Lipitor) 10 mg BEDTIME ORAL 07/25/19 21:00 08/21/19 20:59 08/02/19 20:30 Cyanocobalamin (Vitamin B-12) 1,000 mcg DAILY ORAL 07/26/19 09:00 08/21/19 08:59 08/03/19 08:26 Dextrose (Dextrose 50%) 25 ml Q30M PRN IV Hypoglycemia 07/25/19 14:15 08/21/19 05:14 Dextrose (Dextrose 50%) 50 ml Q30M PRN IV Hypoglycemia 07/25/19 14:15 08/21/19 05:14 Docusate Sodium (Colace) 100 mg THREE TIMES A DAY ORAL 07/25/19 18:00 08/22/19 12:59 08/03/19 08:27 Folic Acid (Folate) 1 mg DAILY ORAL 07/26/19 09:00 08/21/19 08:59 08/03/19 08:27 Gabapentin (Neurontin) 300 mg TID@0600,1400,2200 ORAL 07/25/19 22:00 08/21/19 05:59 08/03/19 05:27 Memantine (Namenda) 5 mg DAILY ORAL 07/29/19 09:00 08/28/19 08:59 08/03/19 08:27 Methocarbamol (Robaxin) 500 mg QIDPRN PRN ORAL muscle spasm/pain 07/25/19 14:15 08/24/19 14:14 08/03/19 01:51 Mirtazapine (Remeron) 15 mg BEDTIME ORAL 07/25/19 21:00 08/21/19 20:59 08/02/19 20:30 Promethazine HCl/ Codeine (Phenergan with Codeine) 5 ml Q4H PRN ORAL For Cough 07/25/19 14:15 08/21/19 14:14 Theophylline ([place]-Dur) 100 mg EVERY 12 HOURS ORAL 07/25/19 21:00 08/21/19 20:59 08/03/19 08:27 Trimethoprim/ Sulfamethoxazole (Bactrim-DS) 2 tab Q12HR ORAL 08/02/19 21:00 08/05/19 23:59 08/03/19 08:27 Last 24 Hour Vital Signs Date Time Temp Pulse Resp B/P (MAP) Pulse Ox O2 Delivery O2 Flow Rate FiO2 08/03/19 03:53 98.3 97 20 103/70 (81) 95 08/03/19 00:00 97.2 84 20 128/69 (88) 95 08/02/19 21:00 Room Air 08/02/19 20:00 98.2 80 22 127/69 (88) 100 08/02/19 16:00 98.1 96 19 127/71 (89) 98 08/02/19 12:13 97.5 08/02/19 12:00 99.9 94 20 128/70 (89) 94 08/02/19 09:00 Room Air 08/02/19 08:00 97.5 100 22 106/66 (79) 97 08/02/19 03:37 98.0 95 20 131/75 (93) 99 08/02/19 00:00 98.3 90 20 129/70 (89) 99 08/01/19 21:00 Room Air 08/01/19 20:00 98.2 96 20 123/63 (83) 99 08/01/19 17:20 Nasal Cannula 2.0 08/01/19 16:00 98.5 95 20 135/71 (92) 99 08/01/19 12:00 97.9 90 20 126/73 (90) 95 Intake and Output 08/02/19 08/03/19 19:00 07:00 Intake Total 240 ml Output Total 700 ml 300 ml Balance -460 ml -300 ml Intake Oral 240 ml Output Urine Total 700 ml 300 ml Labs Test 08/01/19 05:45 08/02/19 05:20 08/03/19 05:39 White Blood Count 3.5 K/UL (4.8-10.8) 3.0 K/UL (4.8-10.8) 2.9 K/UL (4.8-10.8) Red Blood Count 3.52 M/UL (4.70-6.10) 3.74 M/UL (4.70-6.10) 3.92 M/UL (4.70-6.10) Hemoglobin 9.7 G/DL (14.2-18.0) 9.9 G/DL (14.2-18.0) 10.7 G/DL (14.2-18.0) Hematocrit 30.3 % (42.0-52.0) 31.6 % (42.0-52.0) 33.5 % (42.0-52.0) Mean Corpuscular Volume 86 FL (80-99) 85 FL (80-99) 85 FL (80-99) Mean Corpuscular Hemoglobin 27.6 PG (27.0-31.0) 26.6 PG (27.0-31.0) 27.3 PG (27.0-31.0) Mean Corpuscular Hemoglobin Concent 32.1 G/DL (32.0-36.0) 31.4 G/DL (32.0-36.0) 32.0 G/DL (32.0-36.0) Red Cell Distribution Width 20.0 % (11.6-14.8) 19.1 % (11.6-14.8) 19.5 % (11.6-14.8) Platelet Count 210 K/UL (150-450) 214 K/UL (150-450) 217 K/UL (150-450) Mean Platelet Volume 4.7 FL (6.5-10.1) 5.0 FL (6.5-10.1) 5.0 FL (6.5-10.1) Neutrophils (%) (Auto) % (45.0-75.0) % (45.0-75.0) % (45.0-75.0) Lymphocytes (%) (Auto) % (20.0-45.0) % (20.0-45.0) % (20.0-45.0) Monocytes (%) (Auto) % (1.0-10.0) % (1.0-10.0) % (1.0-10.0) Eosinophils (%) (Auto) % (0.0-3.0) % (0.0-3.0) % (0.0-3.0) Basophils (%) (Auto) % (0.0-2.0) % (0.0-2.0) % (0.0-2.0) Differential Total Cells Counted 100 100 100 Neutrophils % (Manual) 26 % (45-75) 26 % (45-75) 31 % (45-75) Lymphocytes % (Manual) 48 % (20-45) 49 % (20-45) 39 % (20-45) Monocytes % (Manual) 25 % (1-10) 24 % (1-10) 28 % (1-10) Eosinophils % (Manual) 1 % (0-3) 1 % (0-3) 1 % (0-3) Basophils % (Manual) 0 % (0-2) 0 % (0-2) 1 % (0-2) Band Neutrophils 0 % (0-8) 0 % (0-8) 0 % (0-8) Platelet Estimate Adequate Adequate Adequate Platelet Morphology Normal Normal Normal Hypochromasia 1+ 1+ 1+ Anisocytosis 2+ 1+ 2+ Sodium Level 138 MMOL/L (136-145) 136 MMOL/L (136-145) 137 MMOL/L (136-145) Potassium Level 4.5 MMOL/L (3.5-5.1) 4.7 MMOL/L (3.5-5.1) 4.3 MMOL/L (3.5-5.1) Chloride Level 103 MMOL/L (98-107) 103 MMOL/L (98-107) 104 MMOL/L (98-107) Carbon Dioxide Level 25 MMOL/L (21-32) 25 MMOL/L (21-32) 25 MMOL/L (21-32) Anion Gap 10 mmol/L (5-15) 8 mmol/L (5-15) 8 mmol/L (5-15) Blood Urea Nitrogen 21 mg/dL (7-18) 20 mg/dL (7-18) 24 mg/dL (7-18) Creatinine 1.1 MG/DL (0.55-1.30) 1.1 MG/DL (0.55-1.30) 1.3 MG/DL (0.55-1.30) Estimat Glomerular Filtration Rate > 60 mL/min (>60) > 60 mL/min (>60) > 60 mL/min (>60) Glucose Level 119 MG/DL (74-106) 87 MG/DL (74-106) 123 MG/DL (74-106) Calcium Level 8.9 MG/DL (8.5-10.1) 9.1 MG/DL (8.5-10.1) 9.2 MG/DL (8.5-10.1) Height (Feet): 5 Height (Inches): 7.00 Weight (Pounds): 149 Objective GENERAL: Calm in bed, oriented x2, in no acute distress. CARDIOVASCULAR: No murmur. normal S1, S2 LUNGS: decreased breath sounds. NC+ ABDOMEN: non tender, not distended EXTREMITIES: no cyanosis or edema. NEUROLOGIC: The patient moves all extremities, slightly weak. Glenn Daniel MD Aug 03, 2019 09:39
--- NOTE | 2019-08-03 09:40 | General Progress Note ---
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 SNOMED: 806340669 (6) Dehydration ICD Codes: E86.0 - Dehydration Assessment/Plan CT esophagus in 2019 noted with esophagus diverticulum ST evaluation reviewed, patient passed on soft chew diet Strict aspiration precautions anemia work up reviewed, iron deficient venofer OB stool r/o GI bleed>>> + x1 but stable H&H monitor H&H, prn transfusions bowel regimen ppi fu labs per patient he has had colonoscopy 6 months ago, will try to obtain records from [facility] s/p blood transfusion repeat cbc repeat stool ob plan GI procedures if sig drop in H&H or active GIB Subjective ROS Limited/Unobtainable: Yes Allergies: Coded Allergies: No Known Allergies (Verified , 10/13/07) Objective Last 24 Hour Vital Signs Date Time Temp Pulse Resp B/P (MAP) Pulse Ox O2 Delivery O2 Flow Rate FiO2 08/03/19 03:53 98.3 97 20 103/70 (81) 95 08/03/19 00:00 97.2 84 20 128/69 (88) 95 08/02/19 21:00 Room Air 08/02/19 20:00 98.2 80 22 127/69 (88) 100 08/02/19 16:00 98.1 96 19 127/71 (89) 98 08/02/19 12:13 97.5 08/02/19 12:00 99.9 94 20 128/70 (89) 94 Intake and Output 08/02/19 08/03/19 19:00 07:00 Intake Total 240 ml Output Total 700 ml 300 ml Balance -460 ml -300 ml Intake Oral 240 ml Output Urine Total 700 ml 300 ml Laboratory Tests 08/03/19 05:39: White Blood Count 2.9L, Red Blood Count 3.92L, Hemoglobin 10.7L, Hematocrit 33.5L, Mean Corpuscular Volume 85, Mean Corpuscular Hemoglobin 27.3, Mean Corpuscular Hemoglobin Concent 32.0, Red Cell Distribution Width 19.5H, Platelet Count 217, Mean Platelet Volume 5.0L, Neutrophils (%) (Auto) , Lymphocytes (%) (Auto) , Monocytes (%) (Auto) , Eosinophils (%) (Auto) , Basophils (%) (Auto) , Differential Total Cells Counted 100, Neutrophils % ( Manual) 31L, Lymphocytes % (Manual) 39, Monocytes % (Manual) 28H, Eosinophils % (Manual) 1, Basophils % (Manual) 1, Band Neutrophils 0, Platelet Estimate Adequate, Platelet Morphology Normal, Hypochromasia 1+, Anisocytosis 2+, Sodium Level 137, Potassium Level 4.3, Chloride Level 104, Carbon Dioxide Level 25, Anion Gap 8, Blood Urea Nitrogen 24H, Creatinine 1.3, Estimat Glomerular Filtration Rate > 60, Glucose Level 123H, Calcium Level 9.2 Height (Feet): 5 Height (Inches): 7.00 Weight (Pounds): 149 General Appearance: alert EENT: normal ENT inspection Neck: supple Cardiovascular: normal peripheral pulses Respiratory/Chest: decreased breath sounds Abdomen: normal bowel sounds, non tender, soft Extremities: non-tender Sergei Villafuerte MD Aug 03, 2019 09:40
--- NOTE | 2019-08-03 10:30 | General Progress Note ---
Assessment/Plan Problem List: (1) Anemia ICD Codes: D64.9 - Anemia, unspecified SNOMED: 148949252 (2) Generalized weakness ICD Codes: R53.1 - Weakness SNOMED: 74020538 (3) FTT (failure to thrive) in adult ICD Codes: R62.7 - Adult failure to thrive SNOMED: 018989737 (4) COPD (chronic obstructive pulmonary disease) ICD Codes: J44.9 - Chronic obstructive pulmonary disease, unspecified SNOMED: 61081104 (5) Hypertension ICD Codes: I10 - Essential (primary) hypertension SNOMED: 66790598 (6) Nosocomial pneumonia ICD Codes: J18.9 - Pneumonia, unspecified organism; Y95 - Nosocomial condition SNOMED: 939124936 Status: stable, progressing Assessment/Plan: pt diet abx o2 pulm tx prn cbc bmp am dc plan aru eval transfer Subjective Constitutional: Reports: weakness Allergies: Coded Allergies: No Known Allergies (Verified , 10/13/07) All Systems: reviewed and negative except above Subjective sleepy calm Objective Last 24 Hour Vital Signs Date Time Temp Pulse Resp B/P (MAP) Pulse Ox O2 Delivery O2 Flow Rate FiO2 08/03/19 09:35 94 18 98 Room Air 21 08/03/19 09:00 Room Air 08/03/19 08:00 97.7 98 18 109/62 (78) 95 08/03/19 03:53 98.3 97 20 103/70 (81) 95 08/03/19 00:00 97.2 84 20 128/69 (88) 95 08/02/19 21:00 Room Air 08/02/19 20:00 98.2 80 22 127/69 (88) 100 08/02/19 16:00 98.1 96 19 127/71 (89) 98 08/02/19 12:13 97.5 08/02/19 12:00 99.9 94 20 128/70 (89) 94 Intake and Output 08/02/19 08/03/19 19:00 07:00 Intake Total 240 ml Output Total 700 ml 300 ml Balance -460 ml -300 ml Intake Oral 240 ml Output Urine Total 700 ml 300 ml Laboratory Tests 08/03/19 05:39: White Blood Count 2.9L, Red Blood Count 3.92L, Hemoglobin 10.7L, Hematocrit 33.5L, Mean Corpuscular Volume 85, Mean Corpuscular Hemoglobin 27.3, Mean Corpuscular Hemoglobin Concent 32.0, Red Cell Distribution Width 19.5H, Platelet Count 217, Mean Platelet Volume 5.0L, Neutrophils (%) (Auto) , Lymphocytes (%) (Auto) , Monocytes (%) (Auto) , Eosinophils (%) (Auto) , Basophils (%) (Auto) , Differential Total Cells Counted 100, Neutrophils % ( Manual) 31L, Lymphocytes % (Manual) 39, Monocytes % (Manual) 28H, Eosinophils % (Manual) 1, Basophils % (Manual) 1, Band Neutrophils 0, Platelet Estimate Adequate, Platelet Morphology Normal, Hypochromasia 1+, Anisocytosis 2+, Sodium Level 137, Potassium Level 4.3, Chloride Level 104, Carbon Dioxide Level 25, Anion Gap 8, Blood Urea Nitrogen 24H, Creatinine 1.3, Estimat Glomerular Filtration Rate > 60, Glucose Level 123H, Calcium Level 9.2 Height (Feet): 5 Height (Inches): 7.00 Weight (Pounds): 149 General Appearance: lethargic EENT: normal ENT inspection Neck: normal alignment Cardiovascular: normal peripheral pulses, normal rate, regular rhythm Respiratory/Chest: chest wall non-tender, lungs clear, normal breath sounds Abdomen: normal bowel sounds, non tender, soft Extremities: normal inspection Edema: no edema noted Arm (L), no edema noted Arm (R), no edema noted Leg (L), no edema noted Leg (R), no edema noted Pedal (L), no edema noted Pedal (R), no edema noted Generalized Neurologic: motor weakness Skin: normal pigmentation, warm/dry Charels Parisi DO Aug 03, 2019 10:30
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
[2019-08-03 12:00] VITALS: BP 112/69
--- NOTE | 2019-08-03 12:34 | NUR ---
*-*DISCHARGE PLANNING*-* PATIENT HAS BEEN REFERRED BACK TO: [facility] P: [phone] F: [phone] *-* CLINICALS FAXED*-*
--- NOTE | 2019-08-03 14:03 | Pulmonology Progress Note ---
Assessment/Plan Problems: (1) Nosocomial pneumonia (2) COPD (chronic obstructive pulmonary disease) (3) Anemia (4) Dehydration (5) FTT (failure to thrive) in adult (6) Generalized weakness (7) Depression (8) Schizophrenia (9) Hypertension Assessment/Plan doing better blood has monocytosis, d/w pathologist, they are all mature cells. Pt might need bone marrow at some point Venofer for iron deficiency anemia sputum for c/s sputum induction IV abx check cultures anemia w/u showing iron deficiency, stool OB pending checked tumor markers, PSA negative, CEA is 5, almost normal dvt prophylaxis. Subjective ROS Limited/Unobtainable: No Constitutional: Reports: no symptoms HEENT: Repors: no symptoms Respiratory: Reports: no symptoms Cardiovascular: Reports: no symptoms Allergies: Coded Allergies: No Known Allergies (Verified , 10/13/07) Objective Last 24 Hour Vital Signs Date Time Temp Pulse Resp B/P (MAP) Pulse Ox O2 Delivery O2 Flow Rate FiO2 08/03/19 12:00 97.3 89 17 112/69 (83) 97 08/03/19 09:35 94 18 98 Room Air 21 08/03/19 09:00 Room Air 08/03/19 08:00 97.7 98 18 109/62 (78) 95 08/03/19 03:53 98.3 97 20 103/70 (81) 95 08/03/19 00:00 97.2 84 20 128/69 (88) 95 08/02/19 21:00 Room Air 08/02/19 20:00 98.2 80 22 127/69 (88) 100 08/02/19 16:00 98.1 96 19 127/71 (89) 98 Intake and Output 08/02/19 08/03/19 19:00 07:00 Intake Total 240 ml Output Total 700 ml 300 ml Balance -460 ml -300 ml Intake Oral 240 ml Output Urine Total 700 ml 300 ml General Appearance: WD/WN HEENT: normocephalic Respiratory/Chest: chest wall non-tender, lungs clear Cardiovascular: normal peripheral pulses, normal rate Abdomen: normal bowel sounds, soft, non tender Genitourinary: normal external genitalia Extremities: no cyanosis Neurologic/Psychiatric: death surveys coder II-XII grossly normal Lymphatic: no neck adenopathy Laboratory Tests 08/03/19 05:39: White Blood Count 2.9L, Red Blood Count 3.92L, Hemoglobin 10.7L, Hematocrit 33.5L, Mean Corpuscular Volume 85, Mean Corpuscular Hemoglobin 27.3, Mean Corpuscular Hemoglobin Concent 32.0, Red Cell Distribution Width 19.5H, Platelet Count 217, Mean Platelet Volume 5.0L, Neutrophils (%) (Auto) , Lymphocytes (%) (Auto) , Monocytes (%) (Auto) , Eosinophils (%) (Auto) , Basophils (%) (Auto) , Differential Total Cells Counted 100, Neutrophils % ( Manual) 31L, Lymphocytes % (Manual) 39, Monocytes % (Manual) 28H, Eosinophils % (Manual) 1, Basophils % (Manual) 1, Band Neutrophils 0, Platelet Estimate Adequate, Platelet Morphology Normal, Hypochromasia 1+, Anisocytosis 2+, Sodium Level 137, Potassium Level 4.3, Chloride Level 104, Carbon Dioxide Level 25, Anion Gap 8, Blood Urea Nitrogen 24H, Creatinine 1.3, Estimat Glomerular Filtration Rate > 60, Glucose Level 123H, Calcium Level 9.2 Current Medications Medications (Trade) Dose Ordered Sig/Chiqui Route PRN Reason Start Time Stop Time Status Last Admin Dose Admin Acetaminophen (Tylenol) 650 mg Q4H PRN ORAL Mild Pain/Temp > 100.5 07/25/19 14:15 08/21/19 14:14 Acetaminophen/ Hydrocodone Bitart ([place] 5/325) 1 tab Q6H PRN ORAL For Pain 07/29/19 17:30 08/05/19 17:29 08/03/19 03:43 Albuterol/ Ipratropium (Albuterol/ Ipratropium) 3 ml Q4H PRN HHN Shortness of Breath 08/02/19 10:30 08/07/19 10:29 Aripiprazole (Abilify) 2.5 mg DAILY ORAL 07/26/19 09:00 08/21/19 08:59 08/03/19 08:27 Atorvastatin Calcium (Lipitor) 10 mg BEDTIME ORAL 07/25/19 21:00 08/21/19 20:59 08/02/19 20:30 Cyanocobalamin (Vitamin B-12) 1,000 mcg DAILY ORAL 07/26/19 09:00 08/21/19 08:59 08/03/19 08:26 Dextrose (Dextrose 50%) 25 ml Q30M PRN IV Hypoglycemia 07/25/19 14:15 08/21/19 05:14 Dextrose (Dextrose 50%) 50 ml Q30M PRN IV Hypoglycemia 07/25/19 14:15 08/21/19 05:14 Docusate Sodium (Colace) 100 mg THREE TIMES A DAY ORAL 07/25/19 18:00 08/22/19 12:59 08/03/19 12:17 Folic Acid (Folate) 1 mg DAILY ORAL 07/26/19 09:00 08/21/19 08:59 08/03/19 08:27 Gabapentin (Neurontin) 300 mg TID@0600,1400,2200 ORAL 07/25/19 22:00 08/21/19 05:59 08/03/19 05:27 Memantine (Namenda) 5 mg DAILY ORAL 07/29/19 09:00 08/28/19 08:59 08/03/19 08:27 Methocarbamol (Robaxin) 500 mg QIDPRN PRN ORAL muscle spasm/pain 07/25/19 14:15 08/24/19 14:14 08/03/19 01:51 Mirtazapine (Remeron) 15 mg BEDTIME ORAL 07/25/19 21:00 08/21/19 20:59 08/02/19 20:30 Promethazine HCl/ Codeine (Phenergan with Codeine) 5 ml Q4H PRN ORAL For Cough 07/25/19 14:15 08/21/19 14:14 Theophylline ([place]-Dur) 100 mg EVERY 12 HOURS ORAL 07/25/19 21:00 08/21/19 20:59 08/03/19 08:27 Trimethoprim/ Sulfamethoxazole (Bactrim-DS) 2 tab Q12HR ORAL 08/02/19 21:00 08/05/19 23:59 08/03/19 08:27 Billy Whitney MD Aug 03, 2019 14:03
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
--- NOTE | 2019-08-03 15:45 | NUR ---
NURSE NOTES: Patient picked up by [facility]. patient in stable condition. vitals within normal limits. patient not in respiratory distress at this time. patient does not have any complaints at this time. education provided to patient. no questions at this time, verbalized understanding. report given to Jossie Allan at [facility]. Report given to [facility] staff. IV removed. name band removed. patient safely transferred to [facility]. patient left care alert and oriented x 4 and in stable condition.
--- NOTE | 2019-08-03 15:56 | NUR ---
*-*DISCHARGE PLANNING*-* PATIENT HAS BEEN ACCEPTED BACK TO: [facility] P: [phone] F: [phone] # 5.A
--- NOTE | 2019-08-03 15:57 | NUR ---
*-*DISCHARGE PLANNED*-* PATIENT IS BEING DISCHARGED BACK TO: [facility] P: [phone] F: [phone] RM# 5.A [facility] S/W JOLIE [id number] EAT 4:45PM/ 1645PM
[2019-08-03 16:00] VITALS: BP 120/63
--- NOTE | 2019-08-03 16:45 | Progress Note ---
DATE: 08/03/2019 SUBJECTIVE: This is a 74-year-old male with sepsis and respiratory insufficiency, but he has altered mental status as a result. That is why his attending has requested daily psychiatric consultation. DIAGNOSIS: Paranoid schizophrenia; rule out major depression with psychotic features, rule out dementia with psychosis. PLAN: Abilify 2.5 mg a day, Remeron 15 mg nightly, Neurontin 300 mg three times a day, and Ativan 0.5 mg every 6 hours p.r.n. anxiety and agitation. A 20 minutes of cognitive behavioral therapy to help him identify his automatic negative thoughts and help him convert those negative thoughts to more positive thoughts to reduce depression, anxiety, and mood lability. Chart reviewed. Discussed with staff. Seen and assessed at bedside. Omid Malagon M.D. DR: ZOIE JOB#: [id number] CC:
--- NOTE | 2019-08-03 16:53 | NUR ---
DISCHARGE SWALLOW/SPEECH THERAPY SUMMARY: SEEN FOR DYSPHAGIA, SEE SWALLOW EVAL AND MOD BARIUM SWALLOW STUDY REPORTS. GOALS MET FOR STAFF EDUCATED/TRAINED IN POSTED PRECAUTIONS. GOALS FOR INTAKE ALSO MET. PLAN: F/UP FOR SKILLED DYSPHAGIA MANAGEMENT AND TX IN DC SETTING.
--- NOTE | 2019-08-04 08:43 | Discharge Summary ---
Discharge Summary Discharge Summary _ DATE OF ADMISSION: 07/21/2019 DATE OF DISCHARGE: 08/03/2019 DISCHARGED BY: Dr. Parisi REASON FOR ADMISSION: 84 years old male with past medical history of COPD, former substance abuse, smoker, history of kidney disease, presented due to decreased oral intake, failure to thrive and cough. [facility] facility. Patient reported feeling sick for few days. Patient reported subjective fever and chills, nonproductive cough, and decreased appetite. He denied diarrhea or vomiting. He denied muscle aches or pain. No headaches or visual changes. No chest pain or shortness of breath or palpitations. Upon evaluation patient was mildly tachycardic with low-grade fever . Pulse oximetry was 92% on room air. Laboratory work-up revealed no leukocytosis , hemoglobin 9.7, hematocrit 32.6. Platelet count 200. Stable electrolytes. BUN 26, creatinine 1.4. Glucose 118. Troponin negative , pro BNP 2927. Albumin 2.3. Urinalysis revealed +2 protein, +2 blood , no evidence of urinary tract infection. Lactic acid 1.1. Chest x-ray demonstrated right basilar infiltrate and pleural fluid. Patient subsequently admitted for pneumonia and dehydration CONSULTANTS: pulmonary Dr. Whitney ID specialist Dr. Cazares GI specialist Dr. Villafuerte pets salesperson Dr. Dr.De Harris manufacturing technology professor/oncologist Dr. Daniel psychiatrist Dr. Malagon [facility]: Patient admitted and started on the IV fluids and empiric antibiotics. Supplemental oxygen provided and titrated to keep pulse oximetry above 92%. Nebulizing treatment with with bronchodilator provided. Trial of theophylline started. Antitussive provided as needed. Sputum culture revealed MRSA and E. coli. Blood cultures were negative. Influenza swab was negative. Chest x-ray on 07/27 revealed large right pleural effusion. Patient subsequently undergone ultrasound-guided thoracentesis of large right pleural effusion, yielding 600 mL of pleural fluid. Culture of pleural fluid was negative. Repeated chest x-ray after thoracentesis revealed complete resolution of right pleural effusion, no pneumothorax. Last chest x-ray prior to discharge revealed hazy right basilar opacity. Probably some compressive atelectasis , but possibility of developing infiltrate should be considered. Patient completed vancomycin and ertapenem in the hospital. Patient started on oral Bactrim to complete the course at the facility. Patient to follow-up with chest x-ray at the facility. Patient undergone bedside and video swallow evaluations. Video swallow evaluation was positive for penetration of multiply substances. No aspiration was demonstrated. Diet texture provided as per speech therapist recommendations with strict aspiration precaution and assistance with meals. Patient was continued with skilled dysphagia management. Speech therapist recommended continue skilled dysphagia management at the facility as well. DVT prophylaxis provided. Stool for occult blood was positive. CEA was minimally elevated . PSA within normal limits. GI specialist followed. Hemoglobin and hematocrit were closely monitored. Anemia work-up was consistent with anemia of iron deficiency. Patient started on IV Venofer. Patient undergone transfusion of two units of packed red blood cells while in the hospital. Patient reportedly had colonoscopy 6 months ago at the [facility] . Records requested. GI prophylaxis provided. Bowel regimen instituted. Hemoglobin and hematocrit were stable after transfusion of 2 units of packed red blood cells . Prior to discharge hemoglobin 10.7 , hematocrit 23.5. GI specialist recommended follow-up with counts at the facility and only plan GI procedure if significant drop in H&H or active GI bleeding. Patient noted to have leukopenia with monocytosis. Sourcing Intern followed. Peripheral smear has been reviewed cells , all cells appeared mature. Sourcing Intern recommended closely monitor counts at the facility. SNF medication continued. Supportive care provided. Psychiatrist followed . Psychiatric medication regimen was optimized. Cognitive behavioral therapy provided. Patient clinically stabilized and was ready for transfer to detention facility for continuation of care FINAL DIAGNOSES: Sepsis MRSA, E. coli MDR pneumonia Right pleural effusion, exudative Status post thoracentesis COPD Dehydration Anemia of iron deficiency Chronic kidney disease Failure to thrive Hypertension Monocytosis History of substance abuse History of tobacco abuse Paranoid schizophrenia Dysphagia DISCHARGE MEDICATIONS: List of medication was sent to accepting facility DISCHARGE INSTRUCTIONS: Patient was discharged to the detention facility. Follow up with medical doctor at the facility. Sally Garvin NP Aug 04, 2019 08:43
== END 2019-08-03 17:53 | DRG 871 ==
LOC: EDBD 20:53 → EMR 22:00 → 2E 22:34 → EDBEDREQ 07-22 00:41 → 4E 07-25 14:02
PROC: 0W993ZZ Drainage of Right Pleural Cavity, Percutaneous Approach (ICD-10-PCS; principal; 2019-07-28)
DX: A41.9 Sepsis, unspecified organism (principal); R65.21 Severe sepsis with septic shock; J15.212 Pneumonia due to Methicillin resistant Staphylococcus aureus; J15.5 Pneumonia due to Escherichia coli; J90 Pleural effusion, not elsewhere classified; J44.0 Chronic obstructive pulmonary disease with (acute) lower respiratory infection; F20.0 Paranoid schizophrenia; F33.3 Major depressive disorder, recurrent, severe with psychotic symptoms; Q39.6 Congenital diverticulum of esophagus; R62.7 Adult failure to thrive; E86.0 Dehydration; I12.9 Hypertensive chronic kidney disease with stage 1 through stage 4 chronic kidney disease, or unspecified chronic kidney disease; N18.9 Chronic kidney disease, unspecified; D50.9 Iron deficiency anemia, unspecified; F10.10 Alcohol abuse, uncomplicated; E87.5 Hyperkalemia; D72.821 Monocytosis (symptomatic); D72.819 Decreased white blood cell count, unspecified
CPT/HCPCS: 36415; 71045; 74230; 76942; 80048; 80053; 80202; 81003; 82270; 82378; 82550; 82553; 82607; 82728; 82746; 83540; 83550; 83605; 83615; 83735; 83880; 84100; 84132; 84153; 84154; 84165; 84439; 84443; 84484; 85007; 85025; 85044; 85060; 85610; 85651; 85730; 86140; 86710; 86850; 86900; 86901; 86920; 87040; 87070; 87081; 87181; 87205; 88104; 89051; 93005; 94640; 94664; 96361; 96365; 96375; 99285; J7030; J7620

== ENCOUNTER 2019-09-07 13:03 | Inpatient (IN) | payer MEDICARE, OTHER ==
[~2019-09-07] VITALS: Ht 180.3 cm; Wt 70.8 kg
[~2019-09-07 13:03] MED LIST: ABILIFY2 MG ORAL; ACETAMINOPHEN120 MG PO; ATORVASTATIN CA10 MG ORAL; CLARITIN10 M2 ORAL; COLACE100 MG ORAL; FOLIC ACID1 MG ORAL; MIRTAZAPINE15 MG ORAL; NEURONTIN100 MG ORAL; NORCO 5-325 TA1 EACH ORAL; OS-CAL 500+D31 EAC1 PO; ROBAXIN-500MG ORAL; VITAMIN B-12500 MCG ORAL
--- NOTE | 2019-09-07 13:09 | Emergency Room Report ---
History of Present Illness General Chief Complaint: Cough/pneumonia Source: Patient, Medical Record, EMS Present Illness HPI Disclaimer: Please note that this report is being documented using DRAGON technology. This can lead to erroneous entry secondary to incorrect interpretation by the dictating instrument. HPI: 74-year-old male history of schizophrenia, COPD, hypertension presents from [facility] for evaluation of cough and pneumonia. Patient is had 3 days nonproductive cough and low-grade fevers at his facility. Noted to have a right lower lobe infiltrate on x-ray. Sent for hospitalization and treatment of pneumonia by his PMD. Reports persistent cough mild shortness of breath. Denies chest pain, vomiting, diarrhea. No known travel. Exposure to sick contacts unknown. PMH: Hypertension, COPD, schizophrenia, chronic kidney disease PSH: Hernia repairs Allergies: None reported Social Hx: None reported Allergies: Coded Allergies: No Known Allergies (Verified , 10/13/07) Nursing Documentation-PMH Hx Hypertension: Yes Hx COPD: Yes Review of Systems All Other Systems: negative except mentioned in HPI Physical Exam General: Awake and alert, no acute distress HEENT: NC/AT. EOMI. Cardiovascular: RRR. S1 and S2 normal. No murmur appreciated Resp: Normal work of breathing. Intermittent cough. No wheezing. Abdomen: Abdomen is soft, nondistended. Nontender Skin: Intact. No abrasions, laceration or rash over the exposed skin MSK: Normal tone and bulk. Moving all extremities. No obvious deformity. Neuro: Awake and alert. Mentating appropriately. Medical Decision Making Diagnostic Impression: Primary Impression: Pneumonia Additional Impression: Suspected COVID-19 virus infection ER Course 74-year-old male presents from [facility] for evaluation of cough , low-grade fevers and concerning x-ray for right lower lobe pneumonia. Based on the patient's presenting signs, symptoms and physical exam findings, the patient has been screened and is suspected to have COVID-19. Given the patient' s multiple risk factors will place in isolation and draw broad labs including blood cultures, influenza swab, COVID-19 test. Will start antibiotics. Patient arrives with stable vital signs saturating 100%. No acute respiratory distress at this time. Patient require admission. Laboratory Tests Test 09/07/19 14:00 09/08/19 05:50 White Blood Count 11.5 K/UL (4.8-10.8) H Pending Red Blood Count 3.84 M/UL (4.70-6.10) L Pending Hemoglobin 10.2 G/DL (14.2-18.0) L Pending Hematocrit 32.0 % (42.0-52.0) L Pending Mean Corpuscular Volume 83 FL (80-99) Pending Mean Corpuscular Hemoglobin 26.5 PG (27.0-31.0) L Pending Mean Corpuscular Hemoglobin Concent 31.7 G/DL (32.0-36.0) L Pending Red Cell Distribution Width 20.2 % (11.6-14.8) H Pending Platelet Count 198 K/UL (150-450) Pending Mean Platelet Volume 5.3 FL (6.5-10.1) L Pending Neutrophils (%) (Auto) % (45.0-75.0) Pending Lymphocytes (%) (Auto) % (20.0-45.0) Pending Monocytes (%) (Auto) % (1.0-10.0) Pending Eosinophils (%) (Auto) % (0.0-3.0) Pending Basophils (%) (Auto) % (0.0-2.0) Pending Differential Total Cells Counted 100 Neutrophils % (Manual) 49 % (45-75) Lymphocytes % (Manual) 20 % (20-45) Monocytes % (Manual) 31 % (1-10) H Eosinophils % (Manual) 0 % (0-3) Basophils % (Manual) 0 % (0-2) Band Neutrophils 0 % (0-8) Platelet Estimate Adequate Platelet Morphology Normal Polychromasia 1+ Hypochromasia 1+ Anisocytosis 2+ Sodium Level 138 MMOL/L (136-145) Pending Potassium Level 5.1 MMOL/L (3.5-5.1) Pending Chloride Level 103 MMOL/L (98-107) Pending Carbon Dioxide Level 29 MMOL/L (21-32) Pending Anion Gap 7 mmol/L (5-15) Blood Urea Nitrogen 19 mg/dL (7-18) H Pending Creatinine 1.0 MG/DL (0.55-1.30) Pending Estimated Glomerular Filtration Rate > 60 mL/min (>60) Pending Glucose Level 79 MG/DL (74-106) Pending Lactic Acid Level 0.60 mmol/L (0.4-2.0) Calcium Level 9.1 MG/DL (8.5-10.1) Pending Total Bilirubin 0.2 MG/DL (0.2-1.0) Aspartate Amino Transferase (AST) 26 U/L (15-37) Alanine Aminotransferase (ALT) 18 U/L (12-78) Alkaline Phosphatase 131 U/L (46-116) H Troponin I 0.013 ng/mL (0.000-0.056) Pro-B-Type Natriuretic Peptide 3090 pg/mL (0-125) H Total Protein 8.6 G/DL (6.4-8.2) H Albumin 2.6 G/DL (3.4-5.0) L Pending Globulin 6.0 g/dL Albumin/Globulin Ratio 0.4 (1.0-2.7) L Phosphorus Level Pending Microbiology Date/Time Source Procedure Growth Status 09/07/19 14:00 Nasal Nares - Final Complete 09/07/19 14:00 Nasal Nares - Final Complete EKG Diagnostic Results EKG Time: 13:30 Rate: normal Rhythm: NSR ST Segments: no acute changes Other Impression Sinus rhythm, normal axis, normal intervals, T wave inversions in the lateral leads. No ST segment changes. Rhythm Strip Diag. Results Rhythm Strip Time: 13:30 EP Interpretation: yes Rate: 90s Rhythm: NSR, no PVC's, no ectopy Chest X-Ray Diagnostic Results Chest X-Ray Diagnostic Results : Chest X-Ray Ordered: Yes # of Views/Limited/Complete: 1 View Indication: Shortness of Breath EP Interpretation: Yes Interpretation: other - Bilateral pulmonary vascular congestion and possible consolidation on the right upper lobe. Foreign body, metallic, right chest Impression: Other - Bilateral congestion, foreign body right chest, possible consolidation right side. Electronically Signed by: Electronically signed by Dr. Isael King Disposition: ADMITTED INPATIENT Condition: Serious Isael King MD Sep 07, 2019 13:09
[2019-09-07 13:14] VITALS: BP 134/86
--- NOTE | 2019-09-07 13:14 | NUR ---
ED Nurse Note: Pt from [facility] brought in by [facility] came in due to SOB with coughing x 3 days. Per EMS, pt was also reported to have coughing as chronic symptom due to COPD. 99.1 F in triage. AAO x4, follows commands with non labored breathing. Noted abd distension with hernia.
[2019-09-07] MEDS ORDERED: Azithromycin 500 MG in NS 275 ML IV ONE (13:15)
[2019-09-07] MEDS ORDERED: cefTRIAXone 1 GM in NS 55 ML IVPB ONE (13:15)
[2019-09-07] MEDS ORDERED: COREG3.125 MG ORAL (13:20)
[2019-09-07] MEDS ORDERED: DUONEB 0.5-3(2.53 ML HHN (13:20)
[2019-09-07] MEDS ORDERED: AUGMENTIN 875-1 EAC1 ORAL (13:20)
[2019-09-07] MEDS ORDERED: MELATONIN5 M5 ORAL (13:20)
[2019-09-07] MEDS ORDERED: NAMENDA5 MG ORAL (13:20)
[2019-09-07] MEDS ORDERED: PROTONIX40 MG ORAL (13:20)
[2019-09-07] MEDS ORDERED: FERROUSUL325 M1 PO (13:20)
[2019-09-07] MEDS ORDERED: FLOMAX0.4 MG ORAL (13:20)
[2019-09-07] MEDS ORDERED: BENADRYL ALLERG25 M1 PO (13:20)
[2019-09-07] MEDS ORDERED: AVODART0.5 MG ORAL (13:20)
--- NOTE | 2019-09-07 14:00 | NUR ---
ED Nurse Note: Collected blood, flu swab and covid19 swab then sent to lab.
[2019-09-07 14:26] LABS: HEMOGLOBIN 10.2 G/DL (14.2-18.0); MEAN CORPUSCULAR VOLUME 83 FL (80-99); PLATELET COUNT 198 K/UL (150-450); RED BLOOD COUNT 3.84 M/UL (4.70-6.10); RED CELL DISTRIBUTION WIDTH 20.2 % (11.6-14.8); WHITE BLOOD COUNT 11.5 K/UL (4.8-10.8)
[2019-09-07 14:41] LABS: ANION GAP 7 mmol/L (5-15); BLOOD UREA NITROGEN 19 mg/dL (7-18); CALCIUM 9.1 MG/DL (8.5-10.1); CARBON DIOXIDE 29 MMOL/L (21-32); CHLORIDE 103 MMOL/L (98-107); POTASSIUM 5.1 MMOL/L (3.5-5.1); SODIUM 138 MMOL/L (136-145)
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
[2019-09-07 14:51] LABS: ALANINE AMINOTRANSFERASE 18 U/L (12-78); ALBUMIN 2.6 G/DL (3.4-5.0); ALBUMIN/GLOBULIN RATIO 0.4 (1.0-2.7); ALKALINE PHOSPHATASE 131 U/L (46-116); ASPARTATE AMINO TRANSFERASE 26 U/L (15-37); BILIRUBIN,TOTAL 0.2 MG/DL (0.2-1.0)
--- NOTE | 2019-09-07 15:03 | NUR ---
HAND-OFF: Report given to Renee ESCOBEDO.
[2019-09-07 15:08] VITALS: BP 130/80
--- NOTE | 2019-09-07 15:08 | NUR ---
ED Nurse Note: report received from candice Blackwell RN. pt in bed, awake, alert, no acute distress is noted. VSS as documented
[2019-09-07] MEDS ORDERED: Miralax 17gm pkt ORAL PRN (15:15)
[2019-09-07] MEDS ORDERED: Albuterol/Ipratropium 3ml neb HHN PRN (15:15)
--- NOTE | 2019-09-07 16:00 | NUR ---
ED Nurse Note: pt brought up to room 216 accompanied by environmental science technician and RN in stable condition. pt connected to monitor box. covid19 precaution applied duruing transport. report given to FANNY Pierre. belonging list signed off
[2019-09-07 16:20] VITALS: BP 136/66
--- NOTE | 2019-09-07 16:20 | NUR ---
NURSE NOTES: Received report from FANNY Pope. Patient in bed resting, no active s/s cardiac, respiratory distress noticed at this time. Patient wear mask when transferred, knifeman on. IV on right Hand 22G, asymptomatic, patent, intact. Endorsed COVID-19 swab collected. Patient on room air, SR with HR 90, AOx4. Occasional cough, no SOB at this time. Bed in lowest position, side rails upx2, call light within reach. Will continue to monitor.
--- NOTE | 2019-09-07 16:47 | NUR ---
NURSE NOTES: Received admission order from Dr. Whitney. Patient refused to give a new pack of cigarette to RN, stated "It's mine, nobody can touch", CN made aware, pressroom supervisor called.
[2019-09-07] MEDS: Vancomycin 750mg/D5W 275ml IVPB SCH ×2 (17:41)
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
--- NOTE | 2019-09-07 19:39 | NUR ---
HAND-OFF: Report given to FANNY Jameson. Endorsed plan of care.
--- NOTE | 2019-09-07 19:42 | NUR ---
NURSE NOTES: Received report from FANNY Pierre. Patient is alert and oriented x 4, able to communicate his needs. Patient is on room air, without respiratory distress reported. compliance monitor on and shows on sinus rhythm at this time, no complaints of pain nor discomfort. Patient has IV site on right hand G-22 saline lock that is intact, patent and asymptomatic. Patient is continent, able to use urinal. Safety measures are in placed, bed locked and low position, call light and bed side table within reach, bed alarm is on, side rails up x 2. Patient is on airborne precaution. Will continue plan of care.
[2019-09-07 20:00] VITALS: BP 133/68
[2019-09-07] MEDS: Cefepime HCl 2 GM in D5W 110 ML IV SCH (20:50)
[2019-09-07] MEDS: Heparin 5000 units/ml inj SUBQ SCH (21:35)
[2019-09-07] MEDS ORDERED: Vancomycin 1 GM in D5W 275 ML IV SCH (23:00)
[2019-09-08] VITALS (7 sets, daily range): BP systolic 110–152; BP diastolic 63–99
--- NOTE | 2019-09-08 00:41 | NUR ---
NURSE NOTES: Patiemt Addendum: 09/08/19 at 0045 by Gail Cody RN Patient is requesting for a medication to aid him to sleep. Dr. Parisi notified thru text. Awaiting for response.
[2019-09-08] MEDS ORDERED: Zolpidem 5mg tab ORAL PRN (02:45)
[2019-09-08] MEDS: Vancomycin 750mg/D5W 275ml IVPB SCH ×4 (05:31→17:25)
[2019-09-08 06:36] LABS: HEMATOCRIT 28.2 % (42.0-52.0); MEAN CORPUSCULAR VOLUME 83 FL (80-99); PLATELET COUNT 172 K/UL (150-450); RED BLOOD COUNT 3.42 M/UL (4.70-6.10); RED CELL DISTRIBUTION WIDTH 19.4 % (11.6-14.8)
[2019-09-08 06:37] LABS: ALBUMIN 2.2 G/DL (3.4-5.0); ANION GAP 9 mmol/L (5-15); BLOOD UREA NITROGEN 20 mg/dL (7-18); CALCIUM 8.5 MG/DL (8.5-10.1); CARBON DIOXIDE 25 MMOL/L (21-32); CHLORIDE 104 MMOL/L (98-107); CREATININE 0.9 MG/DL (0.55-1.30); PHOSPHORUS 3.7 MG/DL (2.5-4.9); POTASSIUM 4.8 MMOL/L (3.5-5.1); SODIUM 138 MMOL/L (136-145)
--- NOTE | 2019-09-08 07:52 | NUR ---
HAND-OFF: Report given to FANNY Leos. Patient is in stable condition without complaints made at this time, plan of care endorsed.
--- NOTE | 2019-09-08 07:55 | NUR ---
NURSE NOTES: Report received from FANNY Jameson. Pt. AOx4. In RA. Saturating 95. Denies pain or SOB. infrequent cough episodes expressed. Room made free of clutter. Plan of care communicated. Bed on lowest position, side rails upx2, brakes engaged. Pt. able to ambulate to restroom safely. Fall precaution measures explained. Call light within easy reach.
[2019-09-08] MEDS: Heparin 5000 units/ml inj SUBQ SCH ×2 (09:00→21:00)
[2019-09-08] MEDS: Cefepime HCl 2 GM in D5W 110 ML IV SCH ×2 (09:00→21:00)
[2019-09-08] MEDS: Memantine 5 MG TAB ORAL SCH (09:00)
[2019-09-08] MEDS: Tamsulosin 0.4mg cap ORAL SCH (09:00)
--- NOTE | 2019-09-08 11:34 | Consultation ---
History of Present Illness General Date patient seen: Sep 08, 2019 Chief Complaint: Dyspnea/Respdistress Present Illness HPI 74-year-old male with PMHx of schizophrenia, COPD, hypertension presented to ER from a long-term facility with CC of cough and shortness of breath. Patient had 3 days nonproductive cough and low-grade fevers at his facility. Noted to have a right lower lobe infiltrate on x-ray. Sent for hospitalization and treatment of pneumonia by his PMD. . Denies chest pain, vomiting, diarrhea. Allergies: Coded Allergies: No Known Allergies (Verified , 10/13/07) Medication History Scheduled Aripiprazole* (Abilify*), 2.5 MG ORAL DAILY, (Reported) Atorvastatin Calcium* (Lipitor*), 10 MG ORAL BEDTIME, (Reported) Carvedilol (Coreg), 3.125 MG ORAL TWICE A DAY, (Reported) Cyanocobalamin (Vitamin B-12)* (Vitamin B-12*), 1,000 MCG ORAL DAILY, (Reported) Docusate Sodium* (Colace*), 100 MG ORAL DAILY, (Reported) Dutasteride (Avodart), 0.5 MG ORAL DAILY, (Reported) Ferrous Sulfate (Ferrousul), 325 MG PO DAILY, (Reported) Folic Acid* (Folic Acid*), 1 MG ORAL DAILY, (Reported) Gabapentin* (Neurontin*), 300 MG ORAL THREE TIMES A DAY, (Reported) Loratadine (Claritin), 10 MG ORAL DAILY, (Reported) Melatonin (Melatonin), 3 MG ORAL BEDTIME, (Reported) Memantine Hcl* (Namenda*), 5 MG ORAL DAILY, (Reported) Mirtazapine* (Remeron*), 15 MG ORAL BEDTIME, (Reported) Pantoprazole* (Protonix*), 40 MG ORAL DAILY, (Reported) Tamsulosin HCl (Flomax), 0.4 MG ORAL DAILY, (Reported) Scheduled PRN Acetaminophen* (Tylenol*), 325 MG PO Q4H PRN for Mild Pain/Temp > 100.5, ( Reported) Diphenhydramine Hcl (Benadryl Allergy), 25 MG PO Q6HR PRN for Itching/Pruritis, (Reported) Hydrocodone Bit/Acetaminophen 5-325* ([place] 5-325*), 1 TAB ORAL Q6H PRN for For Pain, (Reported) Ipratropium/Albuterol Sulfate (DuoNeb 0.5-3(2.5)mg/3ml), 3 ML HHN Q6HR PRN for Shortness of Breath, (Reported) Methocarbamol* (Robaxin-500*), 500 MG ORAL QID PRN for For Pain, (Reported) Discontinued Medications Amoxicillin/Potassium Clav 875-125* (Augmentin 875-125 Tablet*), 1 TAB ORAL TWICE A DAY, (Reported) Discontinued Reason: Therapy completed Calcium Carbonate/Vitamin D3 (Os-Iron 500+D3 Caplet), 1 EACH PO BID, (Reported) Discontinued Reason: MD discontinued med Patient History Healthcare decision maker Resuscitation status Full Code Advanced Directive on File Past Medical/Surgical History Past Medical/Surgical History: (1) Diverticulum of esophagus (2) COPD (chronic obstructive pulmonary disease) (3) Depression (4) Schizophrenia (5) Hypertension Review of Systems Respiratory: Reports: cough, orthopnea, shortness of breath Physical Exam General Appearance: WD/WN, no apparent distress Lines, tubes and drains: peripheral HEENT: normocephalic, atraumatic Neck: non-tender, normal alignment Respiratory/Chest: chest wall non-tender, lungs clear Breasts: no masses Cardiovascular/Chest: normal peripheral pulses Abdomen: normal bowel sounds, non tender Genitourinary/Rectal: normal genital exam, normal rectal exam Extremities: normal range of motion, non-tender Skin Exam: normal pigmentation Last 24 Hour Vital Signs Date Time Temp Pulse Resp B/P (MAP) Pulse Ox O2 Delivery O2 Flow Rate FiO2 09/08/19 09:30 100 110/70 09/08/19 09:00 Room Air 09/08/19 08:00 100 09/08/19 08:00 98.9 100 18 110/70 (83) 96 09/08/19 04:00 98.5 105 18 127/68 (87) 97 09/08/19 04:00 98 09/08/19 00:00 101 09/08/19 00:00 98.4 105 18 130/77 (94) 95 09/07/19 21:00 Room Air 09/07/19 20:51 97 133/68 09/07/19 20:00 97.9 100 17 133/68 (89) 97 09/07/19 19:04 105 09/07/19 16:53 Room Air 09/07/19 16:20 98.9 90 15 136/66 (89) 92 09/07/19 16:00 99.0 80 17 126/84 97 Room Air 09/07/19 15:08 99.0 75 16 130/80 98 Room Air 09/07/19 13:14 99.1 78 16 134/86 99 Room Air 09/07/19 13:14 70 18 Room Air 09/07/19 13:04 99.1 70 18 128/70 (89) 96 Room Air Intake and Output 09/07/19 09/08/19 19:00 07:00 Intake Total 1255 ml 400 ml Output Total 300 ml Balance 1255 ml 100 ml Intake Oral 200 ml 400 ml IV Total 1055 ml Output Urine Total 300 ml # Voids 1 3 # Bowel Movements 1 1 Laboratory Tests Test 09/07/19 14:00 09/08/19 05:50 White Blood Count 11.5 K/UL (4.8-10.8) H 10.0 K/UL (4.8-10.8) Red Blood Count 3.84 M/UL (4.70-6.10) L 3.42 M/UL (4.70-6.10) L Hemoglobin 10.2 G/DL (14.2-18.0) L 9.0 G/DL (14.2-18.0) L Hematocrit 32.0 % (42.0-52.0) L 28.2 % (42.0-52.0) L Mean Corpuscular Volume 83 FL (80-99) 83 FL (80-99) Mean Corpuscular Hemoglobin 26.5 PG (27.0-31.0) L 26.5 PG (27.0-31.0) L Mean Corpuscular Hemoglobin Concent 31.7 G/DL (32.0-36.0) L 32.1 G/DL (32.0-36.0) Red Cell Distribution Width 20.2 % (11.6-14.8) H 19.4 % (11.6-14.8) H Platelet Count 198 K/UL (150-450) 172 K/UL (150-450) Mean Platelet Volume 5.3 FL (6.5-10.1) L 5.6 FL (6.5-10.1) L Neutrophils (%) (Auto) % (45.0-75.0) % (45.0-75.0) Lymphocytes (%) (Auto) % (20.0-45.0) % (20.0-45.0) Monocytes (%) (Auto) % (1.0-10.0) % (1.0-10.0) Eosinophils (%) (Auto) % (0.0-3.0) % (0.0-3.0) Basophils (%) (Auto) % (0.0-2.0) % (0.0-2.0) Differential Total Cells Counted 100 100 Neutrophils % (Manual) 49 % (45-75) 52 % (45-75) Lymphocytes % (Manual) 20 % (20-45) 13 % (20-45) L Monocytes % (Manual) 31 % (1-10) H 29 % (1-10) H Eosinophils % (Manual) 0 % (0-3) 6 % (0-3) H Basophils % (Manual) 0 % (0-2) 0 % (0-2) Band Neutrophils 0 % (0-8) 0 % (0-8) Platelet Estimate Adequate Adequate Platelet Morphology Normal Normal Polychromasia 1+ Hypochromasia 1+ 2+ Anisocytosis 2+ 2+ Sodium Level 138 MMOL/L (136-145) 138 MMOL/L (136-145) Potassium Level 5.1 MMOL/L (3.5-5.1) 4.8 MMOL/L (3.5-5.1) Chloride Level 103 MMOL/L (98-107) 104 MMOL/L (98-107) Carbon Dioxide Level 29 MMOL/L (21-32) 25 MMOL/L (21-32) Anion Gap 7 mmol/L (5-15) 9 mmol/L (5-15) Blood Urea Nitrogen 19 mg/dL (7-18) H 20 mg/dL (7-18) H Creatinine 1.0 MG/DL (0.55-1.30) 0.9 MG/DL (0.55-1.30) Estimat Glomerular Filtration Rate > 60 mL/min (>60) > 60 mL/min (>60) Glucose Level 79 MG/DL (74-106) 102 MG/DL (74-106) Lactic Acid Level 0.60 mmol/L (0.4-2.0) Calcium Level 9.1 MG/DL (8.5-10.1) 8.5 MG/DL (8.5-10.1) Total Bilirubin 0.2 MG/DL (0.2-1.0) Aspartate Amino Transf (AST/SGOT) 26 U/L (15-37) Alanine Aminotransferase (ALT/SGPT) 18 U/L (12-78) Alkaline Phosphatase 131 U/L (46-116) H Troponin I 0.013 ng/mL (0.000-0.056) Pro-B-Type Natriuretic Peptide 3090 pg/mL (0-125) H Total Protein 8.6 G/DL (6.4-8.2) H Albumin 2.6 G/DL (3.4-5.0) L 2.2 G/DL (3.4-5.0) L Globulin 6.0 g/dL Albumin/Globulin Ratio 0.4 (1.0-2.7) L Phosphorus Level 3.7 MG/DL (2.5-4.9) Microbiology Date/Time Source Procedure Growth Status 09/07/19 14:00 Nasal Nares - Final Complete 09/07/19 14:00 Nasal Nares - Final Complete 09/07/19 14:00 Rectum Received Height (Feet): 5 Height (Inches): 11.00 Weight (Pounds): 150 Medications Current Medications Medications (Trade) Dose Ordered Sig/Chiqui Route PRN Reason Start Time Stop Time Status Last Admin Dose Admin Acetaminophen (Tylenol) 650 mg Q4H PRN ORAL FEVER 09/07/19 15:15 10/07/19 15:14 Acetaminophen/ Hydrocodone Bitart ([place] 5/325) 1 tab Q6H PRN ORAL For Pain 09/07/19 15:15 09/14/19 15:14 Albuterol/ Ipratropium (Albuterol/ Ipratropium) 3 ml Q4H PRN HHN Shortness of Breath 09/07/19 15:15 09/12/19 15:14 Aripiprazole (Abilify) 2.5 mg DAILY ORAL 09/08/19 09:00 10/23/19 08:59 09/08/19 09:00 Carvedilol (Coreg) 3.125 mg Q12HR ORAL 09/07/19 21:00 10/07/19 20:59 09/08/19 09:30 Cefepime HCl 2 gm/ Dextrose 110 ml @ 220 mls/hr EVERY 12 HOURS IV 09/07/19 21:00 09/14/19 20:59 09/08/19 09:00 Dextrose (Dextrose 50%) 25 ml Q30M PRN IV Hypoglycemia 09/07/19 15:15 12/06/19 15:14 Dextrose (Dextrose 50%) 50 ml Q30M PRN IV Hypoglycemia 09/07/19 15:15 12/06/19 15:14 Gabapentin (Neurontin) 300 mg THREE TIMES A DAY ORAL 09/07/19 18:00 10/07/19 17:59 09/08/19 09:00 Heparin Sodium (Porcine) (Heparin 5000 units/ml) 5,000 units EVERY 12 HOURS SUBQ 09/07/19 21:00 10/22/19 20:59 09/08/19 09:00 Memantine (Namenda) 5 mg DAILY ORAL 09/08/19 09:00 10/08/19 08:59 09/08/19 09:00 Mirtazapine (Remeron) 15 mg BEDTIME ORAL 09/07/19 21:00 12/06/19 20:59 09/07/19 20:56 Ondansetron HCl (Zofran) 4 mg Q6H PRN IVP Nausea & Vomiting 09/07/19 15:15 10/07/19 15:14 Polyethylene Glycol (Miralax) 17 gm DAILYPRN PRN ORAL Constipation 09/07/19 15:15 10/07/19 15:14 Tamsulosin HCl (Flomax) 0.4 mg DAILY ORAL 09/08/19 09:00 10/08/19 08:59 Vancomycin HCl (Vanco rx to dose) 1 ea DAILY PRN MISC . 09/07/19 16:15 10/07/19 16:14 Vancomycin HCl 750 mg/Dextrose 275 ml @ 183.333 mls/hr Q12HR@0600,1800 IVPB 09/07/19 18:00 09/12/19 17:59 09/08/19 05:31 Zolpidem Tartrate (Ambien) 5 mg QHS PRN ORAL Insomnia 09/08/19 02:45 09/15/19 02:44 Assessment/Plan Problem List: (1) Nosocomial pneumonia ICD Codes: J18.9 - Pneumonia, unspecified organism; Y95 - Nosocomial condition SNOMED: 814396281 (2) Suspected COVID-19 virus infection ICD Codes: R68.89 - Other general symptoms and signs SNOMED: 000531852 (3) COPD (chronic obstructive pulmonary disease) ICD Codes: J44.9 - Chronic obstructive pulmonary disease, unspecified SNOMED: 08419099 (4) Diverticulum of esophagus ICD Codes: 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
--- NOTE | 2019-09-08 13:57 | NUR ---
CASE MANAGEMENT:REVIEW 74 YR OLD MALE BIBA FROM [facility] CC: SOB, COUGH AND TEMP X3 DAYS SI: PNEUMONIA. SUSPECTED COVID 19 99.1 70 18 128/70 96% ON RA WBC+11.5 IS: 1L NS BOLUS IV ROCEPHIN IV AZITHROMYCIN COVID 19 CHEST XRAY BLOOD CX : TO TELEMETRY
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
--- NOTE | 2019-09-08 16:15 | History and Physical Report ---
DATE OF ADMISSION: 09/07/2019 DATE AND TIME SEEN: 09/08/2019 at 12 noon. CONSULTANTS: 1. Billy Whitney M.D. 2. Sherman Sung M.D. CHIEF COMPLAINT: Shortness of breath, cough, pneumonia, pending COVID. BRIEF HISTORY: This is a 74-year-old male from [facility], who presented with above-mentioned diagnoses for several days, came in, diagnosed with pneumonia, sepsis, and pending COVID test and admitted to [facility] under isolation currently. Sleeping in bed, not talking much. REVIEW OF SYSTEMS: Unavailable. PAST MEDICAL HISTORY: Weakness, failure to thrive, hypertension, schizophrenia. PAST SURGICAL HISTORY: None. ALLERGIES: Denies. MEDICATIONS: Include , memantine, , zolpidem, carvedilol, mirtazapine, cefepime, vancomycin, [place], Zofran, albuterol. SOCIAL HISTORY: Positive smoking. Positive alcohol. No intravenous drug abuse. FAMILY HISTORY: Noncontributory. PHYSICAL EXAMINATION: GENERAL: Sleeping in bed, therefore calm. Calm in bed. VITAL SIGNS: Temperature is 98 degrees, pulse is 98, respirations 17, blood pressure 120/67. HEENT: Normocephalic and atraumatic. Anicteric sclerae. NECK: Trachea midline. CARDIOVASCULAR: No peripheral edema noted. PULMONARY: Breathing comfortably on room air. ABDOMEN: No apparent wounds noted. EXTREMITIES: No cyanosis or clubbing. LABORATORY AND DIAGNOSTIC STUDIES: Laboratories at this time show initial white count 11.5, now it is 10, hemoglobin and hematocrit 9/28, platelets 172. BMP shows BUN 20, albumin 2.2, otherwise normal BMP. ASSESSMENT: 1. Shortness of breath. 2. Cough. 3. Pneumonia. 4. Sepsis. 5. Pending COVID results. 6. Anemia. 7. Malnutrition. 8. Weakness. 9. Failure to thrive. 10. Hypertension. 11. Schizophrenia. PLAN: 1. O2, pulmonary treatment. 2. Antibiotics per Infectious Disease. 3. Blood pressure, pain control. 4. PT and dietary evaluation. 5. Resume home medications. 6. CBC and BMP in the morning. Charles Parisi D.O. DR: NATALI JOB#: [id number] CC:
--- NOTE | 2019-09-08 19:00 | NUR ---
NURSE NOTES: Pt. in stable condition. Temp 99.0 Denies any pain or discomfort. Able to walk to the restroom safe. IV vanco running, site intact. Room made free of clutter.
--- NOTE | 2019-09-08 19:30 | NUR ---
HAND-OFF: Report given to FANNY Garcia. Pt. in stable condition. Plan of care endorsed.
--- NOTE | 2019-09-08 20:00 | NUR ---
NURSE NOTES: Report received from FANNY Leos. Pt. AOx4. On RA. Denies pain or SOB. infrequent cough episodes with small expectorant . Plan of care communicated. Bed in lowest position, side rails upx2. Pt. able to ambulate to restroom safely, urinal at bedside Fall precaution measures explained kaz implemented. Call light within easy reach.
[2019-09-09] VITALS: BP 128/65
[2019-09-09 04:00] VITALS: BP 120/70
[2019-09-09] MEDS: Vancomycin 750mg/D5W 275ml IVPB SCH ×2 (05:37)
[2019-09-09 07:07] LABS: HEMATOCRIT 30.1 % (42.0-52.0); HEMOGLOBIN 9.6 G/DL (14.2-18.0); MEAN CORPUSCULAR VOLUME 82 FL (80-99); PLATELET COUNT 164 K/UL (150-450); RED BLOOD COUNT 3.65 M/UL (4.70-6.10); RED CELL DISTRIBUTION WIDTH 19.5 % (11.6-14.8); WHITE BLOOD COUNT 7.1 K/UL (4.8-10.8)
[2019-09-09 07:22] LABS: ANION GAP 8 mmol/L (5-15); BLOOD UREA NITROGEN 24 mg/dL (7-18); CALCIUM 8.8 MG/DL (8.5-10.1); CARBON DIOXIDE 27 MMOL/L (21-32); CHLORIDE 100 MMOL/L (98-107); POTASSIUM 4.7 MMOL/L (3.5-5.1); SODIUM 134 MMOL/L (136-145)
--- NOTE | 2019-09-09 07:46 | NUR ---
HAND-OFF: Report given to FANNY Musa
[2019-09-09 08:00] VITALS: BP 136/76
--- NOTE | 2019-09-09 08:14 | NUR ---
NURSE NOTES: Received patient from Adolfo Baez. Patient is awake laying comfortably in bed. NO complain of pain or discomfort at this time. VSS. Fall precautions in place. Airborne isolation in place patient awaiting swab result. Call [facility] within patients reached. Patient encouraged to utilized call [facility]. Will monitor patient this shift.
--- NOTE | 2019-09-09 09:00 | General Progress Note ---
Assessment/Plan Problem List: (1) Pneumonia ICD Codes: J18.9 - Pneumonia, unspecified organism SNOMED: 399454835 (2) Suspected COVID-19 virus infection ICD Codes: R68.89 - Other general symptoms and signs SNOMED: 970523958 (3) Anemia ICD Codes: D64.9 - Anemia, unspecified SNOMED: 484391919 (4) FTT (failure to thrive) in adult ICD Codes: R62.7 - Adult failure to thrive SNOMED: 705939784 (5) Schizophrenia ICD Codes: F20.9 - Schizophrenia, unspecified SNOMED: 09395676 (6) Hypertension ICD Codes: I10 - Essential (primary) hypertension SNOMED: 40034463 Status: unchanged Assessment/Plan: o2 pulm tx abd ot diet eval cbc bmp am Subjective Constitutional: Reports: weakness Allergies: Coded Allergies: No Known Allergies (Verified , 10/13/07) All Systems: reviewed and negative except above Subjective sleepy in bed Objective Last 24 Hour Vital Signs Date Time Temp Pulse Resp B/P (MAP) Pulse Ox O2 Delivery O2 Flow Rate FiO2 09/09/19 08:00 98.1 88 19 136/76 (96) 98 09/09/19 04:00 92 09/09/19 04:00 97.9 91 18 120/70 (87) 97 09/09/19 00:00 89 09/09/19 00:00 98.2 98 18 128/65 (86) 97 09/08/19 21:38 98.1 93 18 134/83 (100) 96 09/08/19 21:00 Room Air 09/08/19 21:00 93 134/83 09/08/19 20:00 91 09/08/19 20:00 98.2 90 19 120/80 (93) 96 09/08/19 16:00 91 09/08/19 16:00 99.0 99 20 116/63 (80) 97 09/08/19 16:00 86 09/08/19 12:38 98.6 98 17 120/67 (84) 98 09/08/19 12:00 86 09/08/19 09:30 100 110/70 09/08/19 09:00 Room Air Intake and Output 09/08/19 09/09/19 18:59 06:59 Intake Total 680 ml 480 ml Output Total 1200 ml 850 ml Balance -520 ml -370 ml Intake Oral 680 ml 480 ml Output Urine Total 1200 ml 850 ml # Voids 2 3 # Bowel Movements 1 Laboratory Tests 09/09/19 06:52: White Blood Count 7.1, Red Blood Count 3.65L, Hemoglobin 9.6L, Hematocrit 30.1L , Mean Corpuscular Volume 82, Mean Corpuscular Hemoglobin 26.3L, Mean Corpuscular Hemoglobin Concent 31.9L, Red Cell Distribution Width 19.5H, Platelet Count 164, Mean Platelet Volume 5.2L, Neutrophils (%) (Auto) , Lymphocytes (%) (Auto) , Monocytes (%) (Auto) , Eosinophils (%) (Auto) , Basophils (%) (Auto) , Differential Total Cells Counted 100, Neutrophils % ( Manual) 43L, Lymphocytes % (Manual) 21, Monocytes % (Manual) 35H, Eosinophils % (Manual) 1, Basophils % (Manual) 0, Band Neutrophils 0, Platelet Estimate Adequate, Platelet Morphology Normal, Hypochromasia 2+, Anisocytosis 2+, Sodium Level 134L, Potassium Level 4.7, Chloride Level 100, Carbon Dioxide Level 27, Anion Gap 8, Blood Urea Nitrogen 24H, Creatinine 1.0, Estimat Glomerular Filtration Rate > 60, Glucose Level 108H, Calcium Level 8.8, Vancomycin Level Trough 24.8H Height (Feet): 5 Height (Inches): 11.00 Weight (Pounds): 156 General Appearance: lethargic EENT: normal ENT inspection Neck: normal alignment Cardiovascular: normal peripheral pulses, normal rate, regular rhythm Extremities: normal inspection Skin: normal pigmentation Charles Parisi DO Sep 09, 2019 09:00
[2019-09-09] MEDS: Tamsulosin 0.4mg cap ORAL SCH (09:27)
[2019-09-09] MEDS: Memantine 5 MG TAB ORAL SCH (09:27)
[2019-09-09] MEDS: Cefepime HCl 2 GM in D5W 110 ML IV SCH ×2 (09:28→20:52)
[2019-09-09] MEDS: Heparin 5000 units/ml inj SUBQ SCH ×2 (09:29→20:52)
--- NOTE | 2019-09-09 11:38 | NUR ---
P.T Note: Hold P.T evaluation pending COVID swab result. Conferred with RN.
[2019-09-09 12:00] VITALS: BP 126/74
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
--- NOTE | 2019-09-09 13:30 | NUR ---
NURSE NOTES: Dr. Bernstein made aware of Covid swab result which ios negative. MD ordered tp d/c droplet/airborne isolation.
--- NOTE | 2019-09-09 13:55 | NUR ---
CASE MANAGEMENT:REVIEW 09/09/19 SI: PNA. COPD. COVID 19 NOT DETECTED 98.2 82 19 126/74 98% ON RA H/H-.9.6/30.1 IS: IV VANCOMYCIN Q12 IV CEFEPIME Q12 COREG PO Q12 HEPARIN SQ Q12 : TELEMETRY STATUS DCP: FROM [facility]
--- NOTE | 2019-09-09 14:15 | NUR ---
HAND-OFF: Report given to Adolfo Shook. Plan of care endorsed.
--- NOTE | 2019-09-09 14:18 | NUR ---
NURSE NOTES: Report received from Dimple Bryan RN. Pt. A/A/Ox4. On RA. Denies pain or SOB. ambulates. IV access patent and intact. Bed is in lowest position, siderails are upx2. urinal at bedside within easy reach. Fall precaution measures implemented. brakes engaged and locked. Call light within easy reach. will cont the plan of care.
--- NOTE | 2019-09-09 15:02 | NUR ---
NURSE NOTES: made Dr Parisi informed patient c/o diarrhea x3 today. will collect stool fort c-diff. will cont to monitor Addendum: 09/09/19 at 1534 by CHRIST GARAY LVN new ordered obtained and administered. placed stool hat for stool sample collection.
[2019-09-09] MEDS: HYDROcodone/Acetamin 5/325 tab ORAL PRN (15:29)
[2019-09-09 16:00] VITALS: BP 114/62
--- NOTE | 2019-09-09 16:27 | NUR ---
*-*DISCHARGE PLANNING*-* PATIENT HAS BEEN REFERRED BACK TO: [facility] P: [phone] ~~~~~~~~~~~~~~WATING FOR ACCEPTANCE~~~~~~~
--- NOTE | 2019-09-09 18:34 | NUR ---
NURSE NOTES: elimite applied as directed. directed patient not to go out his room. will cont to monitor.
--- NOTE | 2019-09-09 19:16 | NUR ---
HAND-OFF: Report given to bernardino.
[2019-09-09 20:00] VITALS: BP 125/67
[2019-09-09] MEDS: Vancomycin 500mg/D5W 110ml IVPB SCH ×2 (20:52)
[2019-09-10] MEDS: HYDROcodone/Acetamin 5/325 tab ORAL PRN (06:09)
[2019-09-10 07:21] LABS: HEMOGLOBIN 9.6 G/DL (14.2-18.0); MEAN CORPUSCULAR VOLUME 82 FL (80-99); PLATELET COUNT 162 K/UL (150-450); RED BLOOD COUNT 3.65 M/UL (4.70-6.10); RED CELL DISTRIBUTION WIDTH 19.6 % (11.6-14.8); WHITE BLOOD COUNT 6.6 K/UL (4.8-10.8)
--- NOTE | 2019-09-10 07:22 | NUR ---
Report given to Gabby ESCOBEDO. Endorsed the plan of care including bath needed for later this AM.
[2019-09-10 07:35] LABS: ANION GAP 7 mmol/L (5-15); BLOOD UREA NITROGEN 25 mg/dL (7-18); CALCIUM 8.8 MG/DL (8.5-10.1); CARBON DIOXIDE 25 MMOL/L (21-32); CHLORIDE 102 MMOL/L (98-107); SODIUM 134 MMOL/L (136-145)
--- NOTE | 2019-09-10 07:47 | NUR ---
NURSE NOTES: Received report from FANNY Mark. Patient in bed resting, no active s/s cardiac, respiratory distress noticed at this time. Patient AOx4, SR with HR 90 on room air. Patient able to ambulate with steady gait. Endorsed need of shower after scabies treatment. IV on left FA 24G, asymptomatic, patent, intact. Bed in lowest position, tmd teacher assistant rails upx2, call light within reach. Will continue to monitor.
[2019-09-10 08:00] VITALS: BP 103/61
[2019-09-10] MEDS: Cefepime HCl 2 GM in D5W 110 ML IV SCH (09:48)
[2019-09-10] MEDS: Memantine 5 MG TAB ORAL SCH (09:49)
[2019-09-10] MEDS: Tamsulosin 0.4mg cap ORAL SCH (09:49)
[2019-09-10] MEDS: Heparin 5000 units/ml inj SUBQ SCH (09:49)
--- NOTE | 2019-09-10 10:09 | NUR ---
*-*DISCHARGE PLANNING*-* PATIENT HAS BEEN REFERRED BACK TO: [facility] P: [phone] CLINICALS RE-FAXED TO FAX: [phone] ~~~~~~~~~~~~~WAITING FOR ACCEPTANCE~~~~~~~~~~~~~~~ Addendum: 09/10/19 at 1047 by BONNIE FRYE LVN LVN SENIOR USER EXPERIENCE ARCHITECT SPOKE WITH SAM AT [facility] PATIENT HAS BEEN ACCEPTED BACK TO TO ROOM 117[address] WAITING FOR OFFICIAL DISCHARGE ORDER
[2019-09-10] MEDS: Vancomycin 500mg/D5W 110ml IVPB SCH ×2 (10:32)
--- NOTE | 2019-09-10 11:02 | NUR ---
*-*DISCHARGE PLANNING*-* SPOKE WITH IFNN FROM [facility] P: [phone]. PATIENT HAS BEEN ACCEPTED. PATIENT IS BEING ASSIGNED TO, ROOM# 117C LONG TERM. ~BLACKJACK SUPERVISOR BONNIE HAS BEEN NOTIFIED~~~NO DISCHARGE ORDER YET.
--- NOTE | 2019-09-10 11:33 | General Progress Note ---
Assessment/Plan Problem List: (1) Pneumonia ICD Codes: J18.9 - Pneumonia, unspecified organism SNOMED: 327380806 (2) Suspected COVID-19 virus infection ICD Codes: R68.89 - Other general symptoms and signs SNOMED: 136850071 (3) Anemia ICD Codes: D64.9 - Anemia, unspecified SNOMED: 661066689 (4) FTT (failure to thrive) in adult ICD Codes: R62.7 - Adult failure to thrive SNOMED: 753448472 (5) Schizophrenia ICD Codes: F20.9 - Schizophrenia, unspecified SNOMED: 38963542 (6) Hypertension ICD Codes: I10 - Essential (primary) hypertension SNOMED: 08442664 Status: stable, progressing Assessment/Plan: o2 pulm tx abd pt diet eval cbc bmp am dc plan Subjective Constitutional: Reports: weakness Allergies: Coded Allergies: No Known Allergies (Verified , 10/13/07) All Systems: reviewed and negative except above Subjective sleepy in bed Objective Last 24 Hour Vital Signs Date Time Temp Pulse Resp B/P (MAP) Pulse Ox O2 Delivery O2 Flow Rate FiO2 09/10/19 09:00 Room Air 09/10/19 09:00 61 103/61 09/10/19 08:00 98.1 61 18 103/61 (75) 97 09/10/19 08:00 92 09/10/19 06:39 97.9 09/10/19 04:00 90 09/09/19 21:00 Room Air 09/09/19 20:52 84 114/62 09/09/19 20:00 89 09/09/19 20:00 97.9 85 18 125/67 (86) 98 09/09/19 18:59 84 09/09/19 16:00 98.2 89 20 114/62 (79) 98 09/09/19 13:06 84 18 100 Room Air 21 82 20 98 09/09/19 12:55 89 09/09/19 12:00 98.2 82 19 126/74 (91) 98 Intake and Output 09/09/19 09/10/19 19:00 07:00 # Voids 3 # Bowel Movements 3 Laboratory Tests 09/10/19 06:29: White Blood Count 6.6, Red Blood Count 3.65L, Hemoglobin 9.6L, Hematocrit 30.0L , Mean Corpuscular Volume 82, Mean Corpuscular Hemoglobin 26.3L, Mean Corpuscular Hemoglobin Concent 32.0, Red Cell Distribution Width 19.6H, Platelet Count 162, Mean Platelet Volume 5.5L, Neutrophils (%) (Auto) , Lymphocytes (%) (Auto) , Monocytes (%) (Auto) , Eosinophils (%) (Auto) , Basophils (%) (Auto) , Differential Total Cells Counted 100, Neutrophils % ( Manual) 35L, Lymphocytes % (Manual) 31, Monocytes % (Manual) 33H, Eosinophils % (Manual) 0, Basophils % (Manual) 1, Band Neutrophils 0, Platelet Estimate Adequate, Platelet Morphology Normal, Anisocytosis 2+, Sodium Level 134L, Potassium Level 5.0, Chloride Level 102, Carbon Dioxide Level 25, Anion Gap 7, Blood Urea Nitrogen 25H, Creatinine 1.0, Estimat Glomerular Filtration Rate > 60 , Glucose Level 84, Calcium Level 8.8 Height (Feet): 5 Height (Inches): 11.00 Weight (Pounds): 156 General Appearance: lethargic EENT: normal ENT inspection Neck: normal alignment Cardiovascular: normal peripheral pulses, normal rate, regular rhythm Respiratory/Chest: chest wall non-tender, lungs clear, normal breath sounds Abdomen: normal bowel sounds, non tender, soft Extremities: normal inspection Edema: no edema noted Arm (L), no edema noted Arm (R), no edema noted Leg (L), no edema noted Leg (R), no edema noted Pedal (L), no edema noted Pedal (R), no edema noted Generalized Neurologic: responsive, motor weakness Skin: normal pigmentation, warm/dry Charles Parisi DO Sep 10, 2019 11:33
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
[2019-09-10] MEDS ORDERED: MAXIPIME2 G1 IV (11:54)
[2019-09-10] MEDS ORDERED: VANCOMYCIN500 MG/100 IV (11:55)
[2019-09-10 12:00] VITALS: BP 125/58
--- NOTE | 2019-09-10 13:06 | CDS Physician Query ---
Clarification is required for compliance, coding accuracy, and to reflect severity of illness for this patient. Dear Dr. Charles Parisi Date: 09/10/2019 CDS name: Rachelle Guillen Clinical Documentation states: HNP: CHIEF COMPLAINT: Shortness of breath, cough , pneumonia, pending COVID...Sepsis Vitals/labs on admit: WBC 11.5, Temp 99.1, RR 18, MD 70, nasopharyngeal covid - not detected Treatment: IV vancomycin, cefepime A diagnosis of Sepsis was made in the medical record. Upon review, it is difficult to determine whether this diagnosis has been ruled in, ruled out,or is still being worked up. Please indicate below the status of the aforementioned diagnosis. [] Treated and resolve [] Presumed and treated [] Currently under treatment [] Still being worked-up [] Ruled out Present on Admission: [] Yes [] No [] Clinically Undetermined Physician signature Date Please also document in your Progress Notes and/or Discharge Summary and indicate if the condition was present on admission. THOMASD
--- NOTE | 2019-09-10 14:01 | NUR ---
*-*DISCHARGE PLANNED*-* PATIENT HAS BEEN ACCEPTED AND IS BEING DISCHARGED BACK TO: [facility] P: [phone] ROOM# 117C SKILLED NURSING. [facility] SET FOR 2:45PM PLACED A CALL TO NEXT TO KIN, NIECE: ZEN MICHELE, NO ANSWER, AND UNABLE TO LEAVE VOICE MAIL TO NOTIFY THEM ON PATIENT DISCHARGE. Addendum: 09/10/19 at 1435 by BONNIE FRYE LVN LVN [facility] CAGE TENDER TIME HAS BEEN CHANGED TO 1530
--- NOTE | 2019-09-10 15:00 | NUR ---
P.T Note: P.T evaluation completed and tx initiated. Please refer to P.T evaluation for current functional status.
--- NOTE | 2019-09-10 15:24 | NUR ---
NURSE NOTES: Report given to FANNY Cline, from [facility]. RN informed need of 3 days of antibiotic, vancomycin and cefepime.
--- NOTE | 2019-09-10 15:30 | NUR ---
NURSE NOTES: Called Giancarlo Fiore, mehdi [phone], spoke with FANNY Stauffer made aware per Dr. Hogan, change Cefepime to Ertapenem.
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
[2019-09-10] MEDS ORDERED: INVANZ1 G1 IM (15:45)
--- NOTE | 2019-09-10 16:20 | NUR ---
NURSE NOTES: Patient discharged per Dr. Parisi. Patient discharged with all belonging, ID band [facility], IV intact for IV Abx. chemical maker returned to r&d lab technician.
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
== END 2019-09-10 16:28 | DRG 871 ==
LOC: EDBD 13:03 → EMR 13:46 → 2E 13:50 → EDBEDREQ 15:40 → 2E 16:43
DX: A41.9 Sepsis, unspecified organism (principal); J18.9 Pneumonia, unspecified organism; J44.0 Chronic obstructive pulmonary disease with (acute) lower respiratory infection; F20.0 Paranoid schizophrenia; E46 Unspecified protein-calorie malnutrition; I13.10 Hypertensive heart and chronic kidney disease without heart failure, with stage 1 through stage 4 chronic kidney disease, or unspecified chronic kidney disease; N18.9 Chronic kidney disease, unspecified; K21.9 Gastro-esophageal reflux disease without esophagitis; E78.5 Hyperlipidemia, unspecified; Z85.46 Personal history of malignant neoplasm of prostate; I73.9 Peripheral vascular disease, unspecified; R62.7 Adult failure to thrive; B86 Scabies
CPT/HCPCS: 36415; 71045; 80048; 80053; 80069; 80202; 83605; 83880; 84484; 85007; 85025; 85060; 86710; 87040; 87070; 87081; 87181; 87205; 87635; 93005; 94640; 96365; 96368; 99285; J7030; J7620